=== PATIENT | male | born 1960 | race African-American/Black ===

== ENCOUNTER → 2017-06-08 | Outpatient (CLI) | payer OTHER ==
[~2017-06-08] MED LIST: AMLO10TA4 PO; CARV25TA2 PO; DILT90CA PO; FURO-69 PO; GLYB1TAB15 PO; LISI-334 PO; METF-620 PO; POTA99TA10 PO; SIMV40TA3 PO
[2017-06-08 10:55] LABS: ALBUMIN 3.1 g/dL (3.4-5.0); ALBUMIN/GLOBULIN RATIO 0.6 (1.0-1.7); CALCIUM 9.2 mg/dL (8.5-10.1); CREATININE 2.5 mg/dL (0.7-1.3); GFR 32.4; POTASSIUM 3.5 mmol/L (3.5-5.1); TOTAL BILIRUBIN 0.4 mg/dL (0.2-1.0); TOTAL PROTEIN 8.6 g/dL (6.4-8.2)
[2017-06-08 11:05] LABS: CHOLESTEROL/HDL RATIO 3.6
[2017-06-09 13:20] LABS: PTH INTACT 106 pg/mL (15-65)
== END | disposition home or self-care (01) ==
LOC: LAB 09:41
PROVIDERS: ATTEND Nurse Practitioner Family
DX: E11.21 Type 2 diabetes mellitus with diabetic nephropathy (principal)
CPT/HCPCS: 36415; 80053; 80061; 83036; 83970

== ENCOUNTER 2017-08-20 10:22 | Inpatient (IN) | payer SELFPAY ==
[~2017-08-20] VITALS: Ht 170.2 cm; Wt 104.8 kg
[2017-08-20] MEDS ORDERED: IPRATRPIUM/ALBUTEROL 0.5/2.5MG 3 ML NEBU. NEB ONE (10:45)
[2017-08-20 10:53] LABS: BASO % 1 % (0-3); EOS % 2 % (0-3); HEMATOCRIT 37.3 % (39.0-53.0); HEMOGLOBIN 11.5 g/dL (13.0-17.5); LYMPH # 0.5 x10^3/uL (1.0-4.8); LYMPH % 6 % (24-48); MEAN CORPUSCULAR HEMOGLOBIN 25 pg (25-35); MEAN CORPUSCULAR HGB CONC 31 g/dL (31-37); MEAN CORPUSCULAR VOLUME 81 fL (79-100); MONO % 6 % (0-9); NEUT % 86 % (31-73); PLATELET COUNT 231 x10^3/uL (140-400); RED BLOOD COUNT 4.58 x10^6/uL (4.30-5.70); RED CELL DISTRIBUTION WIDTH 19.4 % (11.5-14.5); WHITE BLOOD COUNT 9.1 x10^3/uL (4.0-11.0)
--- NOTE | 2017-08-20 10:54 | EKG ---
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
[2017-08-20 11:01] LABS: CALCIUM 8.2 mg/dL (8.5-10.1); CREATININE 2.8 mg/dL (0.7-1.3); GFR 28.4; POTASSIUM 4.6 mmol/L (3.5-5.1)
[2017-08-20 11:07] LABS: ALBUMIN 2.8 g/dL (3.4-5.0); DIRECT BILIRUBIN 0.2 mg/dL (0.0-0.2); TOTAL BILIRUBIN 0.6 mg/dL (0.2-1.0); TOTAL PROTEIN 7.4 g/dL (6.4-8.2)
--- NOTE | 2017-08-20 11:09 | RAD ---
AP portable chest radiograph August 20, 2017 Clinical History: Retained fluid and shortness of breath since this week. An AP portable erect digital radiograph of the chest was obtained. Comparison study is dated 11/18/2016. The cardiac silhouette is mildly enlarged. The thoracic aorta is mildly tortuous. Prominence of the pulmonary vasculature is seen suggesting mild CHF. No area of consolidation is noted. No pneumothorax or pleural effusion is seen. Degenerative changes are seen involving the thoracic spine and both shoulders. Impression: Prominence of the pulmonary vasculature is seen suggesting mild CHF.
[2017-08-20 13:04] LABS: % BASOS 1 % (0-3); % EOS 6 % (0-5); NUCLEATED RBC 1
[2017-08-20 13:05] LABS: ANISOCYTOSIS SLIGHT; PLT ESTIMATE ADEQUATE (ADEQUATE)
[2017-08-20 13:06] LABS: POLYCHROMASIA SLIGHT
[2017-08-20] MEDS ORDERED: FUROSEMIDE 40 MG TABLET. PO ONE (14:30)
[2017-08-20] MEDS ORDERED: MORPHINE SULFATE 2 MG/ML DISP.SYRIN. IV PRN (14:45)
[2017-08-20] MEDS ORDERED: ONDANSETRON PF 4 MG/2 ML VIAL. IV PRN (14:45)
--- NOTE | 2017-08-20 16:17 | PHYS DOC ---
Past Medical History Past Medical History: CHF, Diabetes-Type II, Hypertension Past Surgical History: No Surgical History Alcohol Use: Occasionally Drug Use: None Adult General Chief Complaint Chief Complaint: SHORTNESS OF BREATH HPI HPI 56-year-old male presenting to the emergency department with difficulty breathing gaining weight history of CHF. He was hypoxic on arrival to the emergency department. His shortness of breath is exertional. It is improved with rest. Improved with sitting up and worse with laying down. He denies any fevers or chills or cough. Location heart and lungs. Duration intermittent. Review of systems is negative for chest pain abdominal pain nausea vomiting diaphoresis. All other review of systems is negative unless otherwise noted in history of present illness. ED course: 56-year-old male with weight gain worsening shortness of breath which is exertional. Patient is placed on facemask initially which brought her oxygen up and then titrated down to nasal cannula. Chest x-ray and workup consistent with CHF exacerbation. Patient admitted for IV diuresis. Patient received 1 dose of furosemide in the emergency department.I have assessed this patient clinically and believe that their condition requires an admission to the hospital. Patient also has ckd. After consulting the admitting physician about this case, they have asked that I admit this patient to their service as an inpatient based on the clinical presentation and my impression. Review of Systems Review of Systems SEE ABOVE. Current Medications Current Medications Current Medications Medications (Trade) Dose Ordered Sig/Noam Start Time Stop Time Status Last Admin Dose Admin Albuterol/ Ipratropium (Duoneb) 3 ml 1X ONCE 08/20/17 10:45 08/20/17 10:46 DC 08/20/17 11:00 3 ML Furosemide (Lasix) 40 mg 1X ONCE 08/20/17 14:30 08/20/17 14:33 DC 08/20/17 14:57 40 MG Morphine Sulfate 2 mg PRN Q2HR PRN 08/20/17 14:45 08/21/17 14:44 Ondansetron HCl (Zofran) 4 mg PRN Q8HRS PRN 08/20/17 14:45 08/21/17 14:44 Allergies Allergies Allergies Coded Allergies Type Severity Reaction Last Updated Verified No Known Drug Allergies 09/19/13 No Physical Exam Physical Exam SEE ABOVE Constitutional: Well developed, well nourished, no acute distress, non-toxic appearance. HENT: Normocephalic, atraumatic, bilateral external ears normal, oropharynx moist, no oral exudates, nose normal. [] Eyes: PERRLA, EOMI, conjunctiva normal, no discharge. [] Neck: Normal range of motion, no tenderness, supple, no stridor. Cardiovascular:Heart rate regular rhythm, no murmur [] Lungs & Thorax: Crackles in the bases of the lungs. Abdomen: Bowel sounds normal, soft, no tenderness, no masses, no pulsatile masses. Skin: Warm, dry, no erythema, no rash. [] Back: No tenderness, no CVA tenderness. [] Extremities: No tenderness, no cyanosis, no clubbing, ROM intact, 3+ edema. Neurologic: Alert and oriented X 3, normal motor function, normal sensory function, no focal deficits noted. [] Psychologic: Affect normal, judgement normal, mood normal. [] Current Patient Data Vital Signs Vital Signs Date Time Temp Pulse Resp B/P (MAP) Pulse Ox O2 Delivery O2 Flow Rate FiO2 08/20/17 14:50 64 169/86 (113) 94 Nasal Cannula 08/20/17 11:03 4.0 08/20/17 10:34 98.6 22 98.6 Lab Values Laboratory Tests Test 08/20/17 10:40 White Blood Count 9.1 x10^3/uL (4.0-11.0) Red Blood Count 4.58 x10^6/uL (4.30-5.70) Hemoglobin 11.5 g/dL (13.0-17.5) L Hematocrit 37.3 % (39.0-53.0) L Mean Corpuscular Volume 81 fL (79-100) Mean Corpuscular Hemoglobin 25 pg (25-35) Mean Corpuscular Hemoglobin Concent 31 g/dL (31-37) Red Cell Distribution Width 19.4 % (11.5-14.5) H Platelet Count 231 x10^3/uL (140-400) Neutrophils (%) (Auto) 86 % (31-73) H Lymphocytes (%) (Auto) 6 % (24-48) L Monocytes (%) (Auto) 6 % (0-9) Eosinophils (%) (Auto) 2 % (0-3) Basophils (%) (Auto) 1 % (0-3) Neutrophils # (Auto) 7.8 x10^3uL (1.8-7.7) H Lymphocytes # (Auto) 0.5 x10^3/uL (1.0-4.8) L Monocytes # (Auto) 0.5 x10^3/uL (0.0-1.1) Eosinophils # (Auto) 0.2 x10^3/uL (0.0-0.7) Basophils # (Auto) 0.0 x10^3/uL (0.0-0.2) Segmented Neutrophils % 78 % (35-66) H Lymphocytes % 11 % (24-48) L Monocytes % 4 % (0-10) Eosinophils % 6 % (0-5) H Basophils % 1 % (0-3) Nucleated Red Blood Cells 1 Platelet Estimate Adequate (ADEQUATE) Large Platelets Occ Polychromasia Slight Anisocytosis Slight Sodium Level 147 mmol/L (136-145) H Potassium Level 4.6 mmol/L (3.5-5.1) Chloride Level 107 mmol/L (98-107) Carbon Dioxide Level 33 mmol/L (21-32) H Anion Gap 7 (6-14) Blood Urea Nitrogen 32 mg/dL (8-26) H Creatinine 2.8 mg/dL (0.7-1.3) H Estimated GFR (Cockcroft-Gault) 28.4 Glucose Level 172 mg/dL (70-99) H Calcium Level 8.2 mg/dL (8.5-10.1) L Total Bilirubin 0.6 mg/dL (0.2-1.0) Direct Bilirubin 0.2 mg/dL (0.0-0.2) Aspartate Amino Transferase (AST) 23 U/L (15-37) Alanine Aminotransferase (ALT) 28 U/L (16-63) Alkaline Phosphatase 61 U/L (46-116) Troponin I Quantitative < 0.017 ng/mL (0.000-0.055) GU-Sbr-Y-Type Natriuretic Peptide 2749 pg/mL (0-124) H Total Protein 7.4 g/dL (6.4-8.2) Albumin 2.8 g/dL (3.4-5.0) L Lipase 93 U/L (73-393) Laboratory Tests 08/20/17 10:40 Laboratory Tests 08/20/17 10:40 EKG EKG [] Radiology/Procedures Radiology/Procedures [] Course & Med Decision Making Course & Med Decision Making Pertinent Labs and Imaging studies reviewed. (See chart for details) [] Dragon Disclaimer Dragon Disclaimer This electronic medical record was generated, in whole or in part, using a voice recognition dictation system. Departure Departure Impression: Primary Impression: CHF exacerbation Additional Impressions: Hypoxia CKD (chronic kidney disease) Disposition: 09 ADMITTED INPATIENT Admitting Physician: Other (fulbright) Condition: STABLE Referrals: NO PCP (PCP) Problem Qualifiers ORION ESPINO MD Aug 20, 2017 16:17
--- NOTE | 2017-08-20 18:48 | PDOC1 ---
History and Physical Date of Admission Date of Admission DATE: 08/20/17 TIME: 18:47 Identification/Chief Complaint Chief Complaint Chief Complaint Chief Complaint: SHORTNESS OF BREATH HPI HPI 56-y/o male presenting to the emergency department with difficulty breathing gaining weight history of CHF. hypoxic on arrival . His shortness of breath is Improved with sitting up and worse with laying down. denies any fevers or chills or cough. 14 pt Review of systems is negative for chest pain abdominal pain nausea vomiting diaphoresis. All other review of systems is negative except as in HPI placed on face mask initially which brought her oxygen up and then titrated down to nasal cannula. Chest x-ray consistent with CHF exacerbation. 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[facility]) Current Problem List Problem List Problems Medical Problems: (1) CHF exacerbation Status: Acute (2) CKD (chronic kidney disease) Status: Acute (3) Hypoxia Status: Acute Problems: Current Medications Current Medications Current Medications Albuterol/ Ipratropium (Duoneb) 3 ml 1X ONCE NEB Last administered on t 11:00; Start 08/20/17 at 10:45; Stop 08/20/17 at 10:46; Status DC Furosemide (Lasix) 40 mg 1X ONCE PO Last administered on 08/20/17t 14:57; Start 08/20/17 at 14:30; Stop 08/20/17 at 14:33; Status DC Ondansetron HCl (Zofran) 4 mg PRN Q8HRS PRN IV NAUSEA/VOMITING; Start at 14:45; Stop 08/21/17 at 14:44 Morphine Sulfate 2 mg PRN Q2HR PRN IV PAIN; Start 08/20/17 at 14:45; Stop at 14:44 Active Scripts Active Reported Simvastatin 40 Mg Tablet 40 Mg PO DAILY Lisinopril 20 Mg Tablet 20 Mg PO DAILY Norvasc (Amlodipine Besylate) 10 Mg Tablet 10 Mg PO DAILY Metformin Hcl 1,000 Mg Tablet 1,000 Mg PO BID Lasix (Furosemide) 20 Mg Tablet 20 Mg PO DAILY Glyburide-Metformin 5-500 Mg (Glyburide/Metformin Hcl) 1 Each Tablet 1 Each PO BID Diltiazem Er (Diltiazem Hcl) 90 Mg Cap.er.12h 60 Mg PO BID Carvedilol 25 Mg Tablet 25 Mg PO BID Potassium 99 Mg Tablet 20 Meq PO BID Allergies Allergies: Coded Allergies: No Known Drug Allergies (Unverified , 09/19/13) Physical Exam Physical Exam Constitutional: Well developed, well nourished, MILD acute distress, non-toxic appearance. HENT: Normocephalic, atraumatic, oropharynx moist, no oral exudates, Eyes: PERRLA, EOMI, conjunctiva normal, no discharge. [] Neck: Normal range of motion, no tenderness, supple, no stridor. Cardiovascular:Heart rate regular rhythm, no murmur POS S3 Lungs & Thorax: Crackles in the bases of the lungs. Abdomen: Bowel sounds normal, soft, no tenderness, no masses, no pulsatile masses. Skin: Warm, dry, no erythema, no rash. [] Back: No tenderness, no CVA tenderness. [] Extremities: No tenderness, no cyanosis, no clubbing, ROM intact, 3+ edema. Neurologic: Alert and oriented X 3, normal motor function, normal sensory function, no focal deficits noted. [] Psychologic: Affect normal, judgement normal, mood normal. [] General: Alert, Oriented X3 Lungs: Other (BASILAR CRACKLES) Breasts: Not examined Abdomen: Soft, Other (OBESE) Vitals Vitals Vital Signs Date Time Temp Pulse Resp B/P (MAP) Pulse Ox O2 Delivery O2 Flow Rate FiO2 08/20/17 18:10 66 173/87 (115) 94 Nasal Cannula 5.0 08/20/17 10:34 98.6 22 98.6 Labs Labs Laboratory Tests Test 08/20/17 10:40 White Blood Count 9.1 x10^3/uL (4.0-11.0) Red Blood Count 4.58 x10^6/uL (4.30-5.70) Hemoglobin 11.5 g/dL (13.0-17.5) Hematocrit 37.3 % (39.0-53.0) Mean Corpuscular Volume 81 fL (79-100) Mean Corpuscular Hemoglobin 25 pg (25-35) Mean Corpuscular Hemoglobin Concent 31 g/dL (31-37) Red Cell Distribution Width 19.4 % (11.5-14.5) Platelet Count 231 x10^3/uL (140-400) Neutrophils (%) (Auto) 86 % (31-73) Lymphocytes (%) (Auto) 6 % (24-48) Monocytes (%) (Auto) 6 % (0-9) Eosinophils (%) (Auto) 2 % (0-3) Basophils (%) (Auto) 1 % (0-3) Neutrophils # (Auto) 7.8 x10^3uL (1.8-7.7) Lymphocytes # (Auto) 0.5 x10^3/uL (1.0-4.8) Monocytes # (Auto) 0.5 x10^3/uL (0.0-1.1) Eosinophils # (Auto) 0.2 x10^3/uL (0.0-0.7) Basophils # (Auto) 0.0 x10^3/uL (0.0-0.2) Segmented Neutrophils % 78 % (35-66) Lymphocytes % 11 % (24-48) Monocytes % 4 % (0-10) Eosinophils % 6 % (0-5) Basophils % 1 % (0-3) Nucleated Red Blood Cells 1 Platelet Estimate Adequate (ADEQUATE) Large Platelets Occ Polychromasia Slight Anisocytosis Slight Sodium Level 147 mmol/L (136-145) Potassium Level 4.6 mmol/L (3.5-5.1) Chloride Level 107 mmol/L (98-107) Carbon Dioxide Level 33 mmol/L (21-32) Anion Gap 7 (6-14) Blood Urea Nitrogen 32 mg/dL (8-26) Creatinine 2.8 mg/dL (0.7-1.3) Estimated GFR (Cockcroft-Gault) 28.4 Glucose Level 172 mg/dL (70-99) Calcium Level 8.2 mg/dL (8.5-10.1) Total Bilirubin 0.6 mg/dL (0.2-1.0) Direct Bilirubin 0.2 mg/dL (0.0-0.2) Aspartate Amino Transf (AST/SGOT) 23 U/L (15-37) Alanine Aminotransferase (ALT/SGPT) 28 U/L (16-63) Alkaline Phosphatase 61 U/L (46-116) Troponin I Quantitative < 0.017 ng/mL (0.000-0.055) YS-Utu-U-Type Natriuretic Peptide 2749 pg/mL (0-124) Total Protein 7.4 g/dL (6.4-8.2) Albumin 2.8 g/dL (3.4-5.0) Lipase 93 U/L (73-393) Laboratory Tests Test 08/20/17 10:40 White Blood Count 9.1 x10^3/uL (4.0-11.0) Red Blood Count 4.58 x10^6/uL (4.30-5.70) Hemoglobin 11.5 g/dL (13.0-17.5) Hematocrit 37.3 % (39.0-53.0) Mean Corpuscular Volume 81 fL (79-100) Mean Corpuscular Hemoglobin 25 pg (25-35) Mean Corpuscular Hemoglobin Concent 31 g/dL (31-37) Red Cell Distribution Width 19.4 % (11.5-14.5) Platelet Count 231 x10^3/uL (140-400) Neutrophils (%) (Auto) 86 % (31-73) Lymphocytes (%) (Auto) 6 % (24-48) Monocytes (%) (Auto) 6 % (0-9) Eosinophils (%) (Auto) 2 % (0-3) Basophils (%) (Auto) 1 % (0-3) Neutrophils # (Auto) 7.8 x10^3uL (1.8-7.7) Lymphocytes # (Auto) 0.5 x10^3/uL (1.0-4.8) Monocytes # (Auto) 0.5 x10^3/uL (0.0-1.1) Eosinophils # (Auto) 0.2 x10^3/uL (0.0-0.7) Basophils # (Auto) 0.0 x10^3/uL (0.0-0.2) Segmented Neutrophils % 78 % (35-66) Lymphocytes % 11 % (24-48) Monocytes % 4 % (0-10) Eosinophils % 6 % (0-5) Basophils % 1 % (0-3) Nucleated Red Blood Cells 1 Platelet Estimate Adequate (ADEQUATE) Large Platelets Occ Polychromasia Slight Anisocytosis Slight Sodium Level 147 mmol/L (136-145) Potassium Level 4.6 mmol/L (3.5-5.1) Chloride Level 107 mmol/L (98-107) Carbon Dioxide Level 33 mmol/L (21-32) Anion Gap 7 (6-14) Blood Urea Nitrogen 32 mg/dL (8-26) Creatinine 2.8 mg/dL (0.7-1.3) Estimated GFR (Cockcroft-Gault) 28.4 Glucose Level 172 mg/dL (70-99) Calcium Level 8.2 mg/dL (8.5-10.1) Total Bilirubin 0.6 mg/dL (0.2-1.0) Direct Bilirubin 0.2 mg/dL (0.0-0.2) Aspartate Amino Transf (AST/SGOT) 23 U/L (15-37) Alanine Aminotransferase (ALT/SGPT) 28 U/L (16-63) Alkaline Phosphatase 61 U/L (46-116) Troponin I Quantitative < 0.017 ng/mL (0.000-0.055) VY-Cel-O-Type Natriuretic Peptide 2749 pg/mL (0-124) Total Protein 7.4 g/dL (6.4-8.2) Albumin 2.8 g/dL (3.4-5.0) Lipase 93 U/L (73-393) VTE Prophylaxis Ordered VTE Prophylaxis Devices: Yes VTE Pharmacological Prophylaxi: Yes Assessment/Plan Assessment/Plan IMPRESSION 1. ACUTE ON CHRONIC CHF with exac 2. morbid obesity 3. diabetes 4. acute hypoxic respiratory failure 5. chronic kidney disease plan 1. iv lasix 2. serial troponin i 3. echo 4. v/q tonight 5. tele 6. cardiology consult 7. nephrology consult KENDAL BURROUGHS MD Aug 20, 2017 18:48
[2017-08-20 19:07] VITALS: BP 153/77
[2017-08-20] MEDS ORDERED: METFORMIN HCL PO SCH (21:00)
[2017-08-20] MEDS ORDERED: GLYBURIDE PO SCH (21:00)
[2017-08-20] MEDS: SIMVASTATIN 40 MG TABLET. PO SCH (21:07)
[2017-08-20] MEDS: POTASSIUM CHLORIDE 20 MEQ TABLET.ER. PO SCH (21:07)
[2017-08-20] MEDS: ENOXAPARIN 40 MG/0.4 ML SYRINGE. SQ SCH (21:08)
--- NOTE | 2017-08-20 22:42 | RAD ---
NUCLEAR MEDICINE VENTILATION PERFUSION SCAN History: Shortness of air Comparison: AP chest, earlier same day. Technique: Patient ventilated with 10 mCi of xenon-133 gas. Anterior and posterior images of the lungs acquired during initial breath-hold, equilibrium, and washout phases. Perfusion portion performed after intravenous administration of 5 mCi Technetium 99m MAA. Multiple projection planar images of the lungs were obtained. Findings: Ventilation images on initial breath-hold are relatively homogeneous. The cardiac silhouette is prominent decreasing much of the inferior left lung is seen. No retention of tracer is seen on the washout phase images.. Perfusion images demonstrate no mismatched segmental perfusion defects. IMPRESSION: Low probability for pulmonary embolus. Electronically signed by: Lonny Storm MD (08/20/2017 10:38 PM) [facility]
[2017-08-20 23:49] VITALS: BP 151/76
[2017-08-21] VITALS (12 sets, daily range): BP systolic 110–150; BP diastolic 59–83
[2017-08-21 05:40] LABS: BASO % 0 % (0-3); EOS % 2 % (0-3); HEMATOCRIT 35.8 % (39.0-53.0); LYMPH # 0.6 x10^3/uL (1.0-4.8); LYMPH % 8 % (24-48); MEAN CORPUSCULAR HEMOGLOBIN 25 pg (25-35); MEAN CORPUSCULAR HGB CONC 31 g/dL (31-37); MEAN CORPUSCULAR VOLUME 83 fL (79-100); MONO % 7 % (0-9); NEUT % 83 % (31-73); PLATELET COUNT 236 x10^3/uL (140-400); RED BLOOD COUNT 4.34 x10^6/uL (4.30-5.70); RED CELL DISTRIBUTION WIDTH 19.1 % (11.5-14.5); WHITE BLOOD COUNT 8.7 x10^3/uL (4.0-11.0)
[2017-08-21 06:23] LABS: CALCIUM 7.8 mg/dL (8.5-10.1); CREATININE 2.8 mg/dL (0.7-1.3); GFR 28.4; POTASSIUM 4.4 mmol/L (3.5-5.1)
[2017-08-21] MEDS ORDERED: metFORMIN 500 MG TABLET PO SCH (08:00)
[2017-08-21] MEDS ORDERED: glyBURIDE 5 MG TABLET PO SCH (08:00)
[2017-08-21] MEDS ORDERED: FLU VACC QS2017-18 (36MOS+)/PF 0.5 ML SYRINGE. VAX IM ONE (09:00)
[2017-08-21] MEDS ORDERED: PNEUMOC CONJ VACC 23-VALENT 0.5 ML VIAL. VAX IM ONE (09:00)
[2017-08-21] MEDS: amLODIPine BESYLATE 10 MG TABLET PO SCH (09:49)
[2017-08-21] MEDS: LISINOPRIL 20 MG TABLET PO SCH (09:49)
[2017-08-21] MEDS: POTASSIUM CHLORIDE 20 MEQ TABLET.ER. PO SCH ×2 (09:50→17:00)
--- NOTE | 2017-08-21 14:19 | PDOC ---
PROGRESS NOTES Chief Complaint Chief Complaint acute right sided weakness, code stroke this PM, neuro consult 1. ACUTE ON CHRONIC CHF with exac 2 obesity, BMI 37 3. diabetes 2, 4. acute respiratory failure 5. chronic kidney disease 3, w. hypernatremia History of Present Illness History of Present Illness 1. iv lasix 2. troponin neg 3. echo 4. v/q tonight 5. tele 6. cardiology consult 7. nephrology consult Vitals Vitals Vital Signs Date Time Temp Pulse Resp B/P (MAP) Pulse Ox O2 Delivery O2 Flow Rate FiO2 08/21/17 10:30 97.9 91 30 132/81 (98) 88 Nasal Cannula 5.0 97.9 Physical Exam General: Alert, Oriented X3, No acute distress Heart: No murmurs Lungs: Clear Abdomen: Soft, Other (OBESE) Extremities: No edema Skin: No rashes Labs LABS Laboratory Tests Test 08/20/17 21:30 08/21/17 00:01 08/21/17 02:35 08/21/17 05:00 Glucose (Fingerstick) 136 mg/dL (70-99) Troponin I Quantitative 0.019 ng/mL (0.000-0.055) 0.019 ng/mL (0.000-0.055) Sodium Level 149 mmol/L (136-145) Potassium Level 4.4 mmol/L (3.5-5.1) Chloride Level 108 mmol/L (98-107) Carbon Dioxide Level 34 mmol/L (21-32) Anion Gap 7 (6-14) Blood Urea Nitrogen 30 mg/dL (8-26) Creatinine 2.8 mg/dL (0.7-1.3) Estimated GFR (Cockcroft-Gault) 28.4 Glucose Level 69 mg/dL (70-99) Calcium Level 7.8 mg/dL (8.5-10.1) White Blood Count 8.7 x10^3/uL (4.0-11.0) Red Blood Count 4.34 x10^6/uL (4.30-5.70) Hemoglobin 11.0 g/dL (13.0-17.5) Hematocrit 35.8 % (39.0-53.0) Mean Corpuscular Volume 83 fL (79-100) Mean Corpuscular Hemoglobin 25 pg (25-35) Mean Corpuscular Hemoglobin Concent 31 g/dL (31-37) Red Cell Distribution Width 19.1 % (11.5-14.5) Platelet Count 236 x10^3/uL (140-400) Neutrophils (%) (Auto) 83 % (31-73) Lymphocytes (%) (Auto) 8 % (24-48) Monocytes (%) (Auto) 7 % (0-9) Eosinophils (%) (Auto) 2 % (0-3) Basophils (%) (Auto) 0 % (0-3) Neutrophils # (Auto) 7.2 x10^3uL (1.8-7.7) Lymphocytes # (Auto) 0.6 x10^3/uL (1.0-4.8) Monocytes # (Auto) 0.6 x10^3/uL (0.0-1.1) Eosinophils # (Auto) 0.1 x10^3/uL (0.0-0.7) Basophils # (Auto) 0.0 x10^3/uL (0.0-0.2) Magnesium Level 2.3 mg/dL (1.8-2.4) Test 08/21/17 07:48 08/21/17 11:51 Glucose (Fingerstick) 86 mg/dL (70-99) 136 mg/dL (70-99) Review of Systems Review of Systems weakness, right side, Assessment and Plan Assessmemt and Plan Problems Medical Problems: (1) CHF exacerbation Status: Acute (2) CKD (chronic kidney disease) Status: Acute (3) Hypoxia Status: Acute Problems: Comment Review of Relevant I have reviewed the following items ninoska (where applicable) has been applied. Labs Laboratory Tests Test 08/20/17 10:40 08/20/17 21:30 08/21/17 00:01 08/21/17 02:35 White Blood Count 9.1 x10^3/uL (4.0-11.0) Red Blood Count 4.58 x10^6/uL (4.30-5.70) Hemoglobin 11.5 g/dL (13.0-17.5) Hematocrit 37.3 % (39.0-53.0) Mean Corpuscular Volume 81 fL (79-100) Mean Corpuscular Hemoglobin 25 pg (25-35) Mean Corpuscular Hemoglobin Concent 31 g/dL (31-37) Red Cell Distribution Width 19.4 % (11.5-14.5) Platelet Count 231 x10^3/uL (140-400) Neutrophils (%) (Auto) 86 % (31-73) Lymphocytes (%) (Auto) 6 % (24-48) Monocytes (%) (Auto) 6 % (0-9) Eosinophils (%) (Auto) 2 % (0-3) Basophils (%) (Auto) 1 % (0-3) Neutrophils # (Auto) 7.8 x10^3uL (1.8-7.7) Lymphocytes # (Auto) 0.5 x10^3/uL (1.0-4.8) Monocytes # (Auto) 0.5 x10^3/uL (0.0-1.1) Eosinophils # (Auto) 0.2 x10^3/uL (0.0-0.7) Basophils # (Auto) 0.0 x10^3/uL (0.0-0.2) Segmented Neutrophils % 78 % (35-66) Lymphocytes % 11 % (24-48) Monocytes % 4 % (0-10) Eosinophils % 6 % (0-5) Basophils % 1 % (0-3) Nucleated Red Blood Cells 1 Platelet Estimate Adequate (ADEQUATE) Large Platelets Occ Polychromasia Slight Anisocytosis Slight Sodium Level 147 mmol/L (136-145) 149 mmol/L (136-145) Potassium Level 4.6 mmol/L (3.5-5.1) 4.4 mmol/L (3.5-5.1) Chloride Level 107 mmol/L (98-107) 108 mmol/L (98-107) Carbon Dioxide Level 33 mmol/L (21-32) 34 mmol/L (21-32) Anion Gap 7 (6-14) 7 (6-14) Blood Urea Nitrogen 32 mg/dL (8-26) 30 mg/dL (8-26) Creatinine 2.8 mg/dL (0.7-1.3) 2.8 mg/dL (0.7-1.3) Estimated GFR (Cockcroft-Gault) 28.4 28.4 Glucose Level 172 mg/dL (70-99) 69 mg/dL (70-99) Calcium Level 8.2 mg/dL (8.5-10.1) 7.8 mg/dL (8.5-10.1) Total Bilirubin 0.6 mg/dL (0.2-1.0) Direct Bilirubin 0.2 mg/dL (0.0-0.2) Aspartate Amino Transf (AST/SGOT) 23 U/L (15-37) Alanine Aminotransferase (ALT/SGPT) 28 U/L (16-63) Alkaline Phosphatase 61 U/L (46-116) Troponin I Quantitative < 0.017 ng/mL (0.000-0.055) 0.019 ng/mL (0.000-0.055) WF-Eqh-P-Type Natriuretic Peptide 2749 pg/mL (0-124) Total Protein 7.4 g/dL (6.4-8.2) Albumin 2.8 g/dL (3.4-5.0) Lipase 93 U/L (73-393) Glucose (Fingerstick) 136 mg/dL (70-99) Test 08/21/17 05:00 08/21/17 07:48 08/21/17 11:51 White Blood Count 8.7 x10^3/uL (4.0-11.0) Red Blood Count 4.34 x10^6/uL (4.30-5.70) Hemoglobin 11.0 g/dL (13.0-17.5) Hematocrit 35.8 % (39.0-53.0) Mean Corpuscular Volume 83 fL (79-100) Mean Corpuscular Hemoglobin 25 pg (25-35) Mean Corpuscular Hemoglobin Concent 31 g/dL (31-37) Red Cell Distribution Width 19.1 % (11.5-14.5) Platelet Count 236 x10^3/uL (140-400) Neutrophils (%) (Auto) 83 % (31-73) Lymphocytes (%) (Auto) 8 % (24-48) Monocytes (%) (Auto) 7 % (0-9) Eosinophils (%) (Auto) 2 % (0-3) Basophils (%) (Auto) 0 % (0-3) Neutrophils # (Auto) 7.2 x10^3uL (1.8-7.7) Lymphocytes # (Auto) 0.6 x10^3/uL (1.0-4.8) Monocytes # (Auto) 0.6 x10^3/uL (0.0-1.1) Eosinophils # (Auto) 0.1 x10^3/uL (0.0-0.7) Basophils # (Auto) 0.0 x10^3/uL (0.0-0.2) Magnesium Level 2.3 mg/dL (1.8-2.4) Troponin I Quantitative 0.019 ng/mL (0.000-0.055) Glucose (Fingerstick) 86 mg/dL (70-99) 136 mg/dL (70-99) Laboratory Tests Test 08/20/17 21:30 08/21/17 00:01 08/21/17 02:35 08/21/17 05:00 Glucose (Fingerstick) 136 mg/dL (70-99) Troponin I Quantitative 0.019 ng/mL (0.000-0.055) 0.019 ng/mL (0.000-0.055) Sodium Level 149 mmol/L (136-145) Potassium Level 4.4 mmol/L (3.5-5.1) Chloride Level 108 mmol/L (98-107) Carbon Dioxide Level 34 mmol/L (21-32) Anion Gap 7 (6-14) Blood Urea Nitrogen 30 mg/dL (8-26) Creatinine 2.8 mg/dL (0.7-1.3) Estimated GFR (Cockcroft-Gault) 28.4 Glucose Level 69 mg/dL (70-99) Calcium Level 7.8 mg/dL (8.5-10.1) White Blood Count 8.7 x10^3/uL (4.0-11.0) Red Blood Count 4.34 x10^6/uL (4.30-5.70) Hemoglobin 11.0 g/dL (13.0-17.5) Hematocrit 35.8 % (39.0-53.0) Mean Corpuscular Volume 83 fL (79-100) Mean Corpuscular Hemoglobin 25 pg (25-35) Mean Corpuscular Hemoglobin Concent 31 g/dL (31-37) Red Cell Distribution Width 19.1 % (11.5-14.5) Platelet Count 236 x10^3/uL (140-400) Neutrophils (%) (Auto) 83 % (31-73) Lymphocytes (%) (Auto) 8 % (24-48) Monocytes (%) (Auto) 7 % (0-9) Eosinophils (%) (Auto) 2 % (0-3) Basophils (%) (Auto) 0 % (0-3) Neutrophils # (Auto) 7.2 x10^3uL (1.8-7.7) Lymphocytes # (Auto) 0.6 x10^3/uL (1.0-4.8) Monocytes # (Auto) 0.6 x10^3/uL (0.0-1.1) Eosinophils # (Auto) 0.1 x10^3/uL (0.0-0.7) Basophils # (Auto) 0.0 x10^3/uL (0.0-0.2) Magnesium Level 2.3 mg/dL (1.8-2.4) Test 08/21/17 07:48 08/21/17 11:51 Glucose (Fingerstick) 86 mg/dL (70-99) 136 mg/dL (70-99) Medications Current Medications Albuterol/ Ipratropium (Duoneb) 3 ml 1X ONCE NEB Last administered on 11:00; Start 08/20/17 at 10:45; Stop 08/20/17 at 10:46; Status DC Furosemide (Lasix) 40 mg 1X ONCE PO Last administered on 08/20/17 14:57; Start 08/20/17 at 14:30; Stop 08/20/17 at 14:33; Status DC Ondansetron HCl (Zofran) 4 mg PRN Q8HRS PRN IV NAUSEA/VOMITING; Start at 14:45; Stop 08/21/17 at 14:44 Morphine Sulfate 2 mg PRN Q2HR PRN IV PAIN; Start 08/20/17 at 14:45; Stop at 14:44 Enoxaparin Sodium (Lovenox 40mg Syringe) 40 mg Q24H SQ Last administered on 21:08; Start 08/20/17 at 19:15 Amlodipine Besylate (Norvasc) 10 mg DAILY PO Last administered on 08/21/17 09 :49; Start 08/21/17 at 09:00 Lisinopril (Prinivil) 20 mg DAILY PO Last administered on 08/21/17 09:49; Start 08/21/17 at 09:00 Simvastatin (Zocor) 40 mg QHS PO Last administered on 08/20/17 21:07; Start 08/20/17 at 21:00 Carvedilol (Coreg) 25 mg BIDWMEALS PO ; Start 08/21/17 at 20:00 Diltiazem HCl (Cardizem 24hr Cd) 120 mg DAILY PO Last administered on 09:48; Start 08/21/17 at 09:00 Non-Formulary Medication 1 each BID PO ; Start 08/20/17 at 21:00; Status UNV Potassium Chloride (Klor-Con) 20 meq BIDWMEALS PO Last administered on 09:50; Start 08/20/17 at 20:00 Glyburide (Diabeta) 5 mg BIDWMEALS PO Last administered on 08/21/17 09:49; Start 08/21/17 at 08:00; Stop 08/21/17 at 12:59; Status DC Metformin HCl (Glucophage) 500 mg BIDWMEALS PO Last administered on 08/21/17 09:48; Start 08/21/17 at 08:00; Stop 08/21/17 at 12:59; Status DC Influenza Virus Vaccine Quadrival (Fluarix Quad [id number] Syringe) 0.5 ml ONCE ONCE VAX IM Last administered on 08/21/17 09:57; Start 08/21/17 at 09:00; Stop 08/21/17 at 09:01; Status DC Pneumococcal Polyvalent Vaccine (Pneumovax 23) 0.5 ml ONCE ONCE VAX IM Last administered on 08/21/17 09:58; Start 08/21/17 at 09:00; Stop 08/21/17 at 09 :01; Status DC Guaifenesin (Mucinex) 1,200 mg BID PO Last administered on 08/21/17 09:49; Start 08/21/17 at 09:30 Albuterol/ Ipratropium (Duoneb) 3 ml RTQID NEB ; Start 08/21/17 at 16:00 Active Scripts Active Reported Simvastatin 40 Mg Tablet 40 Mg PO DAILY Lisinopril 20 Mg Tablet 20 Mg PO DAILY Norvasc (Amlodipine Besylate) 10 Mg Tablet 10 Mg PO DAILY Metformin Hcl 1,000 Mg Tablet 1,000 Mg PO BID Lasix (Furosemide) 20 Mg Tablet 20 Mg PO DAILY Glyburide-Metformin 5-500 Mg (Glyburide/Metformin Hcl) 1 Each Tablet 1 Each PO BID Diltiazem Sr 12HR (Diltiazem Hcl) 90 Mg Cap.er.12h 60 Mg PO BID Carvedilol 25 Mg Tablet 25 Mg PO BID Potassium 99 Mg Tablet 20 Meq PO BID Vitals/I & O Vital Sign - Last 24 Hours 08/20/17 08/20/17 08/20/17 08/20/17 14:50 15:50 16:50 17:50 Pulse 64 66 66 68 B/P (MAP) 169/86 (113) 145/75 (98) 149/72 (97) 151/70 (97) Pulse Ox 94 94 95 95 O2 Delivery Nasal Cannula Nasal Cannula Nasal Cannula Nasal Cannula O2 Flow Rate 5.0 5.0 5.0 08/20/17 08/20/17 08/20/17 08/20/17 18:10 19:00 19:07 20:00 Temp 98.4 98.4 Pulse 66 73 Resp 18 B/P (MAP) 173/87 (115) 153/77 (102) Pulse Ox 94 93 O2 Delivery Nasal Cannula Nasal Cannula Nasal Cannula Nasal Cannula O2 Flow Rate 5.0 5.0 5.0 5.0 08/20/17 08/21/17 08/21/17 08/21/17 23:49 03:08 07:45 08:00 Temp 99.3 99.8 97.7 99.3 99.8 97.7 Pulse 82 74 88 Resp 18 18 26 B/P (MAP) 151/76 (101) 150/77 (101) 133/83 (100) Pulse Ox 91 91 93 O2 Delivery Nasal Cannula Nasal Cannula Nasal Cannula Nasal Cannula O2 Flow Rate 4.0 4.0 5.0 5.0 08/21/17 08/21/17 08/21/17 08/21/17 09:48 09:49 09:49 10:30 Temp 97.9 97.9 Pulse 88 88 88 91 Resp 30 B/P (MAP) 133/83 133/83 133/83 132/81 (98) Pulse Ox 88 O2 Delivery Nasal Cannula O2 Flow Rate 5.0 Intake and Output 12/21/17 12/21/17 12/22/17 15:00 23:00 07:00 Intake Total 30 ml 230 ml Output Total 950 ml 775 ml Balance -920 ml -545 ml ANTON GOOD MD Aug 21, 2017 14:19
[2017-08-21 14:26] LABS: HCO3 ABG 41 mmol/L (21-28); PO2 ABG 69 mmHg (75-108); SAT O2 ABG 90 % (92-99)
--- NOTE | 2017-08-21 14:50 | RAD ---
Indication: Right-sided weakness. Axial imaging through the brain was performed without contrast. Correlation is made with prior head CT from 09/19/2013. The ventricular size is stable. There is an ill-defined region of low density in the left prado radiata. This may represent an area of subacute ischemia. This was not present on prior exam. No mass effect or midline shift is seen. No sulcal effacement is identified. No acute intra-axial or extra-axial hemorrhage is detected. The cisterns are patent. Impression: Ill-defined region of low density in the left prado radiata, perhaps a subacute or chronic infarct. Further evaluation with MRI could be performed. No acute intracranial hemorrhage is detected.
--- NOTE | 2017-08-21 14:51 | CARD ---
MR#: [id number] Date of Study: 08/21/2017 Ordering Physician: KENDAL BURROUGHS, Referring Physician: KENDAL BURROUGHS, Tech: Bruce Elena [facility] APPROVED REPORT EXAM: Two-dimensional and M-mode echocardiogram with Doppler and color Doppler. Other Information Quality : Technically Limited INDICATION Congestive Heart Failure 2D DIMENSIONS Left Atrium(2D)4.2 (1.6-4.0cm)IVSd1.4 (0.7-1.1cm) Aortic Root(2D)3.3 (2.0-3.7cm)LVDd5.9 (3.9-5.9cm) LVOT Diameter2.2 (1.8-2.4cm)PWd1.4 (0.7-1.1cm) LVDs3.9 (2.5-4.0cm)FS (%) 30.0 % SV109.9 mlLVEF(%)60.0 (>50%) Aortic Valve AoV Peak Marty.203.0cm/sAoV VTI37.5cm AO Peak GR.16.5mmHgLVOT VTI 20.02cm AO Mean GR.10mmHgAVA (VTI)2.00cm2 Mitral Valve MV E Mzmdlcsa413.3cm/sMV DECEL [id number] MV A Fwrsrkdg02.3cm/sE/A Ratio1.9 TDI Lateral E' P. V11.91cm/sMedial E' P. V8.93cm/s E/Lateral E'9.7E/Medial E'12.9 Pulmonary Valve PV Peak Xaslrzsy192.6cm/s Pulmonary Vein S1 Djloyanf39.5cm/sS2 Lpluiqxy61.54cm/s D2 Mbcjgnuz83.5cm/s LEFT VENTRICLE The left ventricle is normal size. There is mild concentric left ventricular hypertrophy. The left ve ntricular systolic function is normal. The Ejection Fraction is 55-60%. There is normal LV segmental wall motion. Transmitral Doppler flow pattern is Grade II-pseudonormal filling dynamics. RIGHT VENTRICLE The right ventricle is normal size. The right ventricular systolic function is normal. ATRIA The left atrium is mildly dilated. The right atrium size is normal. The interatrial septum is intact with no evidence for an atrial septal defect or patent foramen ovale as noted on 2-D or Doppler imagi ng. AORTIC VALVE The aortic valve is calcified but opens well. Doppler and Color Flow revealed no significant aortic r egurgitation. There is no significant aortic valvular stenosis. MITRAL VALVE The mitral valve is normal in structure and function. There is no evidence of mitral valve prolapse. There is no mitral valve stenosis. Doppler and Color-flow revealed trace mitral regurgitation. TRICUSPID VALVE The tricuspid valve is normal in structure and function. Doppler and Color Flow revealed no tricuspid valve regurgitation noted. There is no tricuspid valve stenosis. PULMONIC VALVE The pulmonary valve is normal in structure and function. Doppler and Color Flow revealed trace pulmon ic valvular regurgitation. There is no pulmonic valvular stenosis. GREAT VESSELS The aortic root is normal in size. The ascending aorta is not well seen. The IVC is normal in size an d collapses >50% with inspiration. PERICARDIAL EFFUSION There is no evidence of significant pericardial effusion. Critical Notification Critical Value: No <Conclusion> The left ventricular systolic function is normal. The Ejection Fraction is 55-60%. There is normal LV segmental wall motion. Doppler and Color-flow revealed trace mitral regurgitation. There is no evidence of significant pericardial effusion. Signed by : Saeed Barbour, Electronically Approved : 08/21/2017 14:51:08
[2017-08-21 15:12] LABS: PH ABG 7.11 (7.35-7.45)
[2017-08-21 15:13] LABS: PCO2 ABG 131 mmHg (35-46)
[2017-08-21] MEDS ORDERED: AMIODARONE 900 MG in IV DEXTROSE 5% 500 ML IV PRN (15:45)
[2017-08-21] MEDS ORDERED: AMIODARONE 150 MG in IV DEXTROSE 5% 100 ML IV ONE (15:45)
--- NOTE | 2017-08-21 15:45 | PDOC2 ---
CONSULT Date of Consult Date of Consult DATE: 08/21/17 TIME: 15:41 Reason for Consult Reason for Consult: congestive heart failure Referring Physician Referring Physician: Dr. Dowling Identification/Chief Complaint Chief Complaint shortness of breath Problems: Source Source: Caregiver History of Present Illness Reason for Visit: Mr. Arguello is a 56 y/o M with a PMH of CHF who presented to the ED with a c/c of shortness of breathing and weight gain. His SOB worsens with lying down. Denies fever, chills, chest pain, nausea, vomiting, or sweating. His shortness of breath is Improved with sitting up and worse with laying down. 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[facility]) Current Problem List Problem List Problems Medical Problems: (1) CHF exacerbation Status: Acute (2) CKD (chronic kidney disease) Status: Acute (3) Hypoxia Status: Acute Current Medications Current Medications Current Medications Albuterol/ Ipratropium (Duoneb) 3 ml 1X ONCE NEB Last administered on 11:00; Start 08/20/17 at 10:45; Stop 08/20/17 at 10:46; Status DC Furosemide (Lasix) 40 mg 1X ONCE PO Last administered on 08/20/17 14:57; Start 08/20/17 at 14:30; Stop 08/20/17 at 14:33; Status DC Ondansetron HCl (Zofran) 4 mg PRN Q8HRS PRN IV NAUSEA/VOMITING; Start at 14:45; Stop 08/21/17 at 14:44; Status DC Morphine Sulfate 2 mg PRN Q2HR PRN IV PAIN; Start 08/20/17 at 14:45; Stop at 14:44; Status DC Enoxaparin Sodium (Lovenox 40mg Syringe) 40 mg Q24H SQ Last administered on 21:08; Start 08/20/17 at 19:15 Amlodipine Besylate (Norvasc) 10 mg DAILY PO Last administered on 08/21/17 09 :49; Start 08/21/17 at 09:00 Lisinopril (Prinivil) 20 mg DAILY PO Last administered on 08/21/17 09:49; Start 08/21/17 at 09:00 Simvastatin (Zocor) 40 mg QHS PO Last administered on 08/20/17 21:07; Start 08/20/17 at 21:00 Carvedilol (Coreg) 25 mg BIDWMEALS PO ; Start 08/21/17 at 20:00 Diltiazem HCl (Cardizem 24hr Cd) 120 mg DAILY PO Last administered on 09:48; Start 08/21/17 at 09:00 Non-Formulary Medication 1 each BID PO ; Start 08/20/17 at 21:00; Status UNV Potassium Chloride (Klor-Con) 20 meq BIDWMEALS PO Last administered on 09:50; Start 08/20/17 at 20:00 Glyburide (Diabeta) 5 mg BIDWMEALS PO Last administered on 08/21/17 09:49; Start 08/21/17 at 08:00; Stop 08/21/17 at 12:59; Status DC Metformin HCl (Glucophage) 500 mg BIDWMEALS PO Last administered on 08/21/17 09:48; Start 08/21/17 at 08:00; Stop 08/21/17 at 12:59; Status DC Influenza Virus Vaccine Quadrival (Fluarix Quad [id number] Syringe) 0.5 ml ONCE ONCE VAX IM Last administered on 08/21/17 09:57; Start 08/21/17 at 09:00; Stop 08/21/17 at 09:01; Status DC Pneumococcal Polyvalent Vaccine (Pneumovax 23) 0.5 ml ONCE ONCE VAX IM Last administered on 08/21/17 09:58; Start 08/21/17 at 09:00; Stop 08/21/17 at 09 :01; Status DC Guaifenesin (Mucinex) 1,200 mg BID PO Last administered on 08/21/17 09:49; Start 08/21/17 at 09:30 Albuterol/ Ipratropium (Duoneb) 3 ml RTQID NEB ; Start 08/21/17 at 16:00 Active Scripts Active Reported Simvastatin 40 Mg Tablet 40 Mg PO DAILY Lisinopril 20 Mg Tablet 20 Mg PO DAILY Norvasc (Amlodipine Besylate) 10 Mg Tablet 10 Mg PO DAILY Metformin Hcl 1,000 Mg Tablet 1,000 Mg PO BID Lasix (Furosemide) 20 Mg Tablet 20 Mg PO DAILY Glyburide-Metformin 5-500 Mg (Glyburide/Metformin Hcl) 1 Each Tablet 1 Each PO BID Diltiazem Sr 12HR (Diltiazem Hcl) 90 Mg Cap.er.12h 60 Mg PO BID Carvedilol 25 Mg Tablet 25 Mg PO BID Potassium 99 Mg Tablet 20 Meq PO BID Allergies Allergies: Coded Allergies: No Known Drug Allergies (Unverified , 09/19/13) ROS General: No: Chills, Night Sweats, Fatigue, Malaise, Appetite, Other PSYCHOLOGICAL ROS: No: Anxiety, Behavioral Disorder, Concentration difficultie , Decreased libido, Depression, Disorientation, Hallucinations, Hostility, Irritablity, Memory difficulties, Mood Swings, Obsessive thoughts, Physical abuse, Sexual abuse, Sleep disturbances, Suicidal ideation, Other Eyes: No Blurry vision, No Decreased vision, No Double vision, No Dry eyes, No Excessive tearing, No Eye Pain, No Itchy Eyes, No Loss of vision, No Photophobia , No Scotomata, No Uses contacts, No Uses glasses, No Other HEENT: No: Heacaches, Visual Changes, Hearing change, Nasal congestion, Nasal discharge, Oral lesions, Sinus pain, Sore Throat, Epistaxis, Sneezing, Snoring, Tinnitus, Vertigo, Vocal changes, Other ALLERGY AND IMMUNOLOGY: No: Hives, Insect Bite Sensitivity, Itchy/Watery Eyes, Nasal Congestion, Post Nasal Drip, Seasonal Allergies, Other Hematological and Lymphatic: No: Bleeding Problems, Blood Clots, Blood Transfusions, Brusing, Night Sweats, Pallor, Swollen Lymph Nodes, Other ENDOCRINE: No: Breast Changes, Galactorrhea, Hair Pattern Changes, Hot Flashes , Malaise/lethargy, Mood Swings, Palpitations, Polydipsia/polyuria, Skin Changes , Temperature Intolerance, Unexpected Weight Changes, Other Breast: No New/Changing Breast Lumps, No Nipple changes, No Nipple discharge, No Other Respiratory: YES: Orthopnea, Shortness of breath Cardiovascular: yes Orthopnea Gastrointestinal: No Nausea, No Vomiting, No Abdominal Pain, No Diarrhea, No Constipation, No Melena, No Hematochezia, No Other Genitourinary: No Dysuria, No Frequency, No Incontinence, No Hematuria, No Retention, No Discharge, No Urgency, No Pain, No Flank Pain, No Other, No , No , No , No , No , No , No Musculoskeletal: No Gait Disturbance, No Joint Pain, No Joint Stiffness, No Joint Swelling, No Muscle Pain, No Muscular Weakness, No Pain In:, No Swelling In:, No Other Neurological: No Behavorial Changes, No Bowel/Bladder ControlChng, No Confusion , No Dizziness, No Gait Disturbance, No Headaches, No Impaired Coord/balance, No Memory Loss, No Numbness/Tingling, No Seizures, No Speech Problems, No Tremors, No Visual Changes, No Weakness, No Other Skin: No Dry Skin, No Eczema, No Hair Changes, No Lumps, No Mole Changes, No Mottling, No Nail Changes, No Pruritus, No Rash, No Skin Lesion Changes, No Other, No Acne Physical Exam General: Other (confused) HEENT: Atraumatic Lungs: Other (crackles bilateral lung colindres; wheezing bilaterally) Heart: Other (regular with frequent ectopy, S1, S2, ) Abdomen: Other (distended, timpanic, no BS heard) Extremities: Other (bilateral lower extremity edema) Skin: No rashes, No significant lesion Neuro: Other (right sided hemiparesis) Vitals VITALS Vital Signs Date Time Temp Pulse Resp B/P (MAP) Pulse Ox O2 Delivery O2 Flow Rate FiO2 08/21/17 15:10 95 BiPAP/CPAP 08/21/17 14:15 6.0 08/21/17 10:30 97.9 91 30 132/81 (98) 97.9 Labs Labs Laboratory Tests Test 08/20/17 10:40 08/20/17 21:30 08/21/17 00:01 08/21/17 02:35 White Blood Count 9.1 x10^3/uL (4.0-11.0) Red Blood Count 4.58 x10^6/uL (4.30-5.70) Hemoglobin 11.5 g/dL (13.0-17.5) Hematocrit 37.3 % (39.0-53.0) Mean Corpuscular Volume 81 fL (79-100) Mean Corpuscular Hemoglobin 25 pg (25-35) Mean Corpuscular Hemoglobin Concent 31 g/dL (31-37) Red Cell Distribution Width 19.4 % (11.5-14.5) Platelet Count 231 x10^3/uL (140-400) Neutrophils (%) (Auto) 86 % (31-73) Lymphocytes (%) (Auto) 6 % (24-48) Monocytes (%) (Auto) 6 % (0-9) Eosinophils (%) (Auto) 2 % (0-3) Basophils (%) (Auto) 1 % (0-3) Neutrophils # (Auto) 7.8 x10^3uL (1.8-7.7) Lymphocytes # (Auto) 0.5 x10^3/uL (1.0-4.8) Monocytes # (Auto) 0.5 x10^3/uL (0.0-1.1) Eosinophils # (Auto) 0.2 x10^3/uL (0.0-0.7) Basophils # (Auto) 0.0 x10^3/uL (0.0-0.2) Segmented Neutrophils % 78 % (35-66) Lymphocytes % 11 % (24-48) Monocytes % 4 % (0-10) Eosinophils % 6 % (0-5) Basophils % 1 % (0-3) Nucleated Red Blood Cells 1 Platelet Estimate Adequate (ADEQUATE) Large Platelets Occ Polychromasia Slight Anisocytosis Slight Sodium Level 147 mmol/L (136-145) 149 mmol/L (136-145) Potassium Level 4.6 mmol/L (3.5-5.1) 4.4 mmol/L (3.5-5.1) Chloride Level 107 mmol/L (98-107) 108 mmol/L (98-107) Carbon Dioxide Level 33 mmol/L (21-32) 34 mmol/L (21-32) Anion Gap 7 (6-14) 7 (6-14) Blood Urea Nitrogen 32 mg/dL (8-26) 30 mg/dL (8-26) Creatinine 2.8 mg/dL (0.7-1.3) 2.8 mg/dL (0.7-1.3) Estimated GFR (Cockcroft-Gault) 28.4 28.4 Glucose Level 172 mg/dL (70-99) 69 mg/dL (70-99) Calcium Level 8.2 mg/dL (8.5-10.1) 7.8 mg/dL (8.5-10.1) Total Bilirubin 0.6 mg/dL (0.2-1.0) Direct Bilirubin 0.2 mg/dL (0.0-0.2) Aspartate Amino Transf (AST/SGOT) 23 U/L (15-37) Alanine Aminotransferase (ALT/SGPT) 28 U/L (16-63) Alkaline Phosphatase 61 U/L (46-116) Troponin I Quantitative < 0.017 ng/mL (0.000-0.055) 0.019 ng/mL (0.000-0.055) [id number]-Mzn-G-Type Natriuretic Peptide 2749 pg/mL (0-124) Total Protein 7.4 g/dL (6.4-8.2) Albumin 2.8 g/dL (3.4-5.0) Lipase 93 U/L (73-393) Glucose (Fingerstick) 136 mg/dL (70-99) Test 08/21/17 05:00 08/21/17 07:48 08/21/17 11:51 08/21/17 14:08 White Blood Count 8.7 x10^3/uL (4.0-11.0) Red Blood Count 4.34 x10^6/uL (4.30-5.70) Hemoglobin 11.0 g/dL (13.0-17.5) Hematocrit 35.8 % (39.0-53.0) Mean Corpuscular Volume 83 fL (79-100) Mean Corpuscular Hemoglobin 25 pg (25-35) Mean Corpuscular Hemoglobin Concent 31 g/dL (31-37) Red Cell Distribution Width 19.1 % (11.5-14.5) Platelet Count 236 x10^3/uL (140-400) Neutrophils (%) (Auto) 83 % (31-73) Lymphocytes (%) (Auto) 8 % (24-48) Monocytes (%) (Auto) 7 % (0-9) Eosinophils (%) (Auto) 2 % (0-3) Basophils (%) (Auto) 0 % (0-3) Neutrophils # (Auto) 7.2 x10^3uL (1.8-7.7) Lymphocytes # (Auto) 0.6 x10^3/uL (1.0-4.8) Monocytes # (Auto) 0.6 x10^3/uL (0.0-1.1) Eosinophils # (Auto) 0.1 x10^3/uL (0.0-0.7) Basophils # (Auto) 0.0 x10^3/uL (0.0-0.2) Magnesium Level 2.3 mg/dL (1.8-2.4) Troponin I Quantitative 0.019 ng/mL (0.000-0.055) Glucose (Fingerstick) 86 mg/dL (70-99) 136 mg/dL (70-99) O2 Saturation 90 % (92-99) Arterial Blood pH 7.11 (7.35-7.45) Arterial Blood pCO2 at Patient Temp 131 mmHg (35-46) Arterial Blood pO2 at Patient Temp 69 mmHg (75-108) Arterial Blood HCO3 41 mmol/L (21-28) Arterial Blood Base Excess 7 mmol/L (-3-3) FiO2 44% Test 08/21/17 14:21 Glucose (Fingerstick) 140 mg/dL (70-99) Laboratory Tests Test 08/20/17 21:30 08/21/17 00:01 08/21/17 02:35 08/21/17 05:00 Glucose (Fingerstick) 136 mg/dL (70-99) Troponin I Quantitative 0.019 ng/mL (0.000-0.055) 0.019 ng/mL (0.000-0.055) Sodium Level 149 mmol/L (136-145) Potassium Level 4.4 mmol/L (3.5-5.1) Chloride Level 108 mmol/L (98-107) Carbon Dioxide Level 34 mmol/L (21-32) Anion Gap 7 (6-14) Blood Urea Nitrogen 30 mg/dL (8-26) Creatinine 2.8 mg/dL (0.7-1.3) Estimated GFR (Cockcroft-Gault) 28.4 Glucose Level 69 mg/dL (70-99) Calcium Level 7.8 mg/dL (8.5-10.1) White Blood Count 8.7 x10^3/uL (4.0-11.0) Red Blood Count 4.34 x10^6/uL (4.30-5.70) Hemoglobin 11.0 g/dL (13.0-17.5) Hematocrit 35.8 % (39.0-53.0) Mean Corpuscular Volume 83 fL (79-100) Mean Corpuscular Hemoglobin 25 pg (25-35) Mean Corpuscular Hemoglobin Concent 31 g/dL (31-37) Red Cell Distribution Width 19.1 % (11.5-14.5) Platelet Count 236 x10^3/uL (140-400) Neutrophils (%) (Auto) 83 % (31-73) Lymphocytes (%) (Auto) 8 % (24-48) Monocytes (%) (Auto) 7 % (0-9) Eosinophils (%) (Auto) 2 % (0-3) Basophils (%) (Auto) 0 % (0-3) Neutrophils # (Auto) 7.2 x10^3uL (1.8-7.7) Lymphocytes # (Auto) 0.6 x10^3/uL (1.0-4.8) Monocytes # (Auto) 0.6 x10^3/uL (0.0-1.1) Eosinophils # (Auto) 0.1 x10^3/uL (0.0-0.7) Basophils # (Auto) 0.0 x10^3/uL (0.0-0.2) Magnesium Level 2.3 mg/dL (1.8-2.4) Test 08/21/17 07:48 08/21/17 11:51 08/21/17 14:08 08/21/17 14:21 Glucose (Fingerstick) 86 mg/dL (70-99) 136 mg/dL (70-99) 140 mg/dL (70-99) O2 Saturation 90 % (92-99) Arterial Blood pH 7.11 (7.35-7.45) Arterial Blood pCO2 at Patient Temp 131 mmHg (35-46) Arterial Blood pO2 at Patient Temp 69 mmHg (75-108) Arterial Blood HCO3 41 mmol/L (21-28) Arterial Blood Base Excess 7 mmol/L (-3-3) FiO2 44% Assessment/Plan Assessment/Plan Assessment: -Acute on chronic CHF exacerbation -Acute respiratory failure with profound respiratory acidosis -Unsustained ventricular tachycardia -Acute onset right-sided hemiparesis -Diabetes type 2 -Obesity -CKD 3 Plan: -Stat CT head to r/o stroke -Blood gas and repeat at 8pm -Stat Echo -Transfer to ICU -Lasix IV for diuresis -Amiodarone drip for VTach -Repeat electrolytes + Mg at 8pm Thank you for asking me to participate in the care of this pt DONOVAN RAMIREZ MD Aug 21, 2017 15:45
--- NOTE | 2017-08-21 15:50 | PDOC2 ---
NEUROLOGY CONSULT Date of Admission Date of Admission DATE: 08/21/17 TIME: 15:45 Reason for Consult Reason for Consult: Possible stroke symptoms Referring Physician Referring Physician: Dr. Nitesh Estrella Source Source: Caregiver, Chart review, Patient History of Present Illness History of Present Illness The patient is a 56-year-old right-handed male admitted last night with congestive heart failure symptoms. He has a known cardiomyopathy. He has been noted to have decreased level of consciousness all day and about 1 PM was thought to have right hemiparesis. knows of no prior stroke history. I considered transferred to the [facility] for acute large vessel occlusion, but the patient's exam has become nonfocal and he is more alert after being started on BiPAP. Indeed, his blood gas is markedly abnormal as noted below. There is no history of seizure. Past Medical History Cardiovascular: CHF, HTN Pulmonary: Pneumonia Endocrine: Diabetes Past Surgical History Past Surgical History: Other (cardiac catheter) Family History Family History: Hypertension Social History Social History , unemployed, no tobacco or alcohol Current Medications Current Medications Current Medications Albuterol/ Ipratropium (Duoneb) 3 ml 1X ONCE NEB Last administered on 11:00; Start 08/20/17 at 10:45; Stop 08/20/17 at 10:46; Status DC Furosemide (Lasix) 40 mg 1X ONCE PO Last administered on 08/20/17 14:57; Start 08/20/17 at 14:30; Stop 08/20/17 at 14:33; Status DC Ondansetron HCl (Zofran) 4 mg PRN Q8HRS PRN IV NAUSEA/VOMITING; Start at 14:45; Stop 08/21/17 at 14:44; Status DC Morphine Sulfate 2 mg PRN Q2HR PRN IV PAIN; Start 08/20/17 at 14:45; Stop at 14:44; Status DC Enoxaparin Sodium (Lovenox 40mg Syringe) 40 mg Q24H SQ Last administered on 21:08; Start 08/20/17 at 19:15 Amlodipine Besylate (Norvasc) 10 mg DAILY PO Last administered on 08/21/17 09 :49; Start 08/21/17 at 09:00 Lisinopril (Prinivil) 20 mg DAILY PO Last administered on 08/21/17 09:49; Start 08/21/17 at 09:00 Simvastatin (Zocor) 40 mg QHS PO Last administered on 08/20/17 21:07; Start 08/20/17 at 21:00 Carvedilol (Coreg) 25 mg BIDWMEALS PO ; Start 08/21/17 at 20:00 Diltiazem HCl (Cardizem 24hr Cd) 120 mg DAILY PO Last administered on 09:48; Start 08/21/17 at 09:00 Non-Formulary Medication 1 each BID PO ; Start 08/20/17 at 21:00; Status UNV Potassium Chloride (Klor-Con) 20 meq BIDWMEALS PO Last administered on 09:50; Start 08/20/17 at 20:00 Glyburide (Diabeta) 5 mg BIDWMEALS PO Last administered on 08/21/17 09:49; Start 08/21/17 at 08:00; Stop 08/21/17 at 12:59; Status DC Metformin HCl (Glucophage) 500 mg BIDWMEALS PO Last administered on 08/21/17 09:48; Start 08/21/17 at 08:00; Stop 08/21/17 at 12:59; Status DC Influenza Virus Vaccine Quadrival (Fluarix Quad [id number] Syringe) 0.5 ml ONCE ONCE VAX IM Last administered on 08/21/17 09:57; Start 08/21/17 at 09:00; Stop 08/21/17 at 09:01; Status DC Pneumococcal Polyvalent Vaccine (Pneumovax 23) 0.5 ml ONCE ONCE VAX IM Last administered on 08/21/17 09:58; Start 08/21/17 at 09:00; Stop 08/21/17 at 09 :01; Status DC Guaifenesin (Mucinex) 1,200 mg BID PO Last administered on 08/21/17 09:49; Start 08/21/17 at 09:30 Albuterol/ Ipratropium (Duoneb) 3 ml RTQID NEB ; Start 08/21/17 at 16:00 Active Scripts Active Reported Simvastatin 40 Mg Tablet 40 Mg PO DAILY Lisinopril 20 Mg Tablet 20 Mg PO DAILY Norvasc (Amlodipine Besylate) 10 Mg Tablet 10 Mg PO DAILY Metformin Hcl 1,000 Mg Tablet 1,000 Mg PO BID Lasix (Furosemide) 20 Mg Tablet 20 Mg PO DAILY Glyburide-Metformin 5-500 Mg (Glyburide/Metformin Hcl) 1 Each Tablet 1 Each PO BID Diltiazem Sr 12HR (Diltiazem Hcl) 90 Mg Cap.er.12h 60 Mg PO BID Carvedilol 25 Mg Tablet 25 Mg PO BID Potassium 99 Mg Tablet 20 Meq PO BID Allergies Allergies: Coded Allergies: No Known Drug Allergies (Unverified , 09/19/13) ROS Review of System Patient denies fevers, chills, weight loss,angina, abdominal pain, change in bowels, or dysuria. Positive for dyspnea. 14 point review of systems is negative. Physical Exam Physical Examination PHYSICAL EXAMINATION: Vital signs: see above. General appearance is normal and in no acute distress. HEENT: Normocephalic and nontraumatic. Eyes, nose, ears, and throat are unremarkable. Neck is supple. No lymphadenopathy. No bruits are heard over the carotid artery. No crepitus. NEUROLOGIC: He is on BiPAP. His eyes open to voice. He tracks with his eyes. Pupils are equal and reactive. There is no facial asymmetry. Reflexes are 1+ with silent plantar responses. He moves all extremities to command, strength is 2-3/5. Tone is normal. He responds to pinprick in all 4 extremities. Vitals VITALS Vital Signs Date Time Temp Pulse Resp B/P (MAP) Pulse Ox O2 Delivery O2 Flow Rate FiO2 08/21/17 15:10 95 BiPAP/CPAP 08/21/17 14:15 6.0 08/21/17 10:30 97.9 91 30 132/81 (98) 97.9 Labs Labs Laboratory Tests Test 08/20/17 10:40 08/20/17 21:30 08/21/17 00:01 08/21/17 02:35 White Blood Count 9.1 x10^3/uL (4.0-11.0) Red Blood Count 4.58 x10^6/uL (4.30-5.70) Hemoglobin 11.5 g/dL (13.0-17.5) Hematocrit 37.3 % (39.0-53.0) Mean Corpuscular Volume 81 fL (79-100) Mean Corpuscular Hemoglobin 25 pg (25-35) Mean Corpuscular Hemoglobin Concent 31 g/dL (31-37) Red Cell Distribution Width 19.4 % (11.5-14.5) Platelet Count 231 x10^3/uL (140-400) Neutrophils (%) (Auto) 86 % (31-73) Lymphocytes (%) (Auto) 6 % (24-48) Monocytes (%) (Auto) 6 % (0-9) Eosinophils (%) (Auto) 2 % (0-3) Basophils (%) (Auto) 1 % (0-3) Neutrophils # (Auto) 7.8 x10^3uL (1.8-7.7) Lymphocytes # (Auto) 0.5 x10^3/uL (1.0-4.8) Monocytes # (Auto) 0.5 x10^3/uL (0.0-1.1) Eosinophils # (Auto) 0.2 x10^3/uL (0.0-0.7) Basophils # (Auto) 0.0 x10^3/uL (0.0-0.2) Segmented Neutrophils % 78 % (35-66) Lymphocytes % 11 % (24-48) Monocytes % 4 % (0-10) Eosinophils % 6 % (0-5) Basophils % 1 % (0-3) Nucleated Red Blood Cells 1 Platelet Estimate Adequate (ADEQUATE) Large Platelets Occ Polychromasia Slight Anisocytosis Slight Sodium Level 147 mmol/L (136-145) 149 mmol/L (136-145) Potassium Level 4.6 mmol/L (3.5-5.1) 4.4 mmol/L (3.5-5.1) Chloride Level 107 mmol/L (98-107) 108 mmol/L (98-107) Carbon Dioxide Level 33 mmol/L (21-32) 34 mmol/L (21-32) Anion Gap 7 (6-14) 7 (6-14) Blood Urea Nitrogen 32 mg/dL (8-26) 30 mg/dL (8-26) Creatinine 2.8 mg/dL (0.7-1.3) 2.8 mg/dL (0.7-1.3) Estimated GFR (Cockcroft-Gault) 28.4 28.4 Glucose Level 172 mg/dL (70-99) 69 mg/dL (70-99) Calcium Level 8.2 mg/dL (8.5-10.1) 7.8 mg/dL (8.5-10.1) Total Bilirubin 0.6 mg/dL (0.2-1.0) Direct Bilirubin 0.2 mg/dL (0.0-0.2) Aspartate Amino Transf (AST/SGOT) 23 U/L (15-37) Alanine Aminotransferase (ALT/SGPT) 28 U/L (16-63) Alkaline Phosphatase 61 U/L (46-116) Troponin I Quantitative < 0.017 ng/mL (0.000-0.055) 0.019 ng/mL (0.000-0.055) ER-Isy-B-Type Natriuretic Peptide 2749 pg/mL (0-124) Total Protein 7.4 g/dL (6.4-8.2) Albumin 2.8 g/dL (3.4-5.0) Lipase 93 U/L (73-393) Glucose (Fingerstick) 136 mg/dL (70-99) Test 08/21/17 05:00 08/21/17 07:48 08/21/17 11:51 08/21/17 14:08 White Blood Count 8.7 x10^3/uL (4.0-11.0) Red Blood Count 4.34 x10^6/uL (4.30-5.70) Hemoglobin 11.0 g/dL (13.0-17.5) Hematocrit 35.8 % (39.0-53.0) Mean Corpuscular Volume 83 fL (79-100) Mean Corpuscular Hemoglobin 25 pg (25-35) Mean Corpuscular Hemoglobin Concent 31 g/dL (31-37) Red Cell Distribution Width 19.1 % (11.5-14.5) Platelet Count 236 x10^3/uL (140-400) Neutrophils (%) (Auto) 83 % (31-73) Lymphocytes (%) (Auto) 8 % (24-48) Monocytes (%) (Auto) 7 % (0-9) Eosinophils (%) (Auto) 2 % (0-3) Basophils (%) (Auto) 0 % (0-3) Neutrophils # (Auto) 7.2 x10^3uL (1.8-7.7) Lymphocytes # (Auto) 0.6 x10^3/uL (1.0-4.8) Monocytes # (Auto) 0.6 x10^3/uL (0.0-1.1) Eosinophils # (Auto) 0.1 x10^3/uL (0.0-0.7) Basophils # (Auto) 0.0 x10^3/uL (0.0-0.2) Magnesium Level 2.3 mg/dL (1.8-2.4) Troponin I Quantitative 0.019 ng/mL (0.000-0.055) Glucose (Fingerstick) 86 mg/dL (70-99) 136 mg/dL (70-99) O2 Saturation 90 % (92-99) Arterial Blood pH 7.11 (7.35-7.45) Arterial Blood pCO2 at Patient Temp 131 mmHg (35-46) Arterial Blood pO2 at Patient Temp 69 mmHg (75-108) Arterial Blood HCO3 41 mmol/L (21-28) Arterial Blood Base Excess 7 mmol/L (-3-3) FiO2 44% Test 08/21/17 14:21 Glucose (Fingerstick) 140 mg/dL (70-99) Laboratory Tests Test 08/20/17 21:30 08/21/17 00:01 08/21/17 02:35 08/21/17 05:00 Glucose (Fingerstick) 136 mg/dL (70-99) Troponin I Quantitative 0.019 ng/mL (0.000-0.055) 0.019 ng/mL (0.000-0.055) Sodium Level 149 mmol/L (136-145) Potassium Level 4.4 mmol/L (3.5-5.1) Chloride Level 108 mmol/L (98-107) Carbon Dioxide Level 34 mmol/L (21-32) Anion Gap 7 (6-14) Blood Urea Nitrogen 30 mg/dL (8-26) Creatinine 2.8 mg/dL (0.7-1.3) Estimated GFR (Cockcroft-Gault) 28.4 Glucose Level 69 mg/dL (70-99) Calcium Level 7.8 mg/dL (8.5-10.1) White Blood Count 8.7 x10^3/uL (4.0-11.0) Red Blood Count 4.34 x10^6/uL (4.30-5.70) Hemoglobin 11.0 g/dL (13.0-17.5) Hematocrit 35.8 % (39.0-53.0) Mean Corpuscular Volume 83 fL (79-100) Mean Corpuscular Hemoglobin 25 pg (25-35) Mean Corpuscular Hemoglobin Concent 31 g/dL (31-37) Red Cell Distribution Width 19.1 % (11.5-14.5) Platelet Count 236 x10^3/uL (140-400) Neutrophils (%) (Auto) 83 % (31-73) Lymphocytes (%) (Auto) 8 % (24-48) Monocytes (%) (Auto) 7 % (0-9) Eosinophils (%) (Auto) 2 % (0-3) Basophils (%) (Auto) 0 % (0-3) Neutrophils # (Auto) 7.2 x10^3uL (1.8-7.7) Lymphocytes # (Auto) 0.6 x10^3/uL (1.0-4.8) Monocytes # (Auto) 0.6 x10^3/uL (0.0-1.1) Eosinophils # (Auto) 0.1 x10^3/uL (0.0-0.7) Basophils # (Auto) 0.0 x10^3/uL (0.0-0.2) Magnesium Level 2.3 mg/dL (1.8-2.4) Test 08/21/17 07:48 08/21/17 11:51 08/21/17 14:08 08/21/17 14:21 Glucose (Fingerstick) 86 mg/dL (70-99) 136 mg/dL (70-99) 140 mg/dL (70-99) O2 Saturation 90 % (92-99) Arterial Blood pH 7.11 (7.35-7.45) Arterial Blood pCO2 at Patient Temp 131 mmHg (35-46) Arterial Blood pO2 at Patient Temp 69 mmHg (75-108) Arterial Blood HCO3 41 mmol/L (21-28) Arterial Blood Base Excess 7 mmol/L (-3-3) FiO2 44% Images Images CT head: The ventricular size is stable. There is an ill-defined region of low density in the left prado radiata. This may represent an area of subacute ischemia. This was not present on prior exam. No mass effect or midline shift is seen. No sulcal effacement is identified. No acute intra-axial or extra-axial hemorrhage is detected. The cisterns are patent. Impression: Ill-defined region of low density in the left prado radiata, perhaps a subacute or chronic infarct. Further evaluation with MRI could be performed. No acute intracranial hemorrhage is detected. Assessment/Plan Assessment/Plan Impression: Stroke symptoms related to metabolic encephalopathy. He has severe respiratory failure, cardiac failure. His exam became nonfocal after he was started on BiPAP. I am not impressed with CT findings being anything acute, but there is decreased attenuation in the left hemisphere as noted above. Recommendations: Treatment of medical problems Consider further stroke workup depending on his course including MRI of the brain I discussed fully with the patient's . Thank you for letting me help with the patient's care. ALIA HARKINS MD Aug 21, 2017 15:50
--- NOTE | 2017-08-21 15:59 | CONS ---
DATE OF CONSULTATION: ATTENDING PHYSICIAN: Dr. Dowling. REASON FOR CONSULTATION: Respiratory failure. HISTORY OF PRESENT ILLNESS: The patient is a 56-year-old male who presented to the Emergency Department more than a day ago with shortness of breath. He was hypoxic on arrival. The patient had no cough, no fever, no chills. He had no chest pains. The patient's chest x-ray was reviewed by me and was consistent with congestive heart failure. He underwent V/Q scan, which did not show any significant thromboembolic disease. Today, a code stroke was called as he was found to be less responsive. Arterial blood gases revealed a pH of 7.1, pCO2 of 131, with a pO2 of 69, with a bicarbonate of 41. This was on 44% FiO2. The patient was transferred to the ICU. He had an emergent CT of the head, which showed some ill-defined region of low density in the left prado radiata, possible subacute or chronic infarct. Radiology recommended MRI. Upon my evaluation, the patient opens his eyes, and he follows commands and answers questions. He has been placed on BiPAP. PAST MEDICAL HISTORY: Significant for CHF, possibly diastolic. History of type 2 diabetes and hypertension. PAST SURGICAL HISTORY: No recent surgery. ALLERGIES: None. 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 REVIEW OF SYSTEMS: Limited, but pertinent positive discussed in my history of present illness, otherwise noncontributory. All systems that were negative were reviewed as well. PHYSICAL EXAMINATION: GENERAL: He is awake, following commands. He is on BiPAP. VITAL SIGNS: Blood pressure 132/81, afebrile, pulse ox currently 97% on BiPAP at 75% FiO2. HEENT: Sclerae nonicteric. NECK: Supple. LUNGS: With diminished breath sounds bilateral. No wheezing. CARDIOVASCULAR: Regular rate and rhythm. ABDOMEN: Obese. Tympanic bowel sounds. EXTREMITIES: With plus edema. LABORATORY DATA: Reviewed. His BUN is 30 and creatinine of 2.8. Sodium 149. ABGs as discussed in my history of present illness. White cell count 8.7, hemoglobin 11.0, platelets are 236. IMPRESSION: 1. Acute on chronic hypercapnic and hypoxic respiratory failure in a patient who is morbidly obese, comes in with congestive heart failure and also received morphine 5 mg IV. These are all the contributing factors for his acute on chronic respiratory failure. 2. Questionable ischemic stroke. We will leave up to Neurology regarding any further plans. 3. Underlying obesity hypoventilation syndrome. 4. No evidence of pulmonary embolism by V/Q scan. 5. Normal left ventricular function with an ejection fraction of 55% to 60% based on recent echo. RECOMMENDATIONS: 1. Continue with present BiPAP. I have increased the IPAP and respiratory rate and follow ABGs and make necessary adjustments. 2. The patient does not need intubation at present. We will see the response to BiPAP. 3. Diuresis to improve his hypoxia. 4. Follow neurology recommendation. 5. Follow cardiology recommendation. 6. Discontinue all narcotics. 7. DuoNeb. 8. Lovenox for DVT prophylaxis. 9. Discussed with RN and RT. Discussed with Dr. Estrella. Critical care time 40 minutes. ZAHCERY PIÑA MD DR: REEMA/marika JOB#: [id number] / [id number]
[2017-08-21] MEDS ORDERED: FUROSEMIDE 40 MG/4 ML VIAL. IVP ONE (16:00)
[2017-08-21] MEDS: IPRATRPIUM/ALBUTEROL 0.5/2.5MG 3 ML NEBU. NEB SCH ×2 (16:00→20:05)
[2017-08-21 16:28] LABS: HCO3 ABG 38 mmol/L (21-28); PO2 ABG 80 mmHg (75-108); SAT O2 ABG 93 % (92-99)
[2017-08-21 16:30] LABS: FIO2 ABG 70; PCO2 ABG 100 mmHg (35-46)
[2017-08-21] MEDS ORDERED: IV DEXTROSE 5% 1,000 ML IV SCH (16:30)
[2017-08-21 16:49] LABS: BILIRUBIN,URINE NEGATIVE (NEG); GLUCOSE,URINE NEGATIVE (NEG); NITRITE,URINE NEGATIVE (NEG); PH,URINE 5.5; PROTEIN,URINE >=300 mg/dL (NEG-TRACE)
[2017-08-21 16:54] LABS: BARBITURATES NEG (NEG); BENZODIAZEPINES NEG (NEG); CANNABINOIDS NEG (NEG); COCAINE NEG (NEG); METHADONE NEG (NEG); OPIATES NEG (NEG); PHENCYCLIDINE NEG (NEG)
[2017-08-21 17:05] LABS: RBC,URINE 0 /HPF (0-2)
[2017-08-21 17:06] LABS: BACTERIA,URINE 0 /HPF (0-FEW); SQUAMOUS EPITHELIAL CELL,UR OCC /LPF; WBC,URINE OCC /HPF (0-4)
[2017-08-21] MEDS: ENOXAPARIN 40 MG/0.4 ML SYRINGE. SQ SCH (18:16)
[2017-08-21 20:00] LABS: CALCIUM 8.4 mg/dL (8.5-10.1); CREATININE 2.8 mg/dL (0.7-1.3); GFR 28.4; MAGNESIUM 2.5 mg/dL (1.8-2.4)
[2017-08-21] MEDS: CARVEDILOL 12.5 MG TABLET. PO SCH (20:00)
[2017-08-21] MEDS: SIMVASTATIN 40 MG TABLET. PO SCH (21:00)
--- NOTE | 2017-08-21 23:52 | CONS ---
DATE OF CONSULTATION: 08/21/2017 ATTENDING PHYSICIAN: Dr. Mitesh Dowling. The patient was seen at the request of Dr. Manule for rehab evaluation. HISTORY OF PRESENT ILLNESS: This is a 56-year-old male admitted through the Emergency Room with difficulty breathing, gaining weight, history of congestive heart failure. He was found hypoxic on arrival. His shortness of breath improved with sitting up and worse with lying down. The patient with known cardiomyopathy and congestive heart failure. Echocardiogram done in 08/2013 showed left ventricular ejection fraction of 28% and mild mitral regurgitation. The patient also with known diabetes mellitus. 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 Family history of coronary artery disease, obesity, congestive heart failure. 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 The patient had an echocardiogram done today, which revealed normal left ventricular systolic function, ejection fraction of 55-60%, normal left ventricular segmental wall motion. Doppler and color flow revealed trace mitral regurgitation, no evidence of significant pericardial effusion. CT scan of the brain done today revealed ill-defined region of low density in the left prado radiata, perhaps subacute or chronic infarct, no acute hemorrhage was noted. Pulmonary function studies failed to reveal any evidence of pulmonary emboli. Chest x-ray showed prominence of pulmonary vasculature suggesting mild congestive heart failure. The patient was found with [id number] hypercapnic and hypoxic respiratory failure in a patient with morbid obesity, congestive heart failure and initially they thought he had an ischemic stroke and right hemiparesis. PHYSICAL EXAMINATION: The patient on physical examination today revealed a middle-aged male. He is using BiPAP. He is somewhat lethargic, but woke up. He moves all 4 extremities voluntarily where he had 4+/5 grade muscle strength and deep tendon reflexes are 2+ and symmetrical and he had equal perception of touch and pinprick sensation bilaterally. He had painful range of motion of all four extremity joints. I have not tested his transfers or ambulation skills at this time. He had an indwelling Ozuna catheter in place. ASSESSMENT: A middle-aged male with a recent onset respiratory failure in a patient with known cardiomyopathy and congestive heart failure and patient with known diabetes mellitus. There is no clinical evidence of cerebrovascular accident at this time. RECOMMENDATIONS: There is no need for physical therapy and occupational therapy at present time. We will see how he does getting up and walking in the next day or so. Dr. Manuel, I appreciate asking me to participate in the care of this interesting patient. I will be glad to follow him with you as needed for the rehabilitation. JOHANN WALTON MD DR: MARIA C/marika JOB#: [id number] / [id number]
[2017-08-22] VITALS (22 sets, daily range): BP systolic 111–169; BP diastolic 62–93
[2017-08-22 00:13] LABS: HCO3 ABG 33 mmol/L (21-28); PH ABG 7.28 (7.35-7.45); PO2 ABG 54 mmHg (75-108); SAT O2 ABG 85 % (92-99)
[2017-08-22 00:19] LABS: FIO2 ABG 40; PCO2 ABG 72 mmHg (35-46)
--- NOTE | 2017-08-22 03:27 | CONS ---
DATE OF CONSULTATION: REASON FOR CONSULTATION: CKD. HISTORY OF PRESENT ILLNESS: The patient is a 56-year-old -[place] gentleman who was admitted here yesterday with shortness of breath. He is noted to have a history of CHF and known CKD with baseline creatinine running 2.5 as recently as May of this year. He developed hypercapnia and is now in the ICU on BiPAP. We were asked to see him for the same. PAST MEDICAL HISTORY: Significant for cardiomyopathy, COPD, hyperlipidemia, hypertension, CKD, diabetes. FAMILY HISTORY: Negative for known kidney problems. Positive for obesity, CHF and coronary artery disease. 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 REVIEW OF SYSTEMS: Unable to be obtained from the patient due to altered mental status. PHYSICAL EXAMINATION: VITAL SIGNS: Most recent set shows temperature of 99.5, blood pressure 143/70, respirations 30, 92% on BiPAP. GENERAL: Drowsy, barely arousable on BiPAP, in minimal respiratory distress, minimal accessory muscle use. HEENT: Sclerae and conjunctivae are normal. No active ear or nasal drainage. LUNGS: Clear to auscultation. HEART: Heart sounds S1, S2 and regular. ABDOMEN: Distended, tympanic versus obese. Hypoactive bowel sounds. EXTREMITIES: Lower extremities have trace if any edema. LABORATORY DATA: Showed sodium of 149, bicarbonate of 34, BUN 30, creatinine 2.8, glucose is 69. IMPRESSION, ASSESSMENT AND PLAN: 1. 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 2. Possible fluid overload, diuresis as required. 3. Hypernatremia 1 liter D5W will be given since sugars are marginal also at 69 this morning, PPN could be used. 4. We will be available if required. Please call if creatinine goes above 3-3.5. ASHANTI FREGOSO MD DR: AMISHA/marika JOB#: [id number] / [id number]
[2017-08-22 05:12] LABS: BASO % 0 % (0-3); EOS % 1 % (0-3); HEMATOCRIT 32.8 % (39.0-53.0); HEMOGLOBIN 10.1 g/dL (13.0-17.5); LYMPH # 0.4 x10^3/uL (1.0-4.8); LYMPH % 6 % (24-48); MEAN CORPUSCULAR HEMOGLOBIN 25 pg (25-35); MEAN CORPUSCULAR HGB CONC 31 g/dL (31-37); MEAN CORPUSCULAR VOLUME 82 fL (79-100); MONO % 8 % (0-9); NEUT % 86 % (31-73); PLATELET COUNT 203 x10^3/uL (140-400); RED BLOOD COUNT 3.98 x10^6/uL (4.30-5.70); RED CELL DISTRIBUTION WIDTH 18.6 % (11.5-14.5); WHITE BLOOD COUNT 8.1 x10^3/uL (4.0-11.0)
[2017-08-22 05:29] LABS: ALBUMIN 2.3 g/dL (3.4-5.0); ALBUMIN/GLOBULIN RATIO 0.6 (1.0-1.7); CALCIUM 8.1 mg/dL (8.5-10.1); CREATININE 2.9 mg/dL (0.7-1.3); GFR 27.3; POTASSIUM 4.6 mmol/L (3.5-5.1); TOTAL BILIRUBIN 0.5 mg/dL (0.2-1.0)
[2017-08-22] MEDS ORDERED: DEXTROSE 50% 25 GM / 50ML DISP.SYRIN. IV ONE ×2 (07:15→07:30)
[2017-08-22] MEDS ORDERED: DEXTROSE 50% 25 GM / 50ML DISP.SYRIN. IV PRN (07:45)
[2017-08-22] MEDS: IPRATRPIUM/ALBUTEROL 0.5/2.5MG 3 ML NEBU. NEB SCH ×4 (08:18→19:29)
[2017-08-22 08:47] LABS: HCO3 ABG 33 mmol/L (21-28); PH ABG 7.35 (7.35-7.45); PO2 ABG 54 mmHg (75-108); SAT O2 ABG 86 % (92-99)
[2017-08-22] MEDS: POTASSIUM CHLORIDE 20 MEQ TABLET.ER. PO SCH ×2 (08:48→17:00)
[2017-08-22] MEDS: CARVEDILOL 12.5 MG TABLET. PO SCH ×2 (08:49→17:42)
[2017-08-22] MEDS: LISINOPRIL 20 MG TABLET PO SCH (08:50)
[2017-08-22] MEDS: amLODIPine BESYLATE 10 MG TABLET PO SCH (08:50)
--- NOTE | 2017-08-22 11:11 | PDOC ---
PROGRESS NOTES Chief Complaint Chief Complaint 1. ACUTE hypercarbic respiratory failure with metabolic encephalopathy 2. acute on chronic diastolic CHF, with exac 2 obesity, BMI 37 3. diabetes 2, 4. acute respiratory failure 5. chronic kidney disease 3, w. hypernatremia, acute vasomotor, History of Present Illness History of Present Illness pt transferred to the ICU yest afternoon, doing much better today wean 02 PT and ot cont lasix, renal, neuro, CV, pulm following Vitals Vitals Vital Signs Date Time Temp Pulse Resp B/P (MAP) Pulse Ox O2 Delivery O2 Flow Rate FiO2 08/22/17 10:00 74 25 169/73 (105) 97 Venturi Mask 15.0 08/22/17 04:00 99.1 99.1 Physical Exam General: Alert, Oriented X3, Cooperative, mild distress, Other (confused, but mild) Heart: Regular rate, No murmurs, Other (regular with frequent ectopy, S1, S2, ) Lungs: Clear Abdomen: Soft, No tenderness, Other (distended, timpanic, no BS heard) Extremities: No cyanosis, Other (bilateral lower extremity edema) Skin: No rashes, No significant lesion Labs LABS Laboratory Tests Test 08/21/17 11:51 08/21/17 14:08 08/21/17 14:21 08/21/17 15:39 Glucose (Fingerstick) 136 mg/dL (70-99) 140 mg/dL (70-99) O2 Saturation 90 % (92-99) 85 % (92-99) Arterial Blood pH 7.11 (7.35-7.45) 7.28 (7.35-7.45) Arterial Blood pCO2 at Patient Temp 131 mmHg (35-46) 72 mmHg (35-46) Arterial Blood pO2 at Patient Temp 69 mmHg (75-108) 54 mmHg (75-108) Arterial Blood HCO3 41 mmol/L (21-28) 33 mmol/L (21-28) Arterial Blood Base Excess 7 mmol/L (-3-3) 4 mmol/L (-3-3) FiO2 44% 40 Test 08/21/17 16:00 08/21/17 16:30 08/21/17 19:35 08/22/17 03:50 O2 Saturation 93 % (92-99) Arterial Blood pH 7.20 (7.35-7.45) Arterial Blood pCO2 at Patient Temp 100 mmHg (35-46) Arterial Blood pO2 at Patient Temp 80 mmHg (75-108) Arterial Blood HCO3 38 mmol/L (21-28) Arterial Blood Base Excess 7 mmol/L (-3-3) FiO2 70 Urine Color Yellow Urine Clarity Clear Urine pH 5.5 Urine Specific [place] 1.015 Urine Protein >=300 mg/dL (NEG-TRACE) Urine Glucose (UA) Negative mg/dL (NEG) Urine Ketones (Stick) Negative mg/dL (NEG) Urine Blood Negative (NEG) Urine Nitrite Negative (NEG) Urine Bilirubin Negative (NEG) Urine Urobilinogen Dipstick 1.0 mg/dL (0.2 mg/dL) Urine Leukocyte Esterase Negative (NEG) Urine RBC 0 /HPF (0-2) Urine WBC Occ /HPF (0-4) Urine Squamous Epithelial Cells Occ /LPF Urine Bacteria 0 /HPF (0-FEW) Urine Mucus Slight /LPF Urine Opiates Screen Neg (NEG) Urine Methadone Screen Neg (NEG) Urine Barbiturates Neg (NEG) Urine Phencyclidine Screen Neg (NEG) Urine Amphetamine/Methamphetamine Neg (NEG) Urine Benzodiazepines Screen Neg (NEG) Urine Cocaine Screen Neg (NEG) Urine Cannabinoids Screen Neg (NEG) Urine Ethyl Alcohol Neg (NEG) Sodium Level 149 mmol/L (136-145) 149 mmol/L (136-145) Potassium Level 5.0 mmol/L (3.5-5.1) 4.6 mmol/L (3.5-5.1) Chloride Level 110 mmol/L (98-107) 110 mmol/L (98-107) Carbon Dioxide Level 36 mmol/L (21-32) 37 mmol/L (21-32) Anion Gap 3 (6-14) 2 (6-14) Blood Urea Nitrogen 31 mg/dL (8-26) 32 mg/dL (8-26) Creatinine 2.8 mg/dL (0.7-1.3) 2.9 mg/dL (0.7-1.3) Estimated GFR (Cockcroft-Gault) 28.4 27.3 Glucose Level 121 mg/dL (70-99) 51 mg/dL (70-99) Calcium Level 8.4 mg/dL (8.5-10.1) 8.1 mg/dL (8.5-10.1) Magnesium Level 2.5 mg/dL (1.8-2.4) White Blood Count 8.1 x10^3/uL (4.0-11.0) Red Blood Count 3.98 x10^6/uL (4.30-5.70) Hemoglobin 10.1 g/dL (13.0-17.5) Hematocrit 32.8 % (39.0-53.0) Mean Corpuscular Volume 82 fL (79-100) Mean Corpuscular Hemoglobin 25 pg (25-35) Mean Corpuscular Hemoglobin Concent 31 g/dL (31-37) Red Cell Distribution Width 18.6 % (11.5-14.5) Platelet Count 203 x10^3/uL (140-400) Neutrophils (%) (Auto) 86 % (31-73) Lymphocytes (%) (Auto) 6 % (24-48) Monocytes (%) (Auto) 8 % (0-9) Eosinophils (%) (Auto) 1 % (0-3) Basophils (%) (Auto) 0 % (0-3) Neutrophils # (Auto) 6.9 x10^3uL (1.8-7.7) Lymphocytes # (Auto) 0.4 x10^3/uL (1.0-4.8) Monocytes # (Auto) 0.7 x10^3/uL (0.0-1.1) Eosinophils # (Auto) 0.1 x10^3/uL (0.0-0.7) Basophils # (Auto) 0.0 x10^3/uL (0.0-0.2) BUN/Creatinine Ratio 11 (6-20) Total Bilirubin 0.5 mg/dL (0.2-1.0) Aspartate Amino Transf (AST/SGOT) 12 U/L (15-37) Alanine Aminotransferase (ALT/SGPT) 18 U/L (16-63) Alkaline Phosphatase 51 U/L (46-116) Total Protein 6.0 g/dL (6.4-8.2) Albumin 2.3 g/dL (3.4-5.0) Albumin/Globulin Ratio 0.6 (1.0-1.7) Test 08/22/17 07:14 08/22/17 07:23 Glucose (Fingerstick) 45 mg/dL (70-99) 150 mg/dL (70-99) Review of Systems Review of Systems dyspnea weakness Assessment and Plan Assessmemt and Plan Problems Medical Problems: (1) CHF exacerbation Status: Acute (2) CKD (chronic kidney disease) Status: Acute (3) Hypoxia Status: Acute Problems: Comment Review of Relevant I have reviewed the following items ninoska (where applicable) has been applied. Labs Laboratory Tests Test 08/20/17 21:30 08/21/17 00:01 08/21/17 02:35 08/21/17 05:00 Glucose (Fingerstick) 136 mg/dL (70-99) Troponin I Quantitative 0.019 ng/mL (0.000-0.055) 0.019 ng/mL (0.000-0.055) Sodium Level 149 mmol/L (136-145) Potassium Level 4.4 mmol/L (3.5-5.1) Chloride Level 108 mmol/L (98-107) Carbon Dioxide Level 34 mmol/L (21-32) Anion Gap 7 (6-14) Blood Urea Nitrogen 30 mg/dL (8-26) Creatinine 2.8 mg/dL (0.7-1.3) Estimated GFR (Cockcroft-Gault) 28.4 Glucose Level 69 mg/dL (70-99) Calcium Level 7.8 mg/dL (8.5-10.1) White Blood Count 8.7 x10^3/uL (4.0-11.0) Red Blood Count 4.34 x10^6/uL (4.30-5.70) Hemoglobin 11.0 g/dL (13.0-17.5) Hematocrit 35.8 % (39.0-53.0) Mean Corpuscular Volume 83 fL (79-100) Mean Corpuscular Hemoglobin 25 pg (25-35) Mean Corpuscular Hemoglobin Concent 31 g/dL (31-37) Red Cell Distribution Width 19.1 % (11.5-14.5) Platelet Count 236 x10^3/uL (140-400) Neutrophils (%) (Auto) 83 % (31-73) Lymphocytes (%) (Auto) 8 % (24-48) Monocytes (%) (Auto) 7 % (0-9) Eosinophils (%) (Auto) 2 % (0-3) Basophils (%) (Auto) 0 % (0-3) Neutrophils # (Auto) 7.2 x10^3uL (1.8-7.7) Lymphocytes # (Auto) 0.6 x10^3/uL (1.0-4.8) Monocytes # (Auto) 0.6 x10^3/uL (0.0-1.1) Eosinophils # (Auto) 0.1 x10^3/uL (0.0-0.7) Basophils # (Auto) 0.0 x10^3/uL (0.0-0.2) Magnesium Level 2.3 mg/dL (1.8-2.4) Test 08/21/17 07:48 08/21/17 11:51 08/21/17 14:08 08/21/17 14:21 Glucose (Fingerstick) 86 mg/dL (70-99) 136 mg/dL (70-99) 140 mg/dL (70-99) O2 Saturation 90 % (92-99) Arterial Blood pH 7.11 (7.35-7.45) Arterial Blood pCO2 at Patient Temp 131 mmHg (35-46) Arterial Blood pO2 at Patient Temp 69 mmHg (75-108) Arterial Blood HCO3 41 mmol/L (21-28) Arterial Blood Base Excess 7 mmol/L (-3-3) FiO2 44% Test 08/21/17 15:39 08/21/17 16:00 08/21/17 16:30 08/21/17 19:35 O2 Saturation 85 % (92-99) 93 % (92-99) Arterial Blood pH 7.28 (7.35-7.45) 7.20 (7.35-7.45) Arterial Blood pCO2 at Patient Temp 72 mmHg (35-46) 100 mmHg (35-46) Arterial Blood pO2 at Patient Temp 54 mmHg (75-108) 80 mmHg (75-108) Arterial Blood HCO3 33 mmol/L (21-28) 38 mmol/L (21-28) Arterial Blood Base Excess 4 mmol/L (-3-3) 7 mmol/L (-3-3) FiO2 40 70 Urine Color Yellow Urine Clarity Clear Urine pH 5.5 Urine Specific [place] 1.015 Urine Protein >=300 mg/dL (NEG-TRACE) Urine Glucose (UA) Negative mg/dL (NEG) Urine Ketones (Stick) Negative mg/dL (NEG) Urine Blood Negative (NEG) Urine Nitrite Negative (NEG) Urine Bilirubin Negative (NEG) Urine Urobilinogen Dipstick 1.0 mg/dL (0.2 mg/dL) Urine Leukocyte Esterase Negative (NEG) Urine RBC 0 /HPF (0-2) Urine WBC Occ /HPF (0-4) Urine Squamous Epithelial Cells Occ /LPF Urine Bacteria 0 /HPF (0-FEW) Urine Mucus Slight /LPF Urine Opiates Screen Neg (NEG) Urine Methadone Screen Neg (NEG) Urine Barbiturates Neg (NEG) Urine Phencyclidine Screen Neg (NEG) Urine Amphetamine/Methamphetamine Neg (NEG) Urine Benzodiazepines Screen Neg (NEG) Urine Cocaine Screen Neg (NEG) Urine Cannabinoids Screen Neg (NEG) Urine Ethyl Alcohol Neg (NEG) Sodium Level 149 mmol/L (136-145) Potassium Level 5.0 mmol/L (3.5-5.1) Chloride Level 110 mmol/L (98-107) Carbon Dioxide Level 36 mmol/L (21-32) Anion Gap 3 (6-14) Blood Urea Nitrogen 31 mg/dL (8-26) Creatinine 2.8 mg/dL (0.7-1.3) Estimated GFR (Cockcroft-Gault) 28.4 Glucose Level 121 mg/dL (70-99) Calcium Level 8.4 mg/dL (8.5-10.1) Magnesium Level 2.5 mg/dL (1.8-2.4) Test 08/22/17 03:50 08/22/17 07:14 08/22/17 07:23 White Blood Count 8.1 x10^3/uL (4.0-11.0) Red Blood Count 3.98 x10^6/uL (4.30-5.70) Hemoglobin 10.1 g/dL (13.0-17.5) Hematocrit 32.8 % (39.0-53.0) Mean Corpuscular Volume 82 fL (79-100) Mean Corpuscular Hemoglobin 25 pg (25-35) Mean Corpuscular Hemoglobin Concent 31 g/dL (31-37) Red Cell Distribution Width 18.6 % (11.5-14.5) Platelet Count 203 x10^3/uL (140-400) Neutrophils (%) (Auto) 86 % (31-73) Lymphocytes (%) (Auto) 6 % (24-48) Monocytes (%) (Auto) 8 % (0-9) Eosinophils (%) (Auto) 1 % (0-3) Basophils (%) (Auto) 0 % (0-3) Neutrophils # (Auto) 6.9 x10^3uL (1.8-7.7) Lymphocytes # (Auto) 0.4 x10^3/uL (1.0-4.8) Monocytes # (Auto) 0.7 x10^3/uL (0.0-1.1) Eosinophils # (Auto) 0.1 x10^3/uL (0.0-0.7) Basophils # (Auto) 0.0 x10^3/uL (0.0-0.2) Sodium Level 149 mmol/L (136-145) Potassium Level 4.6 mmol/L (3.5-5.1) Chloride Level 110 mmol/L (98-107) Carbon Dioxide Level 37 mmol/L (21-32) Anion Gap 2 (6-14) Blood Urea Nitrogen 32 mg/dL (8-26) Creatinine 2.9 mg/dL (0.7-1.3) Estimated GFR (Cockcroft-Gault) 27.3 BUN/Creatinine Ratio 11 (6-20) Glucose Level 51 mg/dL (70-99) Calcium Level 8.1 mg/dL (8.5-10.1) Total Bilirubin 0.5 mg/dL (0.2-1.0) Aspartate Amino Transf (AST/SGOT) 12 U/L (15-37) Alanine Aminotransferase (ALT/SGPT) 18 U/L (16-63) Alkaline Phosphatase 51 U/L (46-116) Total Protein 6.0 g/dL (6.4-8.2) Albumin 2.3 g/dL (3.4-5.0) Albumin/Globulin Ratio 0.6 (1.0-1.7) Glucose (Fingerstick) 45 mg/dL (70-99) 150 mg/dL (70-99) Laboratory Tests Test 08/21/17 11:51 08/21/17 14:08 08/21/17 14:21 08/21/17 15:39 Glucose (Fingerstick) 136 mg/dL (70-99) 140 mg/dL (70-99) O2 Saturation 90 % (92-99) 85 % (92-99) Arterial Blood pH 7.11 (7.35-7.45) 7.28 (7.35-7.45) Arterial Blood pCO2 at Patient Temp 131 mmHg (35-46) 72 mmHg (35-46) Arterial Blood pO2 at Patient Temp 69 mmHg (75-108) 54 mmHg (75-108) Arterial Blood HCO3 41 mmol/L (21-28) 33 mmol/L (21-28) Arterial Blood Base Excess 7 mmol/L (-3-3) 4 mmol/L (-3-3) FiO2 44% 40 Test 08/21/17 16:00 08/21/17 16:30 08/21/17 19:35 08/22/17 03:50 O2 Saturation 93 % (92-99) Arterial Blood pH 7.20 (7.35-7.45) Arterial Blood pCO2 at Patient Temp 100 mmHg (35-46) Arterial Blood pO2 at Patient Temp 80 mmHg (75-108) Arterial Blood HCO3 38 mmol/L (21-28) Arterial Blood Base Excess 7 mmol/L (-3-3) FiO2 70 Urine Color Yellow Urine Clarity Clear Urine pH 5.5 Urine Specific [place] 1.015 Urine Protein >=300 mg/dL (NEG-TRACE) Urine Glucose (UA) Negative mg/dL (NEG) Urine Ketones (Stick) Negative mg/dL (NEG) Urine Blood Negative (NEG) Urine Nitrite Negative (NEG) Urine Bilirubin Negative (NEG) Urine Urobilinogen Dipstick 1.0 mg/dL (0.2 mg/dL) Urine Leukocyte Esterase Negative (NEG) Urine RBC 0 /HPF (0-2) Urine WBC Occ /HPF (0-4) Urine Squamous Epithelial Cells Occ /LPF Urine Bacteria 0 /HPF (0-FEW) Urine Mucus Slight /LPF Urine Opiates Screen Neg (NEG) Urine Methadone Screen Neg (NEG) Urine Barbiturates Neg (NEG) Urine Phencyclidine Screen Neg (NEG) Urine Amphetamine/Methamphetamine Neg (NEG) Urine Benzodiazepines Screen Neg (NEG) Urine Cocaine Screen Neg (NEG) Urine Cannabinoids Screen Neg (NEG) Urine Ethyl Alcohol Neg (NEG) Sodium Level 149 mmol/L (136-145) 149 mmol/L (136-145) Potassium Level 5.0 mmol/L (3.5-5.1) 4.6 mmol/L (3.5-5.1) Chloride Level 110 mmol/L (98-107) 110 mmol/L (98-107) Carbon Dioxide Level 36 mmol/L (21-32) 37 mmol/L (21-32) Anion Gap 3 (6-14) 2 (6-14) Blood Urea Nitrogen 31 mg/dL (8-26) 32 mg/dL (8-26) Creatinine 2.8 mg/dL (0.7-1.3) 2.9 mg/dL (0.7-1.3) Estimated GFR (Cockcroft-Gault) 28.4 27.3 Glucose Level 121 mg/dL (70-99) 51 mg/dL (70-99) Calcium Level 8.4 mg/dL (8.5-10.1) 8.1 mg/dL (8.5-10.1) Magnesium Level 2.5 mg/dL (1.8-2.4) White Blood Count 8.1 x10^3/uL (4.0-11.0) Red Blood Count 3.98 x10^6/uL (4.30-5.70) Hemoglobin 10.1 g/dL (13.0-17.5) Hematocrit 32.8 % (39.0-53.0) Mean Corpuscular Volume 82 fL (79-100) Mean Corpuscular Hemoglobin 25 pg (25-35) Mean Corpuscular Hemoglobin Concent 31 g/dL (31-37) Red Cell Distribution Width 18.6 % (11.5-14.5) Platelet Count 203 x10^3/uL (140-400) Neutrophils (%) (Auto) 86 % (31-73) Lymphocytes (%) (Auto) 6 % (24-48) Monocytes (%) (Auto) 8 % (0-9) Eosinophils (%) (Auto) 1 % (0-3) Basophils (%) (Auto) 0 % (0-3) Neutrophils # (Auto) 6.9 x10^3uL (1.8-7.7) Lymphocytes # (Auto) 0.4 x10^3/uL (1.0-4.8) Monocytes # (Auto) 0.7 x10^3/uL (0.0-1.1) Eosinophils # (Auto) 0.1 x10^3/uL (0.0-0.7) Basophils # (Auto) 0.0 x10^3/uL (0.0-0.2) BUN/Creatinine Ratio 11 (6-20) Total Bilirubin 0.5 mg/dL (0.2-1.0) Aspartate Amino Transf (AST/SGOT) 12 U/L (15-37) Alanine Aminotransferase (ALT/SGPT) 18 U/L (16-63) Alkaline Phosphatase 51 U/L (46-116) Total Protein 6.0 g/dL (6.4-8.2) Albumin 2.3 g/dL (3.4-5.0) Albumin/Globulin Ratio 0.6 (1.0-1.7) Test 08/22/17 07:14 08/22/17 07:23 Glucose (Fingerstick) 45 mg/dL (70-99) 150 mg/dL (70-99) Medications Current Medications Albuterol/ Ipratropium (Duoneb) 3 ml 1X ONCE NEB Last administered on 11:00; Start 08/20/17 at 10:45; Stop 08/20/17 at 10:46; Status DC Furosemide (Lasix) 40 mg 1X ONCE PO Last administered on 08/20/17 14:57; Start 08/20/17 at 14:30; Stop 08/20/17 at 14:33; Status DC Ondansetron HCl (Zofran) 4 mg PRN Q8HRS PRN IV NAUSEA/VOMITING; Start at 14:45; Stop 08/21/17 at 14:44; Status DC Morphine Sulfate 2 mg PRN Q2HR PRN IV PAIN; Start 08/20/17 at 14:45; Stop at 14:44; Status DC Enoxaparin Sodium (Lovenox 40mg Syringe) 40 mg Q24H SQ Last administered on 18:16; Start 08/20/17 at 19:15 Amlodipine Besylate (Norvasc) 10 mg DAILY PO Last administered on 08/22/17 08 :50; Start 08/21/17 at 09:00 Lisinopril (Prinivil) 20 mg DAILY PO Last administered on 08/22/17 08:50; Start 08/21/17 at 09:00 Simvastatin (Zocor) 40 mg QHS PO Last administered on 08/20/17 21:07; Start 08/20/17 at 21:00 Carvedilol (Coreg) 25 mg BIDWMEALS PO Last administered on 08/22/17 08:49; Start 08/21/17 at 20:00 Diltiazem HCl (Cardizem 24hr Cd) 120 mg DAILY PO Last administered on 08:48; Start 08/21/17 at 09:00 Non-Formulary Medication 1 each BID PO ; Start 08/20/17 at 21:00; Status UNV Potassium Chloride (Klor-Con) 20 meq BIDWMEALS PO Last administered on 08:48; Start 08/20/17 at 20:00 Glyburide (Diabeta) 5 mg BIDWMEALS PO Last administered on 08/21/17 09:49; Start 08/21/17 at 08:00; Stop 08/21/17 at 12:59; Status DC Metformin HCl (Glucophage) 500 mg BIDWMEALS PO Last administered on 08/21/17 09:48; Start 08/21/17 at 08:00; Stop 08/21/17 at 12:59; Status DC Influenza Virus Vaccine Quadrival (Fluarix Quad [id number] Syringe) 0.5 ml ONCE ONCE VAX IM Last administered on 08/21/17 09:57; Start 08/21/17 at 09:00; Stop 08/21/17 at 09:01; Status DC Pneumococcal Polyvalent Vaccine (Pneumovax 23) 0.5 ml ONCE ONCE VAX IM Last administered on 08/21/17 09:58; Start 08/21/17 at 09:00; Stop 08/21/17 at 09 :01; Status DC Guaifenesin (Mucinex) 1,200 mg BID PO Last administered on 08/22/17 08:49; Start 08/21/17 at 09:30 Albuterol/ Ipratropium (Duoneb) 3 ml RTQID NEB Last administered on 08/22/17 08:18; Start 08/21/17 at 16:00 Amiodarone HCl 150 mg/Dextrose 103 ml @ 618 mls/hr 1X ONCE IV Last administered on 08/21/17 16:12; Start 08/21/17 at 15:45; Stop 08/21/17 at 15 :54; Status DC Amiodarone HCl 900 mg/Dextrose 518 ml @ 0 mls/hr CONT PRN IV SEE I/O RECORD Last administered on 08/21/17 16:14; Start 08/21/17 at 15:45; Stop 08/21/17 at 16:15; Status DC Furosemide (Lasix) 60 mg 1X ONCE IVP Last administered on 08/21/17 16:15; Start 08/21/17 at 16:00; Stop 08/21/17 at 16:01; Status DC Dextrose 1,000 ml @ 60 mls/hr [id number] IV Last administered on 08/21/17 16:30 ; Start 08/21/17 at 16:30; Stop 08/22/17 at 09:09; Status DC Dextrose (Dextrose 50%-Water Syringe) 25 gm STK-MED ONCE IV ; Start 08/22/17 at 07:15; Stop 08/22/17 at 07:16; Status DC Dextrose (Dextrose 50%-Water Syringe) 25 gm 1X ONCE IV Last administered on 07:22; Start 08/22/17 at 07:30; Stop 08/22/17 at 07:31; Status DC Dextrose (Dextrose 50%-Water Syringe) 12.5 gm PRN Q15MIN PRN IV SEE COMMENTS; Start 08/22/17 at 07:45 Active Scripts Active Reported Simvastatin 40 Mg Tablet 40 Mg PO DAILY Lisinopril 20 Mg Tablet 20 Mg PO DAILY Norvasc (Amlodipine Besylate) 10 Mg Tablet 10 Mg PO DAILY Metformin Hcl 1,000 Mg Tablet 1,000 Mg PO BID Lasix (Furosemide) 20 Mg Tablet 20 Mg PO DAILY Glyburide-Metformin 5-500 Mg (Glyburide/Metformin Hcl) 1 Each Tablet 1 Each PO BID Diltiazem Sr 12HR (Diltiazem Hcl) 90 Mg Cap.er.12h 60 Mg PO BID Carvedilol 25 Mg Tablet 25 Mg PO BID Potassium 99 Mg Tablet 20 Meq PO BID Vitals/I & O Vital Sign - Last 24 Hours 08/21/17 08/21/17 08/21/17 08/21/17 14:15 15:00 15:10 16:00 Temp 99.5 99.5 Pulse 70 Resp 33 B/P (MAP) 143/70 (94) Pulse Ox 92 95 96 O2 Delivery Nasal Cannula BiPAP/CPAP BiPAP/CPAP BiPAP/CPAP O2 Flow Rate 6.0 08/21/17 08/21/17 08/21/17 08/21/17 16:00 16:00 16:12 17:00 Pulse 67 70 65 Resp 23 22 B/P (MAP) 118/67 (84) 118/67 126/65 (85) Pulse Ox 92 88 O2 Delivery Bi-pap BiPAP/CPAP Ventilator 08/21/17 08/21/17 08/21/17 08/21/17 18:00 19:00 19:56 20:00 Temp 99.2 99.2 Pulse 60 65 58 Resp 17 23 12 B/P (MAP) 112/59 (76) 136/72 (93) 129/69 (89) Pulse Ox 91 95 90 92 O2 Delivery BiPAP/CPAP BiPAP/CPAP BiPAP/CPAP BiPAP/CPAP 08/21/17 08/21/17 08/21/17 08/21/17 20:00 20:00 21:00 21:06 Pulse 60 60 Resp 20 B/P (MAP) 129/69 115/61 (79) Pulse Ox 93 90 O2 Delivery Bi-pap BiPAP/CPAP BiPAP/CPAP 08/21/17 08/21/17 08/21/17 08/22/17 22:00 23:00 23:46 00:00 Pulse 58 56 Resp 26 10 B/P (MAP) 110/59 (76) 125/63 (83) Pulse Ox 95 90 90 O2 Delivery BiPAP/CPAP BiPAP/CPAP BiPAP/CPAP Bi-pap 08/22/17 08/22/17 08/22/17 08/22/17 00:00 01:00 02:00 02:23 Temp 98.8 98.8 Pulse 56 59 62 Resp 11 23 23 B/P (MAP) 111/62 (78) 129/65 (86) 140/68 (92) Pulse Ox 86 90 92 90 O2 Delivery BiPAP/CPAP BiPAP/CPAP BiPAP/CPAP BiPAP/CPAP 08/22/17 08/22/17 08/22/17 08/22/17 03:00 04:00 04:00 05:00 Temp 99.1 99.1 Pulse 57 57 60 Resp 23 23 19 B/P (MAP) 126/64 (84) 135/72 (93) 147/74 (98) Pulse Ox 95 92 93 O2 Delivery BiPAP/CPAP BiPAP/CPAP Bi-pap BiPAP/CPAP 08/22/17 08/22/17 08/22/17 08/22/17 05:18 06:00 07:00 08:00 Pulse 57 60 Resp 18 23 B/P (MAP) 132/65 (87) 132/65 (87) Pulse Ox 93 93 92 O2 Delivery BiPAP/CPAP BiPAP/CPAP BiPAP/CPAP O2 Flow Rate 6.0 08/22/17 08/22/17 08/22/17 08/22/17 08:00 08:14 08:48 08:49 Pulse 72 72 B/P (MAP) 153/63 153/63 Pulse Ox 91 O2 Delivery Bi-pap BiPAP/CPAP O2 Flow Rate 5.0 08/22/17 08/22/17 08/22/17 08/22/17 08:50 08:50 09:00 09:17 Pulse 72 72 70 Resp 18 B/P (MAP) 153/63 153/63 154/74 (100) Pulse Ox 97 99 O2 Delivery BiPAP/CPAP BiPAP/CPAP 08/22/17 10:00 Pulse 74 Resp 25 B/P (MAP) 169/73 (105) Pulse Ox 97 O2 Delivery Venturi Mask O2 Flow Rate 15.0 Intake and Output 08/21/17 08/21/17 08/22/17 15:00 23:00 07:00 Intake Total 112 ml 1065.0 ml Output Total 815 ml 510 ml Balance -703 ml 555.0 ml ANTON GOOD MD Aug 22, 2017 11:11
--- NOTE | 2017-08-22 11:34 | PDOC ---
PROGRESS NOTES Subjective Subjective No new complaints. Objective Objective Vital Signs Date Time Temp Pulse Resp B/P (MAP) Pulse Ox O2 Delivery O2 Flow Rate FiO2 08/22/17 11:00 75 28 141/71 (94) 97 Venturi Mask 8.0 08/22/17 04:00 99.1 99.1 Intake and Output 08/22/17 07:00 Intake Total 1177.0 ml Output Total 1325 ml Balance -148.0 ml Intake Oral 0 ml IV Total 1177.0 ml Output Urine Total 1325 ml Physical Exam Physical Exam He is sitting up in bedside chair and alert and using oxygen by nasal mask and he needs minimal assistance to supervision for mobility. Assessment Assessment Problems Medical Problems: (1) CHF exacerbation Status: Acute (2) CKD (chronic kidney disease) Status: Acute (3) Hypoxia Status: Acute Plan Plan of Care To continue present care efforts as tolerated. Comment Review of Relevant I have reviewed the following items ninoska (where applicable) has been applied. Labs Laboratory Tests Test 08/20/17 21:30 08/21/17 00:01 08/21/17 02:35 08/21/17 05:00 Glucose (Fingerstick) 136 mg/dL (70-99) Troponin I Quantitative 0.019 ng/mL (0.000-0.055) 0.019 ng/mL (0.000-0.055) Sodium Level 149 mmol/L (136-145) Potassium Level 4.4 mmol/L (3.5-5.1) Chloride Level 108 mmol/L (98-107) Carbon Dioxide Level 34 mmol/L (21-32) Anion Gap 7 (6-14) Blood Urea Nitrogen 30 mg/dL (8-26) Creatinine 2.8 mg/dL (0.7-1.3) Estimated GFR (Cockcroft-Gault) 28.4 Glucose Level 69 mg/dL (70-99) Calcium Level 7.8 mg/dL (8.5-10.1) White Blood Count 8.7 x10^3/uL (4.0-11.0) Red Blood Count 4.34 x10^6/uL (4.30-5.70) Hemoglobin 11.0 g/dL (13.0-17.5) Hematocrit 35.8 % (39.0-53.0) Mean Corpuscular Volume 83 fL (79-100) Mean Corpuscular Hemoglobin 25 pg (25-35) Mean Corpuscular Hemoglobin Concent 31 g/dL (31-37) Red Cell Distribution Width 19.1 % (11.5-14.5) Platelet Count 236 x10^3/uL (140-400) Neutrophils (%) (Auto) 83 % (31-73) Lymphocytes (%) (Auto) 8 % (24-48) Monocytes (%) (Auto) 7 % (0-9) Eosinophils (%) (Auto) 2 % (0-3) Basophils (%) (Auto) 0 % (0-3) Neutrophils # (Auto) 7.2 x10^3uL (1.8-7.7) Lymphocytes # (Auto) 0.6 x10^3/uL (1.0-4.8) Monocytes # (Auto) 0.6 x10^3/uL (0.0-1.1) Eosinophils # (Auto) 0.1 x10^3/uL (0.0-0.7) Basophils # (Auto) 0.0 x10^3/uL (0.0-0.2) Magnesium Level 2.3 mg/dL (1.8-2.4) Test 08/21/17 07:48 08/21/17 11:51 08/21/17 14:08 08/21/17 14:21 Glucose (Fingerstick) 86 mg/dL (70-99) 136 mg/dL (70-99) 140 mg/dL (70-99) O2 Saturation 90 % (92-99) Arterial Blood pH 7.11 (7.35-7.45) Arterial Blood pCO2 at Patient Temp 131 mmHg (35-46) Arterial Blood pO2 at Patient Temp 69 mmHg (75-108) Arterial Blood HCO3 41 mmol/L (21-28) Arterial Blood Base Excess 7 mmol/L (-3-3) FiO2 44% Test 08/21/17 15:39 08/21/17 16:00 08/21/17 16:30 08/21/17 19:35 O2 Saturation 85 % (92-99) 93 % (92-99) Arterial Blood pH 7.28 (7.35-7.45) 7.20 (7.35-7.45) Arterial Blood pCO2 at Patient Temp 72 mmHg (35-46) 100 mmHg (35-46) Arterial Blood pO2 at Patient Temp 54 mmHg (75-108) 80 mmHg (75-108) Arterial Blood HCO3 33 mmol/L (21-28) 38 mmol/L (21-28) Arterial Blood Base Excess 4 mmol/L (-3-3) 7 mmol/L (-3-3) FiO2 40 70 Urine Color Yellow Urine Clarity Clear Urine pH 5.5 Urine Specific Nickerson 1.015 Urine Protein >=300 mg/dL (NEG-TRACE) Urine Glucose (UA) Negative mg/dL (NEG) Urine Ketones (Stick) Negative mg/dL (NEG) Urine Blood Negative (NEG) Urine Nitrite Negative (NEG) Urine Bilirubin Negative (NEG) Urine Urobilinogen Dipstick 1.0 mg/dL (0.2 mg/dL) Urine Leukocyte Esterase Negative (NEG) Urine RBC 0 /HPF (0-2) Urine WBC Occ /HPF (0-4) Urine Squamous Epithelial Cells Occ /LPF Urine Bacteria 0 /HPF (0-FEW) Urine Mucus Slight /LPF Urine Opiates Screen Neg (NEG) Urine Methadone Screen Neg (NEG) Urine Barbiturates Neg (NEG) Urine Phencyclidine Screen Neg (NEG) Urine Amphetamine/Methamphetamine Neg (NEG) Urine Benzodiazepines Screen Neg (NEG) Urine Cocaine Screen Neg (NEG) Urine Cannabinoids Screen Neg (NEG) Urine Ethyl Alcohol Neg (NEG) Sodium Level 149 mmol/L (136-145) Potassium Level 5.0 mmol/L (3.5-5.1) Chloride Level 110 mmol/L (98-107) Carbon Dioxide Level 36 mmol/L (21-32) Anion Gap 3 (6-14) Blood Urea Nitrogen 31 mg/dL (8-26) Creatinine 2.8 mg/dL (0.7-1.3) Estimated GFR (Cockcroft-Gault) 28.4 Glucose Level 121 mg/dL (70-99) Calcium Level 8.4 mg/dL (8.5-10.1) Magnesium Level 2.5 mg/dL (1.8-2.4) Test 08/22/17 03:50 08/22/17 07:14 08/22/17 07:23 White Blood Count 8.1 x10^3/uL (4.0-11.0) Red Blood Count 3.98 x10^6/uL (4.30-5.70) Hemoglobin 10.1 g/dL (13.0-17.5) Hematocrit 32.8 % (39.0-53.0) Mean Corpuscular Volume 82 fL (79-100) Mean Corpuscular Hemoglobin 25 pg (25-35) Mean Corpuscular Hemoglobin Concent 31 g/dL (31-37) Red Cell Distribution Width 18.6 % (11.5-14.5) Platelet Count 203 x10^3/uL (140-400) Neutrophils (%) (Auto) 86 % (31-73) Lymphocytes (%) (Auto) 6 % (24-48) Monocytes (%) (Auto) 8 % (0-9) Eosinophils (%) (Auto) 1 % (0-3) Basophils (%) (Auto) 0 % (0-3) Neutrophils # (Auto) 6.9 x10^3uL (1.8-7.7) Lymphocytes # (Auto) 0.4 x10^3/uL (1.0-4.8) Monocytes # (Auto) 0.7 x10^3/uL (0.0-1.1) Eosinophils # (Auto) 0.1 x10^3/uL (0.0-0.7) Basophils # (Auto) 0.0 x10^3/uL (0.0-0.2) Sodium Level 149 mmol/L (136-145) Potassium Level 4.6 mmol/L (3.5-5.1) Chloride Level 110 mmol/L (98-107) Carbon Dioxide Level 37 mmol/L (21-32) Anion Gap 2 (6-14) Blood Urea Nitrogen 32 mg/dL (8-26) Creatinine 2.9 mg/dL (0.7-1.3) Estimated GFR (Cockcroft-Gault) 27.3 BUN/Creatinine Ratio 11 (6-20) Glucose Level 51 mg/dL (70-99) Calcium Level 8.1 mg/dL (8.5-10.1) Total Bilirubin 0.5 mg/dL (0.2-1.0) Aspartate Amino Transf (AST/SGOT) 12 U/L (15-37) Alanine Aminotransferase (ALT/SGPT) 18 U/L (16-63) Alkaline Phosphatase 51 U/L (46-116) Total Protein 6.0 g/dL (6.4-8.2) Albumin 2.3 g/dL (3.4-5.0) Albumin/Globulin Ratio 0.6 (1.0-1.7) Glucose (Fingerstick) 45 mg/dL (70-99) 150 mg/dL (70-99) Laboratory Tests Test 08/21/17 11:51 08/21/17 14:08 08/21/17 14:21 08/21/17 15:39 Glucose (Fingerstick) 136 mg/dL (70-99) 140 mg/dL (70-99) O2 Saturation 90 % (92-99) 85 % (92-99) Arterial Blood pH 7.11 (7.35-7.45) 7.28 (7.35-7.45) Arterial Blood pCO2 at Patient Temp 131 mmHg (35-46) 72 mmHg (35-46) Arterial Blood pO2 at Patient Temp 69 mmHg (75-108) 54 mmHg (75-108) Arterial Blood HCO3 41 mmol/L (21-28) 33 mmol/L (21-28) Arterial Blood Base Excess 7 mmol/L (-3-3) 4 mmol/L (-3-3) FiO2 44% 40 Test 08/21/17 16:00 08/21/17 16:30 08/21/17 19:35 08/22/17 03:50 O2 Saturation 93 % (92-99) Arterial Blood pH 7.20 (7.35-7.45) Arterial Blood pCO2 at Patient Temp 100 mmHg (35-46) Arterial Blood pO2 at Patient Temp 80 mmHg (75-108) Arterial Blood HCO3 38 mmol/L (21-28) Arterial Blood Base Excess 7 mmol/L (-3-3) FiO2 70 Urine Color Yellow Urine Clarity Clear Urine pH 5.5 Urine Specific Nickerson 1.015 Urine Protein >=300 mg/dL (NEG-TRACE) Urine Glucose (UA) Negative mg/dL (NEG) Urine Ketones (Stick) Negative mg/dL (NEG) Urine Blood Negative (NEG) Urine Nitrite Negative (NEG) Urine Bilirubin Negative (NEG) Urine Urobilinogen Dipstick 1.0 mg/dL (0.2 mg/dL) Urine Leukocyte Esterase Negative (NEG) Urine RBC 0 /HPF (0-2) Urine WBC Occ /HPF (0-4) Urine Squamous Epithelial Cells Occ /LPF Urine Bacteria 0 /HPF (0-FEW) Urine Mucus Slight /LPF Urine Opiates Screen Neg (NEG) Urine Methadone Screen Neg (NEG) Urine Barbiturates Neg (NEG) Urine Phencyclidine Screen Neg (NEG) Urine Amphetamine/Methamphetamine Neg (NEG) Urine Benzodiazepines Screen Neg (NEG) Urine Cocaine Screen Neg (NEG) Urine Cannabinoids Screen Neg (NEG) Urine Ethyl Alcohol Neg (NEG) Sodium Level 149 mmol/L (136-145) 149 mmol/L (136-145) Potassium Level 5.0 mmol/L (3.5-5.1) 4.6 mmol/L (3.5-5.1) Chloride Level 110 mmol/L (98-107) 110 mmol/L (98-107) Carbon Dioxide Level 36 mmol/L (21-32) 37 mmol/L (21-32) Anion Gap 3 (6-14) 2 (6-14) Blood Urea Nitrogen 31 mg/dL (8-26) 32 mg/dL (8-26) Creatinine 2.8 mg/dL (0.7-1.3) 2.9 mg/dL (0.7-1.3) Estimated GFR (Cockcroft-Gault) 28.4 27.3 Glucose Level 121 mg/dL (70-99) 51 mg/dL (70-99) Calcium Level 8.4 mg/dL (8.5-10.1) 8.1 mg/dL (8.5-10.1) Magnesium Level 2.5 mg/dL (1.8-2.4) White Blood Count 8.1 x10^3/uL (4.0-11.0) Red Blood Count 3.98 x10^6/uL (4.30-5.70) Hemoglobin 10.1 g/dL (13.0-17.5) Hematocrit 32.8 % (39.0-53.0) Mean Corpuscular Volume 82 fL (79-100) Mean Corpuscular Hemoglobin 25 pg (25-35) Mean Corpuscular Hemoglobin Concent 31 g/dL (31-37) Red Cell Distribution Width 18.6 % (11.5-14.5) Platelet Count 203 x10^3/uL (140-400) Neutrophils (%) (Auto) 86 % (31-73) Lymphocytes (%) (Auto) 6 % (24-48) Monocytes (%) (Auto) 8 % (0-9) Eosinophils (%) (Auto) 1 % (0-3) Basophils (%) (Auto) 0 % (0-3) Neutrophils # (Auto) 6.9 x10^3uL (1.8-7.7) Lymphocytes # (Auto) 0.4 x10^3/uL (1.0-4.8) Monocytes # (Auto) 0.7 x10^3/uL (0.0-1.1) Eosinophils # (Auto) 0.1 x10^3/uL (0.0-0.7) Basophils # (Auto) 0.0 x10^3/uL (0.0-0.2) BUN/Creatinine Ratio 11 (6-20) Total Bilirubin 0.5 mg/dL (0.2-1.0) Aspartate Amino Transf (AST/SGOT) 12 U/L (15-37) Alanine Aminotransferase (ALT/SGPT) 18 U/L (16-63) Alkaline Phosphatase 51 U/L (46-116) Total Protein 6.0 g/dL (6.4-8.2) Albumin 2.3 g/dL (3.4-5.0) Albumin/Globulin Ratio 0.6 (1.0-1.7) Test 08/22/17 07:14 08/22/17 07:23 Glucose (Fingerstick) 45 mg/dL (70-99) 150 mg/dL (70-99) Medications Current Medications Albuterol/ Ipratropium (Duoneb) 3 ml 1X ONCE NEB Last administered on 11:00; Start 08/20/17 at 10:45; Stop 08/20/17 at 10:46; Status DC Furosemide (Lasix) 40 mg 1X ONCE PO Last administered on 08/20/17 14:57; Start 08/20/17 at 14:30; Stop 08/20/17 at 14:33; Status DC Ondansetron HCl (Zofran) 4 mg PRN Q8HRS PRN IV NAUSEA/VOMITING; Start at 14:45; Stop 08/21/17 at 14:44; Status DC Morphine Sulfate 2 mg PRN Q2HR PRN IV PAIN; Start 08/20/17 at 14:45; Stop at 14:44; Status DC Enoxaparin Sodium (Lovenox 40mg Syringe) 40 mg Q24H SQ Last administered on 18:16; Start 08/20/17 at 19:15 Amlodipine Besylate (Norvasc) 10 mg DAILY PO Last administered on 08/22/17 08 :50; Start 08/21/17 at 09:00 Lisinopril (Prinivil) 20 mg DAILY PO Last administered on 08/22/17 08:50; Start 08/21/17 at 09:00 Simvastatin (Zocor) 40 mg QHS PO Last administered on 08/20/17 21:07; Start 08/20/17 at 21:00 Carvedilol (Coreg) 25 mg BIDWMEALS PO Last administered on 08/22/17 08:49; Start 08/21/17 at 20:00 Diltiazem HCl (Cardizem 24hr Cd) 120 mg DAILY PO Last administered on 08:48; Start 08/21/17 at 09:00 Non-Formulary Medication 1 each BID PO ; Start 08/20/17 at 21:00; Status UNV Potassium Chloride (Klor-Con) 20 meq BIDWMEALS PO Last administered on 08:48; Start 08/20/17 at 20:00 Glyburide (Diabeta) 5 mg BIDWMEALS PO Last administered on 08/21/17 09:49; Start 08/21/17 at 08:00; Stop 08/21/17 at 12:59; Status DC Metformin HCl (Glucophage) 500 mg BIDWMEALS PO Last administered on 08/21/17 09:48; Start 08/21/17 at 08:00; Stop 08/21/17 at 12:59; Status DC Influenza Virus Vaccine Quadrival (Fluarix Quad [id number] Syringe) 0.5 ml ONCE ONCE VAX IM Last administered on 08/21/17 09:57; Start 08/21/17 at 09:00; Stop 08/21/17 at 09:01; Status DC Pneumococcal Polyvalent Vaccine (Pneumovax 23) 0.5 ml ONCE ONCE VAX IM Last administered on 08/21/17 09:58; Start 08/21/17 at 09:00; Stop 08/21/17 at 09 :01; Status DC Guaifenesin (Mucinex) 1,200 mg BID PO Last administered on 08/22/17 08:49; Start 08/21/17 at 09:30 Albuterol/ Ipratropium (Duoneb) 3 ml RTQID NEB Last administered on 08/22/17 08:18; Start 08/21/17 at 16:00 Amiodarone HCl 150 mg/Dextrose 103 ml @ 618 mls/hr 1X ONCE IV Last administered on 08/21/17 16:12; Start 08/21/17 at 15:45; Stop 08/21/17 at 15 :54; Status DC Amiodarone HCl 900 mg/Dextrose 518 ml @ 0 mls/hr CONT PRN IV SEE I/O RECORD Last administered on 08/21/17 16:14; Start 08/21/17 at 15:45; Stop 08/21/17 at 16:15; Status DC Furosemide (Lasix) 60 mg 1X ONCE IVP Last administered on 08/21/17 16:15; Start 08/21/17 at 16:00; Stop 08/21/17 at 16:01; Status DC Dextrose 1,000 ml @ 60 mls/hr [id number] IV Last administered on 08/21/17 16:30 ; Start 08/21/17 at 16:30; Stop 08/22/17 at 09:09; Status DC Dextrose (Dextrose 50%-Water Syringe) 25 gm STK-MED ONCE IV ; Start 08/22/17 at 07:15; Stop 08/22/17 at 07:16; Status DC Dextrose (Dextrose 50%-Water Syringe) 25 gm 1X ONCE IV Last administered on 07:22; Start 08/22/17 at 07:30; Stop 08/22/17 at 07:31; Status DC Dextrose (Dextrose 50%-Water Syringe) 12.5 gm PRN Q15MIN PRN IV SEE COMMENTS; Start 08/22/17 at 07:45 Active Scripts Active Reported Simvastatin 40 Mg Tablet 40 Mg PO DAILY Lisinopril 20 Mg Tablet 20 Mg PO DAILY Norvasc (Amlodipine Besylate) 10 Mg Tablet 10 Mg PO DAILY Metformin Hcl 1,000 Mg Tablet 1,000 Mg PO BID Lasix (Furosemide) 20 Mg Tablet 20 Mg PO DAILY Glyburide-Metformin 5-500 Mg (Glyburide/Metformin Hcl) 1 Each Tablet 1 Each PO BID Diltiazem Sr 12HR (Diltiazem Hcl) 90 Mg Cap.er.12h 60 Mg PO BID Carvedilol 25 Mg Tablet 25 Mg PO BID Potassium 99 Mg Tablet 20 Meq PO BID Vitals/I & O Vital Sign - Last 24 Hours 08/21/17 08/21/17 08/21/17 08/21/17 14:15 15:00 15:10 16:00 Temp 99.5 99.5 Pulse 70 Resp 33 B/P (MAP) 143/70 (94) Pulse Ox 92 95 96 O2 Delivery Nasal Cannula BiPAP/CPAP BiPAP/CPAP BiPAP/CPAP O2 Flow Rate 6.0 08/21/17 08/21/17 08/21/17 08/21/17 16:00 16:00 16:12 17:00 Pulse 67 70 65 Resp 23 22 B/P (MAP) 118/67 (84) 118/67 126/65 (85) Pulse Ox 92 88 O2 Delivery Bi-pap BiPAP/CPAP Ventilator 08/21/17 08/21/17 08/21/17 08/21/17 18:00 19:00 19:56 20:00 Temp 99.2 99.2 Pulse 60 65 58 Resp 17 23 12 B/P (MAP) 112/59 (76) 136/72 (93) 129/69 (89) Pulse Ox 91 95 90 92 O2 Delivery BiPAP/CPAP BiPAP/CPAP BiPAP/CPAP BiPAP/CPAP 08/21/17 08/21/17 08/21/17 08/21/17 20:00 20:00 21:00 21:06 Pulse 60 60 Resp 20 B/P (MAP) 129/69 115/61 (79) Pulse Ox 93 90 O2 Delivery Bi-pap BiPAP/CPAP BiPAP/CPAP 08/21/17 08/21/17 08/21/17 08/22/17 22:00 23:00 23:46 00:00 Pulse 58 56 Resp 26 10 B/P (MAP) 110/59 (76) 125/63 (83) Pulse Ox 95 90 90 O2 Delivery BiPAP/CPAP BiPAP/CPAP BiPAP/CPAP Bi-pap 08/22/17 08/22/17 08/22/17 08/22/17 00:00 01:00 02:00 02:23 Temp 98.8 98.8 Pulse 56 59 62 Resp 11 23 B/P (MAP) 111/62 (78) 129/65 (86) 140/68 (92) Pulse Ox 86 90 92 90 O2 Delivery BiPAP/CPAP BiPAP/CPAP BiPAP/CPAP BiPAP/CPAP 08/22/17 08/22/17 08/22/17 08/22/17 03:00 04:00 04:00 05:00 Temp 99.1 99.1 Pulse 57 57 60 Resp B/P (MAP) 126/64 (84) 135/72 (93) 147/74 (98) Pulse Ox 95 92 93 O2 Delivery BiPAP/CPAP BiPAP/CPAP Bi-pap BiPAP/CPAP 08/22/17 08/22/17 08/22/17 08/22/17 05:18 06:00 07:00 08:00 Pulse 57 60 Resp 23 B/P (MAP) 132/65 (87) 132/65 (87) Pulse Ox 93 93 92 O2 Delivery BiPAP/CPAP BiPAP/CPAP BiPAP/CPAP O2 Flow Rate 6.0 08/22/17 08/22/17 08/22/17 08/22/17 08:00 08:14 08:48 08:49 Pulse 72 72 B/P (MAP) 153/63 153/63 Pulse Ox 91 O2 Delivery Bi-pap BiPAP/CPAP O2 Flow Rate 5.0 08/22/17 08/22/17 08/22/17 08/22/17 08:50 08:50 09:00 09:17 Pulse 72 72 70 Resp 18 B/P (MAP) 153/63 153/63 154/74 (100) Pulse Ox 97 99 O2 Delivery BiPAP/CPAP BiPAP/CPAP 08/22/17 08/22/17 10:00 11:00 Pulse 74 75 Resp 25 28 B/P (MAP) 169/73 (105) 141/71 (94) Pulse Ox 97 97 O2 Delivery Venturi Mask Venturi Mask O2 Flow Rate 15.0 8.0 Intake and Output 08/21/17 08/21/17 08/22/17 15:00 23:00 07:00 Intake Total 112 ml 1065.0 ml Output Total 815 ml 510 ml Balance -703 ml 555.0 ml JOHANN WALTON MD Aug 22, 2017 11:34
--- NOTE | 2017-08-22 12:24 | PDOC ---
PROGRESS NOTES Assessment Problems Medical Problems: (1) CHF exacerbation Status: Acute (2) CKD (chronic kidney disease) Status: Acute (3) Hypoxia Status: Acute Metabolic encephalopathy due to hypoxia and hypercarbia in the setting of congestive heart failure and cardiomyopathy, without evidence of acute stroke. He is much better today. Plan Continue treating medical diseases Discussed with family Subjective No complaints Objective Vital Signs Date Time Temp Pulse Resp B/P (MAP) Pulse Ox O2 Delivery O2 Flow Rate FiO2 08/22/17 12:04 Venturi Mask 12.0 08/22/17 11:00 75 28 141/71 (94) 97 08/22/17 04:00 99.1 99.1 Intake and Output 08/22/17 07:00 Intake Total 1177.0 ml Output Total 1325 ml Balance -148.0 ml Intake Oral 0 ml IV Total 1177.0 ml Output Urine Total 1325 ml PHYSICAL EXAM Alert. Oriented to time, place and person. PERRL. EOMI. CN: no focal findings. Muscle tone: normal. Muscle strength: 4/5 DTR: 1+ Plantar reflex: Flexor Gait: not examined in bed. Sensory exam: no abnormal findings. No cerebellar signs elicited. Review of Relevant I have reviewed the following items ninoska (where applicable) has been applied. Labs Laboratory Tests Test 08/20/17 21:30 08/21/17 00:01 08/21/17 02:35 08/21/17 05:00 Glucose (Fingerstick) 136 mg/dL (70-99) Troponin I Quantitative 0.019 ng/mL (0.000-0.055) 0.019 ng/mL (0.000-0.055) Sodium Level 149 mmol/L (136-145) Potassium Level 4.4 mmol/L (3.5-5.1) Chloride Level 108 mmol/L (98-107) Carbon Dioxide Level 34 mmol/L (21-32) Anion Gap 7 (6-14) Blood Urea Nitrogen 30 mg/dL (8-26) Creatinine 2.8 mg/dL (0.7-1.3) Estimated GFR (Cockcroft-Gault) 28.4 Glucose Level 69 mg/dL (70-99) Calcium Level 7.8 mg/dL (8.5-10.1) White Blood Count 8.7 x10^3/uL (4.0-11.0) Red Blood Count 4.34 x10^6/uL (4.30-5.70) Hemoglobin 11.0 g/dL (13.0-17.5) Hematocrit 35.8 % (39.0-53.0) Mean Corpuscular Volume 83 fL (79-100) Mean Corpuscular Hemoglobin 25 pg (25-35) Mean Corpuscular Hemoglobin Concent 31 g/dL (31-37) Red Cell Distribution Width 19.1 % (11.5-14.5) Platelet Count 236 x10^3/uL (140-400) Neutrophils (%) (Auto) 83 % (31-73) Lymphocytes (%) (Auto) 8 % (24-48) Monocytes (%) (Auto) 7 % (0-9) Eosinophils (%) (Auto) 2 % (0-3) Basophils (%) (Auto) 0 % (0-3) Neutrophils # (Auto) 7.2 x10^3uL (1.8-7.7) Lymphocytes # (Auto) 0.6 x10^3/uL (1.0-4.8) Monocytes # (Auto) 0.6 x10^3/uL (0.0-1.1) Eosinophils # (Auto) 0.1 x10^3/uL (0.0-0.7) Basophils # (Auto) 0.0 x10^3/uL (0.0-0.2) Magnesium Level 2.3 mg/dL (1.8-2.4) Test 08/21/17 07:48 08/21/17 11:51 08/21/17 14:08 08/21/17 14:21 Glucose (Fingerstick) 86 mg/dL (70-99) 136 mg/dL (70-99) 140 mg/dL (70-99) O2 Saturation 90 % (92-99) Arterial Blood pH 7.11 (7.35-7.45) Arterial Blood pCO2 at Patient Temp 131 mmHg (35-46) Arterial Blood pO2 at Patient Temp 69 mmHg (75-108) Arterial Blood HCO3 41 mmol/L (21-28) Arterial Blood Base Excess 7 mmol/L (-3-3) FiO2 44% Test 08/21/17 15:39 08/21/17 16:00 08/21/17 16:30 08/21/17 19:35 O2 Saturation 85 % (92-99) 93 % (92-99) Arterial Blood pH 7.28 (7.35-7.45) 7.20 (7.35-7.45) Arterial Blood pCO2 at Patient Temp 72 mmHg (35-46) 100 mmHg (35-46) Arterial Blood pO2 at Patient Temp 54 mmHg (75-108) 80 mmHg (75-108) Arterial Blood HCO3 33 mmol/L (21-28) 38 mmol/L (21-28) Arterial Blood Base Excess 4 mmol/L (-3-3) 7 mmol/L (-3-3) FiO2 40 70 Urine Color Yellow Urine Clarity Clear Urine pH 5.5 Urine Specific [place] 1.015 Urine Protein >=300 mg/dL (NEG-TRACE) Urine Glucose (UA) Negative mg/dL (NEG) Urine Ketones (Stick) Negative mg/dL (NEG) Urine Blood Negative (NEG) Urine Nitrite Negative (NEG) Urine Bilirubin Negative (NEG) Urine Urobilinogen Dipstick 1.0 mg/dL (0.2 mg/dL) Urine Leukocyte Esterase Negative (NEG) Urine RBC 0 /HPF (0-2) Urine WBC Occ /HPF (0-4) Urine Squamous Epithelial Cells Occ /LPF Urine Bacteria 0 /HPF (0-FEW) Urine Mucus Slight /LPF Urine Opiates Screen Neg (NEG) Urine Methadone Screen Neg (NEG) Urine Barbiturates Neg (NEG) Urine Phencyclidine Screen Neg (NEG) Urine Amphetamine/Methamphetamine Neg (NEG) Urine Benzodiazepines Screen Neg (NEG) Urine Cocaine Screen Neg (NEG) Urine Cannabinoids Screen Neg (NEG) Urine Ethyl Alcohol Neg (NEG) Sodium Level 149 mmol/L (136-145) Potassium Level 5.0 mmol/L (3.5-5.1) Chloride Level 110 mmol/L (98-107) Carbon Dioxide Level 36 mmol/L (21-32) Anion Gap 3 (6-14) Blood Urea Nitrogen 31 mg/dL (8-26) Creatinine 2.8 mg/dL (0.7-1.3) Estimated GFR (Cockcroft-Gault) 28.4 Glucose Level 121 mg/dL (70-99) Calcium Level 8.4 mg/dL (8.5-10.1) Magnesium Level 2.5 mg/dL (1.8-2.4) Test 08/22/17 03:50 08/22/17 07:14 08/22/17 07:23 White Blood Count 8.1 x10^3/uL (4.0-11.0) Red Blood Count 3.98 x10^6/uL (4.30-5.70) Hemoglobin 10.1 g/dL (13.0-17.5) Hematocrit 32.8 % (39.0-53.0) Mean Corpuscular Volume 82 fL (79-100) Mean Corpuscular Hemoglobin 25 pg (25-35) Mean Corpuscular Hemoglobin Concent 31 g/dL (31-37) Red Cell Distribution Width 18.6 % (11.5-14.5) Platelet Count 203 x10^3/uL (140-400) Neutrophils (%) (Auto) 86 % (31-73) Lymphocytes (%) (Auto) 6 % (24-48) Monocytes (%) (Auto) 8 % (0-9) Eosinophils (%) (Auto) 1 % (0-3) Basophils (%) (Auto) 0 % (0-3) Neutrophils # (Auto) 6.9 x10^3uL (1.8-7.7) Lymphocytes # (Auto) 0.4 x10^3/uL (1.0-4.8) Monocytes # (Auto) 0.7 x10^3/uL (0.0-1.1) Eosinophils # (Auto) 0.1 x10^3/uL (0.0-0.7) Basophils # (Auto) 0.0 x10^3/uL (0.0-0.2) Sodium Level 149 mmol/L (136-145) Potassium Level 4.6 mmol/L (3.5-5.1) Chloride Level 110 mmol/L (98-107) Carbon Dioxide Level 37 mmol/L (21-32) Anion Gap 2 (6-14) Blood Urea Nitrogen 32 mg/dL (8-26) Creatinine 2.9 mg/dL (0.7-1.3) Estimated GFR (Cockcroft-Gault) 27.3 BUN/Creatinine Ratio 11 (6-20) Glucose Level 51 mg/dL (70-99) Calcium Level 8.1 mg/dL (8.5-10.1) Total Bilirubin 0.5 mg/dL (0.2-1.0) Aspartate Amino Transf (AST/SGOT) 12 U/L (15-37) Alanine Aminotransferase (ALT/SGPT) 18 U/L (16-63) Alkaline Phosphatase 51 U/L (46-116) Total Protein 6.0 g/dL (6.4-8.2) Albumin 2.3 g/dL (3.4-5.0) Albumin/Globulin Ratio 0.6 (1.0-1.7) Glucose (Fingerstick) 45 mg/dL (70-99) 150 mg/dL (70-99) Laboratory Tests Test 08/21/17 14:08 08/21/17 14:21 08/21/17 15:39 08/21/17 16:00 O2 Saturation 90 % (92-99) 85 % (92-99) 93 % (92-99) Arterial Blood pH 7.11 (7.35-7.45) 7.28 (7.35-7.45) 7.20 (7.35-7.45) Arterial Blood pCO2 at Patient Temp 131 mmHg (35-46) 72 mmHg (35-46) 100 mmHg (35-46) Arterial Blood pO2 at Patient Temp 69 mmHg (75-108) 54 mmHg (75-108) 80 mmHg (75-108) Arterial Blood HCO3 41 mmol/L (21-28) 33 mmol/L (21-28) 38 mmol/L (21-28) Arterial Blood Base Excess 7 mmol/L (-3-3) 4 mmol/L (-3-3) 7 mmol/L (-3-3) FiO2 44% 40 70 Glucose (Fingerstick) 140 mg/dL (70-99) Test 08/21/17 16:30 08/21/17 19:35 08/22/17 03:50 08/22/17 07:14 Urine Color Yellow Urine Clarity Clear Urine pH 5.5 Urine Specific [place] 1.015 Urine Protein >=300 mg/dL (NEG-TRACE) Urine Glucose (UA) Negative mg/dL (NEG) Urine Ketones (Stick) Negative mg/dL (NEG) Urine Blood Negative (NEG) Urine Nitrite Negative (NEG) Urine Bilirubin Negative (NEG) Urine Urobilinogen Dipstick 1.0 mg/dL (0.2 mg/dL) Urine Leukocyte Esterase Negative (NEG) Urine RBC 0 /HPF (0-2) Urine WBC Occ /HPF (0-4) Urine Squamous Epithelial Cells Occ /LPF Urine Bacteria 0 /HPF (0-FEW) Urine Mucus Slight /LPF Urine Opiates Screen Neg (NEG) Urine Methadone Screen Neg (NEG) Urine Barbiturates Neg (NEG) Urine Phencyclidine Screen Neg (NEG) Urine Amphetamine/Methamphetamine Neg (NEG) Urine Benzodiazepines Screen Neg (NEG) Urine Cocaine Screen Neg (NEG) Urine Cannabinoids Screen Neg (NEG) Urine Ethyl Alcohol Neg (NEG) Sodium Level 149 mmol/L (136-145) 149 mmol/L (136-145) Potassium Level 5.0 mmol/L (3.5-5.1) 4.6 mmol/L (3.5-5.1) Chloride Level 110 mmol/L (98-107) 110 mmol/L (98-107) Carbon Dioxide Level 36 mmol/L (21-32) 37 mmol/L (21-32) Anion Gap 3 (6-14) 2 (6-14) Blood Urea Nitrogen 31 mg/dL (8-26) 32 mg/dL (8-26) Creatinine 2.8 mg/dL (0.7-1.3) 2.9 mg/dL (0.7-1.3) Estimated GFR (Cockcroft-Gault) 28.4 27.3 Glucose Level 121 mg/dL (70-99) 51 mg/dL (70-99) Calcium Level 8.4 mg/dL (8.5-10.1) 8.1 mg/dL (8.5-10.1) Magnesium Level 2.5 mg/dL (1.8-2.4) White Blood Count 8.1 x10^3/uL (4.0-11.0) Red Blood Count 3.98 x10^6/uL (4.30-5.70) Hemoglobin 10.1 g/dL (13.0-17.5) Hematocrit 32.8 % (39.0-53.0) Mean Corpuscular Volume 82 fL (79-100) Mean Corpuscular Hemoglobin 25 pg (25-35) Mean Corpuscular Hemoglobin Concent 31 g/dL (31-37) Red Cell Distribution Width 18.6 % (11.5-14.5) Platelet Count 203 x10^3/uL (140-400) Neutrophils (%) (Auto) 86 % (31-73) Lymphocytes (%) (Auto) 6 % (24-48) Monocytes (%) (Auto) 8 % (0-9) Eosinophils (%) (Auto) 1 % (0-3) Basophils (%) (Auto) 0 % (0-3) Neutrophils # (Auto) 6.9 x10^3uL (1.8-7.7) Lymphocytes # (Auto) 0.4 x10^3/uL (1.0-4.8) Monocytes # (Auto) 0.7 x10^3/uL (0.0-1.1) Eosinophils # (Auto) 0.1 x10^3/uL (0.0-0.7) Basophils # (Auto) 0.0 x10^3/uL (0.0-0.2) BUN/Creatinine Ratio 11 (6-20) Total Bilirubin 0.5 mg/dL (0.2-1.0) Aspartate Amino Transf (AST/SGOT) 12 U/L (15-37) Alanine Aminotransferase (ALT/SGPT) 18 U/L (16-63) Alkaline Phosphatase 51 U/L (46-116) Total Protein 6.0 g/dL (6.4-8.2) Albumin 2.3 g/dL (3.4-5.0) Albumin/Globulin Ratio 0.6 (1.0-1.7) Glucose (Fingerstick) 45 mg/dL (70-99) Test 08/22/17 07:23 Glucose (Fingerstick) 150 mg/dL (70-99) Medications Current Medications Albuterol/ Ipratropium (Duoneb) 3 ml 1X ONCE NEB Last administered on 11:00; Start 08/20/17 at 10:45; Stop 08/20/17 at 10:46; Status DC Furosemide (Lasix) 40 mg 1X ONCE PO Last administered on 08/20/17 14:57; Start 08/20/17 at 14:30; Stop 08/20/17 at 14:33; Status DC Ondansetron HCl (Zofran) 4 mg PRN Q8HRS PRN IV NAUSEA/VOMITING; Start at 14:45; Stop 08/21/17 at 14:44; Status DC Morphine Sulfate 2 mg PRN Q2HR PRN IV PAIN; Start 08/20/17 at 14:45; Stop at 14:44; Status DC Enoxaparin Sodium (Lovenox 40mg Syringe) 40 mg Q24H SQ Last administered on 18:16; Start 08/20/17 at 19:15 Amlodipine Besylate (Norvasc) 10 mg DAILY PO Last administered on 08/22/17 08 :50; Start 08/21/17 at 09:00 Lisinopril (Prinivil) 20 mg DAILY PO Last administered on 08/22/17 08:50; Start 08/21/17 at 09:00 Simvastatin (Zocor) 40 mg QHS PO Last administered on 08/20/17 21:07; Start 08/20/17 at 21:00 Carvedilol (Coreg) 25 mg BIDWMEALS PO Last administered on 08/22/17 08:49; Start 08/21/17 at 20:00 Diltiazem HCl (Cardizem 24hr Cd) 120 mg DAILY PO Last administered on 08:48; Start 08/21/17 at 09:00 Non-Formulary Medication 1 each BID PO ; Start 08/20/17 at 21:00; Status UNV Potassium Chloride (Klor-Con) 20 meq BIDWMEALS PO Last administered on 08:48; Start 08/20/17 at 20:00 Glyburide (Diabeta) 5 mg BIDWMEALS PO Last administered on 08/21/17 09:49; Start 08/21/17 at 08:00; Stop 08/21/17 at 12:59; Status DC Metformin HCl (Glucophage) 500 mg BIDWMEALS PO Last administered on 08/21/17 09:48; Start 08/21/17 at 08:00; Stop 08/21/17 at 12:59; Status DC Influenza Virus Vaccine Quadrival (Fluarix Quad [id number] Syringe) 0.5 ml ONCE ONCE VAX IM Last administered on 08/21/17 09:57; Start 08/21/17 at 09:00; Stop 08/21/17 at 09:01; Status DC Pneumococcal Polyvalent Vaccine (Pneumovax 23) 0.5 ml ONCE ONCE VAX IM Last administered on 08/21/17 09:58; Start 08/21/17 at 09:00; Stop 08/21/17 at 09 :01; Status DC Guaifenesin (Mucinex) 1,200 mg BID PO Last administered on 08/22/17 08:49; Start 08/21/17 at 09:30 Albuterol/ Ipratropium (Duoneb) 3 ml RTQID NEB Last administered on 08/22/17 12:02; Start 08/21/17 at 16:00 Amiodarone HCl 150 mg/Dextrose 103 ml @ 618 mls/hr 1X ONCE IV Last administered on 08/21/17 16:12; Start 08/21/17 at 15:45; Stop 08/21/17 at 15 :54; Status DC Amiodarone HCl 900 mg/Dextrose 518 ml @ 0 mls/hr CONT PRN IV SEE I/O RECORD Last administered on 08/21/17 16:14; Start 08/21/17 at 15:45; Stop 08/21/17 at 16:15; Status DC Furosemide (Lasix) 60 mg 1X ONCE IVP Last administered on 08/21/17 16:15; Start 08/21/17 at 16:00; Stop 08/21/17 at 16:01; Status DC Dextrose 1,000 ml @ 60 mls/hr [id number] IV Last administered on 08/21/17 16:30 ; Start 08/21/17 at 16:30; Stop 08/22/17 at 09:09; Status DC Dextrose (Dextrose 50%-Water Syringe) 25 gm STK-MED ONCE IV ; Start 08/22/17 at 07:15; Stop 08/22/17 at 07:16; Status DC Dextrose (Dextrose 50%-Water Syringe) 25 gm 1X ONCE IV Last administered on 07:22; Start 08/22/17 at 07:30; Stop 08/22/17 at 07:31; Status DC Dextrose (Dextrose 50%-Water Syringe) 12.5 gm PRN Q15MIN PRN IV SEE COMMENTS; Start 08/22/17 at 07:45 Active Scripts Active Reported Simvastatin 40 Mg Tablet 40 Mg PO DAILY Lisinopril 20 Mg Tablet 20 Mg PO DAILY Norvasc (Amlodipine Besylate) 10 Mg Tablet 10 Mg PO DAILY Metformin Hcl 1,000 Mg Tablet 1,000 Mg PO BID Lasix (Furosemide) 20 Mg Tablet 20 Mg PO DAILY Glyburide-Metformin 5-500 Mg (Glyburide/Metformin Hcl) 1 Each Tablet 1 Each PO BID Diltiazem Sr 12HR (Diltiazem Hcl) 90 Mg Cap.er.12h 60 Mg PO BID Carvedilol 25 Mg Tablet 25 Mg PO BID Potassium 99 Mg Tablet 20 Meq PO BID Vitals/I & O Vital Sign - Last 24 Hours 08/21/17 08/21/17 08/21/17 08/21/17 14:15 15:00 15:10 16:00 Temp 99.5 99.5 Pulse 70 Resp 33 B/P (MAP) 143/70 (94) Pulse Ox 92 95 96 O2 Delivery Nasal Cannula BiPAP/CPAP BiPAP/CPAP BiPAP/CPAP O2 Flow Rate 6.0 08/21/17 08/21/17 08/21/17 08/21/17 16:00 16:00 16:12 17:00 Pulse 67 70 65 Resp 23 22 B/P (MAP) 118/67 (84) 118/67 126/65 (85) Pulse Ox 92 88 O2 Delivery Bi-pap BiPAP/CPAP Ventilator 08/21/17 08/21/17 08/21/17 08/21/17 18:00 19:00 19:56 20:00 Temp 99.2 99.2 Pulse 60 65 58 Resp 17 23 12 B/P (MAP) 112/59 (76) 136/72 (93) 129/69 (89) Pulse Ox 91 95 90 92 O2 Delivery BiPAP/CPAP BiPAP/CPAP BiPAP/CPAP BiPAP/CPAP 08/21/17 08/21/17 08/21/17 08/21/17 20:00 20:00 21:00 21:06 Pulse 60 60 Resp 20 B/P (MAP) 129/69 115/61 (79) Pulse Ox 93 90 O2 Delivery Bi-pap BiPAP/CPAP BiPAP/CPAP 08/21/17 08/21/17 08/21/17 08/22/17 22:00 23:00 23:46 00:00 Pulse 58 56 Resp 26 10 B/P (MAP) 110/59 (76) 125/63 (83) Pulse Ox 95 90 90 O2 Delivery BiPAP/CPAP BiPAP/CPAP BiPAP/CPAP Bi-pap 08/22/17 08/22/17 08/22/17 08/22/17 00:00 01:00 02:00 02:23 Temp 98.8 98.8 Pulse 56 59 62 Resp 07 23 23 B/P (MAP) 111/62 (78) 129/65 (86) 140/68 (92) Pulse Ox 86 90 92 90 O2 Delivery BiPAP/CPAP BiPAP/CPAP BiPAP/CPAP BiPAP/CPAP 08/22/17 08/22/17 08/22/17 08/22/17 03:00 04:00 04:00 05:00 Temp 99.1 99.1 Pulse 57 57 60 Resp 19 B/P (MAP) 126/64 (84) 135/72 (93) 147/74 (98) Pulse Ox 95 92 93 O2 Delivery BiPAP/CPAP BiPAP/CPAP Bi-pap BiPAP/CPAP 08/22/17 08/22/17 08/22/17 08/22/17 05:18 06:00 07:00 08:00 Pulse 57 60 Resp 23 B/P (MAP) 132/65 (87) 132/65 (87) Pulse Ox 93 93 92 O2 Delivery BiPAP/CPAP BiPAP/CPAP BiPAP/CPAP O2 Flow Rate 6.0 08/22/17 08/22/17 08/22/17 08/22/17 08:00 08:14 08:48 08:49 Pulse 72 72 B/P (MAP) 153/63 153/63 Pulse Ox 91 O2 Delivery Bi-pap BiPAP/CPAP O2 Flow Rate 5.0 08/22/17 08/22/17 08/22/17 08/22/17 08:50 08:50 09:00 09:17 Pulse 72 72 70 Resp 18 B/P (MAP) 153/63 153/63 154/74 (100) Pulse Ox 97 99 O2 Delivery BiPAP/CPAP BiPAP/CPAP 08/22/17 08/22/17 08/22/17 10:00 11:00 12:04 Pulse 74 75 Resp 25 28 B/P (MAP) 169/73 (105) 141/71 (94) Pulse Ox 97 97 O2 Delivery Venturi Mask Venturi Mask Venturi Mask O2 Flow Rate 15.0 8.0 12.0 Intake and Output 08/21/17 08/21/17 08/22/17 15:00 23:00 07:00 Intake Total 112 ml 1065.0 ml Output Total 815 ml 510 ml Balance -703 ml 555.0 ml ALIA HARKINS MD Aug 22, 2017 12:23
--- NOTE | 2017-08-22 13:42 | PDOC ---
PULMONARY PROGRESS NOTES Subjective much better awake, moving all extremities Vitals Vital Signs Date Time Temp Pulse Resp B/P (MAP) Pulse Ox O2 Delivery O2 Flow Rate FiO2 08/22/17 13:00 99.1 75 26 141/71 (94) 90 Venturi Mask 12.0 99.1 General: Alert, No acute distress Lungs: Other (decrease bs) Cardiovascular: S1, S2 Abdomen: Soft, Non-tender, Other (distended) Extremities: No Edema Skin: Warm Labs Laboratory Tests Test 08/20/17 21:30 08/21/17 00:01 08/21/17 02:35 08/21/17 05:00 Glucose (Fingerstick) 136 mg/dL (70-99) Troponin I Quantitative 0.019 ng/mL (0.000-0.055) 0.019 ng/mL (0.000-0.055) Sodium Level 149 mmol/L (136-145) Potassium Level 4.4 mmol/L (3.5-5.1) Chloride Level 108 mmol/L (98-107) Carbon Dioxide Level 34 mmol/L (21-32) Anion Gap 7 (6-14) Blood Urea Nitrogen 30 mg/dL (8-26) Creatinine 2.8 mg/dL (0.7-1.3) Estimated GFR (Cockcroft-Gault) 28.4 Glucose Level 69 mg/dL (70-99) Calcium Level 7.8 mg/dL (8.5-10.1) White Blood Count 8.7 x10^3/uL (4.0-11.0) Red Blood Count 4.34 x10^6/uL (4.30-5.70) Hemoglobin 11.0 g/dL (13.0-17.5) Hematocrit 35.8 % (39.0-53.0) Mean Corpuscular Volume 83 fL (79-100) Mean Corpuscular Hemoglobin 25 pg (25-35) Mean Corpuscular Hemoglobin Concent 31 g/dL (31-37) Red Cell Distribution Width 19.1 % (11.5-14.5) Platelet Count 236 x10^3/uL (140-400) Neutrophils (%) (Auto) 83 % (31-73) Lymphocytes (%) (Auto) 8 % (24-48) Monocytes (%) (Auto) 7 % (0-9) Eosinophils (%) (Auto) 2 % (0-3) Basophils (%) (Auto) 0 % (0-3) Neutrophils # (Auto) 7.2 x10^3uL (1.8-7.7) Lymphocytes # (Auto) 0.6 x10^3/uL (1.0-4.8) Monocytes # (Auto) 0.6 x10^3/uL (0.0-1.1) Eosinophils # (Auto) 0.1 x10^3/uL (0.0-0.7) Basophils # (Auto) 0.0 x10^3/uL (0.0-0.2) Magnesium Level 2.3 mg/dL (1.8-2.4) Test 08/21/17 07:48 08/21/17 11:51 08/21/17 14:08 08/21/17 14:21 Glucose (Fingerstick) 86 mg/dL (70-99) 136 mg/dL (70-99) 140 mg/dL (70-99) O2 Saturation 90 % (92-99) Arterial Blood pH 7.11 (7.35-7.45) Arterial Blood pCO2 at Patient Temp 131 mmHg (35-46) Arterial Blood pO2 at Patient Temp 69 mmHg (75-108) Arterial Blood HCO3 41 mmol/L (21-28) Arterial Blood Base Excess 7 mmol/L (-3-3) FiO2 44% Test 08/21/17 15:39 08/21/17 16:00 08/21/17 16:30 08/21/17 19:35 O2 Saturation 85 % (92-99) 93 % (92-99) Arterial Blood pH 7.28 (7.35-7.45) 7.20 (7.35-7.45) Arterial Blood pCO2 at Patient Temp 72 mmHg (35-46) 100 mmHg (35-46) Arterial Blood pO2 at Patient Temp 54 mmHg (75-108) 80 mmHg (75-108) Arterial Blood HCO3 33 mmol/L (21-28) 38 mmol/L (21-28) Arterial Blood Base Excess 4 mmol/L (-3-3) 7 mmol/L (-3-3) FiO2 40 70 Urine Color Yellow Urine Clarity Clear Urine pH 5.5 Urine Specific Conger 1.015 Urine Protein >=300 mg/dL (NEG-TRACE) Urine Glucose (UA) Negative mg/dL (NEG) Urine Ketones (Stick) Negative mg/dL (NEG) Urine Blood Negative (NEG) Urine Nitrite Negative (NEG) Urine Bilirubin Negative (NEG) Urine Urobilinogen Dipstick 1.0 mg/dL (0.2 mg/dL) Urine Leukocyte Esterase Negative (NEG) Urine RBC 0 /HPF (0-2) Urine WBC Occ /HPF (0-4) Urine Squamous Epithelial Cells Occ /LPF Urine Bacteria 0 /HPF (0-FEW) Urine Mucus Slight /LPF Urine Opiates Screen Neg (NEG) Urine Methadone Screen Neg (NEG) Urine Barbiturates Neg (NEG) Urine Phencyclidine Screen Neg (NEG) Urine Amphetamine/Methamphetamine Neg (NEG) Urine Benzodiazepines Screen Neg (NEG) Urine Cocaine Screen Neg (NEG) Urine Cannabinoids Screen Neg (NEG) Urine Ethyl Alcohol Neg (NEG) Sodium Level 149 mmol/L (136-145) Potassium Level 5.0 mmol/L (3.5-5.1) Chloride Level 110 mmol/L (98-107) Carbon Dioxide Level 36 mmol/L (21-32) Anion Gap 3 (6-14) Blood Urea Nitrogen 31 mg/dL (8-26) Creatinine 2.8 mg/dL (0.7-1.3) Estimated GFR (Cockcroft-Gault) 28.4 Glucose Level 121 mg/dL (70-99) Calcium Level 8.4 mg/dL (8.5-10.1) Magnesium Level 2.5 mg/dL (1.8-2.4) Test 08/22/17 03:50 08/22/17 07:14 08/22/17 07:23 White Blood Count 8.1 x10^3/uL (4.0-11.0) Red Blood Count 3.98 x10^6/uL (4.30-5.70) Hemoglobin 10.1 g/dL (13.0-17.5) Hematocrit 32.8 % (39.0-53.0) Mean Corpuscular Volume 82 fL (79-100) Mean Corpuscular Hemoglobin 25 pg (25-35) Mean Corpuscular Hemoglobin Concent 31 g/dL (31-37) Red Cell Distribution Width 18.6 % (11.5-14.5) Platelet Count 203 x10^3/uL (140-400) Neutrophils (%) (Auto) 86 % (31-73) Lymphocytes (%) (Auto) 6 % (24-48) Monocytes (%) (Auto) 8 % (0-9) Eosinophils (%) (Auto) 1 % (0-3) Basophils (%) (Auto) 0 % (0-3) Neutrophils # (Auto) 6.9 x10^3uL (1.8-7.7) Lymphocytes # (Auto) 0.4 x10^3/uL (1.0-4.8) Monocytes # (Auto) 0.7 x10^3/uL (0.0-1.1) Eosinophils # (Auto) 0.1 x10^3/uL (0.0-0.7) Basophils # (Auto) 0.0 x10^3/uL (0.0-0.2) Sodium Level 149 mmol/L (136-145) Potassium Level 4.6 mmol/L (3.5-5.1) Chloride Level 110 mmol/L (98-107) Carbon Dioxide Level 37 mmol/L (21-32) Anion Gap 2 (6-14) Blood Urea Nitrogen 32 mg/dL (8-26) Creatinine 2.9 mg/dL (0.7-1.3) Estimated GFR (Cockcroft-Gault) 27.3 BUN/Creatinine Ratio 11 (6-20) Glucose Level 51 mg/dL (70-99) Calcium Level 8.1 mg/dL (8.5-10.1) Total Bilirubin 0.5 mg/dL (0.2-1.0) Aspartate Amino Transf (AST/SGOT) 12 U/L (15-37) Alanine Aminotransferase (ALT/SGPT) 18 U/L (16-63) Alkaline Phosphatase 51 U/L (46-116) Total Protein 6.0 g/dL (6.4-8.2) Albumin 2.3 g/dL (3.4-5.0) Albumin/Globulin Ratio 0.6 (1.0-1.7) Glucose (Fingerstick) 45 mg/dL (70-99) 150 mg/dL (70-99) Laboratory Tests Test 08/21/17 14:08 08/21/17 14:21 08/21/17 15:39 08/21/17 16:00 O2 Saturation 90 % (92-99) 85 % (92-99) 93 % (92-99) Arterial Blood pH 7.11 (7.35-7.45) 7.28 (7.35-7.45) 7.20 (7.35-7.45) Arterial Blood pCO2 at Patient Temp 131 mmHg (35-46) 72 mmHg (35-46) 100 mmHg (35-46) Arterial Blood pO2 at Patient Temp 69 mmHg (75-108) 54 mmHg (75-108) 80 mmHg (75-108) Arterial Blood HCO3 41 mmol/L (21-28) 33 mmol/L (21-28) 38 mmol/L (21-28) Arterial Blood Base Excess 7 mmol/L (-3-3) 4 mmol/L (-3-3) 7 mmol/L (-3-3) FiO2 44% 40 70 Glucose (Fingerstick) 140 mg/dL (70-99) Test 08/21/17 16:30 08/21/17 19:35 08/22/17 03:50 08/22/17 07:14 Urine Color Yellow Urine Clarity Clear Urine pH 5.5 Urine Specific [place]er 1.015 Urine Protein >=300 mg/dL (NEG-TRACE) Urine Glucose (UA) Negative mg/dL (NEG) Urine Ketones (Stick) Negative mg/dL (NEG) Urine Blood Negative (NEG) Urine Nitrite Negative (NEG) Urine Bilirubin Negative (NEG) Urine Urobilinogen Dipstick 1.0 mg/dL (0.2 mg/dL) Urine Leukocyte Esterase Negative (NEG) Urine RBC 0 /HPF (0-2) Urine WBC Occ /HPF (0-4) Urine Squamous Epithelial Cells Occ /LPF Urine Bacteria 0 /HPF (0-FEW) Urine Mucus Slight /LPF Urine Opiates Screen Neg (NEG) Urine Methadone Screen Neg (NEG) Urine Barbiturates Neg (NEG) Urine Phencyclidine Screen Neg (NEG) Urine Amphetamine/Methamphetamine Neg (NEG) Urine Benzodiazepines Screen Neg (NEG) Urine Cocaine Screen Neg (NEG) Urine Cannabinoids Screen Neg (NEG) Urine Ethyl Alcohol Neg (NEG) Sodium Level 149 mmol/L (136-145) 149 mmol/L (136-145) Potassium Level 5.0 mmol/L (3.5-5.1) 4.6 mmol/L (3.5-5.1) Chloride Level 110 mmol/L (98-107) 110 mmol/L (98-107) Carbon Dioxide Level 36 mmol/L (21-32) 37 mmol/L (21-32) Anion Gap 3 (6-14) 2 (6-14) Blood Urea Nitrogen 31 mg/dL (8-26) 32 mg/dL (8-26) Creatinine 2.8 mg/dL (0.7-1.3) 2.9 mg/dL (0.7-1.3) Estimated GFR (Cockcroft-Gault) 28.4 27.3 Glucose Level 121 mg/dL (70-99) 51 mg/dL (70-99) Calcium Level 8.4 mg/dL (8.5-10.1) 8.1 mg/dL (8.5-10.1) Magnesium Level 2.5 mg/dL (1.8-2.4) White Blood Count 8.1 x10^3/uL (4.0-11.0) Red Blood Count 3.98 x10^6/uL (4.30-5.70) Hemoglobin 10.1 g/dL (13.0-17.5) Hematocrit 32.8 % (39.0-53.0) Mean Corpuscular Volume 82 fL (79-100) Mean Corpuscular Hemoglobin 25 pg (25-35) Mean Corpuscular Hemoglobin Concent 31 g/dL (31-37) Red Cell Distribution Width 18.6 % (11.5-14.5) Platelet Count 203 x10^3/uL (140-400) Neutrophils (%) (Auto) 86 % (31-73) Lymphocytes (%) (Auto) 6 % (24-48) Monocytes (%) (Auto) 8 % (0-9) Eosinophils (%) (Auto) 1 % (0-3) Basophils (%) (Auto) 0 % (0-3) Neutrophils # (Auto) 6.9 x10^3uL (1.8-7.7) Lymphocytes # (Auto) 0.4 x10^3/uL (1.0-4.8) Monocytes # (Auto) 0.7 x10^3/uL (0.0-1.1) Eosinophils # (Auto) 0.1 x10^3/uL (0.0-0.7) Basophils # (Auto) 0.0 x10^3/uL (0.0-0.2) BUN/Creatinine Ratio 11 (6-20) Total Bilirubin 0.5 mg/dL (0.2-1.0) Aspartate Amino Transf (AST/SGOT) 12 U/L (15-37) Alanine Aminotransferase (ALT/SGPT) 18 U/L (16-63) Alkaline Phosphatase 51 U/L (46-116) Total Protein 6.0 g/dL (6.4-8.2) Albumin 2.3 g/dL (3.4-5.0) Albumin/Globulin Ratio 0.6 (1.0-1.7) Glucose (Fingerstick) 45 mg/dL (70-99) Test 08/22/17 07:23 Glucose (Fingerstick) 150 mg/dL (70-99) Medications Active Scripts Medications Dose Route/Sig Max Daily Dose Days Date Category Simvastatin 40 Mg Tablet 40 Mg PO DAILY 09/24/13 Reported Lisinopril 20 Mg Tablet 20 Mg PO DAILY 09/24/13 Reported Norvasc (Amlodipine Besylate) 10 Mg Tablet 10 Mg PO DAILY 09/24/13 Reported Metformin Hcl 1,000 Mg Tablet 1,000 Mg PO BID 09/24/13 Reported Lasix (Furosemide) 20 Mg Tablet 20 Mg PO DAILY 09/24/13 Reported Glyburide-Metformin 5-500 Mg (Glyburide/Metformin Hcl) 1 Each Tablet 1 Each PO BID 09/24/13 Reported Diltiazem Sr 12HR (Diltiazem Hcl) 90 Mg Cap.er.12h 60 Mg PO BID 09/24/13 Reported Carvedilol 25 Mg Tablet 25 Mg PO BID 09/24/13 Reported Potassium 99 Mg Tablet 20 Meq PO BID 09/24/13 Reported Impression . 1. Acute on chronic hypercapnic and hypoxic respiratory failure in a patient who is morbidly obese, comes in with congestive heart failure and also received morphine 2 mg IV. These are all the contributing factors for his acute on chronic respiratory failure. 2. Questionable ischemic stroke. We will leave up to Neurology regarding any further plans. 3. Underlying obesity hypoventilation syndrome. 4. No evidence of pulmonary embolism by V/Q scan. 5. Normal left ventricular function with an ejection fraction of 55% to 60% based on recent echo. Plan . 1. will try off BiPAP. 2. ABG much improved 3. Diuresis per cardiology 4. Follow neurology recommendation. 5. Follow cardiology recommendation. 6. Discontinue all narcotics. 7. DuoNeb. 8. Lovenox for DVT prophylaxis. 9. Discussed with RN and RT. cct 25 min ZACHERY PIÑA MD Aug 22, 2017 13:42
[2017-08-22 14:17] LABS: HCO3 ABG 36 mmol/L (21-28); PH ABG 7.34 (7.35-7.45); PO2 ABG 58 mmHg (75-108); SAT O2 ABG 87 % (92-99)
[2017-08-22 14:23] LABS: PCO2 ABG 70 mmHg (35-46)
[2017-08-22 14:25] LABS: FIO2 ABG 40
--- NOTE | 2017-08-22 14:34 | PDOC ---
PROGRESS NOTES Subjective Subjective Patient awake alert and responsive. Moving all extremities. Objective Objective Vital Signs Date Time Temp Pulse Resp B/P (MAP) Pulse Ox O2 Delivery O2 Flow Rate FiO2 08/22/17 13:00 99.1 75 26 141/71 (94) 90 Venturi Mask 12.0 99.1 Intake and Output 08/22/17 07:00 Intake Total 1177.0 ml Output Total 1325 ml Balance -148.0 ml Intake Oral 0 ml IV Total 1177.0 ml Output Urine Total 1325 ml Physical Exam Physical Exam Moving air a lot better. No changes in heart sounds. Assessment Assessment Great improvement on this patient. I will continue with the mask for now. Agree with present plan. Problems Medical Problems: (1) CHF exacerbation Status: Acute (2) CKD (chronic kidney disease) Status: Acute (3) Hypoxia Status: Acute Comment Review of Relevant I have reviewed the following items ninoska (where applicable) has been applied. Labs Laboratory Tests Test 08/20/17 21:30 08/21/17 00:01 08/21/17 02:35 08/21/17 05:00 Glucose (Fingerstick) 136 mg/dL (70-99) Troponin I Quantitative 0.019 ng/mL (0.000-0.055) 0.019 ng/mL (0.000-0.055) Sodium Level 149 mmol/L (136-145) Potassium Level 4.4 mmol/L (3.5-5.1) Chloride Level 108 mmol/L (98-107) Carbon Dioxide Level 34 mmol/L (21-32) Anion Gap 7 (6-14) Blood Urea Nitrogen 30 mg/dL (8-26) Creatinine 2.8 mg/dL (0.7-1.3) Estimated GFR (Cockcroft-Gault) 28.4 Glucose Level 69 mg/dL (70-99) Calcium Level 7.8 mg/dL (8.5-10.1) White Blood Count 8.7 x10^3/uL (4.0-11.0) Red Blood Count 4.34 x10^6/uL (4.30-5.70) Hemoglobin 11.0 g/dL (13.0-17.5) Hematocrit 35.8 % (39.0-53.0) Mean Corpuscular Volume 83 fL (79-100) Mean Corpuscular Hemoglobin 25 pg (25-35) Mean Corpuscular Hemoglobin Concent 31 g/dL (31-37) Red Cell Distribution Width 19.1 % (11.5-14.5) Platelet Count 236 x10^3/uL (140-400) Neutrophils (%) (Auto) 83 % (31-73) Lymphocytes (%) (Auto) 8 % (24-48) Monocytes (%) (Auto) 7 % (0-9) Eosinophils (%) (Auto) 2 % (0-3) Basophils (%) (Auto) 0 % (0-3) Neutrophils # (Auto) 7.2 x10^3uL (1.8-7.7) Lymphocytes # (Auto) 0.6 x10^3/uL (1.0-4.8) Monocytes # (Auto) 0.6 x10^3/uL (0.0-1.1) Eosinophils # (Auto) 0.1 x10^3/uL (0.0-0.7) Basophils # (Auto) 0.0 x10^3/uL (0.0-0.2) Magnesium Level 2.3 mg/dL (1.8-2.4) Test 08/21/17 07:48 08/21/17 11:51 08/21/17 14:08 08/21/17 14:21 Glucose (Fingerstick) 86 mg/dL (70-99) 136 mg/dL (70-99) 140 mg/dL (70-99) O2 Saturation 90 % (92-99) Arterial Blood pH 7.11 (7.35-7.45) Arterial Blood pCO2 at Patient Temp 131 mmHg (35-46) Arterial Blood pO2 at Patient Temp 69 mmHg (75-108) Arterial Blood HCO3 41 mmol/L (21-28) Arterial Blood Base Excess 7 mmol/L (-3-3) FiO2 44% Test 08/21/17 15:39 08/21/17 16:00 08/21/17 16:30 08/21/17 19:35 O2 Saturation 85 % (92-99) 93 % (92-99) Arterial Blood pH 7.28 (7.35-7.45) 7.20 (7.35-7.45) Arterial Blood pCO2 at Patient Temp 72 mmHg (35-46) 100 mmHg (35-46) Arterial Blood pO2 at Patient Temp 54 mmHg (75-108) 80 mmHg (75-108) Arterial Blood HCO3 33 mmol/L (21-28) 38 mmol/L (21-28) Arterial Blood Base Excess 4 mmol/L (-3-3) 7 mmol/L (-3-3) FiO2 40 70 Urine Color Yellow Urine Clarity Clear Urine pH 5.5 Urine Specific Mustang 1.015 Urine Protein >=300 mg/dL (NEG-TRACE) Urine Glucose (UA) Negative mg/dL (NEG) Urine Ketones (Stick) Negative mg/dL (NEG) Urine Blood Negative (NEG) Urine Nitrite Negative (NEG) Urine Bilirubin Negative (NEG) Urine Urobilinogen Dipstick 1.0 mg/dL (0.2 mg/dL) Urine Leukocyte Esterase Negative (NEG) Urine RBC 0 /HPF (0-2) Urine WBC Occ /HPF (0-4) Urine Squamous Epithelial Cells Occ /LPF Urine Bacteria 0 /HPF (0-FEW) Urine Mucus Slight /LPF Urine Opiates Screen Neg (NEG) Urine Methadone Screen Neg (NEG) Urine Barbiturates Neg (NEG) Urine Phencyclidine Screen Neg (NEG) Urine Amphetamine/Methamphetamine Neg (NEG) Urine Benzodiazepines Screen Neg (NEG) Urine Cocaine Screen Neg (NEG) Urine Cannabinoids Screen Neg (NEG) Urine Ethyl Alcohol Neg (NEG) Sodium Level 149 mmol/L (136-145) Potassium Level 5.0 mmol/L (3.5-5.1) Chloride Level 110 mmol/L (98-107) Carbon Dioxide Level 36 mmol/L (21-32) Anion Gap 3 (6-14) Blood Urea Nitrogen 31 mg/dL (8-26) Creatinine 2.8 mg/dL (0.7-1.3) Estimated GFR (Cockcroft-Gault) 28.4 Glucose Level 121 mg/dL (70-99) Calcium Level 8.4 mg/dL (8.5-10.1) Magnesium Level 2.5 mg/dL (1.8-2.4) Test 08/22/17 03:50 08/22/17 07:14 08/22/17 07:23 08/22/17 13:00 White Blood Count 8.1 x10^3/uL (4.0-11.0) Red Blood Count 3.98 x10^6/uL (4.30-5.70) Hemoglobin 10.1 g/dL (13.0-17.5) Hematocrit 32.8 % (39.0-53.0) Mean Corpuscular Volume 82 fL (79-100) Mean Corpuscular Hemoglobin 25 pg (25-35) Mean Corpuscular Hemoglobin Concent 31 g/dL (31-37) Red Cell Distribution Width 18.6 % (11.5-14.5) Platelet Count 203 x10^3/uL (140-400) Neutrophils (%) (Auto) 86 % (31-73) Lymphocytes (%) (Auto) 6 % (24-48) Monocytes (%) (Auto) 8 % (0-9) Eosinophils (%) (Auto) 1 % (0-3) Basophils (%) (Auto) 0 % (0-3) Neutrophils # (Auto) 6.9 x10^3uL (1.8-7.7) Lymphocytes # (Auto) 0.4 x10^3/uL (1.0-4.8) Monocytes # (Auto) 0.7 x10^3/uL (0.0-1.1) Eosinophils # (Auto) 0.1 x10^3/uL (0.0-0.7) Basophils # (Auto) 0.0 x10^3/uL (0.0-0.2) Sodium Level 149 mmol/L (136-145) Potassium Level 4.6 mmol/L (3.5-5.1) Chloride Level 110 mmol/L (98-107) Carbon Dioxide Level 37 mmol/L (21-32) Anion Gap 2 (6-14) Blood Urea Nitrogen 32 mg/dL (8-26) Creatinine 2.9 mg/dL (0.7-1.3) Estimated GFR (Cockcroft-Gault) 27.3 BUN/Creatinine Ratio 11 (6-20) Glucose Level 51 mg/dL (70-99) Calcium Level 8.1 mg/dL (8.5-10.1) Total Bilirubin 0.5 mg/dL (0.2-1.0) Aspartate Amino Transf (AST/SGOT) 12 U/L (15-37) Alanine Aminotransferase (ALT/SGPT) 18 U/L (16-63) Alkaline Phosphatase 51 U/L (46-116) Total Protein 6.0 g/dL (6.4-8.2) Albumin 2.3 g/dL (3.4-5.0) Albumin/Globulin Ratio 0.6 (1.0-1.7) Glucose (Fingerstick) 45 mg/dL (70-99) 150 mg/dL (70-99) O2 Saturation 87 % (92-99) Arterial Blood pH 7.34 (7.35-7.45) Arterial Blood pCO2 at Patient Temp 70 mmHg (35-46) Arterial Blood pO2 at Patient Temp 58 mmHg (75-108) Arterial Blood HCO3 36 mmol/L (21-28) Arterial Blood Base Excess 8 mmol/L (-3-3) FiO2 40 Laboratory Tests Test 08/21/17 15:39 08/21/17 16:00 08/21/17 16:30 08/21/17 19:35 O2 Saturation 85 % (92-99) 93 % (92-99) Arterial Blood pH 7.28 (7.35-7.45) 7.20 (7.35-7.45) Arterial Blood pCO2 at Patient Temp 72 mmHg (35-46) 100 mmHg (35-46) Arterial Blood pO2 at Patient Temp 54 mmHg (75-108) 80 mmHg (75-108) Arterial Blood HCO3 33 mmol/L (21-28) 38 mmol/L (21-28) Arterial Blood Base Excess 4 mmol/L (-3-3) 7 mmol/L (-3-3) FiO2 40 70 Urine Color Yellow Urine Clarity Clear Urine pH 5.5 Urine Specific Mustang 1.015 Urine Protein >=300 mg/dL (NEG-TRACE) Urine Glucose (UA) Negative mg/dL (NEG) Urine Ketones (Stick) Negative mg/dL (NEG) Urine Blood Negative (NEG) Urine Nitrite Negative (NEG) Urine Bilirubin Negative (NEG) Urine Urobilinogen Dipstick 1.0 mg/dL (0.2 mg/dL) Urine Leukocyte Esterase Negative (NEG) Urine RBC 0 /HPF (0-2) Urine WBC Occ /HPF (0-4) Urine Squamous Epithelial Cells Occ /LPF Urine Bacteria 0 /HPF (0-FEW) Urine Mucus Slight /LPF Urine Opiates Screen Neg (NEG) Urine Methadone Screen Neg (NEG) Urine Barbiturates Neg (NEG) Urine Phencyclidine Screen Neg (NEG) Urine Amphetamine/Methamphetamine Neg (NEG) Urine Benzodiazepines Screen Neg (NEG) Urine Cocaine Screen Neg (NEG) Urine Cannabinoids Screen Neg (NEG) Urine Ethyl Alcohol Neg (NEG) Sodium Level 149 mmol/L (136-145) Potassium Level 5.0 mmol/L (3.5-5.1) Chloride Level 110 mmol/L (98-107) Carbon Dioxide Level 36 mmol/L (21-32) Anion Gap 3 (6-14) Blood Urea Nitrogen 31 mg/dL (8-26) Creatinine 2.8 mg/dL (0.7-1.3) Estimated GFR (Cockcroft-Gault) 28.4 Glucose Level 121 mg/dL (70-99) Calcium Level 8.4 mg/dL (8.5-10.1) Magnesium Level 2.5 mg/dL (1.8-2.4) Test 08/22/17 03:50 08/22/17 07:14 08/22/17 07:23 08/22/17 13:00 White Blood Count 8.1 x10^3/uL (4.0-11.0) Red Blood Count 3.98 x10^6/uL (4.30-5.70) Hemoglobin 10.1 g/dL (13.0-17.5) Hematocrit 32.8 % (39.0-53.0) Mean Corpuscular Volume 82 fL (79-100) Mean Corpuscular Hemoglobin 25 pg (25-35) Mean Corpuscular Hemoglobin Concent 31 g/dL (31-37) Red Cell Distribution Width 18.6 % (11.5-14.5) Platelet Count 203 x10^3/uL (140-400) Neutrophils (%) (Auto) 86 % (31-73) Lymphocytes (%) (Auto) 6 % (24-48) Monocytes (%) (Auto) 8 % (0-9) Eosinophils (%) (Auto) 1 % (0-3) Basophils (%) (Auto) 0 % (0-3) Neutrophils # (Auto) 6.9 x10^3uL (1.8-7.7) Lymphocytes # (Auto) 0.4 x10^3/uL (1.0-4.8) Monocytes # (Auto) 0.7 x10^3/uL (0.0-1.1) Eosinophils # (Auto) 0.1 x10^3/uL (0.0-0.7) Basophils # (Auto) 0.0 x10^3/uL (0.0-0.2) Sodium Level 149 mmol/L (136-145) Potassium Level 4.6 mmol/L (3.5-5.1) Chloride Level 110 mmol/L (98-107) Carbon Dioxide Level 37 mmol/L (21-32) Anion Gap 2 (6-14) Blood Urea Nitrogen 32 mg/dL (8-26) Creatinine 2.9 mg/dL (0.7-1.3) Estimated GFR (Cockcroft-Gault) 27.3 BUN/Creatinine Ratio 11 (6-20) Glucose Level 51 mg/dL (70-99) Calcium Level 8.1 mg/dL (8.5-10.1) Total Bilirubin 0.5 mg/dL (0.2-1.0) Aspartate Amino Transf (AST/SGOT) 12 U/L (15-37) Alanine Aminotransferase (ALT/SGPT) 18 U/L (16-63) Alkaline Phosphatase 51 U/L (46-116) Total Protein 6.0 g/dL (6.4-8.2) Albumin 2.3 g/dL (3.4-5.0) Albumin/Globulin Ratio 0.6 (1.0-1.7) Glucose (Fingerstick) 45 mg/dL (70-99) 150 mg/dL (70-99) O2 Saturation 87 % (92-99) Arterial Blood pH 7.34 (7.35-7.45) Arterial Blood pCO2 at Patient Temp 70 mmHg (35-46) Arterial Blood pO2 at Patient Temp 58 mmHg (75-108) Arterial Blood HCO3 36 mmol/L (21-28) Arterial Blood Base Excess 8 mmol/L (-3-3) FiO2 40 Medications Current Medications Albuterol/ Ipratropium (Duoneb) 3 ml 1X ONCE NEB Last administered on 11:00; Start 08/20/17 at 10:45; Stop 08/20/17 at 10:46; Status DC Furosemide (Lasix) 40 mg 1X ONCE PO Last administered on 08/20/17 14:57; Start 08/20/17 at 14:30; Stop 08/20/17 at 14:33; Status DC Ondansetron HCl (Zofran) 4 mg PRN Q8HRS PRN IV NAUSEA/VOMITING; Start at 14:45; Stop 08/21/17 at 14:44; Status DC Morphine Sulfate 2 mg PRN Q2HR PRN IV PAIN; Start 08/20/17 at 14:45; Stop at 14:44; Status DC Enoxaparin Sodium (Lovenox 40mg Syringe) 40 mg Q24H SQ Last administered on 18:16; Start 08/20/17 at 19:15 Amlodipine Besylate (Norvasc) 10 mg DAILY PO Last administered on 08/22/17 08 :50; Start 08/21/17 at 09:00 Lisinopril (Prinivil) 20 mg DAILY PO Last administered on 08/22/17 08:50; Start 08/21/17 at 09:00 Simvastatin (Zocor) 40 mg QHS PO Last administered on 08/20/17 21:07; Start 08/20/17 at 21:00 Carvedilol (Coreg) 25 mg BIDWMEALS PO Last administered on 08/22/17 08:49; Start 08/21/17 at 20:00 Diltiazem HCl (Cardizem 24hr Cd) 120 mg DAILY PO Last administered on 08:48; Start 08/21/17 at 09:00 Non-Formulary Medication 1 each BID PO ; Start 08/20/17 at 21:00; Status UNV Potassium Chloride (Klor-Con) 20 meq BIDWMEALS PO Last administered on 08:48; Start 08/20/17 at 20:00 Glyburide (Diabeta) 5 mg BIDWMEALS PO Last administered on 08/21/17 09:49; Start 08/21/17 at 08:00; Stop 08/21/17 at 12:59; Status DC Metformin HCl (Glucophage) 500 mg BIDWMEALS PO Last administered on 08/21/17 09:48; Start 08/21/17 at 08:00; Stop 08/21/17 at 12:59; Status DC Influenza Virus Vaccine Quadrival (Fluarix Quad [id number] Syringe) 0.5 ml ONCE ONCE VAX IM Last administered on 08/21/17 09:57; Start 08/21/17 at 09:00; Stop 08/21/17 at 09:01; Status DC Pneumococcal Polyvalent Vaccine (Pneumovax 23) 0.5 ml ONCE ONCE VAX IM Last administered on 08/21/17 09:58; Start 08/21/17 at 09:00; Stop 08/21/17 at 09 :01; Status DC Guaifenesin (Mucinex) 1,200 mg BID PO Last administered on 08/22/17 08:49; Start 08/21/17 at 09:30 Albuterol/ Ipratropium (Duoneb) 3 ml RTQID NEB Last administered on 08/22/17 12:02; Start 08/21/17 at 16:00 Amiodarone HCl 150 mg/Dextrose 103 ml @ 618 mls/hr 1X ONCE IV Last administered on 08/21/17 16:12; Start 08/21/17 at 15:45; Stop 08/21/17 at 15 :54; Status DC Amiodarone HCl 900 mg/Dextrose 518 ml @ 0 mls/hr CONT PRN IV SEE I/O RECORD Last administered on 08/21/17 16:14; Start 08/21/17 at 15:45; Stop 08/21/17 at 16:15; Status DC Furosemide (Lasix) 60 mg 1X ONCE IVP Last administered on 08/21/17 16:15; Start 08/21/17 at 16:00; Stop 08/21/17 at 16:01; Status DC Dextrose 1,000 ml @ 60 mls/hr [id number] IV Last administered on 08/21/17 16:30 ; Start 08/21/17 at 16:30; Stop 08/22/17 at 09:09; Status DC Dextrose (Dextrose 50%-Water Syringe) 25 gm STK-MED ONCE IV ; Start 08/22/17 at 07:15; Stop 08/22/17 at 07:16; Status DC Dextrose (Dextrose 50%-Water Syringe) 25 gm 1X ONCE IV Last administered on 07:22; Start 08/22/17 at 07:30; Stop 08/22/17 at 07:31; Status DC Dextrose (Dextrose 50%-Water Syringe) 12.5 gm PRN Q15MIN PRN IV SEE COMMENTS; Start 08/22/17 at 07:45 Active Scripts Active Reported Simvastatin 40 Mg Tablet 40 Mg PO DAILY Lisinopril 20 Mg Tablet 20 Mg PO DAILY Norvasc (Amlodipine Besylate) 10 Mg Tablet 10 Mg PO DAILY Metformin Hcl 1,000 Mg Tablet 1,000 Mg PO BID Lasix (Furosemide) 20 Mg Tablet 20 Mg PO DAILY Glyburide-Metformin 5-500 Mg (Glyburide/Metformin Hcl) 1 Each Tablet 1 Each PO BID Diltiazem Sr 12HR (Diltiazem Hcl) 90 Mg Cap.er.12h 60 Mg PO BID Carvedilol 25 Mg Tablet 25 Mg PO BID Potassium 99 Mg Tablet 20 Meq PO BID Vitals/I & O Vital Sign - Last 24 Hours 08/21/17 08/21/17 08/21/17 08/21/17 15:00 15:10 16:00 16:00 Temp 99.5 99.5 Pulse 70 Resp 33 B/P (MAP) 143/70 (94) Pulse Ox 92 95 96 O2 Delivery BiPAP/CPAP BiPAP/CPAP BiPAP/CPAP Bi-pap 08/21/17 08/21/17 08/21/17 08/21/17 16:00 16:12 17:00 18:00 Pulse 67 70 65 60 Resp B/P (MAP) 118/67 (84) 118/67 126/65 (85) 112/59 (76) Pulse Ox 92 88 91 O2 Delivery BiPAP/CPAP Ventilator BiPAP/CPAP 08/21/17 08/21/17 08/21/17 08/21/17 19:00 19:56 20:00 20:00 Temp 99.2 99.2 Pulse 65 58 60 Resp 12 B/P (MAP) 136/72 (93) 129/69 (89) 129/69 Pulse Ox 95 90 92 O2 Delivery BiPAP/CPAP BiPAP/CPAP BiPAP/CPAP 08/21/17 08/21/17 08/21/17 08/21/17 20:00 21:00 21:06 22:00 Pulse 60 58 Resp 20 26 B/P (MAP) 115/61 (79) 110/59 (76) Pulse Ox 93 90 95 O2 Delivery Bi-pap BiPAP/CPAP BiPAP/CPAP BiPAP/CPAP 08/21/17 08/21/17 08/22/17 08/22/17 23:00 23:46 00:00 00:00 Temp 98.8 98.8 Pulse 56 56 Resp 10 11 B/P (MAP) 125/63 (83) 111/62 (78) Pulse Ox 90 90 86 O2 Delivery BiPAP/CPAP BiPAP/CPAP Bi-pap BiPAP/CPAP 08/22/17 08/22/17 08/22/17 08/22/17 01:00 02:00 02:23 03:00 Pulse 59 62 57 Resp 23 23 23 B/P (MAP) 129/65 (86) 140/68 (92) 126/64 (84) Pulse Ox 90 92 90 95 O2 Delivery BiPAP/CPAP BiPAP/CPAP BiPAP/CPAP BiPAP/CPAP 08/22/17 08/22/17 08/22/17 08/22/17 04:00 04:00 05:00 05:18 Temp 99.1 99.1 Pulse 57 60 Resp 19 B/P (MAP) 135/72 (93) 147/74 (98) Pulse Ox 92 93 93 O2 Delivery BiPAP/CPAP Bi-pap BiPAP/CPAP BiPAP/CPAP 08/22/17 08/22/17 08/22/17 08/22/17 06:00 07:00 08:00 08:00 Pulse 57 60 Resp 23 B/P (MAP) 132/65 (87) 132/65 (87) Pulse Ox 93 92 O2 Delivery BiPAP/CPAP BiPAP/CPAP Bi-pap O2 Flow Rate 6.0 5.0 08/22/17 08/22/17 08/22/17 08/22/17 08:14 08:48 08:49 08:50 Pulse 72 72 72 B/P (MAP) 153/63 153/63 153/63 Pulse Ox 91 O2 Delivery BiPAP/CPAP 08/22/17 08/22/17 08/22/17 08/22/17 08:50 09:00 09:17 10:00 Pulse 72 70 74 Resp 18 25 B/P (MAP) 153/63 154/74 (100) 169/73 (105) Pulse Ox 97 99 97 O2 Delivery BiPAP/CPAP BiPAP/CPAP Venturi Mask O2 Flow Rate 15.0 08/22/17 08/22/17 08/22/17 08/22/17 11:00 12:00 12:00 12:04 Pulse 75 Resp 28 B/P (MAP) 141/71 (94) Pulse Ox 97 O2 Delivery Venturi Mask Venturi Mask Venturi Mask O2 Flow Rate 8.0 12.0 8.0 12.0 08/22/17 13:00 Temp 99.1 99.1 Pulse 75 Resp 26 B/P (MAP) 141/71 (94) Pulse Ox 90 O2 Delivery Venturi Mask O2 Flow Rate 12.0 Intake and Output 08/21/17 08/21/17 08/22/17 15:00 23:00 07:00 Intake Total 112 ml 1065.0 ml Output Total 815 ml 510 ml Balance -703 ml 555.0 ml DONOVAN RAMIREZ MD Aug 22, 2017 14:34
[2017-08-22 17:08] LABS: PCO2 ABG 61 mmHg (35-46)
[2017-08-22 17:09] LABS: FIO2 ABG 45
[2017-08-22] MEDS: ENOXAPARIN 40 MG/0.4 ML SYRINGE. SQ SCH (20:44)
[2017-08-22] MEDS: SIMVASTATIN 40 MG TABLET. PO SCH (20:44)
[2017-08-22] MEDS ORDERED: ACETAMINOPHEN 325 MG TABLET. PO PRN (22:15)
[2017-08-23] VITALS (15 sets, daily range): BP systolic 130–172; BP diastolic 57–90
[2017-08-23] MEDS: IPRATRPIUM/ALBUTEROL 0.5/2.5MG 3 ML NEBU. NEB SCH ×4 (07:52→19:46)
[2017-08-23 07:56] LABS: HCO3 ABG 32 mmol/L (21-28); PCO2 ABG 57 mmHg (35-46); PH ABG 7.37 (7.35-7.45); PO2 ABG 71 mmHg (75-108); SAT O2 ABG 93 % (92-99)
[2017-08-23 07:59] LABS: FIO2 ABG 40
[2017-08-23] MEDS: CARVEDILOL 12.5 MG TABLET. PO SCH ×2 (08:27→16:28)
[2017-08-23] MEDS: POTASSIUM CHLORIDE 20 MEQ TABLET.ER. PO SCH ×2 (08:28→16:27)
[2017-08-23] MEDS: amLODIPine BESYLATE 10 MG TABLET PO SCH (08:29)
[2017-08-23] MEDS: LISINOPRIL 20 MG TABLET PO SCH (08:30)
--- NOTE | 2017-08-23 09:34 | PDOC ---
PROGRESS NOTES Chief Complaint Chief Complaint 1. Acute hypercarbic respiratory failure with metabolic encephalopathy 2. acute on chronic diastolic CHF, with acute exac 2 obesity, BMI 37, possible hypoventilation syndrome, has pickwickian habitus 3. diabetes 2, hypoglycemic here, 4. acute respiratory failure 5. chronic kidney disease 3, w. hypernatremia, History of Present Illness History of Present Illness doing well, still on 5 liters NC, will still wean 02 PT and OT cont lascain, mult consults following transfer out of ICU today Vitals Vitals Vital Signs Date Time Temp Pulse Resp B/P (MAP) Pulse Ox O2 Delivery O2 Flow Rate FiO2 08/23/17 08:30 68 171/87 08/23/17 07:50 94 BiPAP/CPAP 08/23/17 06:00 23 12.0 08/23/17 03:00 98.8 98.8 Physical Exam General: Alert, Oriented X3, Cooperative, mild distress, Other (confused, but mild) Heart: Regular rate, No murmurs, Other (regular with frequent ectopy, S1, S2, ) Lungs: Other (decrease bs) Abdomen: Soft, No tenderness, Other (distended, timpanic, no BS heard) Extremities: No cyanosis, Other (bilateral lower extremity edema) Skin: No rashes, No significant lesion Labs LABS Laboratory Tests Test 08/22/17 13:00 08/23/17 07:43 08/23/17 08:01 O2 Saturation 87 % (92-99) 93 % (92-99) Arterial Blood pH 7.34 (7.35-7.45) 7.37 (7.35-7.45) Arterial Blood pCO2 at Patient Temp 70 mmHg (35-46) 57 mmHg (35-46) Arterial Blood pO2 at Patient Temp 58 mmHg (75-108) 71 mmHg (75-108) Arterial Blood HCO3 36 mmol/L (21-28) 32 mmol/L (21-28) Arterial Blood Base Excess 8 mmol/L (-3-3) 5 mmol/L (-3-3) FiO2 40 40 Glucose (Fingerstick) 69 mg/dL (70-99) Review of Systems Review of Systems feels improved str better eating well no n./v.d no pain Assessment and Plan Assessmemt and Plan Problems Medical Problems: (1) CHF exacerbation Status: Acute (2) CKD (chronic kidney disease) Status: Acute (3) Hypoxia Status: Acute Problems: Comment Review of Relevant I have reviewed the following items ninoska (where applicable) has been applied. Labs Laboratory Tests Test 08/21/17 11:51 08/21/17 14:08 08/21/17 14:21 08/21/17 15:39 Glucose (Fingerstick) 136 mg/dL (70-99) 140 mg/dL (70-99) O2 Saturation 90 % (92-99) 85 % (92-99) Arterial Blood pH 7.11 (7.35-7.45) 7.28 (7.35-7.45) Arterial Blood pCO2 at Patient Temp 131 mmHg (35-46) 72 mmHg (35-46) Arterial Blood pO2 at Patient Temp 69 mmHg (75-108) 54 mmHg (75-108) Arterial Blood HCO3 41 mmol/L (21-28) 33 mmol/L (21-28) Arterial Blood Base Excess 7 mmol/L (-3-3) 4 mmol/L (-3-3) FiO2 44% 40 Test 08/21/17 16:00 08/21/17 16:30 08/21/17 19:35 08/22/17 03:50 O2 Saturation 93 % (92-99) Arterial Blood pH 7.20 (7.35-7.45) Arterial Blood pCO2 at Patient Temp 100 mmHg (35-46) Arterial Blood pO2 at Patient Temp 80 mmHg (75-108) Arterial Blood HCO3 38 mmol/L (21-28) Arterial Blood Base Excess 7 mmol/L (-3-3) FiO2 70 Urine Color Yellow Urine Clarity Clear Urine pH 5.5 Urine Specific [place] 1.015 Urine Protein >=300 mg/dL (NEG-TRACE) Urine Glucose (UA) Negative mg/dL (NEG) Urine Ketones (Stick) Negative mg/dL (NEG) Urine Blood Negative (NEG) Urine Nitrite Negative (NEG) Urine Bilirubin Negative (NEG) Urine Urobilinogen Dipstick 1.0 mg/dL (0.2 mg/dL) Urine Leukocyte Esterase Negative (NEG) Urine RBC 0 /HPF (0-2) Urine WBC Occ /HPF (0-4) Urine Squamous Epithelial Cells Occ /LPF Urine Bacteria 0 /HPF (0-FEW) Urine Mucus Slight /LPF Urine Opiates Screen Neg (NEG) Urine Methadone Screen Neg (NEG) Urine Barbiturates Neg (NEG) Urine Phencyclidine Screen Neg (NEG) Urine Amphetamine/Methamphetamine Neg (NEG) Urine Benzodiazepines Screen Neg (NEG) Urine Cocaine Screen Neg (NEG) Urine Cannabinoids Screen Neg (NEG) Urine Ethyl Alcohol Neg (NEG) Sodium Level 149 mmol/L (136-145) 149 mmol/L (136-145) Potassium Level 5.0 mmol/L (3.5-5.1) 4.6 mmol/L (3.5-5.1) Chloride Level 110 mmol/L (98-107) 110 mmol/L (98-107) Carbon Dioxide Level 36 mmol/L (21-32) 37 mmol/L (21-32) Anion Gap 3 (6-14) 2 (6-14) Blood Urea Nitrogen 31 mg/dL (8-26) 32 mg/dL (8-26) Creatinine 2.8 mg/dL (0.7-1.3) 2.9 mg/dL (0.7-1.3) Estimated GFR (Cockcroft-Gault) 28.4 27.3 Glucose Level 121 mg/dL (70-99) 51 mg/dL (70-99) Calcium Level 8.4 mg/dL (8.5-10.1) 8.1 mg/dL (8.5-10.1) Magnesium Level 2.5 mg/dL (1.8-2.4) White Blood Count 8.1 x10^3/uL (4.0-11.0) Red Blood Count 3.98 x10^6/uL (4.30-5.70) Hemoglobin 10.1 g/dL (13.0-17.5) Hematocrit 32.8 % (39.0-53.0) Mean Corpuscular Volume 82 fL (79-100) Mean Corpuscular Hemoglobin 25 pg (25-35) Mean Corpuscular Hemoglobin Concent 31 g/dL (31-37) Red Cell Distribution Width 18.6 % (11.5-14.5) Platelet Count 203 x10^3/uL (140-400) Neutrophils (%) (Auto) 86 % (31-73) Lymphocytes (%) (Auto) 6 % (24-48) Monocytes (%) (Auto) 8 % (0-9) Eosinophils (%) (Auto) 1 % (0-3) Basophils (%) (Auto) 0 % (0-3) Neutrophils # (Auto) 6.9 x10^3uL (1.8-7.7) Lymphocytes # (Auto) 0.4 x10^3/uL (1.0-4.8) Monocytes # (Auto) 0.7 x10^3/uL (0.0-1.1) Eosinophils # (Auto) 0.1 x10^3/uL (0.0-0.7) Basophils # (Auto) 0.0 x10^3/uL (0.0-0.2) BUN/Creatinine Ratio 11 (6-20) Total Bilirubin 0.5 mg/dL (0.2-1.0) Aspartate Amino Transf (AST/SGOT) 12 U/L (15-37) Alanine Aminotransferase (ALT/SGPT) 18 U/L (16-63) Alkaline Phosphatase 51 U/L (46-116) Total Protein 6.0 g/dL (6.4-8.2) Albumin 2.3 g/dL (3.4-5.0) Albumin/Globulin Ratio 0.6 (1.0-1.7) Test 08/22/17 07:14 08/22/17 07:23 08/22/17 08:00 08/22/17 13:00 Glucose (Fingerstick) 45 mg/dL (70-99) 150 mg/dL (70-99) O2 Saturation 86 % (92-99) 87 % (92-99) Arterial Blood pH 7.35 (7.35-7.45) 7.34 (7.35-7.45) Arterial Blood pCO2 at Patient Temp 61 mmHg (35-46) 70 mmHg (35-46) Arterial Blood pO2 at Patient Temp 54 mmHg (75-108) 58 mmHg (75-108) Arterial Blood HCO3 33 mmol/L (21-28) 36 mmol/L (21-28) Arterial Blood Base Excess 6 mmol/L (-3-3) 8 mmol/L (-3-3) FiO2 45 40 Test 08/23/17 07:43 08/23/17 08:01 O2 Saturation 93 % (92-99) Arterial Blood pH 7.37 (7.35-7.45) Arterial Blood pCO2 at Patient Temp 57 mmHg (35-46) Arterial Blood pO2 at Patient Temp 71 mmHg (75-108) Arterial Blood HCO3 32 mmol/L (21-28) Arterial Blood Base Excess 5 mmol/L (-3-3) FiO2 40 Glucose (Fingerstick) 69 mg/dL (70-99) Laboratory Tests Test 08/22/17 13:00 08/23/17 07:43 08/23/17 08:01 O2 Saturation 87 % (92-99) 93 % (92-99) Arterial Blood pH 7.34 (7.35-7.45) 7.37 (7.35-7.45) Arterial Blood pCO2 at Patient Temp 70 mmHg (35-46) 57 mmHg (35-46) Arterial Blood pO2 at Patient Temp 58 mmHg (75-108) 71 mmHg (75-108) Arterial Blood HCO3 36 mmol/L (21-28) 32 mmol/L (21-28) Arterial Blood Base Excess 8 mmol/L (-3-3) 5 mmol/L (-3-3) FiO2 40 40 Glucose (Fingerstick) 69 mg/dL (70-99) Medications Current Medications Albuterol/ Ipratropium (Duoneb) 3 ml 1X ONCE NEB Last administered on 11:00; Start 08/20/17 at 10:45; Stop 08/20/17 at 10:46; Status DC Furosemide (Lasix) 40 mg 1X ONCE PO Last administered on 08/20/17 14:57; Start 08/20/17 at 14:30; Stop 08/20/17 at 14:33; Status DC Ondansetron HCl (Zofran) 4 mg PRN Q8HRS PRN IV NAUSEA/VOMITING; Start at 14:45; Stop 08/21/17 at 14:44; Status DC Morphine Sulfate 2 mg PRN Q2HR PRN IV PAIN; Start 08/20/17 at 14:45; Stop at 14:44; Status DC Enoxaparin Sodium (Lovenox 40mg Syringe) 40 mg Q24H SQ Last administered on 20:44; Start 08/20/17 at 19:15 Amlodipine Besylate (Norvasc) 10 mg DAILY PO Last administered on 08/23/17 08 :29; Start 08/21/17 at 09:00 Lisinopril (Prinivil) 20 mg DAILY PO Last administered on 08/23/17 08:30; Start 08/21/17 at 09:00 Simvastatin (Zocor) 40 mg QHS PO Last administered on 08/22/17 20:44; Start 08/20/17 at 21:00 Carvedilol (Coreg) 25 mg BIDWMEALS PO Last administered on 08/23/17 08:27; Start 08/21/17 at 20:00 Diltiazem HCl (Cardizem 24hr Cd) 120 mg DAILY PO Last administered on 08:28; Start 08/21/17 at 09:00 Non-Formulary Medication 1 each BID PO ; Start 08/20/17 at 21:00; Status UNV Potassium Chloride (Klor-Con) 20 meq BIDWMEALS PO Last administered on 08:28; Start 08/20/17 at 20:00 Glyburide (Diabeta) 5 mg BIDWMEALS PO Last administered on 08/21/17 09:49; Start 08/21/17 at 08:00; Stop 08/21/17 at 12:59; Status DC Metformin HCl (Glucophage) 500 mg BIDWMEALS PO Last administered on 08/21/17 09:48; Start 08/21/17 at 08:00; Stop 08/21/17 at 12:59; Status DC Influenza Virus Vaccine Quadrival (Fluarix Quad [id number] Syringe) 0.5 ml ONCE ONCE VAX IM Last administered on 08/21/17 09:57; Start 08/21/17 at 09:00; Stop 08/21/17 at 09:01; Status DC Pneumococcal Polyvalent Vaccine (Pneumovax 23) 0.5 ml ONCE ONCE VAX IM Last administered on 08/21/17 09:58; Start 08/21/17 at 09:00; Stop 08/21/17 at 09 :01; Status DC Guaifenesin (Mucinex) 1,200 mg BID PO Last administered on 08/23/17 08:29; Start 08/21/17 at 09:30 Albuterol/ Ipratropium (Duoneb) 3 ml RTQID NEB Last administered on 08/23/17 07:52; Start 08/21/17 at 16:00 Amiodarone HCl 150 mg/Dextrose 103 ml @ 618 mls/hr 1X ONCE IV Last administered on 08/21/17 16:12; Start 08/21/17 at 15:45; Stop 08/21/17 at 15 :54; Status DC Amiodarone HCl 900 mg/Dextrose 518 ml @ 0 mls/hr CONT PRN IV SEE I/O RECORD Last administered on 08/21/17 16:14; Start 08/21/17 at 15:45; Stop 08/21/17 at 16:15; Status DC Furosemide (Lasix) 60 mg 1X ONCE IVP Last administered on 08/21/17 16:15; Start 08/21/17 at 16:00; Stop 08/21/17 at 16:01; Status DC Dextrose 1,000 ml @ 60 mls/hr [id number] IV Last administered on 08/21/17 16:30 ; Start 08/21/17 at 16:30; Stop 08/22/17 at 09:09; Status DC Dextrose (Dextrose 50%-Water Syringe) 25 gm STK-MED ONCE IV ; Start 08/22/17 at 07:15; Stop 08/22/17 at 07:16; Status DC Dextrose (Dextrose 50%-Water Syringe) 25 gm 1X ONCE IV Last administered on 07:22; Start 08/22/17 at 07:30; Stop 08/22/17 at 07:31; Status DC Dextrose (Dextrose 50%-Water Syringe) 12.5 gm PRN Q15MIN PRN IV SEE COMMENTS; Start 08/22/17 at 07:45 Acetaminophen (Tylenol) 650 mg PRN Q6HRS PRN PO FEVER Last administered on 23:01; Start 08/22/17 at 22:15 Active Scripts Active Reported Simvastatin 40 Mg Tablet 40 Mg PO DAILY Lisinopril 20 Mg Tablet 20 Mg PO DAILY Norvasc (Amlodipine Besylate) 10 Mg Tablet 10 Mg PO DAILY Metformin Hcl 1,000 Mg Tablet 1,000 Mg PO BID Lasix (Furosemide) 20 Mg Tablet 20 Mg PO DAILY Glyburide-Metformin 5-500 Mg (Glyburide/Metformin Hcl) 1 Each Tablet 1 Each PO BID Diltiazem Sr 12HR (Diltiazem Hcl) 90 Mg Cap.er.12h 60 Mg PO BID Carvedilol 25 Mg Tablet 25 Mg PO BID Potassium 99 Mg Tablet 20 Meq PO BID Vitals/I & O Vital Sign - Last 24 Hours 08/22/17 08/22/17 08/22/17 08/22/17 10:00 11:00 12:00 12:00 Pulse 74 75 Resp 25 28 B/P (MAP) 169/73 (105) 141/71 (94) Pulse Ox 97 97 O2 Delivery Venturi Mask Venturi Mask Venturi Mask O2 Flow Rate 15.0 8.0 12.0 8.0 08/22/17 08/22/17 08/22/17 08/22/17 12:04 13:00 14:00 15:00 Temp 99.1 99.1 Pulse 75 66 66 Resp 26 30 28 B/P (MAP) 141/71 (94) 139/69 (92) 140/69 (92) Pulse Ox 90 95 97 O2 Delivery Venturi Mask Venturi Mask Venturi Mask Venturi Mask O2 Flow Rate 12.0 12.0 12.0 12.0 08/22/17 08/22/17 08/22/17 08/22/17 16:00 16:00 16:42 17:00 Pulse 72 75 Resp 35 27 B/P (MAP) 157/72 (100) 148/72 (97) Pulse Ox 92 92 O2 Delivery Venturi Mask Venturi Mask Venturi Mask Venturi Mask O2 Flow Rate 12.0 12.0 12.0 12.0 08/22/17 08/22/17 08/22/17 08/22/17 17:42 18:00 19:00 19:30 Temp 99.0 99.0 Pulse 78 70 72 Resp 36 35 B/P (MAP) 148/72 146/67 (93) 142/76 (98) Pulse Ox 92 98 98 O2 Delivery Venturi Mask Venturi Mask Venturi Mask O2 Flow Rate 12.0 12.0 12.0 08/22/17 08/22/17 08/22/17 08/22/17 20:00 20:00 21:00 22:00 Temp 100.1 100.1 Pulse 70 70 71 Resp 32 34 36 B/P (MAP) 139/93 (108) 151/72 (98) 148/69 (95) Pulse Ox 97 96 98 O2 Delivery Venturi Mask Venturi Mask Venturi Mask Venturi Mask O2 Flow Rate 12.0 12.0 12.0 08/22/17 08/23/17 08/23/17 08/23/17 23:00 00:00 00:00 00:00 Pulse 65 67 Resp 29 32 B/P (MAP) 147/80 (102) 146/73 (97) Pulse Ox 96 96 O2 Delivery Venturi Mask Venturi Mask Venturi Mask O2 Flow Rate 12.0 12.0 12.0 08/23/17 08/23/17 08/23/17 08/23/17 01:00 02:00 03:00 03:46 Temp 99.2 99.2 98.8 99.2 99.2 98.8 Pulse 60 62 61 Resp 28 30 19 B/P (MAP) 143/72 (95) 143/72 (95) 153/72 (99) Pulse Ox 98 98 93 99 O2 Delivery Venturi Mask Venturi Mask BiPAP/CPAP BiPAP/CPAP O2 Flow Rate 12.0 12.0 08/23/17 08/23/17 08/23/17 08/23/17 04:00 04:00 05:00 06:00 Pulse 58 66 56 Resp 23 23 23 B/P (MAP) 139/72 (94) 149/69 (95) 141/73 (95) Pulse Ox 90 91 93 O2 Delivery BiPAP/CPAP Venturi Mask BiPAP/CPAP BiPAP/CPAP O2 Flow Rate 12.0 08/23/17 08/23/17 08/23/17 08/23/17 07:50 08:27 08:28 08:29 Pulse 72 70 73 B/P (MAP) 171/87 171/87 171/87 Pulse Ox 94 O2 Delivery BiPAP/CPAP 08/23/17 08:30 Pulse 68 B/P (MAP) 171/87 Intake and Output 08/22/17 08/22/17 08/23/17 15:00 23:00 07:00 Intake Total 1120 ml 1880 ml 100 ml Output Total 440 ml 800 ml 825 ml Balance 680 ml 1080 ml -725 ml ANTON GOOD MD Aug 23, 2017 09:34
[2017-08-23 10:03] LABS: BASO # 0.1 x10^3/uL (0.0-0.2); BASO % 1 % (0-3); EOS % 2 % (0-3); HEMATOCRIT 33.8 % (39.0-53.0); HEMOGLOBIN 10.7 g/dL (13.0-17.5); LYMPH # 0.5 x10^3/uL (1.0-4.8); LYMPH % 6 % (24-48); MEAN CORPUSCULAR HEMOGLOBIN 26 pg (25-35); MEAN CORPUSCULAR HGB CONC 32 g/dL (31-37); MEAN CORPUSCULAR VOLUME 81 fL (79-100); MONO % 7 % (0-9); NEUT % 84 % (31-73); PLATELET COUNT 190 x10^3/uL (140-400); RED BLOOD COUNT 4.17 x10^6/uL (4.30-5.70); RED CELL DISTRIBUTION WIDTH 18.3 % (11.5-14.5); WHITE BLOOD COUNT 8.3 x10^3/uL (4.0-11.0)
[2017-08-23 10:24] LABS: ALBUMIN 2.3 g/dL (3.4-5.0); ALBUMIN/GLOBULIN RATIO 0.6 (1.0-1.7); CALCIUM 8.1 mg/dL (8.5-10.1); CREATININE 2.8 mg/dL (0.7-1.3); GFR 28.4; POTASSIUM 4.1 mmol/L (3.5-5.1); TOTAL BILIRUBIN 0.6 mg/dL (0.2-1.0); TOTAL PROTEIN 6.3 g/dL (6.4-8.2)
--- NOTE | 2017-08-23 13:06 | PDOC ---
PROGRESS NOTES Subjective Subjective More alert and responsive today. Feels much better. Objective Objective Vital Signs Date Time Temp Pulse Resp B/P (MAP) Pulse Ox O2 Delivery O2 Flow Rate FiO2 08/23/17 12:42 96 Nasal Cannula 5.0 08/23/17 11:00 68 26 155/79 (104) 08/23/17 09:00 99.0 99.0 Intake and Output 08/23/17 07:00 Intake Total 3100 ml Output Total 2125 ml Balance 975 ml Intake Oral 2485 ml IV Total 615 ml Output Urine Total 2125 ml Physical Exam Physical Exam Moving air better. No changes in heart sounds. Assessment Assessment October improvement from yesterday. I agree with transfer out of ICU. Problems Medical Problems: (1) CHF exacerbation Status: Acute (2) CKD (chronic kidney disease) Status: Acute (3) Hypoxia Status: Acute Comment Review of Relevant I have reviewed the following items ninoska (where applicable) has been applied. Labs Laboratory Tests Test 08/21/17 14:08 08/21/17 14:21 08/21/17 15:39 08/21/17 16:00 O2 Saturation 90 % (92-99) 85 % (92-99) 93 % (92-99) Arterial Blood pH 7.11 (7.35-7.45) 7.28 (7.35-7.45) 7.20 (7.35-7.45) Arterial Blood pCO2 at Patient Temp 131 mmHg (35-46) 72 mmHg (35-46) 100 mmHg (35-46) Arterial Blood pO2 at Patient Temp 69 mmHg (75-108) 54 mmHg (75-108) 80 mmHg (75-108) Arterial Blood HCO3 41 mmol/L (21-28) 33 mmol/L (21-28) 38 mmol/L (21-28) Arterial Blood Base Excess 7 mmol/L (-3-3) 4 mmol/L (-3-3) 7 mmol/L (-3-3) FiO2 44% 40 70 Glucose (Fingerstick) 140 mg/dL (70-99) Test 08/21/17 16:30 08/21/17 19:35 08/22/17 03:50 08/22/17 07:14 Urine Color Yellow Urine Clarity Clear Urine pH 5.5 Urine Specific [place] 1.015 Urine Protein >=300 mg/dL (NEG-TRACE) Urine Glucose (UA) Negative mg/dL (NEG) Urine Ketones (Stick) Negative mg/dL (NEG) Urine Blood Negative (NEG) Urine Nitrite Negative (NEG) Urine Bilirubin Negative (NEG) Urine Urobilinogen Dipstick 1.0 mg/dL (0.2 mg/dL) Urine Leukocyte Esterase Negative (NEG) Urine RBC 0 /HPF (0-2) Urine WBC Occ /HPF (0-4) Urine Squamous Epithelial Cells Occ /LPF Urine Bacteria 0 /HPF (0-FEW) Urine Mucus Slight /LPF Urine Opiates Screen Neg (NEG) Urine Methadone Screen Neg (NEG) Urine Barbiturates Neg (NEG) Urine Phencyclidine Screen Neg (NEG) Urine Amphetamine/Methamphetamine Neg (NEG) Urine Benzodiazepines Screen Neg (NEG) Urine Cocaine Screen Neg (NEG) Urine Cannabinoids Screen Neg (NEG) Urine Ethyl Alcohol Neg (NEG) Sodium Level 149 mmol/L (136-145) 149 mmol/L (136-145) Potassium Level 5.0 mmol/L (3.5-5.1) 4.6 mmol/L (3.5-5.1) Chloride Level 110 mmol/L (98-107) 110 mmol/L (98-107) Carbon Dioxide Level 36 mmol/L (21-32) 37 mmol/L (21-32) Anion Gap 3 (6-14) 2 (6-14) Blood Urea Nitrogen 31 mg/dL (8-26) 32 mg/dL (8-26) Creatinine 2.8 mg/dL (0.7-1.3) 2.9 mg/dL (0.7-1.3) Estimated GFR (Cockcroft-Gault) 28.4 27.3 Glucose Level 121 mg/dL (70-99) 51 mg/dL (70-99) Calcium Level 8.4 mg/dL (8.5-10.1) 8.1 mg/dL (8.5-10.1) Magnesium Level 2.5 mg/dL (1.8-2.4) White Blood Count 8.1 x10^3/uL (4.0-11.0) Red Blood Count 3.98 x10^6/uL (4.30-5.70) Hemoglobin 10.1 g/dL (13.0-17.5) Hematocrit 32.8 % (39.0-53.0) Mean Corpuscular Volume 82 fL (79-100) Mean Corpuscular Hemoglobin 25 pg (25-35) Mean Corpuscular Hemoglobin Concent 31 g/dL (31-37) Red Cell Distribution Width 18.6 % (11.5-14.5) Platelet Count 203 x10^3/uL (140-400) Neutrophils (%) (Auto) 86 % (31-73) Lymphocytes (%) (Auto) 6 % (24-48) Monocytes (%) (Auto) 8 % (0-9) Eosinophils (%) (Auto) 1 % (0-3) Basophils (%) (Auto) 0 % (0-3) Neutrophils # (Auto) 6.9 x10^3uL (1.8-7.7) Lymphocytes # (Auto) 0.4 x10^3/uL (1.0-4.8) Monocytes # (Auto) 0.7 x10^3/uL (0.0-1.1) Eosinophils # (Auto) 0.1 x10^3/uL (0.0-0.7) Basophils # (Auto) 0.0 x10^3/uL (0.0-0.2) BUN/Creatinine Ratio 11 (6-20) Total Bilirubin 0.5 mg/dL (0.2-1.0) Aspartate Amino Transf (AST/SGOT) 12 U/L (15-37) Alanine Aminotransferase (ALT/SGPT) 18 U/L (16-63) Alkaline Phosphatase 51 U/L (46-116) Total Protein 6.0 g/dL (6.4-8.2) Albumin 2.3 g/dL (3.4-5.0) Albumin/Globulin Ratio 0.6 (1.0-1.7) Glucose (Fingerstick) 45 mg/dL (70-99) Test 08/22/17 07:23 08/22/17 08:00 08/22/17 13:00 08/23/17 07:43 Glucose (Fingerstick) 150 mg/dL (70-99) O2 Saturation 86 % (92-99) 87 % (92-99) 93 % (92-99) Arterial Blood pH 7.35 (7.35-7.45) 7.34 (7.35-7.45) 7.37 (7.35-7.45) Arterial Blood pCO2 at Patient Temp 61 mmHg (35-46) 70 mmHg (35-46) 57 mmHg (35-46) Arterial Blood pO2 at Patient Temp 54 mmHg (75-108) 58 mmHg (75-108) 71 mmHg (75-108) Arterial Blood HCO3 33 mmol/L (21-28) 36 mmol/L (21-28) 32 mmol/L (21-28) Arterial Blood Base Excess 6 mmol/L (-3-3) 8 mmol/L (-3-3) 5 mmol/L (-3-3) FiO2 45 40 40 Test 08/23/17 08:01 08/23/17 09:40 Glucose (Fingerstick) 69 mg/dL (70-99) White Blood Count 8.3 x10^3/uL (4.0-11.0) Red Blood Count 4.17 x10^6/uL (4.30-5.70) Hemoglobin 10.7 g/dL (13.0-17.5) Hematocrit 33.8 % (39.0-53.0) Mean Corpuscular Volume 81 fL (79-100) Mean Corpuscular Hemoglobin 26 pg (25-35) Mean Corpuscular Hemoglobin Concent 32 g/dL (31-37) Red Cell Distribution Width 18.3 % (11.5-14.5) Platelet Count 190 x10^3/uL (140-400) Neutrophils (%) (Auto) 84 % (31-73) Lymphocytes (%) (Auto) 6 % (24-48) Monocytes (%) (Auto) 7 % (0-9) Eosinophils (%) (Auto) 2 % (0-3) Basophils (%) (Auto) 1 % (0-3) Neutrophils # (Auto) 7.0 x10^3uL (1.8-7.7) Lymphocytes # (Auto) 0.5 x10^3/uL (1.0-4.8) Monocytes # (Auto) 0.6 x10^3/uL (0.0-1.1) Eosinophils # (Auto) 0.2 x10^3/uL (0.0-0.7) Basophils # (Auto) 0.1 x10^3/uL (0.0-0.2) Sodium Level 146 mmol/L (136-145) Potassium Level 4.1 mmol/L (3.5-5.1) Chloride Level 107 mmol/L (98-107) Carbon Dioxide Level 35 mmol/L (21-32) Anion Gap 4 (6-14) Blood Urea Nitrogen 36 mg/dL (8-26) Creatinine 2.8 mg/dL (0.7-1.3) Estimated GFR (Cockcroft-Gault) 28.4 BUN/Creatinine Ratio 13 (6-20) Glucose Level 124 mg/dL (70-99) Calcium Level 8.1 mg/dL (8.5-10.1) Total Bilirubin 0.6 mg/dL (0.2-1.0) Aspartate Amino Transf (AST/SGOT) 13 U/L (15-37) Alanine Aminotransferase (ALT/SGPT) 17 U/L (16-63) Alkaline Phosphatase 47 U/L (46-116) Total Protein 6.3 g/dL (6.4-8.2) Albumin 2.3 g/dL (3.4-5.0) Albumin/Globulin Ratio 0.6 (1.0-1.7) Laboratory Tests Test 08/23/17 07:43 08/23/17 08:01 08/23/17 09:40 O2 Saturation 93 % (92-99) Arterial Blood pH 7.37 (7.35-7.45) Arterial Blood pCO2 at Patient Temp 57 mmHg (35-46) Arterial Blood pO2 at Patient Temp 71 mmHg (75-108) Arterial Blood HCO3 32 mmol/L (21-28) Arterial Blood Base Excess 5 mmol/L (-3-3) FiO2 40 Glucose (Fingerstick) 69 mg/dL (70-99) White Blood Count 8.3 x10^3/uL (4.0-11.0) Red Blood Count 4.17 x10^6/uL (4.30-5.70) Hemoglobin 10.7 g/dL (13.0-17.5) Hematocrit 33.8 % (39.0-53.0) Mean Corpuscular Volume 81 fL (79-100) Mean Corpuscular Hemoglobin 26 pg (25-35) Mean Corpuscular Hemoglobin Concent 32 g/dL (31-37) Red Cell Distribution Width 18.3 % (11.5-14.5) Platelet Count 190 x10^3/uL (140-400) Neutrophils (%) (Auto) 84 % (31-73) Lymphocytes (%) (Auto) 6 % (24-48) Monocytes (%) (Auto) 7 % (0-9) Eosinophils (%) (Auto) 2 % (0-3) Basophils (%) (Auto) 1 % (0-3) Neutrophils # (Auto) 7.0 x10^3uL (1.8-7.7) Lymphocytes # (Auto) 0.5 x10^3/uL (1.0-4.8) Monocytes # (Auto) 0.6 x10^3/uL (0.0-1.1) Eosinophils # (Auto) 0.2 x10^3/uL (0.0-0.7) Basophils # (Auto) 0.1 x10^3/uL (0.0-0.2) Sodium Level 146 mmol/L (136-145) Potassium Level 4.1 mmol/L (3.5-5.1) Chloride Level 107 mmol/L (98-107) Carbon Dioxide Level 35 mmol/L (21-32) Anion Gap 4 (6-14) Blood Urea Nitrogen 36 mg/dL (8-26) Creatinine 2.8 mg/dL (0.7-1.3) Estimated GFR (Cockcroft-Gault) 28.4 BUN/Creatinine Ratio 13 (6-20) Glucose Level 124 mg/dL (70-99) Calcium Level 8.1 mg/dL (8.5-10.1) Total Bilirubin 0.6 mg/dL (0.2-1.0) Aspartate Amino Transf (AST/SGOT) 13 U/L (15-37) Alanine Aminotransferase (ALT/SGPT) 17 U/L (16-63) Alkaline Phosphatase 47 U/L (46-116) Total Protein 6.3 g/dL (6.4-8.2) Albumin 2.3 g/dL (3.4-5.0) Albumin/Globulin Ratio 0.6 (1.0-1.7) Medications Current Medications Albuterol/ Ipratropium (Duoneb) 3 ml 1X ONCE NEB Last administered on t 11:00; Start 08/20/17 at 10:45; Stop 08/20/17 at 10:46; Status DC Furosemide (Lasix) 40 mg 1X ONCE PO Last administered on 08/20/17 14:57; Start 08/20/17 at 14:30; Stop 08/20/17 at 14:33; Status DC Ondansetron HCl (Zofran) 4 mg PRN Q8HRS PRN IV NAUSEA/VOMITING; Start at 14:45; Stop 08/21/17 at 14:44; Status DC Morphine Sulfate 2 mg PRN Q2HR PRN IV PAIN; Start 08/20/17 at 14:45; Stop at 14:44; Status DC Enoxaparin Sodium (Lovenox 40mg Syringe) 40 mg Q24H SQ Last administered on 20:44; Start 08/20/17 at 19:15 Amlodipine Besylate (Norvasc) 10 mg DAILY PO Last administered on 08/23/17 08 :29; Start 08/21/17 at 09:00 Lisinopril (Prinivil) 20 mg DAILY PO Last administered on 08/23/17 08:30; Start 08/21/17 at 09:00 Simvastatin (Zocor) 40 mg QHS PO Last administered on 08/22/17 20:44; Start 08/20/17 at 21:00 Carvedilol (Coreg) 25 mg BIDWMEALS PO Last administered on 08/23/17 08:27; Start 08/21/17 at 20:00 Diltiazem HCl (Cardizem 24hr Cd) 120 mg DAILY PO Last administered on 08:28; Start 08/21/17 at 09:00 Non-Formulary Medication 1 each BID PO ; Start 08/20/17 at 21:00; Status UNV Potassium Chloride (Klor-Con) 20 meq BIDWMEALS PO Last administered on 08:28; Start 08/20/17 at 20:00 Glyburide (Diabeta) 5 mg BIDWMEALS PO Last administered on 08/21/17 09:49; Start 08/21/17 at 08:00; Stop 08/21/17 at 12:59; Status DC Metformin HCl (Glucophage) 500 mg BIDWMEALS PO Last administered on 08/21/17 09:48; Start 08/21/17 at 08:00; Stop 08/21/17 at 12:59; Status DC Influenza Virus Vaccine Quadrival (Fluarix Quad 2734-1102 Syringe) 0.5 ml ONCE ONCE VAX IM Last administered on 08/21/17 09:57; Start 08/21/17 at 09:00; Stop 08/21/17 at 09:01; Status DC Pneumococcal Polyvalent Vaccine (Pneumovax 23) 0.5 ml ONCE ONCE VAX IM Last administered on 08/21/17 09:58; Start 08/21/17 at 09:00; Stop 08/21/17 at 09 :01; Status DC Guaifenesin (Mucinex) 1,200 mg BID PO Last administered on 08/23/17 08:29; Start 08/21/17 at 09:30 Albuterol/ Ipratropium (Duoneb) 3 ml RTQID NEB Last administered on 08/23/17 12:41; Start 08/21/17 at 16:00 Amiodarone HCl 150 mg/Dextrose 103 ml @ 618 mls/hr 1X ONCE IV Last administered on 08/21/17 16:12; Start 08/21/17 at 15:45; Stop 08/21/17 at 15 :54; Status DC Amiodarone HCl 900 mg/Dextrose 518 ml @ 0 mls/hr CONT PRN IV SEE I/O RECORD Last administered on 08/21/17 16:14; Start 08/21/17 at 15:45; Stop 08/21/17 at 16:15; Status DC Furosemide (Lasix) 60 mg 1X ONCE IVP Last administered on 08/21/17 16:15; Start 08/21/17 at 16:00; Stop 08/21/17 at 16:01; Status DC Dextrose 1,000 ml @ 60 mls/hr [id number] IV Last administered on 08/21/17 16:30 ; Start 08/21/17 at 16:30; Stop 08/22/17 at 09:09; Status DC Dextrose (Dextrose 50%-Water Syringe) 25 gm STK-MED ONCE IV ; Start 08/22/17 at 07:15; Stop 08/22/17 at 07:16; Status DC Dextrose (Dextrose 50%-Water Syringe) 25 gm 1X ONCE IV Last administered on 07:22; Start 08/22/17 at 07:30; Stop 08/22/17 at 07:31; Status DC Dextrose (Dextrose 50%-Water Syringe) 12.5 gm PRN Q15MIN PRN IV SEE COMMENTS; Start 08/22/17 at 07:45 Acetaminophen (Tylenol) 650 mg PRN Q6HRS PRN PO FEVER Last administered on 23:01; Start 08/22/17 at 22:15 Active Scripts Active Reported Simvastatin 40 Mg Tablet 40 Mg PO DAILY Lisinopril 20 Mg Tablet 20 Mg PO DAILY Norvasc (Amlodipine Besylate) 10 Mg Tablet 10 Mg PO DAILY Metformin Hcl 1,000 Mg Tablet 1,000 Mg PO BID Lasix (Furosemide) 20 Mg Tablet 20 Mg PO DAILY Glyburide-Metformin 5-500 Mg (Glyburide/Metformin Hcl) 1 Each Tablet 1 Each PO BID Diltiazem Sr 12HR (Diltiazem Hcl) 90 Mg Cap.er.12h 60 Mg PO BID Carvedilol 25 Mg Tablet 25 Mg PO BID Potassium 99 Mg Tablet 20 Meq PO BID Vitals/I & O Vital Sign - Last 24 Hours 08/22/17 08/22/17 08/22/17 08/22/17 14:00 15:00 16:00 16:00 Pulse 66 66 72 Resp 30 28 35 B/P (MAP) 139/69 (92) 140/69 (92) 157/72 (100) Pulse Ox 95 97 92 O2 Delivery Venturi Mask Venturi Mask Venturi Mask Venturi Mask O2 Flow Rate 12.0 12.0 12.0 12.0 08/22/17 08/22/17 08/22/17 08/22/17 16:42 17:00 17:42 18:00 Pulse 75 78 70 Resp 27 36 B/P (MAP) 148/72 (97) 148/72 146/67 (93) Pulse Ox 92 92 O2 Delivery Venturi Mask Venturi Mask Venturi Mask O2 Flow Rate 12.0 12.0 12.0 08/22/17 08/22/17 08/22/17 08/22/17 19:00 19:30 20:00 20:00 Temp 99.0 99.0 Pulse 72 70 Resp 35 32 B/P (MAP) 142/76 (98) 139/93 (108) Pulse Ox 98 98 97 O2 Delivery Venturi Mask Venturi Mask Venturi Mask Venturi Mask O2 Flow Rate 12.0 12.0 12.0 08/22/17 08/22/17 08/22/17 08/23/17 21:00 22:00 23:00 00:00 Temp 100.1 100.1 Pulse 70 71 65 Resp 34 36 29 B/P (MAP) 151/72 (98) 148/69 (95) 147/80 (102) Pulse Ox 96 98 96 O2 Delivery Venturi Mask Venturi Mask Venturi Mask Venturi Mask O2 Flow Rate 12.0 12.0 12.0 08/23/17 08/23/17 08/23/17 08/23/17 00:00 00:00 01:00 02:00 Temp 99.2 99.2 99.2 99.2 Pulse 67 60 62 Resp 32 28 30 B/P (MAP) 146/73 (97) 143/72 (95) 143/72 (95) Pulse Ox 96 98 98 O2 Delivery Venturi Mask Venturi Mask Venturi Mask O2 Flow Rate 12.0 12.0 12.0 12.0 08/23/17 08/23/17 08/23/17 08/23/17 03:00 03:46 04:00 04:00 Temp 98.8 98.8 Pulse 61 58 Resp 19 23 B/P (MAP) 153/72 (99) 139/72 (94) Pulse Ox 93 99 90 O2 Delivery BiPAP/CPAP BiPAP/CPAP BiPAP/CPAP Venturi Mask 08/23/17 08/23/17 08/23/17 08/23/17 05:00 06:00 07:00 07:50 Pulse 66 56 62 Resp 23 23 23 B/P (MAP) 149/69 (95) 141/73 (95) 172/90 (117) Pulse Ox 91 93 93 94 O2 Delivery BiPAP/CPAP BiPAP/CPAP BiPAP/CPAP BiPAP/CPAP O2 Flow Rate 12.0 12.0 08/23/17 08/23/17 08/23/17 08/23/17 08:00 08:00 08:27 08:28 Pulse 64 72 70 Resp 17 B/P (MAP) 171/87 (115) 171/87 171/87 Pulse Ox 96 O2 Delivery Nasal Cannula Bi-pap O2 Flow Rate 5.0 08/23/17 08/23/17 08/23/17 08/23/17 08:29 08:30 09:00 10:00 Temp 99.0 99.0 Pulse 73 68 72 70 Resp 24 25 B/P (MAP) 171/87 171/87 168/80 (109) 154/76 (102) Pulse Ox 93 92 O2 Delivery Nasal Cannula Nasal Cannula O2 Flow Rate 5.0 5.0 08/23/17 08/23/17 11:00 12:42 Pulse 68 Resp 26 B/P (MAP) 155/79 (104) Pulse Ox 92 96 O2 Delivery Nasal Cannula Nasal Cannula O2 Flow Rate 5.0 5.0 Intake and Output 08/22/17 08/22/17 08/23/17 15:00 23:00 07:00 Intake Total 1120 ml 1880 ml 100 ml Output Total 440 ml 800 ml 885 ml Balance 680 ml 1080 ml -785 ml DONOVAN RAMIREZ MD Aug 23, 2017 13:06
--- NOTE | 2017-08-23 13:37 | PDOC ---
PROGRESS NOTES Assessment Problems Medical Problems: (1) CHF exacerbation Status: Acute (2) CKD (chronic kidney disease) Status: Acute (3) Hypoxia Status: Acute Metabolic encephalopathy due to hypoxia and hypercarbia in the setting of congestive heart failure and cardiomyopathy, without evidence of acute stroke. Continues to improve Plan Continue treating medical diseases Discussed with family Subjective No complaints Objective Vital Signs Date Time Temp Pulse Resp B/P (MAP) Pulse Ox O2 Delivery O2 Flow Rate FiO2 08/23/17 12:42 96 Nasal Cannula 5.0 08/23/17 11:00 68 26 155/79 (104) 08/23/17 09:00 99.0 99.0 Intake and Output 08/23/17 07:00 Intake Total 3100 ml Output Total 2125 ml Balance 975 ml Intake Oral 2485 ml IV Total 615 ml Output Urine Total 2125 ml PHYSICAL EXAM Alert. Oriented to time, place and person. PERRL. EOMI. CN: no focal findings. Muscle tone: normal. Muscle strength: 4/5 DTR: 1+ Plantar reflex: Flexor Gait: not examined in bed. Sensory exam: no abnormal findings. No cerebellar signs elicited. Review of Relevant I have reviewed the following items ninoksa (where applicable) has been applied. Labs Laboratory Tests Test 08/21/17 14:08 08/21/17 14:21 08/21/17 15:39 08/21/17 16:00 O2 Saturation 90 % (92-99) 85 % (92-99) 93 % (92-99) Arterial Blood pH 7.11 (7.35-7.45) 7.28 (7.35-7.45) 7.20 (7.35-7.45) Arterial Blood pCO2 at Patient Temp 131 mmHg (35-46) 72 mmHg (35-46) 100 mmHg (35-46) Arterial Blood pO2 at Patient Temp 69 mmHg (75-108) 54 mmHg (75-108) 80 mmHg (75-108) Arterial Blood HCO3 41 mmol/L (21-28) 33 mmol/L (21-28) 38 mmol/L (21-28) Arterial Blood Base Excess 7 mmol/L (-3-3) 4 mmol/L (-3-3) 7 mmol/L (-3-3) FiO2 44% 40 70 Glucose (Fingerstick) 140 mg/dL (70-99) Test 08/21/17 16:30 08/21/17 19:35 08/22/17 03:50 08/22/17 07:14 Urine Color Yellow Urine Clarity Clear Urine pH 5.5 Urine Specific [place] 1.015 Urine Protein >=300 mg/dL (NEG-TRACE) Urine Glucose (UA) Negative mg/dL (NEG) Urine Ketones (Stick) Negative mg/dL (NEG) Urine Blood Negative (NEG) Urine Nitrite Negative (NEG) Urine Bilirubin Negative (NEG) Urine Urobilinogen Dipstick 1.0 mg/dL (0.2 mg/dL) Urine Leukocyte Esterase Negative (NEG) Urine RBC 0 /HPF (0-2) Urine WBC Occ /HPF (0-4) Urine Squamous Epithelial Cells Occ /LPF Urine Bacteria 0 /HPF (0-FEW) Urine Mucus Slight /LPF Urine Opiates Screen Neg (NEG) Urine Methadone Screen Neg (NEG) Urine Barbiturates Neg (NEG) Urine Phencyclidine Screen Neg (NEG) Urine Amphetamine/Methamphetamine Neg (NEG) Urine Benzodiazepines Screen Neg (NEG) Urine Cocaine Screen Neg (NEG) Urine Cannabinoids Screen Neg (NEG) Urine Ethyl Alcohol Neg (NEG) Sodium Level 149 mmol/L (136-145) 149 mmol/L (136-145) Potassium Level 5.0 mmol/L (3.5-5.1) 4.6 mmol/L (3.5-5.1) Chloride Level 110 mmol/L (98-107) 110 mmol/L (98-107) Carbon Dioxide Level 36 mmol/L (21-32) 37 mmol/L (21-32) Anion Gap 3 (6-14) 2 (6-14) Blood Urea Nitrogen 31 mg/dL (8-26) 32 mg/dL (8-26) Creatinine 2.8 mg/dL (0.7-1.3) 2.9 mg/dL (0.7-1.3) Estimated GFR (Cockcroft-Gault) 28.4 27.3 Glucose Level 121 mg/dL (70-99) 51 mg/dL (70-99) Calcium Level 8.4 mg/dL (8.5-10.1) 8.1 mg/dL (8.5-10.1) Magnesium Level 2.5 mg/dL (1.8-2.4) White Blood Count 8.1 x10^3/uL (4.0-11.0) Red Blood Count 3.98 x10^6/uL (4.30-5.70) Hemoglobin 10.1 g/dL (13.0-17.5) Hematocrit 32.8 % (39.0-53.0) Mean Corpuscular Volume 82 fL (79-100) Mean Corpuscular Hemoglobin 25 pg (25-35) Mean Corpuscular Hemoglobin Concent 31 g/dL (31-37) Red Cell Distribution Width 18.6 % (11.5-14.5) Platelet Count 203 x10^3/uL (140-400) Neutrophils (%) (Auto) 86 % (31-73) Lymphocytes (%) (Auto) 6 % (24-48) Monocytes (%) (Auto) 8 % (0-9) Eosinophils (%) (Auto) 1 % (0-3) Basophils (%) (Auto) 0 % (0-3) Neutrophils # (Auto) 6.9 x10^3uL (1.8-7.7) Lymphocytes # (Auto) 0.4 x10^3/uL (1.0-4.8) Monocytes # (Auto) 0.7 x10^3/uL (0.0-1.1) Eosinophils # (Auto) 0.1 x10^3/uL (0.0-0.7) Basophils # (Auto) 0.0 x10^3/uL (0.0-0.2) BUN/Creatinine Ratio 11 (6-20) Total Bilirubin 0.5 mg/dL (0.2-1.0) Aspartate Amino Transf (AST/SGOT) 12 U/L (15-37) Alanine Aminotransferase (ALT/SGPT) 18 U/L (16-63) Alkaline Phosphatase 51 U/L (46-116) Total Protein 6.0 g/dL (6.4-8.2) Albumin 2.3 g/dL (3.4-5.0) Albumin/Globulin Ratio 0.6 (1.0-1.7) Glucose (Fingerstick) 45 mg/dL (70-99) Test 08/22/17 07:23 08/22/17 08:00 08/22/17 13:00 08/23/17 07:43 Glucose (Fingerstick) 150 mg/dL (70-99) O2 Saturation 86 % (92-99) 87 % (92-99) 93 % (92-99) Arterial Blood pH 7.35 (7.35-7.45) 7.34 (7.35-7.45) 7.37 (7.35-7.45) Arterial Blood pCO2 at Patient Temp 61 mmHg (35-46) 70 mmHg (35-46) 57 mmHg (35-46) Arterial Blood pO2 at Patient Temp 54 mmHg (75-108) 58 mmHg (75-108) 71 mmHg (75-108) Arterial Blood HCO3 33 mmol/L (21-28) 36 mmol/L (21-28) 32 mmol/L (21-28) Arterial Blood Base Excess 6 mmol/L (-3-3) 8 mmol/L (-3-3) 5 mmol/L (-3-3) FiO2 45 40 40 Test 08/23/17 08:01 08/23/17 09:40 Glucose (Fingerstick) 69 mg/dL (70-99) White Blood Count 8.3 x10^3/uL (4.0-11.0) Red Blood Count 4.17 x10^6/uL (4.30-5.70) Hemoglobin 10.7 g/dL (13.0-17.5) Hematocrit 33.8 % (39.0-53.0) Mean Corpuscular Volume 81 fL (79-100) Mean Corpuscular Hemoglobin 26 pg (25-35) Mean Corpuscular Hemoglobin Concent 32 g/dL (31-37) Red Cell Distribution Width 18.3 % (11.5-14.5) Platelet Count 190 x10^3/uL (140-400) Neutrophils (%) (Auto) 84 % (31-73) Lymphocytes (%) (Auto) 6 % (24-48) Monocytes (%) (Auto) 7 % (0-9) Eosinophils (%) (Auto) 2 % (0-3) Basophils (%) (Auto) 1 % (0-3) Neutrophils # (Auto) 7.0 x10^3uL (1.8-7.7) Lymphocytes # (Auto) 0.5 x10^3/uL (1.0-4.8) Monocytes # (Auto) 0.6 x10^3/uL (0.0-1.1) Eosinophils # (Auto) 0.2 x10^3/uL (0.0-0.7) Basophils # (Auto) 0.1 x10^3/uL (0.0-0.2) Sodium Level 146 mmol/L (136-145) Potassium Level 4.1 mmol/L (3.5-5.1) Chloride Level 107 mmol/L (98-107) Carbon Dioxide Level 35 mmol/L (21-32) Anion Gap 4 (6-14) Blood Urea Nitrogen 36 mg/dL (8-26) Creatinine 2.8 mg/dL (0.7-1.3) Estimated GFR (Cockcroft-Gault) 28.4 BUN/Creatinine Ratio 13 (6-20) Glucose Level 124 mg/dL (70-99) Calcium Level 8.1 mg/dL (8.5-10.1) Total Bilirubin 0.6 mg/dL (0.2-1.0) Aspartate Amino Transf (AST/SGOT) 13 U/L (15-37) Alanine Aminotransferase (ALT/SGPT) 17 U/L (16-63) Alkaline Phosphatase 47 U/L (46-116) Total Protein 6.3 g/dL (6.4-8.2) Albumin 2.3 g/dL (3.4-5.0) Albumin/Globulin Ratio 0.6 (1.0-1.7) Laboratory Tests Test 08/23/17 07:43 08/23/17 08:01 08/23/17 09:40 O2 Saturation 93 % (92-99) Arterial Blood pH 7.37 (7.35-7.45) Arterial Blood pCO2 at Patient Temp 57 mmHg (35-46) Arterial Blood pO2 at Patient Temp 71 mmHg (75-108) Arterial Blood HCO3 32 mmol/L (21-28) Arterial Blood Base Excess 5 mmol/L (-3-3) FiO2 40 Glucose (Fingerstick) 69 mg/dL (70-99) White Blood Count 8.3 x10^3/uL (4.0-11.0) Red Blood Count 4.17 x10^6/uL (4.30-5.70) Hemoglobin 10.7 g/dL (13.0-17.5) Hematocrit 33.8 % (39.0-53.0) Mean Corpuscular Volume 81 fL (79-100) Mean Corpuscular Hemoglobin 26 pg (25-35) Mean Corpuscular Hemoglobin Concent 32 g/dL (31-37) Red Cell Distribution Width 18.3 % (11.5-14.5) Platelet Count 190 x10^3/uL (140-400) Neutrophils (%) (Auto) 84 % (31-73) Lymphocytes (%) (Auto) 6 % (24-48) Monocytes (%) (Auto) 7 % (0-9) Eosinophils (%) (Auto) 2 % (0-3) Basophils (%) (Auto) 1 % (0-3) Neutrophils # (Auto) 7.0 x10^3uL (1.8-7.7) Lymphocytes # (Auto) 0.5 x10^3/uL (1.0-4.8) Monocytes # (Auto) 0.6 x10^3/uL (0.0-1.1) Eosinophils # (Auto) 0.2 x10^3/uL (0.0-0.7) Basophils # (Auto) 0.1 x10^3/uL (0.0-0.2) Sodium Level 146 mmol/L (136-145) Potassium Level 4.1 mmol/L (3.5-5.1) Chloride Level 107 mmol/L (98-107) Carbon Dioxide Level 35 mmol/L (21-32) Anion Gap 4 (6-14) Blood Urea Nitrogen 36 mg/dL (8-26) Creatinine 2.8 mg/dL (0.7-1.3) Estimated GFR (Cockcroft-Gault) 28.4 BUN/Creatinine Ratio 13 (6-20) Glucose Level 124 mg/dL (70-99) Calcium Level 8.1 mg/dL (8.5-10.1) Total Bilirubin 0.6 mg/dL (0.2-1.0) Aspartate Amino Transf (AST/SGOT) 13 U/L (15-37) Alanine Aminotransferase (ALT/SGPT) 17 U/L (16-63) Alkaline Phosphatase 47 U/L (46-116) Total Protein 6.3 g/dL (6.4-8.2) Albumin 2.3 g/dL (3.4-5.0) Albumin/Globulin Ratio 0.6 (1.0-1.7) Medications Current Medications Albuterol/ Ipratropium (Duoneb) 3 ml 1X ONCE NEB Last administered on 11:00; Start 08/20/17 at 10:45; Stop 08/20/17 at 10:46; Status DC Furosemide (Lasix) 40 mg 1X ONCE PO Last administered on 08/20/17 14:57; Start 08/20/17 at 14:30; Stop 08/20/17 at 14:33; Status DC Ondansetron HCl (Zofran) 4 mg PRN Q8HRS PRN IV NAUSEA/VOMITING; Start at 14:45; Stop 08/21/17 at 14:44; Status DC Morphine Sulfate 2 mg PRN Q2HR PRN IV PAIN; Start 08/20/17 at 14:45; Stop at 14:44; Status DC Enoxaparin Sodium (Lovenox 40mg Syringe) 40 mg Q24H SQ Last administered on 20:44; Start 08/20/17 at 19:15 Amlodipine Besylate (Norvasc) 10 mg DAILY PO Last administered on 08/23/17 08 :29; Start 08/21/17 at 09:00 Lisinopril (Prinivil) 20 mg DAILY PO Last administered on 08/23/17 08:30; Start 08/21/17 at 09:00 Simvastatin (Zocor) 40 mg QHS PO Last administered on 08/22/17 20:44; Start 08/20/17 at 21:00 Carvedilol (Coreg) 25 mg BIDWMEALS PO Last administered on 08/23/17 08:27; Start 08/21/17 at 20:00 Diltiazem HCl (Cardizem 24hr Cd) 120 mg DAILY PO Last administered on 08:28; Start 08/21/17 at 09:00 Non-Formulary Medication 1 each BID PO ; Start 08/20/17 at 21:00; Status UNV Potassium Chloride (Klor-Con) 20 meq BIDWMEALS PO Last administered on 08:28; Start 08/20/17 at 20:00 Glyburide (Diabeta) 5 mg BIDWMEALS PO Last administered on 08/21/17 09:49; Start 08/21/17 at 08:00; Stop 08/21/17 at 12:59; Status DC Metformin HCl (Glucophage) 500 mg BIDWMEALS PO Last administered on 08/21/17 09:48; Start 08/21/17 at 08:00; Stop 08/21/17 at 12:59; Status DC Influenza Virus Vaccine Quadrival (Fluarix Quad [id number] Syringe) 0.5 ml ONCE ONCE VAX IM Last administered on 08/21/17 09:57; Start 08/21/17 at 09:00; Stop 08/21/17 at 09:01; Status DC Pneumococcal Polyvalent Vaccine (Pneumovax 23) 0.5 ml ONCE ONCE VAX IM Last administered on 08/21/17 09:58; Start 08/21/17 at 09:00; Stop 08/21/17 at 09 :01; Status DC Guaifenesin (Mucinex) 1,200 mg BID PO Last administered on 08/23/17 08:29; Start 08/21/17 at 09:30 Albuterol/ Ipratropium (Duoneb) 3 ml RTQID NEB Last administered on 08/23/17 12:41; Start 08/21/17 at 16:00 Amiodarone HCl 150 mg/Dextrose 103 ml @ 618 mls/hr 1X ONCE IV Last administered on 08/21/17 16:12; Start 08/21/17 at 15:45; Stop 08/21/17 at 15 :54; Status DC Amiodarone HCl 900 mg/Dextrose 518 ml @ 0 mls/hr CONT PRN IV SEE I/O RECORD Last administered on 08/21/17 16:14; Start 08/21/17 at 15:45; Stop 08/21/17 at 16:15; Status DC Furosemide (Lasix) 60 mg 1X ONCE IVP Last administered on 08/21/17 16:15; Start 08/21/17 at 16:00; Stop 08/21/17 at 16:01; Status DC Dextrose 1,000 ml @ 60 mls/hr [id number] IV Last administered on 08/21/17 16:30 ; Start 08/21/17 at 16:30; Stop 08/22/17 at 09:09; Status DC Dextrose (Dextrose 50%-Water Syringe) 25 gm STK-MED ONCE IV ; Start 08/22/17 at 07:15; Stop 08/22/17 at 07:16; Status DC Dextrose (Dextrose 50%-Water Syringe) 25 gm 1X ONCE IV Last administered on 07:22; Start 08/22/17 at 07:30; Stop 08/22/17 at 07:31; Status DC Dextrose (Dextrose 50%-Water Syringe) 12.5 gm PRN Q15MIN PRN IV SEE COMMENTS; Start 08/22/17 at 07:45 Acetaminophen (Tylenol) 650 mg PRN Q6HRS PRN PO FEVER Last administered on 23:01; Start 08/22/17 at 22:15 Active Scripts Active Reported Simvastatin 40 Mg Tablet 40 Mg PO DAILY Lisinopril 20 Mg Tablet 20 Mg PO DAILY Norvasc (Amlodipine Besylate) 10 Mg Tablet 10 Mg PO DAILY Metformin Hcl 1,000 Mg Tablet 1,000 Mg PO BID Lasix (Furosemide) 20 Mg Tablet 20 Mg PO DAILY Glyburide-Metformin 5-500 Mg (Glyburide/Metformin Hcl) 1 Each Tablet 1 Each PO BID Diltiazem Sr 12HR (Diltiazem Hcl) 90 Mg Cap.er.12h 60 Mg PO BID Carvedilol 25 Mg Tablet 25 Mg PO BID Potassium 99 Mg Tablet 20 Meq PO BID Vitals/I & O Vital Sign - Last 24 Hours 08/22/17 08/22/17 08/22/17 08/22/17 14:00 15:00 16:00 16:00 Pulse 66 66 72 Resp 30 28 35 B/P (MAP) 139/69 (92) 140/69 (92) 157/72 (100) Pulse Ox 95 97 92 O2 Delivery Venturi Mask Venturi Mask Venturi Mask Venturi Mask O2 Flow Rate 12.0 12.0 12.0 12.0 08/22/17 08/22/17 08/22/17 08/22/17 16:42 17:00 17:42 18:00 Pulse 75 78 70 Resp 27 36 B/P (MAP) 148/72 (97) 148/72 146/67 (93) Pulse Ox 92 92 O2 Delivery Venturi Mask Venturi Mask Venturi Mask O2 Flow Rate 12.0 12.0 12.0 12/23/17 12/23/17 12/23/17 12/23/17 19:00 19:30 20:00 20:00 Temp 99.0 99.0 Pulse 72 70 Resp 35 32 B/P (MAP) 142/76 (98) 139/93 (108) Pulse Ox 98 98 97 O2 Delivery Venturi Mask Venturi Mask Venturi Mask Venturi Mask O2 Flow Rate 12.0 12.0 12.0 08/22/17 08/22/17 08/22/17 08/23/17 21:00 22:00 23:00 00:00 Temp 100.1 100.1 Pulse 70 71 65 Resp 34 36 29 B/P (MAP) 151/72 (98) 148/69 (95) 147/80 (102) Pulse Ox 96 98 96 O2 Delivery Venturi Mask Venturi Mask Venturi Mask Venturi Mask O2 Flow Rate 12.0 12.0 12.0 08/23/17 08/23/17 08/23/17 08/23/17 00:00 00:00 01:00 02:00 Temp 99.2 99.2 99.2 99.2 Pulse 67 60 62 Resp 32 28 30 B/P (MAP) 146/73 (97) 143/72 (95) 143/72 (95) Pulse Ox 96 98 98 O2 Delivery Venturi Mask Venturi Mask Venturi Mask O2 Flow Rate 12.0 12.0 12.0 12.0 08/23/17 08/23/17 08/23/17 08/23/17 03:00 03:46 04:00 04:00 Temp 98.8 98.8 Pulse 61 58 Resp 19 23 B/P (MAP) 153/72 (99) 139/72 (94) Pulse Ox 93 99 90 O2 Delivery BiPAP/CPAP BiPAP/CPAP BiPAP/CPAP Venturi Mask 08/23/17 08/23/17 08/23/17 08/23/17 05:00 06:00 07:00 07:50 Pulse 66 56 62 Resp 23 23 23 B/P (MAP) 149/69 (95) 141/73 (95) 172/90 (117) Pulse Ox 91 93 93 94 O2 Delivery BiPAP/CPAP BiPAP/CPAP BiPAP/CPAP BiPAP/CPAP O2 Flow Rate 12.0 12.0 1208/23/17 08/23/17 08/23/17 08:00 08:00 08:27 08:28 Pulse 64 72 70 Resp 17 B/P (MAP) 171/87 (115) 171/87 171/87 Pulse Ox 96 O2 Delivery Nasal Cannula Bi-pap O2 Flow Rate 5.0 08/23/17 08/23/17 08/23/17 08/23/17 08:29 08:30 09:00 10:00 Temp 99.0 99.0 Pulse 73 68 72 70 Resp 24 25 B/P (MAP) 171/87 171/87 168/80 (109) 154/76 (102) Pulse Ox 93 92 O2 Delivery Nasal Cannula Nasal Cannula O2 Flow Rate 5.0 5.0 08/23/17 08/23/17 11:00 12:42 Pulse 68 Resp 26 B/P (MAP) 155/79 (104) Pulse Ox 92 96 O2 Delivery Nasal Cannula Nasal Cannula O2 Flow Rate 5.0 5.0 Intake and Output 08/22/17 08/22/17 08/23/17 15:00 23:00 07:00 Intake Total 1120 ml 1880 ml 100 ml Output Total 440 ml 800 ml 885 ml Balance 680 ml 1080 ml -785 ml ALIA HARKINS MD Aug 23, 2017 13:37
--- NOTE | 2017-08-23 14:49 | PDOC ---
PULMONARY PROGRESS NOTES Subjective much better awake, moving all extremities Vitals Vital Signs Date Time Temp Pulse Resp B/P (MAP) Pulse Ox O2 Delivery O2 Flow Rate FiO2 08/23/17 12:42 96 Nasal Cannula 5.0 08/23/17 11:00 68 26 155/79 (104) 08/23/17 09:00 99.0 99.0 General: Alert, No acute distress Lungs: Other (decrease bs) Cardiovascular: S1, S2 Abdomen: Soft, Non-tender, Other (distended) Extremities: No Edema Skin: Warm Labs Laboratory Tests Test 08/21/17 15:39 08/21/17 16:00 08/21/17 16:30 08/21/17 19:35 O2 Saturation 85 % (92-99) 93 % (92-99) Arterial Blood pH 7.28 (7.35-7.45) 7.20 (7.35-7.45) Arterial Blood pCO2 at Patient Temp 72 mmHg (35-46) 100 mmHg (35-46) Arterial Blood pO2 at Patient Temp 54 mmHg (75-108) 80 mmHg (75-108) Arterial Blood HCO3 33 mmol/L (21-28) 38 mmol/L (21-28) Arterial Blood Base Excess 4 mmol/L (-3-3) 7 mmol/L (-3-3) FiO2 40 70 Urine Color Yellow Urine Clarity Clear Urine pH 5.5 Urine Specific [place] 1.015 Urine Protein >=300 mg/dL (NEG-TRACE) Urine Glucose (UA) Negative mg/dL (NEG) Urine Ketones (Stick) Negative mg/dL (NEG) Urine Blood Negative (NEG) Urine Nitrite Negative (NEG) Urine Bilirubin Negative (NEG) Urine Urobilinogen Dipstick 1.0 mg/dL (0.2 mg/dL) Urine Leukocyte Esterase Negative (NEG) Urine RBC 0 /HPF (0-2) Urine WBC Occ /HPF (0-4) Urine Squamous Epithelial Cells Occ /LPF Urine Bacteria 0 /HPF (0-FEW) Urine Mucus Slight /LPF Urine Opiates Screen Neg (NEG) Urine Methadone Screen Neg (NEG) Urine Barbiturates Neg (NEG) Urine Phencyclidine Screen Neg (NEG) Urine Amphetamine/Methamphetamine Neg (NEG) Urine Benzodiazepines Screen Neg (NEG) Urine Cocaine Screen Neg (NEG) Urine Cannabinoids Screen Neg (NEG) Urine Ethyl Alcohol Neg (NEG) Sodium Level 149 mmol/L (136-145) Potassium Level 5.0 mmol/L (3.5-5.1) Chloride Level 110 mmol/L (98-107) Carbon Dioxide Level 36 mmol/L (21-32) Anion Gap 3 (6-14) Blood Urea Nitrogen 31 mg/dL (8-26) Creatinine 2.8 mg/dL (0.7-1.3) Estimated GFR (Cockcroft-Gault) 28.4 Glucose Level 121 mg/dL (70-99) Calcium Level 8.4 mg/dL (8.5-10.1) Magnesium Level 2.5 mg/dL (1.8-2.4) Test 08/22/17 03:50 08/22/17 07:14 08/22/17 07:23 08/22/17 08:00 White Blood Count 8.1 x10^3/uL (4.0-11.0) Red Blood Count 3.98 x10^6/uL (4.30-5.70) Hemoglobin 10.1 g/dL (13.0-17.5) Hematocrit 32.8 % (39.0-53.0) Mean Corpuscular Volume 82 fL (79-100) Mean Corpuscular Hemoglobin 25 pg (25-35) Mean Corpuscular Hemoglobin Concent 31 g/dL (31-37) Red Cell Distribution Width 18.6 % (11.5-14.5) Platelet Count 203 x10^3/uL (140-400) Neutrophils (%) (Auto) 86 % (31-73) Lymphocytes (%) (Auto) 6 % (24-48) Monocytes (%) (Auto) 8 % (0-9) Eosinophils (%) (Auto) 1 % (0-3) Basophils (%) (Auto) 0 % (0-3) Neutrophils # (Auto) 6.9 x10^3uL (1.8-7.7) Lymphocytes # (Auto) 0.4 x10^3/uL (1.0-4.8) Monocytes # (Auto) 0.7 x10^3/uL (0.0-1.1) Eosinophils # (Auto) 0.1 x10^3/uL (0.0-0.7) Basophils # (Auto) 0.0 x10^3/uL (0.0-0.2) Sodium Level 149 mmol/L (136-145) Potassium Level 4.6 mmol/L (3.5-5.1) Chloride Level 110 mmol/L (98-107) Carbon Dioxide Level 37 mmol/L (21-32) Anion Gap 2 (6-14) Blood Urea Nitrogen 32 mg/dL (8-26) Creatinine 2.9 mg/dL (0.7-1.3) Estimated GFR (Cockcroft-Gault) 27.3 BUN/Creatinine Ratio 11 (6-20) Glucose Level 51 mg/dL (70-99) Calcium Level 8.1 mg/dL (8.5-10.1) Total Bilirubin 0.5 mg/dL (0.2-1.0) Aspartate Amino Transf (AST/SGOT) 12 U/L (15-37) Alanine Aminotransferase (ALT/SGPT) 18 U/L (16-63) Alkaline Phosphatase 51 U/L (46-116) Total Protein 6.0 g/dL (6.4-8.2) Albumin 2.3 g/dL (3.4-5.0) Albumin/Globulin Ratio 0.6 (1.0-1.7) Glucose (Fingerstick) 45 mg/dL (70-99) 150 mg/dL (70-99) O2 Saturation 86 % (92-99) Arterial Blood pH 7.35 (7.35-7.45) Arterial Blood pCO2 at Patient Temp 61 mmHg (35-46) Arterial Blood pO2 at Patient Temp 54 mmHg (75-108) Arterial Blood HCO3 33 mmol/L (21-28) Arterial Blood Base Excess 6 mmol/L (-3-3) FiO2 45 Test 08/22/17 13:00 08/23/17 07:43 08/23/17 08:01 08/23/17 09:40 O2 Saturation 87 % (92-99) 93 % (92-99) Arterial Blood pH 7.34 (7.35-7.45) 7.37 (7.35-7.45) Arterial Blood pCO2 at Patient Temp 70 mmHg (35-46) 57 mmHg (35-46) Arterial Blood pO2 at Patient Temp 58 mmHg (75-108) 71 mmHg (75-108) Arterial Blood HCO3 36 mmol/L (21-28) 32 mmol/L (21-28) Arterial Blood Base Excess 8 mmol/L (-3-3) 5 mmol/L (-3-3) FiO2 40 40 Glucose (Fingerstick) 69 mg/dL (70-99) White Blood Count 8.3 x10^3/uL (4.0-11.0) Red Blood Count 4.17 x10^6/uL (4.30-5.70) Hemoglobin 10.7 g/dL (13.0-17.5) Hematocrit 33.8 % (39.0-53.0) Mean Corpuscular Volume 81 fL (79-100) Mean Corpuscular Hemoglobin 26 pg (25-35) Mean Corpuscular Hemoglobin Concent 32 g/dL (31-37) Red Cell Distribution Width 18.3 % (11.5-14.5) Platelet Count 190 x10^3/uL (140-400) Neutrophils (%) (Auto) 84 % (31-73) Lymphocytes (%) (Auto) 6 % (24-48) Monocytes (%) (Auto) 7 % (0-9) Eosinophils (%) (Auto) 2 % (0-3) Basophils (%) (Auto) 1 % (0-3) Neutrophils # (Auto) 7.0 x10^3uL (1.8-7.7) Lymphocytes # (Auto) 0.5 x10^3/uL (1.0-4.8) Monocytes # (Auto) 0.6 x10^3/uL (0.0-1.1) Eosinophils # (Auto) 0.2 x10^3/uL (0.0-0.7) Basophils # (Auto) 0.1 x10^3/uL (0.0-0.2) Sodium Level 146 mmol/L (136-145) Potassium Level 4.1 mmol/L (3.5-5.1) Chloride Level 107 mmol/L (98-107) Carbon Dioxide Level 35 mmol/L (21-32) Anion Gap 4 (6-14) Blood Urea Nitrogen 36 mg/dL (8-26) Creatinine 2.8 mg/dL (0.7-1.3) Estimated GFR (Cockcroft-Gault) 28.4 BUN/Creatinine Ratio 13 (6-20) Glucose Level 124 mg/dL (70-99) Calcium Level 8.1 mg/dL (8.5-10.1) Total Bilirubin 0.6 mg/dL (0.2-1.0) Aspartate Amino Transf (AST/SGOT) 13 U/L (15-37) Alanine Aminotransferase (ALT/SGPT) 17 U/L (16-63) Alkaline Phosphatase 47 U/L (46-116) Total Protein 6.3 g/dL (6.4-8.2) Albumin 2.3 g/dL (3.4-5.0) Albumin/Globulin Ratio 0.6 (1.0-1.7) Laboratory Tests Test 08/23/17 07:43 08/23/17 08:01 08/23/17 09:40 O2 Saturation 93 % (92-99) Arterial Blood pH 7.37 (7.35-7.45) Arterial Blood pCO2 at Patient Temp 57 mmHg (35-46) Arterial Blood pO2 at Patient Temp 71 mmHg (75-108) Arterial Blood HCO3 32 mmol/L (21-28) Arterial Blood Base Excess 5 mmol/L (-3-3) FiO2 40 Glucose (Fingerstick) 69 mg/dL (70-99) White Blood Count 8.3 x10^3/uL (4.0-11.0) Red Blood Count 4.17 x10^6/uL (4.30-5.70) Hemoglobin 10.7 g/dL (13.0-17.5) Hematocrit 33.8 % (39.0-53.0) Mean Corpuscular Volume 81 fL (79-100) Mean Corpuscular Hemoglobin 26 pg (25-35) Mean Corpuscular Hemoglobin Concent 32 g/dL (31-37) Red Cell Distribution Width 18.3 % (11.5-14.5) Platelet Count 190 x10^3/uL (140-400) Neutrophils (%) (Auto) 84 % (31-73) Lymphocytes (%) (Auto) 6 % (24-48) Monocytes (%) (Auto) 7 % (0-9) Eosinophils (%) (Auto) 2 % (0-3) Basophils (%) (Auto) 1 % (0-3) Neutrophils # (Auto) 7.0 x10^3uL (1.8-7.7) Lymphocytes # (Auto) 0.5 x10^3/uL (1.0-4.8) Monocytes # (Auto) 0.6 x10^3/uL (0.0-1.1) Eosinophils # (Auto) 0.2 x10^3/uL (0.0-0.7) Basophils # (Auto) 0.1 x10^3/uL (0.0-0.2) Sodium Level 146 mmol/L (136-145) Potassium Level 4.1 mmol/L (3.5-5.1) Chloride Level 107 mmol/L (98-107) Carbon Dioxide Level 35 mmol/L (21-32) Anion Gap 4 (6-14) Blood Urea Nitrogen 36 mg/dL (8-26) Creatinine 2.8 mg/dL (0.7-1.3) Estimated GFR (Cockcroft-Gault) 28.4 BUN/Creatinine Ratio 13 (6-20) Glucose Level 124 mg/dL (70-99) Calcium Level 8.1 mg/dL (8.5-10.1) Total Bilirubin 0.6 mg/dL (0.2-1.0) Aspartate Amino Transf (AST/SGOT) 13 U/L (15-37) Alanine Aminotransferase (ALT/SGPT) 17 U/L (16-63) Alkaline Phosphatase 47 U/L (46-116) Total Protein 6.3 g/dL (6.4-8.2) Albumin 2.3 g/dL (3.4-5.0) Albumin/Globulin Ratio 0.6 (1.0-1.7) Medications Active Scripts Medications Dose Route/Sig Max Daily Dose Days Date Category Simvastatin 40 Mg Tablet 40 Mg PO DAILY 09/24/13 Reported Lisinopril 20 Mg Tablet 20 Mg PO DAILY 09/24/13 Reported Norvasc (Amlodipine Besylate) 10 Mg Tablet 10 Mg PO DAILY 09/24/13 Reported Metformin Hcl 1,000 Mg Tablet 1,000 Mg PO BID 09/24/13 Reported Lasix (Furosemide) 20 Mg Tablet 20 Mg PO DAILY 09/24/13 Reported Glyburide-Metformin 5-500 Mg (Glyburide/Metformin Hcl) 1 Each Tablet 1 Each PO BID 09/24/13 Reported Diltiazem Sr 12HR (Diltiazem Hcl) 90 Mg Cap.er.12h 60 Mg PO BID 09/24/13 Reported Carvedilol 25 Mg Tablet 25 Mg PO BID 09/24/13 Reported Potassium 99 Mg Tablet 20 Meq PO BID 09/24/13 Reported Impression . 1. Acute on chronic hypercapnic and hypoxic respiratory failure in a patient who is morbidly obese, comes in with congestive heart failure and also received morphine 2 mg IV. These are all the contributing factors for his acute on chronic respiratory failure. 2. No evidence of ischemic stroke. 3. Underlying obesity hypoventilation syndrome. 4. No evidence of pulmonary embolism by V/Q scan. 5. Normal left ventricular function with an ejection fraction of 55% to 60% based on recent echo. 6. Diastolic HF Plan . 1. off BiPAP. 2. ABG much improved 3. Diuresis per cardiology 4. Follow neurology recommendation. 5. Follow cardiology recommendation. 6. Discontinue all narcotics. 7. DuoNeb. 8. Lovenox for DVT prophylaxis. 9. Discussed with RN and RT. transfer to floor AZCHERY PIÑA MD Aug 23, 2017 14:49
[2017-08-23] MEDS: ENOXAPARIN 40 MG/0.4 ML SYRINGE. SQ SCH (20:49)
[2017-08-23] MEDS: SIMVASTATIN 40 MG TABLET. PO SCH (20:50)
[2017-08-24 03:06] VITALS: BP 99/60
[2017-08-24 05:46] LABS: BASO % 0 % (0-3); EOS % 4 % (0-3); HEMATOCRIT 34.3 % (39.0-53.0); HEMOGLOBIN 10.6 g/dL (13.0-17.5); LYMPH # 0.6 x10^3/uL (1.0-4.8); LYMPH % 9 % (24-48); MEAN CORPUSCULAR HEMOGLOBIN 25 pg (25-35); MEAN CORPUSCULAR HGB CONC 31 g/dL (31-37); MEAN CORPUSCULAR VOLUME 82 fL (79-100); MONO % 9 % (0-9); NEUT % 78 % (31-73); PLATELET COUNT 199 x10^3/uL (140-400); RED BLOOD COUNT 4.21 x10^6/uL (4.30-5.70); RED CELL DISTRIBUTION WIDTH 18.5 % (11.5-14.5); WHITE BLOOD COUNT 6.4 x10^3/uL (4.0-11.0)
[2017-08-24 06:40] LABS: ALBUMIN 2.3 g/dL (3.4-5.0); ALBUMIN/GLOBULIN RATIO 0.5 (1.0-1.7); CALCIUM 7.9 mg/dL (8.5-10.1); CREATININE 2.6 mg/dL (0.7-1.3); GFR 30.9; POTASSIUM 4.5 mmol/L (3.5-5.1); TOTAL BILIRUBIN 0.4 mg/dL (0.2-1.0); TOTAL PROTEIN 6.5 g/dL (6.4-8.2)
[2017-08-24 07:00] VITALS: BP 141/80
[2017-08-24] MEDS: IPRATRPIUM/ALBUTEROL 0.5/2.5MG 3 ML NEBU. NEB SCH ×4 (08:18→19:29)
[2017-08-24] MEDS: POTASSIUM CHLORIDE 20 MEQ TABLET.ER. PO SCH ×2 (08:40→18:23)
[2017-08-24] MEDS: CARVEDILOL 12.5 MG TABLET. PO SCH ×2 (08:41→18:23)
[2017-08-24] MEDS: amLODIPine BESYLATE 10 MG TABLET PO SCH (08:41)
[2017-08-24] MEDS: LISINOPRIL 20 MG TABLET PO SCH (08:42)
--- NOTE | 2017-08-24 10:35 | PDOC ---
PROGRESS NOTES Subjective Subjective He feels better. Objective Objective Vital Signs Date Time Temp Pulse Resp B/P (MAP) Pulse Ox O2 Delivery O2 Flow Rate FiO2 08/24/17 08:42 71 141/80 08/24/17 08:18 95 Nasal Cannula 5.0 08/24/17 07:00 99.1 22 99.1 Intake and Output 08/24/17 07:00 Intake Total 640 ml Output Total 1095 ml Balance -455 ml Intake Oral 640 ml Output Urine Total 1095 ml # Voids 1 Physical Exam Physical Exam He got up and walked at bedside using roller and felt somewhat tired feeling in his calf muscles. Assessment Assessment Problems Medical Problems: (1) CHF exacerbation Status: Acute (2) CKD (chronic kidney disease) Status: Acute (3) Hypoxia Status: Acute Plan Plan of Care To get him up as tolerated and hopefully home when stable from pulmonary fletcher. Comment Review of Relevant I have reviewed the following items ninoska (where applicable) has been applied. Labs Laboratory Tests Test 08/22/17 13:00 08/23/17 07:43 08/23/17 08:01 08/23/17 09:40 O2 Saturation 87 % (92-99) 93 % (92-99) Arterial Blood pH 7.34 (7.35-7.45) 7.37 (7.35-7.45) Arterial Blood pCO2 at Patient Temp 70 mmHg (35-46) 57 mmHg (35-46) Arterial Blood pO2 at Patient Temp 58 mmHg (75-108) 71 mmHg (75-108) Arterial Blood HCO3 36 mmol/L (21-28) 32 mmol/L (21-28) Arterial Blood Base Excess 8 mmol/L (-3-3) 5 mmol/L (-3-3) FiO2 40 40 Glucose (Fingerstick) 69 mg/dL (70-99) White Blood Count 8.3 x10^3/uL (4.0-11.0) Red Blood Count 4.17 x10^6/uL (4.30-5.70) Hemoglobin 10.7 g/dL (13.0-17.5) Hematocrit 33.8 % (39.0-53.0) Mean Corpuscular Volume 81 fL (79-100) Mean Corpuscular Hemoglobin 26 pg (25-35) Mean Corpuscular Hemoglobin Concent 32 g/dL (31-37) Red Cell Distribution Width 18.3 % (11.5-14.5) Platelet Count 190 x10^3/uL (140-400) Neutrophils (%) (Auto) 84 % (31-73) Lymphocytes (%) (Auto) 6 % (24-48) Monocytes (%) (Auto) 7 % (0-9) Eosinophils (%) (Auto) 2 % (0-3) Basophils (%) (Auto) 1 % (0-3) Neutrophils # (Auto) 7.0 x10^3uL (1.8-7.7) Lymphocytes # (Auto) 0.5 x10^3/uL (1.0-4.8) Monocytes # (Auto) 0.6 x10^3/uL (0.0-1.1) Eosinophils # (Auto) 0.2 x10^3/uL (0.0-0.7) Basophils # (Auto) 0.1 x10^3/uL (0.0-0.2) Sodium Level 146 mmol/L (136-145) Potassium Level 4.1 mmol/L (3.5-5.1) Chloride Level 107 mmol/L (98-107) Carbon Dioxide Level 35 mmol/L (21-32) Anion Gap 4 (6-14) Blood Urea Nitrogen 36 mg/dL (8-26) Creatinine 2.8 mg/dL (0.7-1.3) Estimated GFR (Cockcroft-Gault) 28.4 BUN/Creatinine Ratio 13 (6-20) Glucose Level 124 mg/dL (70-99) Calcium Level 8.1 mg/dL (8.5-10.1) Total Bilirubin 0.6 mg/dL (0.2-1.0) Aspartate Amino Transf (AST/SGOT) 13 U/L (15-37) Alanine Aminotransferase (ALT/SGPT) 17 U/L (16-63) Alkaline Phosphatase 47 U/L (46-116) Total Protein 6.3 g/dL (6.4-8.2) Albumin 2.3 g/dL (3.4-5.0) Albumin/Globulin Ratio 0.6 (1.0-1.7) Test 08/24/17 04:35 White Blood Count 6.4 x10^3/uL (4.0-11.0) Red Blood Count 4.21 x10^6/uL (4.30-5.70) Hemoglobin 10.6 g/dL (13.0-17.5) Hematocrit 34.3 % (39.0-53.0) Mean Corpuscular Volume 82 fL (79-100) Mean Corpuscular Hemoglobin 25 pg (25-35) Mean Corpuscular Hemoglobin Concent 31 g/dL (31-37) Red Cell Distribution Width 18.5 % (11.5-14.5) Platelet Count 199 x10^3/uL (140-400) Neutrophils (%) (Auto) 78 % (31-73) Lymphocytes (%) (Auto) 9 % (24-48) Monocytes (%) (Auto) 9 % (0-9) Eosinophils (%) (Auto) 4 % (0-3) Basophils (%) (Auto) 0 % (0-3) Neutrophils # (Auto) 5.0 x10^3uL (1.8-7.7) Lymphocytes # (Auto) 0.6 x10^3/uL (1.0-4.8) Monocytes # (Auto) 0.6 x10^3/uL (0.0-1.1) Eosinophils # (Auto) 0.3 x10^3/uL (0.0-0.7) Basophils # (Auto) 0.0 x10^3/uL (0.0-0.2) Sodium Level 146 mmol/L (136-145) Potassium Level 4.5 mmol/L (3.5-5.1) Chloride Level 108 mmol/L (98-107) Carbon Dioxide Level 33 mmol/L (21-32) Anion Gap 5 (6-14) Blood Urea Nitrogen 36 mg/dL (8-26) Creatinine 2.6 mg/dL (0.7-1.3) Estimated GFR (Cockcroft-Gault) 30.9 BUN/Creatinine Ratio 14 (6-20) Glucose Level 104 mg/dL (70-99) Calcium Level 7.9 mg/dL (8.5-10.1) Total Bilirubin 0.4 mg/dL (0.2-1.0) Aspartate Amino Transf (AST/SGOT) 16 U/L (15-37) Alanine Aminotransferase (ALT/SGPT) 18 U/L (16-63) Alkaline Phosphatase 45 U/L (46-116) Total Protein 6.5 g/dL (6.4-8.2) Albumin 2.3 g/dL (3.4-5.0) Albumin/Globulin Ratio 0.5 (1.0-1.7) Laboratory Tests Test 08/24/17 04:35 White Blood Count 6.4 x10^3/uL (4.0-11.0) Red Blood Count 4.21 x10^6/uL (4.30-5.70) Hemoglobin 10.6 g/dL (13.0-17.5) Hematocrit 34.3 % (39.0-53.0) Mean Corpuscular Volume 82 fL (79-100) Mean Corpuscular Hemoglobin 25 pg (25-35) Mean Corpuscular Hemoglobin Concent 31 g/dL (31-37) Red Cell Distribution Width 18.5 % (11.5-14.5) Platelet Count 199 x10^3/uL (140-400) Neutrophils (%) (Auto) 78 % (31-73) Lymphocytes (%) (Auto) 9 % (24-48) Monocytes (%) (Auto) 9 % (0-9) Eosinophils (%) (Auto) 4 % (0-3) Basophils (%) (Auto) 0 % (0-3) Neutrophils # (Auto) 5.0 x10^3uL (1.8-7.7) Lymphocytes # (Auto) 0.6 x10^3/uL (1.0-4.8) Monocytes # (Auto) 0.6 x10^3/uL (0.0-1.1) Eosinophils # (Auto) 0.3 x10^3/uL (0.0-0.7) Basophils # (Auto) 0.0 x10^3/uL (0.0-0.2) Sodium Level 146 mmol/L (136-145) Potassium Level 4.5 mmol/L (3.5-5.1) Chloride Level 108 mmol/L (98-107) Carbon Dioxide Level 33 mmol/L (21-32) Anion Gap 5 (6-14) Blood Urea Nitrogen 36 mg/dL (8-26) Creatinine 2.6 mg/dL (0.7-1.3) Estimated GFR (Cockcroft-Gault) 30.9 BUN/Creatinine Ratio 14 (6-20) Glucose Level 104 mg/dL (70-99) Calcium Level 7.9 mg/dL (8.5-10.1) Total Bilirubin 0.4 mg/dL (0.2-1.0) Aspartate Amino Transf (AST/SGOT) 16 U/L (15-37) Alanine Aminotransferase (ALT/SGPT) 18 U/L (16-63) Alkaline Phosphatase 45 U/L (46-116) Total Protein 6.5 g/dL (6.4-8.2) Albumin 2.3 g/dL (3.4-5.0) Albumin/Globulin Ratio 0.5 (1.0-1.7) Microbiology 08/23/17 Blood Culture - Preliminary, Resulted NO GROWTH AFTER 1 DAY Medications Current Medications Albuterol/ Ipratropium (Duoneb) 3 ml 1X ONCE NEB Last administered on 11:00; Start 08/20/17 at 10:45; Stop 08/20/17 at 10:46; Status DC Furosemide (Lasix) 40 mg 1X ONCE PO Last administered on 08/20/17 14:57; Start 08/20/17 at 14:30; Stop 08/20/17 at 14:33; Status DC Ondansetron HCl (Zofran) 4 mg PRN Q8HRS PRN IV NAUSEA/VOMITING; Start at 14:45; Stop 08/21/17 at 14:44; Status DC Morphine Sulfate 2 mg PRN Q2HR PRN IV PAIN; Start 08/20/17 at 14:45; Stop at 14:44; Status DC Enoxaparin Sodium (Lovenox 40mg Syringe) 40 mg Q24H SQ Last administered on 20:49; Start 08/20/17 at 19:15 Amlodipine Besylate (Norvasc) 10 mg DAILY PO Last administered on 08/24/17 08 :41; Start 08/21/17 at 09:00 Lisinopril (Prinivil) 20 mg DAILY PO Last administered on 08/24/17 08:42; Start 08/21/17 at 09:00 Simvastatin (Zocor) 40 mg QHS PO Last administered on 08/23/17 20:50; Start 08/20/17 at 21:00 Carvedilol (Coreg) 25 mg BIDWMEALS PO Last administered on 08/24/17 08:41; Start 08/21/17 at 20:00 Diltiazem HCl (Cardizem 24hr Cd) 120 mg DAILY PO Last administered on 08:41; Start 08/21/17 at 09:00 Non-Formulary Medication 1 each BID PO ; Start 08/20/17 at 21:00; Status UNV Potassium Chloride (Klor-Con) 20 meq BIDWMEALS PO Last administered on 08:40; Start 08/20/17 at 20:00 Glyburide (Diabeta) 5 mg BIDWMEALS PO Last administered on 08/21/17 09:49; Start 08/21/17 at 08:00; Stop 08/21/17 at 12:59; Status DC Metformin HCl (Glucophage) 500 mg BIDWMEALS PO Last administered on 08/21/17 09:48; Start 08/21/17 at 08:00; Stop 08/21/17 at 12:59; Status DC Influenza Virus Vaccine Quadrival (Fluarix Quad [id number] Syringe) 0.5 ml ONCE ONCE VAX IM Last administered on 08/21/17 09:57; Start 08/21/17 at 09:00; Stop 08/21/17 at 09:01; Status DC Pneumococcal Polyvalent Vaccine (Pneumovax 23) 0.5 ml ONCE ONCE VAX IM Last administered on 08/21/17 09:58; Start 08/21/17 at 09:00; Stop 08/21/17 at 09 :01; Status DC Guaifenesin (Mucinex) 1,200 mg BID PO Last administered on 08/24/17 08:40; Start 08/21/17 at 09:30 Albuterol/ Ipratropium (Duoneb) 3 ml RTQID NEB Last administered on 08/24/17 08:18; Start 08/21/17 at 16:00 Amiodarone HCl 150 mg/Dextrose 103 ml @ 618 mls/hr 1X ONCE IV Last administered on 08/21/17 16:12; Start 08/21/17 at 15:45; Stop 08/21/17 at 15 :54; Status DC Amiodarone HCl 900 mg/Dextrose 518 ml @ 0 mls/hr CONT PRN IV SEE I/O RECORD Last administered on 08/21/17 16:14; Start 08/21/17 at 15:45; Stop 08/21/17 at 16:15; Status DC Furosemide (Lasix) 60 mg 1X ONCE IVP Last administered on 08/21/17 16:15; Start 08/21/17 at 16:00; Stop 08/21/17 at 16:01; Status DC Dextrose 1,000 ml @ 60 mls/hr [id number] IV Last administered on 08/21/17 16:30 ; Start 08/21/17 at 16:30; Stop 08/22/17 at 09:09; Status DC Dextrose (Dextrose 50%-Water Syringe) 25 gm STK-MED ONCE IV ; Start 08/22/17 at 07:15; Stop 08/22/17 at 07:16; Status DC Dextrose (Dextrose 50%-Water Syringe) 25 gm 1X ONCE IV Last administered on 07:22; Start 08/22/17 at 07:30; Stop 08/22/17 at 07:31; Status DC Dextrose (Dextrose 50%-Water Syringe) 12.5 gm PRN Q15MIN PRN IV SEE COMMENTS; Start 08/22/17 at 07:45 Acetaminophen (Tylenol) 650 mg PRN Q6HRS PRN PO FEVER Last administered on 23:01; Start 08/22/17 at 22:15 Active Scripts Active Reported Simvastatin 40 Mg Tablet 40 Mg PO DAILY Lisinopril 20 Mg Tablet 20 Mg PO DAILY Norvasc (Amlodipine Besylate) 10 Mg Tablet 10 Mg PO DAILY Metformin Hcl 1,000 Mg Tablet 1,000 Mg PO BID Lasix (Furosemide) 20 Mg Tablet 20 Mg PO DAILY Glyburide-Metformin 5-500 Mg (Glyburide/Metformin Hcl) 1 Each Tablet 1 Each PO BID Diltiazem Sr 12HR (Diltiazem Hcl) 90 Mg Cap.er.12h 60 Mg PO BID Carvedilol 25 Mg Tablet 25 Mg PO BID Potassium 99 Mg Tablet 20 Meq PO BID Vitals/I & O Vital Sign - Last 24 Hours 08/23/17 08/23/17 08/23/17 08/23/17 11:00 12:42 15:26 16:19 Temp 98.5 98.5 Pulse 68 56 Resp 26 20 B/P (MAP) 155/79 (104) 130/57 (81) Pulse Ox 92 96 92 O2 Delivery Nasal Cannula Nasal Cannula Nasal Cannula Nasal Cannula O2 Flow Rate 5.0 5.0 5.0 5.0 08/23/17 08/23/17 08/23/17 08/23/17 16:28 19:35 19:48 20:30 Temp 98.5 98.5 Pulse 68 65 Resp 18 B/P (MAP) 130/57 169/81 (110) Pulse Ox 94 96 O2 Delivery Nasal Cannula Nasal Cannula Nasal Cannula O2 Flow Rate 5.0 5.0 5.0 08/23/17 08/23/17 08/23/17 08/24/17 21:43 23:00 23:26 03:06 Temp 97.7 98.4 97.7 98.4 Pulse 60 58 Resp 20 20 B/P (MAP) 142/64 (90) 99/60 (73) Pulse Ox 91 91 O2 Delivery BiPAP/CPAP BiPAP/CPAP BiPAP/CPAP BiPAP/CPAP 08/24/17 08/24/17 08/24/17 08/24/17 03:22 05:15 07:00 07:50 Temp 99.1 99.1 Pulse 71 Resp 22 B/P (MAP) 141/80 (100) Pulse Ox 91 92 O2 Delivery BiPAP/CPAP BiPAP/CPAP Nasal Cannula Nasal Cannula O2 Flow Rate 5.0 5.0 08/24/17 08/24/17 08/24/17 08/24/17 07:50 08:18 08:41 08:41 Pulse 71 71 B/P (MAP) 141/80 141/80 Pulse Ox 95 O2 Delivery Nasal Cannula O2 Flow Rate 5.0 5.0 08/24/17 08/24/17 08:41 08:42 Pulse 71 71 B/P (MAP) 141/80 141/80 Intake and Output 08/23/17 08/23/17 08/24/17 15:00 23:00 07:00 Intake Total 220 ml 420 ml Output Total 370 ml 125 ml 600 ml Balance -150 ml 295 ml -600 ml JOHANN WALTON MD Aug 24, 2017 10:35
--- NOTE | 2017-08-24 10:49 | PDOC ---
PROGRESS NOTES Chief Complaint Chief Complaint 1. Acute hypercarbic respiratory failure with metabolic encephalopathy 2. acute on chronic diastolic CHF, with acute exac 2 obesity, BMI 37, possible hypoventilation syndrome, has pickwickian habitus 3. diabetes 2, hypoglycemic here, 4. acute respiratory failure 5. chronic kidney disease 3, w. hypernatremia, History of Present Illness History of Present Illness Pt seen and examined at bedside. No acute events overnight. Pt was transferred out of ICU recently. Pt was resting comfortably with no acute complaints. Continue with subspecialty recommendations and management. Vitals Vitals Vital Signs Date Time Temp Pulse Resp B/P (MAP) Pulse Ox O2 Delivery O2 Flow Rate FiO2 08/24/17 08:42 71 141/80 08/24/17 08:18 95 Nasal Cannula 5.0 08/24/17 07:00 99.1 22 99.1 Physical Exam General: Alert, Oriented X3, Cooperative, mild distress, Other (confused, but mild) Heart: Regular rate, No murmurs, Other (regular with frequent ectopy, S1, S2, ) Lungs: Other (decrease bs) Abdomen: Soft, No tenderness, Other (distended, timpanic, no BS heard) Extremities: No cyanosis, Other (bilateral lower extremity edema) Skin: No rashes, No significant lesion Labs LABS Laboratory Tests Test 08/24/17 04:35 White Blood Count 6.4 x10^3/uL (4.0-11.0) Red Blood Count 4.21 x10^6/uL (4.30-5.70) Hemoglobin 10.6 g/dL (13.0-17.5) Hematocrit 34.3 % (39.0-53.0) Mean Corpuscular Volume 82 fL (79-100) Mean Corpuscular Hemoglobin 25 pg (25-35) Mean Corpuscular Hemoglobin Concent 31 g/dL (31-37) Red Cell Distribution Width 18.5 % (11.5-14.5) Platelet Count 199 x10^3/uL (140-400) Neutrophils (%) (Auto) 78 % (31-73) Lymphocytes (%) (Auto) 9 % (24-48) Monocytes (%) (Auto) 9 % (0-9) Eosinophils (%) (Auto) 4 % (0-3) Basophils (%) (Auto) 0 % (0-3) Neutrophils # (Auto) 5.0 x10^3uL (1.8-7.7) Lymphocytes # (Auto) 0.6 x10^3/uL (1.0-4.8) Monocytes # (Auto) 0.6 x10^3/uL (0.0-1.1) Eosinophils # (Auto) 0.3 x10^3/uL (0.0-0.7) Basophils # (Auto) 0.0 x10^3/uL (0.0-0.2) Sodium Level 146 mmol/L (136-145) Potassium Level 4.5 mmol/L (3.5-5.1) Chloride Level 108 mmol/L (98-107) Carbon Dioxide Level 33 mmol/L (21-32) Anion Gap 5 (6-14) Blood Urea Nitrogen 36 mg/dL (8-26) Creatinine 2.6 mg/dL (0.7-1.3) Estimated GFR (Cockcroft-Gault) 30.9 BUN/Creatinine Ratio 14 (6-20) Glucose Level 104 mg/dL (70-99) Calcium Level 7.9 mg/dL (8.5-10.1) Total Bilirubin 0.4 mg/dL (0.2-1.0) Aspartate Amino Transf (AST/SGOT) 16 U/L (15-37) Alanine Aminotransferase (ALT/SGPT) 18 U/L (16-63) Alkaline Phosphatase 45 U/L (46-116) Total Protein 6.5 g/dL (6.4-8.2) Albumin 2.3 g/dL (3.4-5.0) Albumin/Globulin Ratio 0.5 (1.0-1.7) Review of Systems Review of Systems Fatigue Dyspnea Assessment and Plan Assessmemt and Plan Problems Medical Problems: (1) CHF exacerbation Status: Acute (2) CKD (chronic kidney disease) Status: Acute (3) Hypoxia Status: Acute CHIEF COMPLAINT 1. Acute hypercarbic respiratory failure with metabolic encephalopathy 2. acute on chronic diastolic CHF, with acute exac 2 obesity, BMI 37, possible hypoventilation syndrome, has pickwickian habitus 3. diabetes 2, hypoglycemic here, 4. acute respiratory failure 5. chronic kidney disease 3, w. hypernatremia, PLAN: Continue Breathing treatments/nebs PT/OT Reorder morning labs Continue with subspecialty input, appreciate recommendations Continue Home Meds Problems: Comment Review of Relevant I have reviewed the following items ninoska (where applicable) has been applied. Labs Laboratory Tests Test 08/22/17 13:00 08/23/17 07:43 08/23/17 08:01 08/23/17 09:40 O2 Saturation 87 % (92-99) 93 % (92-99) Arterial Blood pH 7.34 (7.35-7.45) 7.37 (7.35-7.45) Arterial Blood pCO2 at Patient Temp 70 mmHg (35-46) 57 mmHg (35-46) Arterial Blood pO2 at Patient Temp 58 mmHg (75-108) 71 mmHg (75-108) Arterial Blood HCO3 36 mmol/L (21-28) 32 mmol/L (21-28) Arterial Blood Base Excess 8 mmol/L (-3-3) 5 mmol/L (-3-3) FiO2 40 40 Glucose (Fingerstick) 69 mg/dL (70-99) White Blood Count 8.3 x10^3/uL (4.0-11.0) Red Blood Count 4.17 x10^6/uL (4.30-5.70) Hemoglobin 10.7 g/dL (13.0-17.5) Hematocrit 33.8 % (39.0-53.0) Mean Corpuscular Volume 81 fL (79-100) Mean Corpuscular Hemoglobin 26 pg (25-35) Mean Corpuscular Hemoglobin Concent 32 g/dL (31-37) Red Cell Distribution Width 18.3 % (11.5-14.5) Platelet Count 190 x10^3/uL (140-400) Neutrophils (%) (Auto) 84 % (31-73) Lymphocytes (%) (Auto) 6 % (24-48) Monocytes (%) (Auto) 7 % (0-9) Eosinophils (%) (Auto) 2 % (0-3) Basophils (%) (Auto) 1 % (0-3) Neutrophils # (Auto) 7.0 x10^3uL (1.8-7.7) Lymphocytes # (Auto) 0.5 x10^3/uL (1.0-4.8) Monocytes # (Auto) 0.6 x10^3/uL (0.0-1.1) Eosinophils # (Auto) 0.2 x10^3/uL (0.0-0.7) Basophils # (Auto) 0.1 x10^3/uL (0.0-0.2) Sodium Level 146 mmol/L (136-145) Potassium Level 4.1 mmol/L (3.5-5.1) Chloride Level 107 mmol/L (98-107) Carbon Dioxide Level 35 mmol/L (21-32) Anion Gap 4 (6-14) Blood Urea Nitrogen 36 mg/dL (8-26) Creatinine 2.8 mg/dL (0.7-1.3) Estimated GFR (Cockcroft-Gault) 28.4 BUN/Creatinine Ratio 13 (6-20) Glucose Level 124 mg/dL (70-99) Calcium Level 8.1 mg/dL (8.5-10.1) Total Bilirubin 0.6 mg/dL (0.2-1.0) Aspartate Amino Transf (AST/SGOT) 13 U/L (15-37) Alanine Aminotransferase (ALT/SGPT) 17 U/L (16-63) Alkaline Phosphatase 47 U/L (46-116) Total Protein 6.3 g/dL (6.4-8.2) Albumin 2.3 g/dL (3.4-5.0) Albumin/Globulin Ratio 0.6 (1.0-1.7) Test 08/24/17 04:35 White Blood Count 6.4 x10^3/uL (4.0-11.0) Red Blood Count 4.21 x10^6/uL (4.30-5.70) Hemoglobin 10.6 g/dL (13.0-17.5) Hematocrit 34.3 % (39.0-53.0) Mean Corpuscular Volume 82 fL (79-100) Mean Corpuscular Hemoglobin 25 pg (25-35) Mean Corpuscular Hemoglobin Concent 31 g/dL (31-37) Red Cell Distribution Width 18.5 % (11.5-14.5) Platelet Count 199 x10^3/uL (140-400) Neutrophils (%) (Auto) 78 % (31-73) Lymphocytes (%) (Auto) 9 % (24-48) Monocytes (%) (Auto) 9 % (0-9) Eosinophils (%) (Auto) 4 % (0-3) Basophils (%) (Auto) 0 % (0-3) Neutrophils # (Auto) 5.0 x10^3uL (1.8-7.7) Lymphocytes # (Auto) 0.6 x10^3/uL (1.0-4.8) Monocytes # (Auto) 0.6 x10^3/uL (0.0-1.1) Eosinophils # (Auto) 0.3 x10^3/uL (0.0-0.7) Basophils # (Auto) 0.0 x10^3/uL (0.0-0.2) Sodium Level 146 mmol/L (136-145) Potassium Level 4.5 mmol/L (3.5-5.1) Chloride Level 108 mmol/L (98-107) Carbon Dioxide Level 33 mmol/L (21-32) Anion Gap 5 (6-14) Blood Urea Nitrogen 36 mg/dL (8-26) Creatinine 2.6 mg/dL (0.7-1.3) Estimated GFR (Cockcroft-Gault) 30.9 BUN/Creatinine Ratio 14 (6-20) Glucose Level 104 mg/dL (70-99) Calcium Level 7.9 mg/dL (8.5-10.1) Total Bilirubin 0.4 mg/dL (0.2-1.0) Aspartate Amino Transf (AST/SGOT) 16 U/L (15-37) Alanine Aminotransferase (ALT/SGPT) 18 U/L (16-63) Alkaline Phosphatase 45 U/L (46-116) Total Protein 6.5 g/dL (6.4-8.2) Albumin 2.3 g/dL (3.4-5.0) Albumin/Globulin Ratio 0.5 (1.0-1.7) Laboratory Tests Test 08/24/17 04:35 White Blood Count 6.4 x10^3/uL (4.0-11.0) Red Blood Count 4.21 x10^6/uL (4.30-5.70) Hemoglobin 10.6 g/dL (13.0-17.5) Hematocrit 34.3 % (39.0-53.0) Mean Corpuscular Volume 82 fL (79-100) Mean Corpuscular Hemoglobin 25 pg (25-35) Mean Corpuscular Hemoglobin Concent 31 g/dL (31-37) Red Cell Distribution Width 18.5 % (11.5-14.5) Platelet Count 199 x10^3/uL (140-400) Neutrophils (%) (Auto) 78 % (31-73) Lymphocytes (%) (Auto) 9 % (24-48) Monocytes (%) (Auto) 9 % (0-9) Eosinophils (%) (Auto) 4 % (0-3) Basophils (%) (Auto) 0 % (0-3) Neutrophils # (Auto) 5.0 x10^3uL (1.8-7.7) Lymphocytes # (Auto) 0.6 x10^3/uL (1.0-4.8) Monocytes # (Auto) 0.6 x10^3/uL (0.0-1.1) Eosinophils # (Auto) 0.3 x10^3/uL (0.0-0.7) Basophils # (Auto) 0.0 x10^3/uL (0.0-0.2) Sodium Level 146 mmol/L (136-145) Potassium Level 4.5 mmol/L (3.5-5.1) Chloride Level 108 mmol/L (98-107) Carbon Dioxide Level 33 mmol/L (21-32) Anion Gap 5 (6-14) Blood Urea Nitrogen 36 mg/dL (8-26) Creatinine 2.6 mg/dL (0.7-1.3) Estimated GFR (Cockcroft-Gault) 30.9 BUN/Creatinine Ratio 14 (6-20) Glucose Level 104 mg/dL (70-99) Calcium Level 7.9 mg/dL (8.5-10.1) Total Bilirubin 0.4 mg/dL (0.2-1.0) Aspartate Amino Transf (AST/SGOT) 16 U/L (15-37) Alanine Aminotransferase (ALT/SGPT) 18 U/L (16-63) Alkaline Phosphatase 45 U/L (46-116) Total Protein 6.5 g/dL (6.4-8.2) Albumin 2.3 g/dL (3.4-5.0) Albumin/Globulin Ratio 0.5 (1.0-1.7) Microbiology 08/23/17 Blood Culture - Preliminary, Resulted NO GROWTH AFTER 1 DAY Medications Current Medications Albuterol/ Ipratropium (Duoneb) 3 ml 1X ONCE NEB Last administered on 11:00; Start 08/20/17 at 10:45; Stop 08/20/17 at 10:46; Status DC Furosemide (Lasix) 40 mg 1X ONCE PO Last administered on 08/20/17 14:57; Start 08/20/17 at 14:30; Stop 08/20/17 at 14:33; Status DC Ondansetron HCl (Zofran) 4 mg PRN Q8HRS PRN IV NAUSEA/VOMITING; Start at 14:45; Stop 08/21/17 at 14:44; Status DC Morphine Sulfate 2 mg PRN Q2HR PRN IV PAIN; Start 08/20/17 at 14:45; Stop at 14:44; Status DC Enoxaparin Sodium (Lovenox 40mg Syringe) 40 mg Q24H SQ Last administered on 20:49; Start 08/20/17 at 19:15 Amlodipine Besylate (Norvasc) 10 mg DAILY PO Last administered on 08/24/17 08 :41; Start 08/21/17 at 09:00 Lisinopril (Prinivil) 20 mg DAILY PO Last administered on 08/24/17 08:42; Start 08/21/17 at 09:00 Simvastatin (Zocor) 40 mg QHS PO Last administered on 08/23/17 20:50; Start 08/20/17 at 21:00 Carvedilol (Coreg) 25 mg BIDWMEALS PO Last administered on 08/24/17 08:41; Start 08/21/17 at 20:00 Diltiazem HCl (Cardizem 24hr Cd) 120 mg DAILY PO Last administered on 08:41; Start 08/21/17 at 09:00 Non-Formulary Medication 1 each BID PO ; Start 08/20/17 at 21:00; Status UNV Potassium Chloride (Klor-Con) 20 meq BIDWMEALS PO Last administered on 08:40; Start 08/20/17 at 20:00 Glyburide (Diabeta) 5 mg BIDWMEALS PO Last administered on 08/21/17 09:49; Start 08/21/17 at 08:00; Stop 08/21/17 at 12:59; Status DC Metformin HCl (Glucophage) 500 mg BIDWMEALS PO Last administered on 08/21/17 09:48; Start 08/21/17 at 08:00; Stop 08/21/17 at 12:59; Status DC Influenza Virus Vaccine Quadrival (Fluarix Quad [id number] Syringe) 0.5 ml ONCE ONCE VAX IM Last administered on 08/21/17 09:57; Start 08/21/17 at 09:00; Stop 08/21/17 at 09:01; Status DC Pneumococcal Polyvalent Vaccine (Pneumovax 23) 0.5 ml ONCE ONCE VAX IM Last administered on 08/21/17 09:58; Start 08/21/17 at 09:00; Stop 08/21/17 at 09 :01; Status DC Guaifenesin (Mucinex) 1,200 mg BID PO Last administered on 08/24/17 08:40; Start 08/21/17 at 09:30 Albuterol/ Ipratropium (Duoneb) 3 ml RTQID NEB Last administered on 08/24/17 08:18; Start 08/21/17 at 16:00 Amiodarone HCl 150 mg/Dextrose 103 ml @ 618 mls/hr 1X ONCE IV Last administered on 08/21/17 16:12; Start 08/21/17 at 15:45; Stop 08/21/17 at 15 :54; Status DC Amiodarone HCl 900 mg/Dextrose 518 ml @ 0 mls/hr CONT PRN IV SEE I/O RECORD Last administered on 08/21/17 16:14; Start 08/21/17 at 15:45; Stop 08/21/17 at 16:15; Status DC Furosemide (Lasix) 60 mg 1X ONCE IVP Last administered on 08/21/17 16:15; Start 08/21/17 at 16:00; Stop 08/21/17 at 16:01; Status DC Dextrose 1,000 ml @ 60 mls/hr [id number] IV Last administered on 08/21/17 16:30 ; Start 08/21/17 at 16:30; Stop 08/22/17 at 09:09; Status DC Dextrose (Dextrose 50%-Water Syringe) 25 gm STK-MED ONCE IV ; Start 08/22/17 at 07:15; Stop 08/22/17 at 07:16; Status DC Dextrose (Dextrose 50%-Water Syringe) 25 gm 1X ONCE IV Last administered on 07:22; Start 08/22/17 at 07:30; Stop 08/22/17 at 07:31; Status DC Dextrose (Dextrose 50%-Water Syringe) 12.5 gm PRN Q15MIN PRN IV SEE COMMENTS; Start 08/22/17 at 07:45 Acetaminophen (Tylenol) 650 mg PRN Q6HRS PRN PO FEVER Last administered on 23:01; Start 08/22/17 at 22:15 Active Scripts Active Reported Simvastatin 40 Mg Tablet 40 Mg PO DAILY Lisinopril 20 Mg Tablet 20 Mg PO DAILY Norvasc (Amlodipine Besylate) 10 Mg Tablet 10 Mg PO DAILY Metformin Hcl 1,000 Mg Tablet 1,000 Mg PO BID Lasix (Furosemide) 20 Mg Tablet 20 Mg PO DAILY Glyburide-Metformin 5-500 Mg (Glyburide/Metformin Hcl) 1 Each Tablet 1 Each PO BID Diltiazem Sr 12HR (Diltiazem Hcl) 90 Mg Cap.er.12h 60 Mg PO BID Carvedilol 25 Mg Tablet 25 Mg PO BID Potassium 99 Mg Tablet 20 Meq PO BID Vitals/I & O Vital Sign - Last 24 Hours 08/23/17 08/23/17 08/23/17 08/23/17 11:00 12:42 15:26 16:19 Temp 98.5 98.5 Pulse 68 56 Resp 26 20 B/P (MAP) 155/79 (104) 130/57 (81) Pulse Ox 92 96 92 O2 Delivery Nasal Cannula Nasal Cannula Nasal Cannula Nasal Cannula O2 Flow Rate 5.0 5.0 5.0 5.0 08/23/17 08/23/17 08/23/17 08/23/17 16:28 19:35 19:48 20:30 Temp 98.5 98.5 Pulse 68 65 Resp 18 B/P (MAP) 130/57 169/81 (110) Pulse Ox 94 96 O2 Delivery Nasal Cannula Nasal Cannula Nasal Cannula O2 Flow Rate 5.0 5.0 5.0 12/2408/23/17 08/23/17 08/24/17 21:43 23:00 23:26 03:06 Temp 97.7 98.4 97.7 98.4 Pulse 60 58 Resp 20 20 B/P (MAP) 142/64 (90) 99/60 (73) Pulse Ox 91 91 O2 Delivery BiPAP/CPAP BiPAP/CPAP BiPAP/CPAP BiPAP/CPAP 08/24/17 08/24/17 08/24/17 08/24/17 03:22 05:15 07:00 07:50 Temp 99.1 99.1 Pulse 71 Resp 22 B/P (MAP) 141/80 (100) Pulse Ox 91 92 O2 Delivery BiPAP/CPAP BiPAP/CPAP Nasal Cannula Nasal Cannula O2 Flow Rate 5.0 5.0 08/24/17 08/24/17 08/24/17 08/24/17 07:50 08:18 08:41 08:41 Pulse 71 71 B/P (MAP) 141/80 141/80 Pulse Ox 95 O2 Delivery Nasal Cannula O2 Flow Rate 5.0 5.0 08/24/17 08/24/17 08:41 08:42 Pulse 71 71 B/P (MAP) 141/80 141/80 Intake and Output 08/23/17 08/23/17 08/24/17 15:00 23:00 07:00 Intake Total 220 ml 420 ml Output Total 370 ml 125 ml 600 ml Balance -150 ml 295 ml -600 ml CASTLE,NIAL K III DO Aug 24, 2017 10:49
[2017-08-24 11:00] VITALS: BP 141/72
[2017-08-24] MEDS ORDERED: ALBUTEROL SULFATE 2.5 MG/3 ML NEBU. NEB PRN (11:00)
--- NOTE | 2017-08-24 11:19 | PDOC ---
PULMONARY PROGRESS NOTES Subjective much better awake, moving all extremities Vitals Vital Signs Date Time Temp Pulse Resp B/P (MAP) Pulse Ox O2 Delivery O2 Flow Rate FiO2 08/24/17 08:42 71 141/80 08/24/17 08:18 95 Nasal Cannula 5.0 08/24/17 07:00 99.1 22 99.1 General: Alert, No acute distress Lungs: Other (decrease bs) Cardiovascular: S1, S2 Abdomen: Soft, Non-tender, Other (distended) Extremities: No Edema Skin: Warm Labs Laboratory Tests Test 08/22/17 13:00 08/23/17 07:43 08/23/17 08:01 08/23/17 09:40 O2 Saturation 87 % (92-99) 93 % (92-99) Arterial Blood pH 7.34 (7.35-7.45) 7.37 (7.35-7.45) Arterial Blood pCO2 at Patient Temp 70 mmHg (35-46) 57 mmHg (35-46) Arterial Blood pO2 at Patient Temp 58 mmHg (75-108) 71 mmHg (75-108) Arterial Blood HCO3 36 mmol/L (21-28) 32 mmol/L (21-28) Arterial Blood Base Excess 8 mmol/L (-3-3) 5 mmol/L (-3-3) FiO2 40 40 Glucose (Fingerstick) 69 mg/dL (70-99) White Blood Count 8.3 x10^3/uL (4.0-11.0) Red Blood Count 4.17 x10^6/uL (4.30-5.70) Hemoglobin 10.7 g/dL (13.0-17.5) Hematocrit 33.8 % (39.0-53.0) Mean Corpuscular Volume 81 fL (79-100) Mean Corpuscular Hemoglobin 26 pg (25-35) Mean Corpuscular Hemoglobin Concent 32 g/dL (31-37) Red Cell Distribution Width 18.3 % (11.5-14.5) Platelet Count 190 x10^3/uL (140-400) Neutrophils (%) (Auto) 84 % (31-73) Lymphocytes (%) (Auto) 6 % (24-48) Monocytes (%) (Auto) 7 % (0-9) Eosinophils (%) (Auto) 2 % (0-3) Basophils (%) (Auto) 1 % (0-3) Neutrophils # (Auto) 7.0 x10^3uL (1.8-7.7) Lymphocytes # (Auto) 0.5 x10^3/uL (1.0-4.8) Monocytes # (Auto) 0.6 x10^3/uL (0.0-1.1) Eosinophils # (Auto) 0.2 x10^3/uL (0.0-0.7) Basophils # (Auto) 0.1 x10^3/uL (0.0-0.2) Sodium Level 146 mmol/L (136-145) Potassium Level 4.1 mmol/L (3.5-5.1) Chloride Level 107 mmol/L (98-107) Carbon Dioxide Level 35 mmol/L (21-32) Anion Gap 4 (6-14) Blood Urea Nitrogen 36 mg/dL (8-26) Creatinine 2.8 mg/dL (0.7-1.3) Estimated GFR (Cockcroft-Gault) 28.4 BUN/Creatinine Ratio 13 (6-20) Glucose Level 124 mg/dL (70-99) Calcium Level 8.1 mg/dL (8.5-10.1) Total Bilirubin 0.6 mg/dL (0.2-1.0) Aspartate Amino Transf (AST/SGOT) 13 U/L (15-37) Alanine Aminotransferase (ALT/SGPT) 17 U/L (16-63) Alkaline Phosphatase 47 U/L (46-116) Total Protein 6.3 g/dL (6.4-8.2) Albumin 2.3 g/dL (3.4-5.0) Albumin/Globulin Ratio 0.6 (1.0-1.7) Test 08/24/17 04:35 White Blood Count 6.4 x10^3/uL (4.0-11.0) Red Blood Count 4.21 x10^6/uL (4.30-5.70) Hemoglobin 10.6 g/dL (13.0-17.5) Hematocrit 34.3 % (39.0-53.0) Mean Corpuscular Volume 82 fL (79-100) Mean Corpuscular Hemoglobin 25 pg (25-35) Mean Corpuscular Hemoglobin Concent 31 g/dL (31-37) Red Cell Distribution Width 18.5 % (11.5-14.5) Platelet Count 199 x10^3/uL (140-400) Neutrophils (%) (Auto) 78 % (31-73) Lymphocytes (%) (Auto) 9 % (24-48) Monocytes (%) (Auto) 9 % (0-9) Eosinophils (%) (Auto) 4 % (0-3) Basophils (%) (Auto) 0 % (0-3) Neutrophils # (Auto) 5.0 x10^3uL (1.8-7.7) Lymphocytes # (Auto) 0.6 x10^3/uL (1.0-4.8) Monocytes # (Auto) 0.6 x10^3/uL (0.0-1.1) Eosinophils # (Auto) 0.3 x10^3/uL (0.0-0.7) Basophils # (Auto) 0.0 x10^3/uL (0.0-0.2) Sodium Level 146 mmol/L (136-145) Potassium Level 4.5 mmol/L (3.5-5.1) Chloride Level 108 mmol/L (98-107) Carbon Dioxide Level 33 mmol/L (21-32) Anion Gap 5 (6-14) Blood Urea Nitrogen 36 mg/dL (8-26) Creatinine 2.6 mg/dL (0.7-1.3) Estimated GFR (Cockcroft-Gault) 30.9 BUN/Creatinine Ratio 14 (6-20) Glucose Level 104 mg/dL (70-99) Calcium Level 7.9 mg/dL (8.5-10.1) Total Bilirubin 0.4 mg/dL (0.2-1.0) Aspartate Amino Transf (AST/SGOT) 16 U/L (15-37) Alanine Aminotransferase (ALT/SGPT) 18 U/L (16-63) Alkaline Phosphatase 45 U/L (46-116) Total Protein 6.5 g/dL (6.4-8.2) Albumin 2.3 g/dL (3.4-5.0) Albumin/Globulin Ratio 0.5 (1.0-1.7) Laboratory Tests Test 08/24/17 04:35 White Blood Count 6.4 x10^3/uL (4.0-11.0) Red Blood Count 4.21 x10^6/uL (4.30-5.70) Hemoglobin 10.6 g/dL (13.0-17.5) Hematocrit 34.3 % (39.0-53.0) Mean Corpuscular Volume 82 fL (79-100) Mean Corpuscular Hemoglobin 25 pg (25-35) Mean Corpuscular Hemoglobin Concent 31 g/dL (31-37) Red Cell Distribution Width 18.5 % (11.5-14.5) Platelet Count 199 x10^3/uL (140-400) Neutrophils (%) (Auto) 78 % (31-73) Lymphocytes (%) (Auto) 9 % (24-48) Monocytes (%) (Auto) 9 % (0-9) Eosinophils (%) (Auto) 4 % (0-3) Basophils (%) (Auto) 0 % (0-3) Neutrophils # (Auto) 5.0 x10^3uL (1.8-7.7) Lymphocytes # (Auto) 0.6 x10^3/uL (1.0-4.8) Monocytes # (Auto) 0.6 x10^3/uL (0.0-1.1) Eosinophils # (Auto) 0.3 x10^3/uL (0.0-0.7) Basophils # (Auto) 0.0 x10^3/uL (0.0-0.2) Sodium Level 146 mmol/L (136-145) Potassium Level 4.5 mmol/L (3.5-5.1) Chloride Level 108 mmol/L (98-107) Carbon Dioxide Level 33 mmol/L (21-32) Anion Gap 5 (6-14) Blood Urea Nitrogen 36 mg/dL (8-26) Creatinine 2.6 mg/dL (0.7-1.3) Estimated GFR (Cockcroft-Gault) 30.9 BUN/Creatinine Ratio 14 (6-20) Glucose Level 104 mg/dL (70-99) Calcium Level 7.9 mg/dL (8.5-10.1) Total Bilirubin 0.4 mg/dL (0.2-1.0) Aspartate Amino Transf (AST/SGOT) 16 U/L (15-37) Alanine Aminotransferase (ALT/SGPT) 18 U/L (16-63) Alkaline Phosphatase 45 U/L (46-116) Total Protein 6.5 g/dL (6.4-8.2) Albumin 2.3 g/dL (3.4-5.0) Albumin/Globulin Ratio 0.5 (1.0-1.7) Medications Active Scripts Medications Dose Route/Sig Max Daily Dose Days Date Category Simvastatin 40 Mg Tablet 40 Mg PO DAILY 09/24/13 Reported Lisinopril 20 Mg Tablet 20 Mg PO DAILY 09/24/13 Reported Norvasc (Amlodipine Besylate) 10 Mg Tablet 10 Mg PO DAILY 09/24/13 Reported Metformin Hcl 1,000 Mg Tablet 1,000 Mg PO BID 09/24/13 Reported Lasix (Furosemide) 20 Mg Tablet 20 Mg PO DAILY 09/24/13 Reported Glyburide-Metformin 5-500 Mg (Glyburide/Metformin Hcl) 1 Each Tablet 1 Each PO BID 09/24/13 Reported Diltiazem Sr 12HR (Diltiazem Hcl) 90 Mg Cap.er.12h 60 Mg PO BID 09/24/13 Reported Carvedilol 25 Mg Tablet 25 Mg PO BID 09/24/13 Reported Potassium 99 Mg Tablet 20 Meq PO BID 09/24/13 Reported Impression . 1. Acute on chronic hypercapnic and hypoxic respiratory failure due to congestive heart failure and narcotics 2. No evidence of ischemic stroke. 3. Underlying obesity hypoventilation syndrome. 4. No evidence of pulmonary embolism by V/Q scan. 5. Normal left ventricular function with an ejection fraction of 55% to 60% based on recent echo. 6. Diastolic HF Plan . 1. off BiPAP. 2. ABG much improved 3. Diuresis per cardiology 4. Follow neurology recommendation. 5. Follow cardiology recommendation. 6. Discontinue all narcotics. 7. DuoNeb. 8. Lovenox for DVT prophylaxis. 9. Discussed with ZACHERY RAMIREZ MD Aug 24, 2017 11:19
[2017-08-24 14:33] VITALS: BP 136/67
--- NOTE | 2017-08-24 19:03 | PDOC ---
PROGRESS NOTES Subjective Subjective Patient up in a chair. He is off the BiPAP. No cardiac complaints. Objective Objective Vital Signs Date Time Temp Pulse Resp B/P (MAP) Pulse Ox O2 Delivery O2 Flow Rate FiO2 08/24/17 18:23 69 136/67 08/24/17 15:08 Nasal Cannula 5.0 08/24/17 14:33 98.1 20 20 98.1 Intake and Output 08/24/17 07:00 Intake Total 640 ml Output Total 1095 ml Balance -455 ml Intake Oral 640 ml Output Urine Total 1095 ml # Voids 1 Physical Exam Physical Exam Moving air better. No changes in cardiac exam. Assessment Assessment The patient seems to slowly continue to improve. Agree with present plan. Problems Medical Problems: (1) CHF exacerbation Status: Acute (2) CKD (chronic kidney disease) Status: Acute (3) Hypoxia Status: Acute Comment Review of Relevant I have reviewed the following items ninoska (where applicable) has been applied. Labs Laboratory Tests Test 08/23/17 07:43 08/23/17 08:01 08/23/17 09:40 08/24/17 04:35 O2 Saturation 93 % (92-99) Arterial Blood pH 7.37 (7.35-7.45) Arterial Blood pCO2 at Patient Temp 57 mmHg (35-46) Arterial Blood pO2 at Patient Temp 71 mmHg (75-108) Arterial Blood HCO3 32 mmol/L (21-28) Arterial Blood Base Excess 5 mmol/L (-3-3) FiO2 40 Glucose (Fingerstick) 69 mg/dL (70-99) White Blood Count 8.3 x10^3/uL (4.0-11.0) 6.4 x10^3/uL (4.0-11.0) Red Blood Count 4.17 x10^6/uL (4.30-5.70) 4.21 x10^6/uL (4.30-5.70) Hemoglobin 10.7 g/dL (13.0-17.5) 10.6 g/dL (13.0-17.5) Hematocrit 33.8 % (39.0-53.0) 34.3 % (39.0-53.0) Mean Corpuscular Volume 81 fL (79-100) 82 fL (79-100) Mean Corpuscular Hemoglobin 26 pg (25-35) 25 pg (25-35) Mean Corpuscular Hemoglobin Concent 32 g/dL (31-37) 31 g/dL (31-37) Red Cell Distribution Width 18.3 % (11.5-14.5) 18.5 % (11.5-14.5) Platelet Count 190 x10^3/uL (140-400) 199 x10^3/uL (140-400) Neutrophils (%) (Auto) 84 % (31-73) 78 % (31-73) Lymphocytes (%) (Auto) 6 % (24-48) 9 % (24-48) Monocytes (%) (Auto) 7 % (0-9) 9 % (0-9) Eosinophils (%) (Auto) 2 % (0-3) 4 % (0-3) Basophils (%) (Auto) 1 % (0-3) 0 % (0-3) Neutrophils # (Auto) 7.0 x10^3uL (1.8-7.7) 5.0 x10^3uL (1.8-7.7) Lymphocytes # (Auto) 0.5 x10^3/uL (1.0-4.8) 0.6 x10^3/uL (1.0-4.8) Monocytes # (Auto) 0.6 x10^3/uL (0.0-1.1) 0.6 x10^3/uL (0.0-1.1) Eosinophils # (Auto) 0.2 x10^3/uL (0.0-0.7) 0.3 x10^3/uL (0.0-0.7) Basophils # (Auto) 0.1 x10^3/uL (0.0-0.2) 0.0 x10^3/uL (0.0-0.2) Sodium Level 146 mmol/L (136-145) 146 mmol/L (136-145) Potassium Level 4.1 mmol/L (3.5-5.1) 4.5 mmol/L (3.5-5.1) Chloride Level 107 mmol/L (98-107) 108 mmol/L (98-107) Carbon Dioxide Level 35 mmol/L (21-32) 33 mmol/L (21-32) Anion Gap 4 (6-14) 5 (6-14) Blood Urea Nitrogen 36 mg/dL (8-26) 36 mg/dL (8-26) Creatinine 2.8 mg/dL (0.7-1.3) 2.6 mg/dL (0.7-1.3) Estimated GFR (Cockcroft-Gault) 28.4 30.9 BUN/Creatinine Ratio 13 (6-20) 14 (6-20) Glucose Level 124 mg/dL (70-99) 104 mg/dL (70-99) Calcium Level 8.1 mg/dL (8.5-10.1) 7.9 mg/dL (8.5-10.1) Total Bilirubin 0.6 mg/dL (0.2-1.0) 0.4 mg/dL (0.2-1.0) Aspartate Amino Transf (AST/SGOT) 13 U/L (15-37) 16 U/L (15-37) Alanine Aminotransferase (ALT/SGPT) 17 U/L (16-63) 18 U/L (16-63) Alkaline Phosphatase 47 U/L (46-116) 45 U/L (46-116) Total Protein 6.3 g/dL (6.4-8.2) 6.5 g/dL (6.4-8.2) Albumin 2.3 g/dL (3.4-5.0) 2.3 g/dL (3.4-5.0) Albumin/Globulin Ratio 0.6 (1.0-1.7) 0.5 (1.0-1.7) Laboratory Tests Test 08/24/17 04:35 White Blood Count 6.4 x10^3/uL (4.0-11.0) Red Blood Count 4.21 x10^6/uL (4.30-5.70) Hemoglobin 10.6 g/dL (13.0-17.5) Hematocrit 34.3 % (39.0-53.0) Mean Corpuscular Volume 82 fL (79-100) Mean Corpuscular Hemoglobin 25 pg (25-35) Mean Corpuscular Hemoglobin Concent 31 g/dL (31-37) Red Cell Distribution Width 18.5 % (11.5-14.5) Platelet Count 199 x10^3/uL (140-400) Neutrophils (%) (Auto) 78 % (31-73) Lymphocytes (%) (Auto) 9 % (24-48) Monocytes (%) (Auto) 9 % (0-9) Eosinophils (%) (Auto) 4 % (0-3) Basophils (%) (Auto) 0 % (0-3) Neutrophils # (Auto) 5.0 x10^3uL (1.8-7.7) Lymphocytes # (Auto) 0.6 x10^3/uL (1.0-4.8) Monocytes # (Auto) 0.6 x10^3/uL (0.0-1.1) Eosinophils # (Auto) 0.3 x10^3/uL (0.0-0.7) Basophils # (Auto) 0.0 x10^3/uL (0.0-0.2) Sodium Level 146 mmol/L (136-145) Potassium Level 4.5 mmol/L (3.5-5.1) Chloride Level 108 mmol/L (98-107) Carbon Dioxide Level 33 mmol/L (21-32) Anion Gap 5 (6-14) Blood Urea Nitrogen 36 mg/dL (8-26) Creatinine 2.6 mg/dL (0.7-1.3) Estimated GFR (Cockcroft-Gault) 30.9 BUN/Creatinine Ratio 14 (6-20) Glucose Level 104 mg/dL (70-99) Calcium Level 7.9 mg/dL (8.5-10.1) Total Bilirubin 0.4 mg/dL (0.2-1.0) Aspartate Amino Transf (AST/SGOT) 16 U/L (15-37) Alanine Aminotransferase (ALT/SGPT) 18 U/L (16-63) Alkaline Phosphatase 45 U/L (46-116) Total Protein 6.5 g/dL (6.4-8.2) Albumin 2.3 g/dL (3.4-5.0) Albumin/Globulin Ratio 0.5 (1.0-1.7) Microbiology 08/23/17 Blood Culture - Preliminary, Resulted NO GROWTH AFTER 1 DAY Medications Current Medications Albuterol/ Ipratropium (Duoneb) 3 ml 1X ONCE NEB Last administered on t 11:00; Start 08/20/17 at 10:45; Stop 08/20/17 at 10:46; Status DC Furosemide (Lasix) 40 mg 1X ONCE PO Last administered on 08/20/17 14:57; Start 08/20/17 at 14:30; Stop 08/20/17 at 14:33; Status DC Ondansetron HCl (Zofran) 4 mg PRN Q8HRS PRN IV NAUSEA/VOMITING; Start at 14:45; Stop 08/21/17 at 14:44; Status DC Morphine Sulfate 2 mg PRN Q2HR PRN IV PAIN; Start 08/20/17 at 14:45; Stop at 14:44; Status DC Enoxaparin Sodium (Lovenox 40mg Syringe) 40 mg Q24H SQ Last administered on 20:49; Start 08/20/17 at 19:15 Amlodipine Besylate (Norvasc) 10 mg DAILY PO Last administered on 08/24/17 08 :41; Start 08/21/17 at 09:00 Lisinopril (Prinivil) 20 mg DAILY PO Last administered on 08/24/17 08:42; Start 08/21/17 at 09:00 Simvastatin (Zocor) 40 mg QHS PO Last administered on 08/23/17 20:50; Start 08/20/17 at 21:00 Carvedilol (Coreg) 25 mg BIDWMEALS PO Last administered on 08/24/17 18:23; Start 08/21/17 at 20:00 Diltiazem HCl (Cardizem 24hr Cd) 120 mg DAILY PO Last administered on 08:41; Start 08/21/17 at 09:00 Non-Formulary Medication 1 each BID PO ; Start 08/20/17 at 21:00; Status UNV Potassium Chloride (Klor-Con) 20 meq BIDWMEALS PO Last administered on 18:23; Start 08/20/17 at 20:00 Glyburide (Diabeta) 5 mg BIDWMEALS PO Last administered on 08/21/17 09:49; Start 08/21/17 at 08:00; Stop 08/21/17 at 12:59; Status DC Metformin HCl (Glucophage) 500 mg BIDWMEALS PO Last administered on 12/22/17at 09:48; Start 08/21/17 at 08:00; Stop 08/21/17 at 12:59; Status DC Influenza Virus Vaccine Quadrival (Fluarix Quad 1380-9730 Syringe) 0.5 ml ONCE ONCE VAX IM Last administered on 08/21/17 09:57; Start 08/21/17 at 09:00; Stop 08/21/17 at 09:01; Status DC Pneumococcal Polyvalent Vaccine (Pneumovax 23) 0.5 ml ONCE ONCE VAX IM Last administered on 08/21/17 09:58; Start 08/21/17 at 09:00; Stop 08/21/17 at 09 :01; Status DC Guaifenesin (Mucinex) 1,200 mg BID PO Last administered on 08/24/17 08:40; Start 08/21/17 at 09:30 Albuterol/ Ipratropium (Duoneb) 3 ml RTQID NEB Last administered on 08/24/17 15:06; Start 08/21/17 at 16:00 Amiodarone HCl 150 mg/Dextrose 103 ml @ 618 mls/hr 1X ONCE IV Last administered on 08/21/17 16:12; Start 08/21/17 at 15:45; Stop 08/21/17 at 15 :54; Status DC Amiodarone HCl 900 mg/Dextrose 518 ml @ 0 mls/hr CONT PRN IV SEE I/O RECORD Last administered on 08/21/17 16:14; Start 08/21/17 at 15:45; Stop 08/21/17 at 16:15; Status DC Furosemide (Lasix) 60 mg 1X ONCE IVP Last administered on 08/21/17 16:15; Start 08/21/17 at 16:00; Stop 08/21/17 at 16:01; Status DC Dextrose 1,000 ml @ 60 mls/hr [id number] IV Last administered on 08/21/17 16:30 ; Start 08/21/17 at 16:30; Stop 08/22/17 at 09:09; Status DC Dextrose (Dextrose 50%-Water Syringe) 25 gm STK-MED ONCE IV ; Start 08/22/17 at 07:15; Stop 08/22/17 at 07:16; Status DC Dextrose (Dextrose 50%-Water Syringe) 25 gm 1X ONCE IV Last administered on 07:22; Start 08/22/17 at 07:30; Stop 08/22/17 at 07:31; Status DC Dextrose (Dextrose 50%-Water Syringe) 12.5 gm PRN Q15MIN PRN IV SEE COMMENTS; Start 08/22/17 at 07:45 Acetaminophen (Tylenol) 650 mg PRN Q6HRS PRN PO FEVER Last administered on 23:01; Start 08/22/17 at 22:15 Albuterol Sulfate (Ventolin Neb Soln) 2.5 mg PRN Q4HRS PRN NEB SHORTNESS OF BREATH; Start 08/24/17 at 11:00 Active Scripts Active Reported Simvastatin 40 Mg Tablet 40 Mg PO DAILY Lisinopril 20 Mg Tablet 20 Mg PO DAILY Norvasc (Amlodipine Besylate) 10 Mg Tablet 10 Mg PO DAILY Metformin Hcl 1,000 Mg Tablet 1,000 Mg PO BID Lasix (Furosemide) 20 Mg Tablet 20 Mg PO DAILY Glyburide-Metformin 5-500 Mg (Glyburide/Metformin Hcl) 1 Each Tablet 1 Each PO BID Diltiazem Sr 12HR (Diltiazem Hcl) 90 Mg Cap.er.12h 60 Mg PO BID Carvedilol 25 Mg Tablet 25 Mg PO BID Potassium 99 Mg Tablet 20 Meq PO BID Vitals/I & O Vital Sign - Last 24 Hours 08/23/17 08/23/17 08/23/17 08/23/17 19:35 19:48 20:30 21:43 Temp 98.5 98.5 Pulse 65 Resp 18 B/P (MAP) 169/81 (110) Pulse Ox 94 96 O2 Delivery Nasal Cannula Nasal Cannula Nasal Cannula BiPAP/CPAP O2 Flow Rate 5.0 5.0 5.0 08/23/17 08/23/17 08/24/17 08/24/17 23:00 23:26 03:06 03:22 Temp 97.7 98.4 97.7 98.4 Pulse 60 58 Resp 20 20 B/P (MAP) 142/64 (90) 99/60 (73) Pulse Ox 91 91 91 O2 Delivery BiPAP/CPAP BiPAP/CPAP BiPAP/CPAP BiPAP/CPAP 08/24/17 08/24/17 08/24/17 08/24/17 05:15 07:00 07:50 07:50 Temp 99.1 99.1 Pulse 71 Resp 22 B/P (MAP) 141/80 (100) Pulse Ox 92 O2 Delivery BiPAP/CPAP Nasal Cannula Nasal Cannula O2 Flow Rate 5.0 5.0 5.0 08/24/17 08/24/17 08/24/17 08/24/17 08:18 08:41 08:41 08:41 Pulse 71 71 71 B/P (MAP) 141/80 141/80 141/80 Pulse Ox 95 O2 Delivery Nasal Cannula O2 Flow Rate 5.0 08/24/17 08/24/17 08/24/17 08/24/17 08:42 11:00 11:49 14:33 Temp 98.1 98.1 98.1 98.1 Pulse 71 67 69 Resp 20 20 B/P (MAP) 141/80 141/72 (95) 136/67 (90) Pulse Ox 95 95 20 O2 Delivery Nasal Cannula Nasal Cannula Nasal Cannula O2 Flow Rate 5.0 5.0 5.0 08/24/17 08/24/17 15:08 18:23 Pulse 69 B/P (MAP) 136/67 O2 Delivery Nasal Cannula O2 Flow Rate 5.0 Intake and Output 08/23/17 08/23/17 08/24/17 15:00 23:00 07:00 Intake Total 220 ml 420 ml Output Total 370 ml 125 ml 600 ml Balance -150 ml 295 ml -600 ml DONOVAN RAMIREZ MD Aug 24, 2017 19:03
[2017-08-24 19:41] VITALS: BP 136/64
[2017-08-24] MEDS: SIMVASTATIN 40 MG TABLET. PO SCH (20:44)
[2017-08-24] MEDS: ENOXAPARIN 40 MG/0.4 ML SYRINGE. SQ SCH (20:45)
[2017-08-24 23:20] VITALS: BP 148/77
[2017-08-25 03:16] VITALS: BP 136/65
[2017-08-25 05:40] LABS: BASO % 0 % (0-3); EOS % 4 % (0-3); HEMATOCRIT 33.6 % (39.0-53.0); HEMOGLOBIN 10.2 g/dL (13.0-17.5); LYMPH # 0.4 x10^3/uL (1.0-4.8); LYMPH % 7 % (24-48); MEAN CORPUSCULAR HEMOGLOBIN 25 pg (25-35); MEAN CORPUSCULAR HGB CONC 30 g/dL (31-37); MEAN CORPUSCULAR VOLUME 82 fL (79-100); MONO % 8 % (0-9); NEUT % 81 % (31-73); PLATELET COUNT 193 x10^3/uL (140-400); RED CELL DISTRIBUTION WIDTH 18.4 % (11.5-14.5); WHITE BLOOD COUNT 6.5 x10^3/uL (4.0-11.0)
[2017-08-25 06:11] LABS: ALBUMIN 2.3 g/dL (3.4-5.0); ALBUMIN/GLOBULIN RATIO 0.5 (1.0-1.7); CALCIUM 8.1 mg/dL (8.5-10.1); CREATININE 2.4 mg/dL (0.7-1.3); GFR 33.9; TOTAL BILIRUBIN 0.4 mg/dL (0.2-1.0); TOTAL PROTEIN 6.5 g/dL (6.4-8.2)
[2017-08-25] MEDS: IPRATRPIUM/ALBUTEROL 0.5/2.5MG 3 ML NEBU. NEB SCH ×4 (06:31→19:47)
[2017-08-25 07:15] VITALS: BP 133/72
[2017-08-25] MEDS: POTASSIUM CHLORIDE 20 MEQ TABLET.ER. PO SCH ×2 (09:00→16:57)
[2017-08-25] MEDS: LISINOPRIL 20 MG TABLET PO SCH (09:00)
[2017-08-25] MEDS: CARVEDILOL 12.5 MG TABLET. PO SCH ×2 (09:01→16:57)
[2017-08-25] MEDS: amLODIPine BESYLATE 10 MG TABLET PO SCH (09:01)
--- NOTE | 2017-08-25 09:10 | PDOC ---
PROGRESS NOTES Subjective Subjective No new complaints. Objective Objective Vital Signs Date Time Temp Pulse Resp B/P (MAP) Pulse Ox O2 Delivery O2 Flow Rate FiO2 08/25/17 09:02 69 133/72 08/25/17 07:15 98.5 24 94 Nasal Cannula 5.0 98.5 Intake and Output 08/25/17 07:00 Intake Total 990 ml Output Total 1700 ml Balance -710 ml Intake Oral 990 ml Output Urine Total 1700 ml # Voids 1 Physical Exam Physical Exam He is comfortable supine in bed using oxygen by nasal canula and he remains independent with his mobility and self care. Assessment Assessment Problems Medical Problems: (1) CHF exacerbation Status: Acute (2) CKD (chronic kidney disease) Status: Acute (3) Hypoxia Status: Acute Plan Plan of Senior Living when medically stable. Comment Review of Relevant I have reviewed the following items ninoska (where applicable) has been applied. Labs Laboratory Tests Test 08/23/17 09:40 08/24/17 04:35 08/25/17 04:55 White Blood Count 8.3 x10^3/uL (4.0-11.0) 6.4 x10^3/uL (4.0-11.0) 6.5 x10^3/uL (4.0-11.0) Red Blood Count 4.17 x10^6/uL (4.30-5.70) 4.21 x10^6/uL (4.30-5.70) 4.10 x10^6/uL (4.30-5.70) Hemoglobin 10.7 g/dL (13.0-17.5) 10.6 g/dL (13.0-17.5) 10.2 g/dL (13.0-17.5) Hematocrit 33.8 % (39.0-53.0) 34.3 % (39.0-53.0) 33.6 % (39.0-53.0) Mean Corpuscular Volume 81 fL (79-100) 82 fL (79-100) 82 fL (79-100) Mean Corpuscular Hemoglobin 26 pg (25-35) 25 pg (25-35) 25 pg (25-35) Mean Corpuscular Hemoglobin Concent 32 g/dL (31-37) 31 g/dL (31-37) 30 g/dL (31-37) Red Cell Distribution Width 18.3 % (11.5-14.5) 18.5 % (11.5-14.5) 18.4 % (11.5-14.5) Platelet Count 190 x10^3/uL (140-400) 199 x10^3/uL (140-400) 193 x10^3/uL (140-400) Neutrophils (%) (Auto) 84 % (31-73) 78 % (31-73) 81 % (31-73) Lymphocytes (%) (Auto) 6 % (24-48) 9 % (24-48) 7 % (24-48) Monocytes (%) (Auto) 7 % (0-9) 9 % (0-9) 8 % (0-9) Eosinophils (%) (Auto) 2 % (0-3) 4 % (0-3) 4 % (0-3) Basophils (%) (Auto) 1 % (0-3) 0 % (0-3) 0 % (0-3) Neutrophils # (Auto) 7.0 x10^3uL (1.8-7.7) 5.0 x10^3uL (1.8-7.7) 5.3 x10^3uL (1.8-7.7) Lymphocytes # (Auto) 0.5 x10^3/uL (1.0-4.8) 0.6 x10^3/uL (1.0-4.8) 0.4 x10^3/uL (1.0-4.8) Monocytes # (Auto) 0.6 x10^3/uL (0.0-1.1) 0.6 x10^3/uL (0.0-1.1) 0.5 x10^3/uL (0.0-1.1) Eosinophils # (Auto) 0.2 x10^3/uL (0.0-0.7) 0.3 x10^3/uL (0.0-0.7) 0.2 x10^3/uL (0.0-0.7) Basophils # (Auto) 0.1 x10^3/uL (0.0-0.2) 0.0 x10^3/uL (0.0-0.2) 0.0 x10^3/uL (0.0-0.2) Sodium Level 146 mmol/L (136-145) 146 mmol/L (136-145) 148 mmol/L (136-145) Potassium Level 4.1 mmol/L (3.5-5.1) 4.5 mmol/L (3.5-5.1) 5.0 mmol/L (3.5-5.1) Chloride Level 107 mmol/L (98-107) 108 mmol/L (98-107) 109 mmol/L (98-107) Carbon Dioxide Level 35 mmol/L (21-32) 33 mmol/L (21-32) 36 mmol/L (21-32) Anion Gap 4 (6-14) 5 (6-14) 3 (6-14) Blood Urea Nitrogen 36 mg/dL (8-26) 36 mg/dL (8-26) 33 mg/dL (8-26) Creatinine 2.8 mg/dL (0.7-1.3) 2.6 mg/dL (0.7-1.3) 2.4 mg/dL (0.7-1.3) Estimated GFR (Cockcroft-Gault) 28.4 30.9 33.9 BUN/Creatinine Ratio 13 (6-20) 14 (6-20) 14 (6-20) Glucose Level 124 mg/dL (70-99) 104 mg/dL (70-99) 94 mg/dL (70-99) Calcium Level 8.1 mg/dL (8.5-10.1) 7.9 mg/dL (8.5-10.1) 8.1 mg/dL (8.5-10.1) Total Bilirubin 0.6 mg/dL (0.2-1.0) 0.4 mg/dL (0.2-1.0) 0.4 mg/dL (0.2-1.0) Aspartate Amino Transf (AST/SGOT) 13 U/L (15-37) 16 U/L (15-37) 20 U/L (15-37) Alanine Aminotransferase (ALT/SGPT) 17 U/L (16-63) 18 U/L (16-63) 22 U/L (16-63) Alkaline Phosphatase 47 U/L (46-116) 45 U/L (46-116) 48 U/L (46-116) Total Protein 6.3 g/dL (6.4-8.2) 6.5 g/dL (6.4-8.2) 6.5 g/dL (6.4-8.2) Albumin 2.3 g/dL (3.4-5.0) 2.3 g/dL (3.4-5.0) 2.3 g/dL (3.4-5.0) Albumin/Globulin Ratio 0.6 (1.0-1.7) 0.5 (1.0-1.7) 0.5 (1.0-1.7) Laboratory Tests Test 08/25/17 04:55 White Blood Count 6.5 x10^3/uL (4.0-11.0) Red Blood Count 4.10 x10^6/uL (4.30-5.70) Hemoglobin 10.2 g/dL (13.0-17.5) Hematocrit 33.6 % (39.0-53.0) Mean Corpuscular Volume 82 fL (79-100) Mean Corpuscular Hemoglobin 25 pg (25-35) Mean Corpuscular Hemoglobin Concent 30 g/dL (31-37) Red Cell Distribution Width 18.4 % (11.5-14.5) Platelet Count 193 x10^3/uL (140-400) Neutrophils (%) (Auto) 81 % (31-73) Lymphocytes (%) (Auto) 7 % (24-48) Monocytes (%) (Auto) 8 % (0-9) Eosinophils (%) (Auto) 4 % (0-3) Basophils (%) (Auto) 0 % (0-3) Neutrophils # (Auto) 5.3 x10^3uL (1.8-7.7) Lymphocytes # (Auto) 0.4 x10^3/uL (1.0-4.8) Monocytes # (Auto) 0.5 x10^3/uL (0.0-1.1) Eosinophils # (Auto) 0.2 x10^3/uL (0.0-0.7) Basophils # (Auto) 0.0 x10^3/uL (0.0-0.2) Sodium Level 148 mmol/L (136-145) Potassium Level 5.0 mmol/L (3.5-5.1) Chloride Level 109 mmol/L (98-107) Carbon Dioxide Level 36 mmol/L (21-32) Anion Gap 3 (6-14) Blood Urea Nitrogen 33 mg/dL (8-26) Creatinine 2.4 mg/dL (0.7-1.3) Estimated GFR (Cockcroft-Gault) 33.9 BUN/Creatinine Ratio 14 (6-20) Glucose Level 94 mg/dL (70-99) Calcium Level 8.1 mg/dL (8.5-10.1) Total Bilirubin 0.4 mg/dL (0.2-1.0) Aspartate Amino Transf (AST/SGOT) 20 U/L (15-37) Alanine Aminotransferase (ALT/SGPT) 22 U/L (16-63) Alkaline Phosphatase 48 U/L (46-116) Total Protein 6.5 g/dL (6.4-8.2) Albumin 2.3 g/dL (3.4-5.0) Albumin/Globulin Ratio 0.5 (1.0-1.7) Microbiology 08/23/17 Blood Culture - Preliminary, Resulted NO GROWTH AFTER 2 DAYS Medications Current Medications Albuterol/ Ipratropium (Duoneb) 3 ml 1X ONCE NEB Last administered on 11:00; Start 08/20/17 at 10:45; Stop 08/20/17 at 10:46; Status DC Furosemide (Lasix) 40 mg 1X ONCE PO Last administered on 08/20/17 14:57; Start 08/20/17 at 14:30; Stop 08/20/17 at 14:33; Status DC Ondansetron HCl (Zofran) 4 mg PRN Q8HRS PRN IV NAUSEA/VOMITING; Start at 14:45; Stop 08/21/17 at 14:44; Status DC Morphine Sulfate 2 mg PRN Q2HR PRN IV PAIN; Start 08/20/17 at 14:45; Stop at 14:44; Status DC Enoxaparin Sodium (Lovenox 40mg Syringe) 40 mg Q24H SQ Last administered on 20:45; Start 08/20/17 at 19:15 Amlodipine Besylate (Norvasc) 10 mg DAILY PO Last administered on 08/25/17 09 :01; Start 08/21/17 at 09:00 Lisinopril (Prinivil) 20 mg DAILY PO Last administered on 08/25/17 09:00; Start 08/21/17 at 09:00 Simvastatin (Zocor) 40 mg QHS PO Last administered on 08/24/17 20:44; Start 08/20/17 at 21:00 Carvedilol (Coreg) 25 mg BIDWMEALS PO Last administered on 08/25/17 09:01; Start 08/21/17 at 20:00 Diltiazem HCl (Cardizem 24hr Cd) 120 mg DAILY PO Last administered on 09:02; Start 08/21/17 at 09:00 Non-Formulary Medication 1 each BID PO ; Start 08/20/17 at 21:00; Status UNV Potassium Chloride (Klor-Con) 20 meq BIDWMEALS PO Last administered on 09:00; Start 08/20/17 at 20:00 Glyburide (Diabeta) 5 mg BIDWMEALS PO Last administered on 08/21/17 09:49; Start 08/21/17 at 08:00; Stop 08/21/17 at 12:59; Status DC Metformin HCl (Glucophage) 500 mg BIDWMEALS PO Last administered on 08/21/17 09:48; Start 08/21/17 at 08:00; Stop 08/21/17 at 12:59; Status DC Influenza Virus Vaccine Quadrival (Fluarix Quad [id number] Syringe) 0.5 ml ONCE ONCE VAX IM Last administered on 08/21/17 09:57; Start 08/21/17 at 09:00; Stop 08/21/17 at 09:01; Status DC Pneumococcal Polyvalent Vaccine (Pneumovax 23) 0.5 ml ONCE ONCE VAX IM Last administered on 08/21/17 09:58; Start 08/21/17 at 09:00; Stop 08/21/17 at 09 :01; Status DC Guaifenesin (Mucinex) 1,200 mg BID PO Last administered on 08/25/17 09:01; Start 08/21/17 at 09:30 Albuterol/ Ipratropium (Duoneb) 3 ml RTQID NEB Last administered on 08/25/17 06:31; Start 08/21/17 at 16:00 Amiodarone HCl 150 mg/Dextrose 103 ml @ 618 mls/hr 1X ONCE IV Last administered on 08/21/17 16:12; Start 08/21/17 at 15:45; Stop 08/21/17 at 15 :54; Status DC Amiodarone HCl 900 mg/Dextrose 518 ml @ 0 mls/hr CONT PRN IV SEE I/O RECORD Last administered on 08/21/17 16:14; Start 08/21/17 at 15:45; Stop 08/21/17 at 16:15; Status DC Furosemide (Lasix) 60 mg 1X ONCE IVP Last administered on 08/21/17 16:15; Start 08/21/17 at 16:00; Stop 08/21/17 at 16:01; Status DC Dextrose 1,000 ml @ 60 mls/hr [id number] IV Last administered on 08/21/17 16:30 ; Start 08/21/17 at 16:30; Stop 08/22/17 at 09:09; Status DC Dextrose (Dextrose 50%-Water Syringe) 25 gm STK-MED ONCE IV ; Start 08/22/17 at 07:15; Stop 08/22/17 at 07:16; Status DC Dextrose (Dextrose 50%-Water Syringe) 25 gm 1X ONCE IV Last administered on 07:22; Start 08/22/17 at 07:30; Stop 08/22/17 at 07:31; Status DC Dextrose (Dextrose 50%-Water Syringe) 12.5 gm PRN Q15MIN PRN IV SEE COMMENTS; Start 08/22/17 at 07:45 Acetaminophen (Tylenol) 650 mg PRN Q6HRS PRN PO FEVER Last administered on 23:01; Start 08/22/17 at 22:15 Albuterol Sulfate (Ventolin Neb Soln) 2.5 mg PRN Q4HRS PRN NEB SHORTNESS OF BREATH; Start 08/24/17 at 11:00 Active Scripts Active Reported Simvastatin 40 Mg Tablet 40 Mg PO DAILY Lisinopril 20 Mg Tablet 20 Mg PO DAILY Norvasc (Amlodipine Besylate) 10 Mg Tablet 10 Mg PO DAILY Metformin Hcl 1,000 Mg Tablet 1,000 Mg PO BID Lasix (Furosemide) 20 Mg Tablet 20 Mg PO DAILY Glyburide-Metformin 5-500 Mg (Glyburide/Metformin Hcl) 1 Each Tablet 1 Each PO BID Diltiazem Sr 12HR (Diltiazem Hcl) 90 Mg Cap.er.12h 60 Mg PO BID Carvedilol 25 Mg Tablet 25 Mg PO BID Potassium 99 Mg Tablet 20 Meq PO BID Vitals/I & O Vital Sign - Last 24 Hours 08/24/17 08/24/17 08/24/17 08/24/17 11:00 11:49 14:33 15:08 Temp 98.1 98.1 98.1 98.1 Pulse 67 69 Resp 20 20 B/P (MAP) 141/72 (95) 136/67 (90) Pulse Ox 95 95 20 O2 Delivery Nasal Cannula Nasal Cannula Nasal Cannula Nasal Cannula O2 Flow Rate 5.0 5.0 5.0 5.0 08/24/17 08/24/17 08/24/17 08/24/17 18:23 19:30 19:41 20:00 Temp 99.1 99.1 Pulse 69 68 Resp 18 B/P (MAP) 136/67 136/64 (88) Pulse Ox 96 O2 Delivery Nasal Cannula Nasal Cannula O2 Flow Rate 5.0 5.0 5.0 08/24/17 08/24/17 08/25/17 08/25/17 20:00 23:20 03:16 06:31 Temp 97.8 99.0 97.8 99.0 Pulse 71 68 Resp 20 16 B/P (MAP) 148/77 (100) 136/65 (88) Pulse Ox 96 94 O2 Delivery Nasal Cannula Nasal Cannula Nasal Cannula Nasal Cannula O2 Flow Rate 5.0 5.0 5.0 5.0 08/25/17 08/25/17 08/25/17 08/25/17 07:15 09:00 09:01 09:01 Temp 98.5 98.5 Pulse 69 69 69 69 Resp 24 B/P (MAP) 133/72 (92) 133/72 133/72 133/72 Pulse Ox 94 O2 Delivery Nasal Cannula O2 Flow Rate 5.0 08/25/17 09:02 Pulse 69 B/P (MAP) 133/72 Intake and Output 08/24/17 08/24/17 08/25/17 15:00 23:00 07:00 Intake Total 220 ml 220 ml 550 ml Output Total 200 ml 200 ml 1300 ml Balance 20 ml 20 ml -750 ml JOHANN WALTON MD Aug 25, 2017 09:10
--- NOTE | 2017-08-25 09:51 | PDOC ---
PULMONARY PROGRESS NOTES Subjective much better awake, moving all extremities Vitals Vital Signs Date Time Temp Pulse Resp B/P (MAP) Pulse Ox O2 Delivery O2 Flow Rate FiO2 08/25/17 09:02 69 133/72 08/25/17 08:00 Nasal Cannula 5.0 08/25/17 07:15 98.5 24 94 98.5 General: Alert, No acute distress Lungs: Other (decrease bs) Cardiovascular: S1, S2 Abdomen: Soft, Non-tender, Other (distended) Extremities: No Edema Skin: Warm Labs Laboratory Tests Test 08/24/17 04:35 08/25/17 04:55 White Blood Count 6.4 x10^3/uL (4.0-11.0) 6.5 x10^3/uL (4.0-11.0) Red Blood Count 4.21 x10^6/uL (4.30-5.70) 4.10 x10^6/uL (4.30-5.70) Hemoglobin 10.6 g/dL (13.0-17.5) 10.2 g/dL (13.0-17.5) Hematocrit 34.3 % (39.0-53.0) 33.6 % (39.0-53.0) Mean Corpuscular Volume 82 fL (79-100) 82 fL (79-100) Mean Corpuscular Hemoglobin 25 pg (25-35) 25 pg (25-35) Mean Corpuscular Hemoglobin Concent 31 g/dL (31-37) 30 g/dL (31-37) Red Cell Distribution Width 18.5 % (11.5-14.5) 18.4 % (11.5-14.5) Platelet Count 199 x10^3/uL (140-400) 193 x10^3/uL (140-400) Neutrophils (%) (Auto) 78 % (31-73) 81 % (31-73) Lymphocytes (%) (Auto) 9 % (24-48) 7 % (24-48) Monocytes (%) (Auto) 9 % (0-9) 8 % (0-9) Eosinophils (%) (Auto) 4 % (0-3) 4 % (0-3) Basophils (%) (Auto) 0 % (0-3) 0 % (0-3) Neutrophils # (Auto) 5.0 x10^3uL (1.8-7.7) 5.3 x10^3uL (1.8-7.7) Lymphocytes # (Auto) 0.6 x10^3/uL (1.0-4.8) 0.4 x10^3/uL (1.0-4.8) Monocytes # (Auto) 0.6 x10^3/uL (0.0-1.1) 0.5 x10^3/uL (0.0-1.1) Eosinophils # (Auto) 0.3 x10^3/uL (0.0-0.7) 0.2 x10^3/uL (0.0-0.7) Basophils # (Auto) 0.0 x10^3/uL (0.0-0.2) 0.0 x10^3/uL (0.0-0.2) Sodium Level 146 mmol/L (136-145) 148 mmol/L (136-145) Potassium Level 4.5 mmol/L (3.5-5.1) 5.0 mmol/L (3.5-5.1) Chloride Level 108 mmol/L (98-107) 109 mmol/L (98-107) Carbon Dioxide Level 33 mmol/L (21-32) 36 mmol/L (21-32) Anion Gap 5 (6-14) 3 (6-14) Blood Urea Nitrogen 36 mg/dL (8-26) 33 mg/dL (8-26) Creatinine 2.6 mg/dL (0.7-1.3) 2.4 mg/dL (0.7-1.3) Estimated GFR (Cockcroft-Gault) 30.9 33.9 BUN/Creatinine Ratio 14 (6-20) 14 (6-20) Glucose Level 104 mg/dL (70-99) 94 mg/dL (70-99) Calcium Level 7.9 mg/dL (8.5-10.1) 8.1 mg/dL (8.5-10.1) Total Bilirubin 0.4 mg/dL (0.2-1.0) 0.4 mg/dL (0.2-1.0) Aspartate Amino Transf (AST/SGOT) 16 U/L (15-37) 20 U/L (15-37) Alanine Aminotransferase (ALT/SGPT) 18 U/L (16-63) 22 U/L (16-63) Alkaline Phosphatase 45 U/L (46-116) 48 U/L (46-116) Total Protein 6.5 g/dL (6.4-8.2) 6.5 g/dL (6.4-8.2) Albumin 2.3 g/dL (3.4-5.0) 2.3 g/dL (3.4-5.0) Albumin/Globulin Ratio 0.5 (1.0-1.7) 0.5 (1.0-1.7) Laboratory Tests Test 08/25/17 04:55 White Blood Count 6.5 x10^3/uL (4.0-11.0) Red Blood Count 4.10 x10^6/uL (4.30-5.70) Hemoglobin 10.2 g/dL (13.0-17.5) Hematocrit 33.6 % (39.0-53.0) Mean Corpuscular Volume 82 fL (79-100) Mean Corpuscular Hemoglobin 25 pg (25-35) Mean Corpuscular Hemoglobin Concent 30 g/dL (31-37) Red Cell Distribution Width 18.4 % (11.5-14.5) Platelet Count 193 x10^3/uL (140-400) Neutrophils (%) (Auto) 81 % (31-73) Lymphocytes (%) (Auto) 7 % (24-48) Monocytes (%) (Auto) 8 % (0-9) Eosinophils (%) (Auto) 4 % (0-3) Basophils (%) (Auto) 0 % (0-3) Neutrophils # (Auto) 5.3 x10^3uL (1.8-7.7) Lymphocytes # (Auto) 0.4 x10^3/uL (1.0-4.8) Monocytes # (Auto) 0.5 x10^3/uL (0.0-1.1) Eosinophils # (Auto) 0.2 x10^3/uL (0.0-0.7) Basophils # (Auto) 0.0 x10^3/uL (0.0-0.2) Sodium Level 148 mmol/L (136-145) Potassium Level 5.0 mmol/L (3.5-5.1) Chloride Level 109 mmol/L (98-107) Carbon Dioxide Level 36 mmol/L (21-32) Anion Gap 3 (6-14) Blood Urea Nitrogen 33 mg/dL (8-26) Creatinine 2.4 mg/dL (0.7-1.3) Estimated GFR (Cockcroft-Gault) 33.9 BUN/Creatinine Ratio 14 (6-20) Glucose Level 94 mg/dL (70-99) Calcium Level 8.1 mg/dL (8.5-10.1) Total Bilirubin 0.4 mg/dL (0.2-1.0) Aspartate Amino Transf (AST/SGOT) 20 U/L (15-37) Alanine Aminotransferase (ALT/SGPT) 22 U/L (16-63) Alkaline Phosphatase 48 U/L (46-116) Total Protein 6.5 g/dL (6.4-8.2) Albumin 2.3 g/dL (3.4-5.0) Albumin/Globulin Ratio 0.5 (1.0-1.7) Medications Active Scripts Medications Dose Route/Sig Max Daily Dose Days Date Category Simvastatin 40 Mg Tablet 40 Mg PO DAILY 09/24/13 Reported Lisinopril 20 Mg Tablet 20 Mg PO DAILY 09/24/13 Reported Norvasc (Amlodipine Besylate) 10 Mg Tablet 10 Mg PO DAILY 09/24/13 Reported Metformin Hcl 1,000 Mg Tablet 1,000 Mg PO BID 09/24/13 Reported Lasix (Furosemide) 20 Mg Tablet 20 Mg PO DAILY 09/24/13 Reported Glyburide-Metformin 5-500 Mg (Glyburide/Metformin Hcl) 1 Each Tablet 1 Each PO BID 09/24/13 Reported Diltiazem Sr 12HR (Diltiazem Hcl) 90 Mg Cap.er.12h 60 Mg PO BID 09/24/13 Reported Carvedilol 25 Mg Tablet 25 Mg PO BID 09/24/13 Reported Potassium 99 Mg Tablet 20 Meq PO BID 09/24/13 Reported Impression . 1. Acute on chronic hypercapnic and hypoxic respiratory failure due to congestive heart failure and narcotics 2. No evidence of ischemic stroke. 3. Underlying obesity hypoventilation syndrome.suspected CHAD 4. No evidence of pulmonary embolism by V/Q scan. 5. Normal left ventricular function with an ejection fraction of 55% to 60% based on recent echo. 6. Diastolic HF Plan . 1. nasal canula. 2. ABG much improved 3. Diuresis per cardiology 4. Follow neurology recommendation. 5. Follow cardiology recommendation. 6. sleep study as OP 7. DuoNeb. 8. Lovenox for DVT prophylaxis. 9. Discussed with RN / dc plans per PCP ZACHERY PIÑA MD Aug 25, 2017 09:51
--- NOTE | 2017-08-25 10:10 | PDOC ---
PROGRESS NOTES Assessment Problems Medical Problems: (1) CHF exacerbation Status: Acute (2) CKD (chronic kidney disease) Status: Acute (3) Hypoxia Status: Acute Metabolic encephalopathy due to hypoxia and hypercarbia in the setting of congestive heart failure and cardiomyopathy, without evidence of acute stroke. Continues to improve Plan Continue treating medical diseases Subjective No complaints Objective Vital Signs Date Time Temp Pulse Resp B/P (MAP) Pulse Ox O2 Delivery O2 Flow Rate FiO2 08/25/17 09:02 69 133/72 08/25/17 08:00 Nasal Cannula 5.0 08/25/17 07:15 98.5 24 94 98.5 Intake and Output 08/25/17 06:59 Intake Total 990 ml Output Total 1700 ml Balance -710 ml Intake Oral 990 ml Output Urine Total 1700 ml # Voids 1 PHYSICAL EXAM Alert. Oriented to time, place and person. PERRL. EOMI. CN: no focal findings. Muscle tone: normal. Muscle strength: 4/5 DTR: 1+ Plantar reflex: Flexor Gait: not examined in bed. Sensory exam: no abnormal findings. No cerebellar signs elicited. Review of Relevant I have reviewed the following items ninoska (where applicable) has been applied. Labs Laboratory Tests Test 08/24/17 04:35 08/25/17 04:55 White Blood Count 6.4 x10^3/uL (4.0-11.0) 6.5 x10^3/uL (4.0-11.0) Red Blood Count 4.21 x10^6/uL (4.30-5.70) 4.10 x10^6/uL (4.30-5.70) Hemoglobin 10.6 g/dL (13.0-17.5) 10.2 g/dL (13.0-17.5) Hematocrit 34.3 % (39.0-53.0) 33.6 % (39.0-53.0) Mean Corpuscular Volume 82 fL (79-100) 82 fL (79-100) Mean Corpuscular Hemoglobin 25 pg (25-35) 25 pg (25-35) Mean Corpuscular Hemoglobin Concent 31 g/dL (31-37) 30 g/dL (31-37) Red Cell Distribution Width 18.5 % (11.5-14.5) 18.4 % (11.5-14.5) Platelet Count 199 x10^3/uL (140-400) 193 x10^3/uL (140-400) Neutrophils (%) (Auto) 78 % (31-73) 81 % (31-73) Lymphocytes (%) (Auto) 9 % (24-48) 7 % (24-48) Monocytes (%) (Auto) 9 % (0-9) 8 % (0-9) Eosinophils (%) (Auto) 4 % (0-3) 4 % (0-3) Basophils (%) (Auto) 0 % (0-3) 0 % (0-3) Neutrophils # (Auto) 5.0 x10^3uL (1.8-7.7) 5.3 x10^3uL (1.8-7.7) Lymphocytes # (Auto) 0.6 x10^3/uL (1.0-4.8) 0.4 x10^3/uL (1.0-4.8) Monocytes # (Auto) 0.6 x10^3/uL (0.0-1.1) 0.5 x10^3/uL (0.0-1.1) Eosinophils # (Auto) 0.3 x10^3/uL (0.0-0.7) 0.2 x10^3/uL (0.0-0.7) Basophils # (Auto) 0.0 x10^3/uL (0.0-0.2) 0.0 x10^3/uL (0.0-0.2) Sodium Level 146 mmol/L (136-145) 148 mmol/L (136-145) Potassium Level 4.5 mmol/L (3.5-5.1) 5.0 mmol/L (3.5-5.1) Chloride Level 108 mmol/L (98-107) 109 mmol/L (98-107) Carbon Dioxide Level 33 mmol/L (21-32) 36 mmol/L (21-32) Anion Gap 5 (6-14) 3 (6-14) Blood Urea Nitrogen 36 mg/dL (8-26) 33 mg/dL (8-26) Creatinine 2.6 mg/dL (0.7-1.3) 2.4 mg/dL (0.7-1.3) Estimated GFR (Cockcroft-Gault) 30.9 33.9 BUN/Creatinine Ratio 14 (6-20) 14 (6-20) Glucose Level 104 mg/dL (70-99) 94 mg/dL (70-99) Calcium Level 7.9 mg/dL (8.5-10.1) 8.1 mg/dL (8.5-10.1) Total Bilirubin 0.4 mg/dL (0.2-1.0) 0.4 mg/dL (0.2-1.0) Aspartate Amino Transf (AST/SGOT) 16 U/L (15-37) 20 U/L (15-37) Alanine Aminotransferase (ALT/SGPT) 18 U/L (16-63) 22 U/L (16-63) Alkaline Phosphatase 45 U/L (46-116) 48 U/L (46-116) Total Protein 6.5 g/dL (6.4-8.2) 6.5 g/dL (6.4-8.2) Albumin 2.3 g/dL (3.4-5.0) 2.3 g/dL (3.4-5.0) Albumin/Globulin Ratio 0.5 (1.0-1.7) 0.5 (1.0-1.7) Laboratory Tests Test 08/25/17 04:55 White Blood Count 6.5 x10^3/uL (4.0-11.0) Red Blood Count 4.10 x10^6/uL (4.30-5.70) Hemoglobin 10.2 g/dL (13.0-17.5) Hematocrit 33.6 % (39.0-53.0) Mean Corpuscular Volume 82 fL (79-100) Mean Corpuscular Hemoglobin 25 pg (25-35) Mean Corpuscular Hemoglobin Concent 30 g/dL (31-37) Red Cell Distribution Width 18.4 % (11.5-14.5) Platelet Count 193 x10^3/uL (140-400) Neutrophils (%) (Auto) 81 % (31-73) Lymphocytes (%) (Auto) 7 % (24-48) Monocytes (%) (Auto) 8 % (0-9) Eosinophils (%) (Auto) 4 % (0-3) Basophils (%) (Auto) 0 % (0-3) Neutrophils # (Auto) 5.3 x10^3uL (1.8-7.7) Lymphocytes # (Auto) 0.4 x10^3/uL (1.0-4.8) Monocytes # (Auto) 0.5 x10^3/uL (0.0-1.1) Eosinophils # (Auto) 0.2 x10^3/uL (0.0-0.7) Basophils # (Auto) 0.0 x10^3/uL (0.0-0.2) Sodium Level 148 mmol/L (136-145) Potassium Level 5.0 mmol/L (3.5-5.1) Chloride Level 109 mmol/L (98-107) Carbon Dioxide Level 36 mmol/L (21-32) Anion Gap 3 (6-14) Blood Urea Nitrogen 33 mg/dL (8-26) Creatinine 2.4 mg/dL (0.7-1.3) Estimated GFR (Cockcroft-Gault) 33.9 BUN/Creatinine Ratio 14 (6-20) Glucose Level 94 mg/dL (70-99) Calcium Level 8.1 mg/dL (8.5-10.1) Total Bilirubin 0.4 mg/dL (0.2-1.0) Aspartate Amino Transf (AST/SGOT) 20 U/L (15-37) Alanine Aminotransferase (ALT/SGPT) 22 U/L (16-63) Alkaline Phosphatase 48 U/L (46-116) Total Protein 6.5 g/dL (6.4-8.2) Albumin 2.3 g/dL (3.4-5.0) Albumin/Globulin Ratio 0.5 (1.0-1.7) Microbiology 08/23/17 Blood Culture - Preliminary, Resulted NO GROWTH AFTER 2 DAYS Medications Current Medications Albuterol/ Ipratropium (Duoneb) 3 ml 1X ONCE NEB Last administered on 11:00; Start 08/20/17 at 10:45; Stop 08/20/17 at 10:46; Status DC Furosemide (Lasix) 40 mg 1X ONCE PO Last administered on 08/20/17 14:57; Start 08/20/17 at 14:30; Stop 08/20/17 at 14:33; Status DC Ondansetron HCl (Zofran) 4 mg PRN Q8HRS PRN IV NAUSEA/VOMITING; Start at 14:45; Stop 08/21/17 at 14:44; Status DC Morphine Sulfate 2 mg PRN Q2HR PRN IV PAIN; Start 08/20/17 at 14:45; Stop at 14:44; Status DC Enoxaparin Sodium (Lovenox 40mg Syringe) 40 mg Q24H SQ Last administered on 20:45; Start 08/20/17 at 19:15 Amlodipine Besylate (Norvasc) 10 mg DAILY PO Last administered on 08/25/17 09 :01; Start 08/21/17 at 09:00 Lisinopril (Prinivil) 20 mg DAILY PO Last administered on 08/25/17 09:00; Start 08/21/17 at 09:00 Simvastatin (Zocor) 40 mg QHS PO Last administered on 08/24/17 20:44; Start 08/20/17 at 21:00 Carvedilol (Coreg) 25 mg BIDWMEALS PO Last administered on 08/25/17 09:01; Start 08/21/17 at 20:00 Diltiazem HCl (Cardizem 24hr Cd) 120 mg DAILY PO Last administered on 09:02; Start 08/21/17 at 09:00 Non-Formulary Medication 1 each BID PO ; Start 08/20/17 at 21:00; Status UNV Potassium Chloride (Klor-Con) 20 meq BIDWMEALS PO Last administered on 09:00; Start 08/20/17 at 20:00 Glyburide (Diabeta) 5 mg BIDWMEALS PO Last administered on 08/21/17 09:49; Start 08/21/17 at 08:00; Stop 08/21/17 at 12:59; Status DC Metformin HCl (Glucophage) 500 mg BIDWMEALS PO Last administered on 08/21/17 09:48; Start 08/21/17 at 08:00; Stop 08/21/17 at 12:59; Status DC Influenza Virus Vaccine Quadrival (Fluarix Quad [id number] Syringe) 0.5 ml ONCE ONCE VAX IM Last administered on 08/21/17 09:57; Start 08/21/17 at 09:00; Stop 08/21/17 at 09:01; Status DC Pneumococcal Polyvalent Vaccine (Pneumovax 23) 0.5 ml ONCE ONCE VAX IM Last administered on 08/21/17 09:58; Start 08/21/17 at 09:00; Stop 08/21/17 at 09 :01; Status DC Guaifenesin (Mucinex) 1,200 mg BID PO Last administered on 08/25/17 09:01; Start 08/21/17 at 09:30 Albuterol/ Ipratropium (Duoneb) 3 ml RTQID NEB Last administered on 08/25/17 06:31; Start 08/21/17 at 16:00 Amiodarone HCl 150 mg/Dextrose 103 ml @ 618 mls/hr 1X ONCE IV Last administered on 08/21/17 16:12; Start 08/21/17 at 15:45; Stop 08/21/17 at 15 :54; Status DC Amiodarone HCl 900 mg/Dextrose 518 ml @ 0 mls/hr CONT PRN IV SEE I/O RECORD Last administered on 08/21/17 16:14; Start 08/21/17 at 15:45; Stop 08/21/17 at 16:15; Status DC Furosemide (Lasix) 60 mg 1X ONCE IVP Last administered on 08/21/17 16:15; Start 08/21/17 at 16:00; Stop 08/21/17 at 16:01; Status DC Dextrose 1,000 ml @ 60 mls/hr [id number] IV Last administered on 08/21/17 16:30 ; Start 08/21/17 at 16:30; Stop 08/22/17 at 09:09; Status DC Dextrose (Dextrose 50%-Water Syringe) 25 gm STK-MED ONCE IV ; Start 08/22/17 at 07:15; Stop 08/22/17 at 07:16; Status DC Dextrose (Dextrose 50%-Water Syringe) 25 gm 1X ONCE IV Last administered on 07:22; Start 08/22/17 at 07:30; Stop 08/22/17 at 07:31; Status DC Dextrose (Dextrose 50%-Water Syringe) 12.5 gm PRN Q15MIN PRN IV SEE COMMENTS; Start 08/22/17 at 07:45 Acetaminophen (Tylenol) 650 mg PRN Q6HRS PRN PO FEVER Last administered on t 23:01; Start 08/22/17 at 22:15 Albuterol Sulfate (Ventolin Neb Soln) 2.5 mg PRN Q4HRS PRN NEB SHORTNESS OF BREATH; Start 08/24/17 at 11:00 Active Scripts Active Reported Simvastatin 40 Mg Tablet 40 Mg PO DAILY Lisinopril 20 Mg Tablet 20 Mg PO DAILY Norvasc (Amlodipine Besylate) 10 Mg Tablet 10 Mg PO DAILY Metformin Hcl 1,000 Mg Tablet 1,000 Mg PO BID Lasix (Furosemide) 20 Mg Tablet 20 Mg PO DAILY Glyburide-Metformin 5-500 Mg (Glyburide/Metformin Hcl) 1 Each Tablet 1 Each PO BID Diltiazem Sr 12HR (Diltiazem Hcl) 90 Mg Cap.er.12h 60 Mg PO BID Carvedilol 25 Mg Tablet 25 Mg PO BID Potassium 99 Mg Tablet 20 Meq PO BID Vitals/I & O Vital Sign - Last 24 Hours 08/24/17 08/24/17 08/24/17 08/24/17 11:00 11:49 14:33 15:08 Temp 98.1 98.1 98.1 98.1 Pulse 67 69 Resp 20 20 B/P (MAP) 141/72 (95) 136/67 (90) Pulse Ox 95 95 20 O2 Delivery Nasal Cannula Nasal Cannula Nasal Cannula Nasal Cannula O2 Flow Rate 5.0 5.0 5.0 5.0 08/24/17 08/24/17 08/24/17 08/24/17 18:23 19:30 19:41 20:00 Temp 99.1 99.1 Pulse 69 68 Resp 18 B/P (MAP) 136/67 136/64 (88) Pulse Ox 96 O2 Delivery Nasal Cannula Nasal Cannula O2 Flow Rate 5.0 5.0 5.0 08/24/17 08/24/17 08/25/17 08/25/17 20:00 23:20 03:16 06:31 Temp 97.8 99.0 97.8 99.0 Pulse 71 68 Resp 20 16 B/P (MAP) 148/77 (100) 136/65 (88) Pulse Ox 96 94 O2 Delivery Nasal Cannula Nasal Cannula Nasal Cannula Nasal Cannula O2 Flow Rate 5.0 5.0 5.0 5.0 08/25/17 08/25/17 08/25/17 08/25/17 07:15 08:00 08:00 09:00 Temp 98.5 98.5 Pulse 69 69 Resp 24 B/P (MAP) 133/72 (92) 133/72 Pulse Ox 94 O2 Delivery Nasal Cannula Nasal Cannula O2 Flow Rate 5.0 5.0 5.0 08/25/17 08/25/17 08/25/17 09:01 09:01 09:02 Pulse 69 69 69 B/P (MAP) 133/72 133/72 133/72 Intake and Output 08/24/17 08/24/17 08/25/17 14:59 22:59 06:59 Intake Total 220 ml 220 ml 550 ml Output Total 200 ml 200 ml 1300 ml Balance 20 ml 20 ml -750 ml ALIA HARKINS MD Aug 25, 2017 10:10
--- NOTE | 2017-08-25 11:00 | PDOC ---
PROGRESS NOTES Chief Complaint Chief Complaint 1. Acute hypercarbic respiratory failure with metabolic encephalopathy 2. acute on chronic diastolic CHF, with acute exac 2 obesity, BMI 37, possible hypoventilation syndrome, has pickwickian habitus 3. diabetes 2, hypoglycemic here, 4. acute respiratory failure 5. chronic kidney disease 3, w. hypernatremia, History of Present Illness History of Present Illness Pt seen and examined at bedside. No acute events overnight. Pt was resting comfortably with nasal canula with no acute complaints. Continue with subspecialty recommendations and management. Vitals Vitals Vital Signs Date Time Temp Pulse Resp B/P (MAP) Pulse Ox O2 Delivery O2 Flow Rate FiO2 08/25/17 09:02 69 133/72 08/25/17 08:00 Nasal Cannula 5.0 08/25/17 07:15 98.5 24 94 98.5 Physical Exam General: Alert, Oriented X3, Cooperative, mild distress, Other (confused, but mild) Heart: Regular rate, No murmurs, Other (regular with frequent ectopy, S1, S2, ) Lungs: Other (decrease bs) Abdomen: Soft, No tenderness, Other (distended, timpanic, no BS heard) Extremities: No cyanosis, Other (bilateral lower extremity edema) Skin: No rashes, No significant lesion Labs LABS Laboratory Tests Test 08/25/17 04:55 White Blood Count 6.5 x10^3/uL (4.0-11.0) Red Blood Count 4.10 x10^6/uL (4.30-5.70) Hemoglobin 10.2 g/dL (13.0-17.5) Hematocrit 33.6 % (39.0-53.0) Mean Corpuscular Volume 82 fL (79-100) Mean Corpuscular Hemoglobin 25 pg (25-35) Mean Corpuscular Hemoglobin Concent 30 g/dL (31-37) Red Cell Distribution Width 18.4 % (11.5-14.5) Platelet Count 193 x10^3/uL (140-400) Neutrophils (%) (Auto) 81 % (31-73) Lymphocytes (%) (Auto) 7 % (24-48) Monocytes (%) (Auto) 8 % (0-9) Eosinophils (%) (Auto) 4 % (0-3) Basophils (%) (Auto) 0 % (0-3) Neutrophils # (Auto) 5.3 x10^3uL (1.8-7.7) Lymphocytes # (Auto) 0.4 x10^3/uL (1.0-4.8) Monocytes # (Auto) 0.5 x10^3/uL (0.0-1.1) Eosinophils # (Auto) 0.2 x10^3/uL (0.0-0.7) Basophils # (Auto) 0.0 x10^3/uL (0.0-0.2) Sodium Level 148 mmol/L (136-145) Potassium Level 5.0 mmol/L (3.5-5.1) Chloride Level 109 mmol/L (98-107) Carbon Dioxide Level 36 mmol/L (21-32) Anion Gap 3 (6-14) Blood Urea Nitrogen 33 mg/dL (8-26) Creatinine 2.4 mg/dL (0.7-1.3) Estimated GFR (Cockcroft-Gault) 33.9 BUN/Creatinine Ratio 14 (6-20) Glucose Level 94 mg/dL (70-99) Calcium Level 8.1 mg/dL (8.5-10.1) Total Bilirubin 0.4 mg/dL (0.2-1.0) Aspartate Amino Transf (AST/SGOT) 20 U/L (15-37) Alanine Aminotransferase (ALT/SGPT) 22 U/L (16-63) Alkaline Phosphatase 48 U/L (46-116) Total Protein 6.5 g/dL (6.4-8.2) Albumin 2.3 g/dL (3.4-5.0) Albumin/Globulin Ratio 0.5 (1.0-1.7) Review of Systems Review of Systems SOB Fatigue Assessment and Plan Assessmemt and Plan Problems Medical Problems: (1) CHF exacerbation Status: Acute (2) CKD (chronic kidney disease) Status: Acute (3) Hypoxia Status: Acute CHIEF COMPLAINT 1. Acute hypercarbic respiratory failure with metabolic encephalopathy 2. acute on chronic diastolic CHF, with acute exac 2 obesity, BMI 37, possible hypoventilation syndrome, has pickwickian habitus 3. diabetes 2, hypoglycemic here, 4. acute respiratory failure 5. chronic kidney disease 3, w. hypernatremia, PLAN: Continue Breathing treatments prn Continued Bipap qhs PT/OT Blood Cx (08/23) negative Reorder morning labs Continue with subspecialty input, appreciate recommendations Continue Home Meds Disposition pending subspecialty input and sign off Problems: Comment Review of Relevant I have reviewed the following items ninoska (where applicable) has been applied. Labs Laboratory Tests Test 08/24/17 04:35 08/25/17 04:55 White Blood Count 6.4 x10^3/uL (4.0-11.0) 6.5 x10^3/uL (4.0-11.0) Red Blood Count 4.21 x10^6/uL (4.30-5.70) 4.10 x10^6/uL (4.30-5.70) Hemoglobin 10.6 g/dL (13.0-17.5) 10.2 g/dL (13.0-17.5) Hematocrit 34.3 % (39.0-53.0) 33.6 % (39.0-53.0) Mean Corpuscular Volume 82 fL (79-100) 82 fL (79-100) Mean Corpuscular Hemoglobin 25 pg (25-35) 25 pg (25-35) Mean Corpuscular Hemoglobin Concent 31 g/dL (31-37) 30 g/dL (31-37) Red Cell Distribution Width 18.5 % (11.5-14.5) 18.4 % (11.5-14.5) Platelet Count 199 x10^3/uL (140-400) 193 x10^3/uL (140-400) Neutrophils (%) (Auto) 78 % (31-73) 81 % (31-73) Lymphocytes (%) (Auto) 9 % (24-48) 7 % (24-48) Monocytes (%) (Auto) 9 % (0-9) 8 % (0-9) Eosinophils (%) (Auto) 4 % (0-3) 4 % (0-3) Basophils (%) (Auto) 0 % (0-3) 0 % (0-3) Neutrophils # (Auto) 5.0 x10^3uL (1.8-7.7) 5.3 x10^3uL (1.8-7.7) Lymphocytes # (Auto) 0.6 x10^3/uL (1.0-4.8) 0.4 x10^3/uL (1.0-4.8) Monocytes # (Auto) 0.6 x10^3/uL (0.0-1.1) 0.5 x10^3/uL (0.0-1.1) Eosinophils # (Auto) 0.3 x10^3/uL (0.0-0.7) 0.2 x10^3/uL (0.0-0.7) Basophils # (Auto) 0.0 x10^3/uL (0.0-0.2) 0.0 x10^3/uL (0.0-0.2) Sodium Level 146 mmol/L (136-145) 148 mmol/L (136-145) Potassium Level 4.5 mmol/L (3.5-5.1) 5.0 mmol/L (3.5-5.1) Chloride Level 108 mmol/L (98-107) 109 mmol/L (98-107) Carbon Dioxide Level 33 mmol/L (21-32) 36 mmol/L (21-32) Anion Gap 5 (6-14) 3 (6-14) Blood Urea Nitrogen 36 mg/dL (8-26) 33 mg/dL (8-26) Creatinine 2.6 mg/dL (0.7-1.3) 2.4 mg/dL (0.7-1.3) Estimated GFR (Cockcroft-Gault) 30.9 33.9 BUN/Creatinine Ratio 14 (6-20) 14 (6-20) Glucose Level 104 mg/dL (70-99) 94 mg/dL (70-99) Calcium Level 7.9 mg/dL (8.5-10.1) 8.1 mg/dL (8.5-10.1) Total Bilirubin 0.4 mg/dL (0.2-1.0) 0.4 mg/dL (0.2-1.0) Aspartate Amino Transf (AST/SGOT) 16 U/L (15-37) 20 U/L (15-37) Alanine Aminotransferase (ALT/SGPT) 18 U/L (16-63) 22 U/L (16-63) Alkaline Phosphatase 45 U/L (46-116) 48 U/L (46-116) Total Protein 6.5 g/dL (6.4-8.2) 6.5 g/dL (6.4-8.2) Albumin 2.3 g/dL (3.4-5.0) 2.3 g/dL (3.4-5.0) Albumin/Globulin Ratio 0.5 (1.0-1.7) 0.5 (1.0-1.7) Laboratory Tests Test 08/25/17 04:55 White Blood Count 6.5 x10^3/uL (4.0-11.0) Red Blood Count 4.10 x10^6/uL (4.30-5.70) Hemoglobin 10.2 g/dL (13.0-17.5) Hematocrit 33.6 % (39.0-53.0) Mean Corpuscular Volume 82 fL (79-100) Mean Corpuscular Hemoglobin 25 pg (25-35) Mean Corpuscular Hemoglobin Concent 30 g/dL (31-37) Red Cell Distribution Width 18.4 % (11.5-14.5) Platelet Count 193 x10^3/uL (140-400) Neutrophils (%) (Auto) 81 % (31-73) Lymphocytes (%) (Auto) 7 % (24-48) Monocytes (%) (Auto) 8 % (0-9) Eosinophils (%) (Auto) 4 % (0-3) Basophils (%) (Auto) 0 % (0-3) Neutrophils # (Auto) 5.3 x10^3uL (1.8-7.7) Lymphocytes # (Auto) 0.4 x10^3/uL (1.0-4.8) Monocytes # (Auto) 0.5 x10^3/uL (0.0-1.1) Eosinophils # (Auto) 0.2 x10^3/uL (0.0-0.7) Basophils # (Auto) 0.0 x10^3/uL (0.0-0.2) Sodium Level 148 mmol/L (136-145) Potassium Level 5.0 mmol/L (3.5-5.1) Chloride Level 109 mmol/L (98-107) Carbon Dioxide Level 36 mmol/L (21-32) Anion Gap 3 (6-14) Blood Urea Nitrogen 33 mg/dL (8-26) Creatinine 2.4 mg/dL (0.7-1.3) Estimated GFR (Cockcroft-Gault) 33.9 BUN/Creatinine Ratio 14 (6-20) Glucose Level 94 mg/dL (70-99) Calcium Level 8.1 mg/dL (8.5-10.1) Total Bilirubin 0.4 mg/dL (0.2-1.0) Aspartate Amino Transf (AST/SGOT) 20 U/L (15-37) Alanine Aminotransferase (ALT/SGPT) 22 U/L (16-63) Alkaline Phosphatase 48 U/L (46-116) Total Protein 6.5 g/dL (6.4-8.2) Albumin 2.3 g/dL (3.4-5.0) Albumin/Globulin Ratio 0.5 (1.0-1.7) Microbiology 08/23/17 Blood Culture - Preliminary, Resulted NO GROWTH AFTER 2 DAYS Medications Current Medications Albuterol/ Ipratropium (Duoneb) 3 ml 1X ONCE NEB Last administered on 11:00; Start 08/20/17 at 10:45; Stop 08/20/17 at 10:46; Status DC Furosemide (Lasix) 40 mg 1X ONCE PO Last administered on 08/20/17 14:57; Start 08/20/17 at 14:30; Stop 08/20/17 at 14:33; Status DC Ondansetron HCl (Zofran) 4 mg PRN Q8HRS PRN IV NAUSEA/VOMITING; Start at 14:45; Stop 08/21/17 at 14:44; Status DC Morphine Sulfate 2 mg PRN Q2HR PRN IV PAIN; Start 08/20/17 at 14:45; Stop at 14:44; Status DC Enoxaparin Sodium (Lovenox 40mg Syringe) 40 mg Q24H SQ Last administered on 20:45; Start 08/20/17 at 19:15 Amlodipine Besylate (Norvasc) 10 mg DAILY PO Last administered on 08/25/17 09 :01; Start 08/21/17 at 09:00 Lisinopril (Prinivil) 20 mg DAILY PO Last administered on 08/25/17 09:00; Start 08/21/17 at 09:00 Simvastatin (Zocor) 40 mg QHS PO Last administered on 08/24/17 20:44; Start 08/20/17 at 21:00 Carvedilol (Coreg) 25 mg BIDWMEALS PO Last administered on 08/25/17 09:01; Start 08/21/17 at 20:00 Diltiazem HCl (Cardizem 24hr Cd) 120 mg DAILY PO Last administered on 09:02; Start 08/21/17 at 09:00 Non-Formulary Medication 1 each BID PO ; Start 08/20/17 at 21:00; Status UNV Potassium Chloride (Klor-Con) 20 meq BIDWMEALS PO Last administered on 09:00; Start 08/20/17 at 20:00 Glyburide (Diabeta) 5 mg BIDWMEALS PO Last administered on 08/21/17 09:49; Start 08/21/17 at 08:00; Stop 08/21/17 at 12:59; Status DC Metformin HCl (Glucophage) 500 mg BIDWMEALS PO Last administered on 08/21/17 09:48; Start 08/21/17 at 08:00; Stop 08/21/17 at 12:59; Status DC Influenza Virus Vaccine Quadrival (Fluarix Quad [id number] Syringe) 0.5 ml ONCE ONCE VAX IM Last administered on 08/21/17 09:57; Start 08/21/17 at 09:00; Stop 08/21/17 at 09:01; Status DC Pneumococcal Polyvalent Vaccine (Pneumovax 23) 0.5 ml ONCE ONCE VAX IM Last administered on 08/21/17 09:58; Start 08/21/17 at 09:00; Stop 08/21/17 at 09 :01; Status DC Guaifenesin (Mucinex) 1,200 mg BID PO Last administered on 08/25/17 09:01; Start 08/21/17 at 09:30 Albuterol/ Ipratropium (Duoneb) 3 ml RTQID NEB Last administered on 08/25/17 06:31; Start 08/21/17 at 16:00 Amiodarone HCl 150 mg/Dextrose 103 ml @ 618 mls/hr 1X ONCE IV Last administered on 08/21/17 16:12; Start 08/21/17 at 15:45; Stop 08/21/17 at 15 :54; Status DC Amiodarone HCl 900 mg/Dextrose 518 ml @ 0 mls/hr CONT PRN IV SEE I/O RECORD Last administered on 08/21/17 16:14; Start 08/21/17 at 15:45; Stop 08/21/17 at 16:15; Status DC Furosemide (Lasix) 60 mg 1X ONCE IVP Last administered on 08/21/17 16:15; Start 08/21/17 at 16:00; Stop 08/21/17 at 16:01; Status DC Dextrose 1,000 ml @ 60 mls/hr [id number] IV Last administered on 08/21/17 16:30 ; Start 08/21/17 at 16:30; Stop 08/22/17 at 09:09; Status DC Dextrose (Dextrose 50%-Water Syringe) 25 gm STK-MED ONCE IV ; Start 08/22/17 at 07:15; Stop 08/22/17 at 07:16; Status DC Dextrose (Dextrose 50%-Water Syringe) 25 gm 1X ONCE IV Last administered on 07:22; Start 08/22/17 at 07:30; Stop 08/22/17 at 07:31; Status DC Dextrose (Dextrose 50%-Water Syringe) 12.5 gm PRN Q15MIN PRN IV SEE COMMENTS; Start 08/22/17 at 07:45 Acetaminophen (Tylenol) 650 mg PRN Q6HRS PRN PO FEVER Last administered on 23:01; Start 08/22/17 at 22:15 Albuterol Sulfate (Ventolin Neb Soln) 2.5 mg PRN Q4HRS PRN NEB SHORTNESS OF BREATH; Start 08/24/17 at 11:00 Active Scripts Active Reported Simvastatin 40 Mg Tablet 40 Mg PO DAILY Lisinopril 20 Mg Tablet 20 Mg PO DAILY Norvasc (Amlodipine Besylate) 10 Mg Tablet 10 Mg PO DAILY Metformin Hcl 1,000 Mg Tablet 1,000 Mg PO BID Lasix (Furosemide) 20 Mg Tablet 20 Mg PO DAILY Glyburide-Metformin 5-500 Mg (Glyburide/Metformin Hcl) 1 Each Tablet 1 Each PO BID Diltiazem Sr 12HR (Diltiazem Hcl) 90 Mg Cap.er.12h 60 Mg PO BID Carvedilol 25 Mg Tablet 25 Mg PO BID Potassium 99 Mg Tablet 20 Meq PO BID Vitals/I & O Vital Sign - Last 24 Hours 08/24/17 08/24/17 08/24/17 08/24/17 11:00 11:49 14:33 15:08 Temp 98.1 98.1 98.1 98.1 Pulse 67 69 Resp 20 20 B/P (MAP) 141/72 (95) 136/67 (90) Pulse Ox 95 95 20 O2 Delivery Nasal Cannula Nasal Cannula Nasal Cannula Nasal Cannula O2 Flow Rate 5.0 5.0 5.0 5.0 08/24/17 08/24/17 08/24/17 08/24/17 18:23 19:30 19:41 20:00 Temp 99.1 99.1 Pulse 69 68 Resp 18 B/P (MAP) 136/67 136/64 (88) Pulse Ox 96 O2 Delivery Nasal Cannula Nasal Cannula O2 Flow Rate 5.0 5.0 5.0 08/24/17 08/24/17 08/25/17 08/25/17 20:00 23:20 03:16 06:31 Temp 97.8 99.0 97.8 99.0 Pulse 71 68 Resp 20 16 B/P (MAP) 148/77 (100) 136/65 (88) Pulse Ox 96 94 O2 Delivery Nasal Cannula Nasal Cannula Nasal Cannula Nasal Cannula O2 Flow Rate 5.0 5.0 5.0 5.0 08/25/17 08/25/17 08/25/17 08/25/17 07:15 08:00 08:00 09:00 Temp 98.5 98.5 Pulse 69 69 Resp 24 B/P (MAP) 133/72 (92) 133/72 Pulse Ox 94 O2 Delivery Nasal Cannula Nasal Cannula O2 Flow Rate 5.0 5.0 5.0 08/25/17 08/25/17 08/25/17 09:01 09:01 09:02 Pulse 69 69 69 B/P (MAP) 133/72 133/72 133/72 Intake and Output 08/24/17 08/24/17 08/25/17 15:00 23:00 07:00 Intake Total 220 ml 220 ml 550 ml Output Total 200 ml 200 ml 1300 ml Balance 20 ml 20 ml -750 ml CASTLE,NIAL K III DO Aug 25, 2017 11:00
[2017-08-25 11:52] VITALS: BP 144/75
--- NOTE | 2017-08-25 14:45 | PDOC ---
PROGRESS NOTES Subjective Subjective Mr. Arguello states he feels better today. Still requiring oxygen via NC. Did not require BiPap overnight. No chest pain. Objective Objective Vital Signs Date Time Temp Pulse Resp B/P (MAP) Pulse Ox O2 Delivery O2 Flow Rate FiO2 08/25/17 11:52 98.8 69 24 144/75 (98) 92 Nasal Cannula 5.0 98.8 Intake and Output 08/25/17 07:00 Intake Total 990 ml Output Total 1700 ml Balance -710 ml Intake Oral 990 ml Output Urine Total 1700 ml # Voids 1 Physical Exam Abdomen: Soft Heart: Regular rate, No murmurs Extremities: No clubbing, No cyanosis General: Alert, Oriented X3, Cooperative HEENT: Atraumatic Lungs: Normal air movement Psych/Mental Status: Mental status NL Diagnosis HEART FAILURE: CHF Assessment Assessment Problems Medical Problems: (1) CHF exacerbation: Improved, would continue with diuresis. Status: Acute (2) CKD (chronic kidney disease) Status: Acute (3) Hypoxia Status: Acute Plan Plan of Care Continue diuresis. Agree with current plan of care. Comment Review of Relevant I have reviewed the following items ninoska (where applicable) has been applied. Labs Laboratory Tests Test 08/24/17 04:35 08/25/17 04:55 White Blood Count 6.4 x10^3/uL (4.0-11.0) 6.5 x10^3/uL (4.0-11.0) Red Blood Count 4.21 x10^6/uL (4.30-5.70) 4.10 x10^6/uL (4.30-5.70) Hemoglobin 10.6 g/dL (13.0-17.5) 10.2 g/dL (13.0-17.5) Hematocrit 34.3 % (39.0-53.0) 33.6 % (39.0-53.0) Mean Corpuscular Volume 82 fL (79-100) 82 fL (79-100) Mean Corpuscular Hemoglobin 25 pg (25-35) 25 pg (25-35) Mean Corpuscular Hemoglobin Concent 31 g/dL (31-37) 30 g/dL (31-37) Red Cell Distribution Width 18.5 % (11.5-14.5) 18.4 % (11.5-14.5) Platelet Count 199 x10^3/uL (140-400) 193 x10^3/uL (140-400) Neutrophils (%) (Auto) 78 % (31-73) 81 % (31-73) Lymphocytes (%) (Auto) 9 % (24-48) 7 % (24-48) Monocytes (%) (Auto) 9 % (0-9) 8 % (0-9) Eosinophils (%) (Auto) 4 % (0-3) 4 % (0-3) Basophils (%) (Auto) 0 % (0-3) 0 % (0-3) Neutrophils # (Auto) 5.0 x10^3uL (1.8-7.7) 5.3 x10^3uL (1.8-7.7) Lymphocytes # (Auto) 0.6 x10^3/uL (1.0-4.8) 0.4 x10^3/uL (1.0-4.8) Monocytes # (Auto) 0.6 x10^3/uL (0.0-1.1) 0.5 x10^3/uL (0.0-1.1) Eosinophils # (Auto) 0.3 x10^3/uL (0.0-0.7) 0.2 x10^3/uL (0.0-0.7) Basophils # (Auto) 0.0 x10^3/uL (0.0-0.2) 0.0 x10^3/uL (0.0-0.2) Sodium Level 146 mmol/L (136-145) 148 mmol/L (136-145) Potassium Level 4.5 mmol/L (3.5-5.1) 5.0 mmol/L (3.5-5.1) Chloride Level 108 mmol/L (98-107) 109 mmol/L (98-107) Carbon Dioxide Level 33 mmol/L (21-32) 36 mmol/L (21-32) Anion Gap 5 (6-14) 3 (6-14) Blood Urea Nitrogen 36 mg/dL (8-26) 33 mg/dL (8-26) Creatinine 2.6 mg/dL (0.7-1.3) 2.4 mg/dL (0.7-1.3) Estimated GFR (Cockcroft-Gault) 30.9 33.9 BUN/Creatinine Ratio 14 (6-20) 14 (6-20) Glucose Level 104 mg/dL (70-99) 94 mg/dL (70-99) Calcium Level 7.9 mg/dL (8.5-10.1) 8.1 mg/dL (8.5-10.1) Total Bilirubin 0.4 mg/dL (0.2-1.0) 0.4 mg/dL (0.2-1.0) Aspartate Amino Transf (AST/SGOT) 16 U/L (15-37) 20 U/L (15-37) Alanine Aminotransferase (ALT/SGPT) 18 U/L (16-63) 22 U/L (16-63) Alkaline Phosphatase 45 U/L (46-116) 48 U/L (46-116) Total Protein 6.5 g/dL (6.4-8.2) 6.5 g/dL (6.4-8.2) Albumin 2.3 g/dL (3.4-5.0) 2.3 g/dL (3.4-5.0) Albumin/Globulin Ratio 0.5 (1.0-1.7) 0.5 (1.0-1.7) Laboratory Tests Test 08/25/17 04:55 White Blood Count 6.5 x10^3/uL (4.0-11.0) Red Blood Count 4.10 x10^6/uL (4.30-5.70) Hemoglobin 10.2 g/dL (13.0-17.5) Hematocrit 33.6 % (39.0-53.0) Mean Corpuscular Volume 82 fL (79-100) Mean Corpuscular Hemoglobin 25 pg (25-35) Mean Corpuscular Hemoglobin Concent 30 g/dL (31-37) Red Cell Distribution Width 18.4 % (11.5-14.5) Platelet Count 193 x10^3/uL (140-400) Neutrophils (%) (Auto) 81 % (31-73) Lymphocytes (%) (Auto) 7 % (24-48) Monocytes (%) (Auto) 8 % (0-9) Eosinophils (%) (Auto) 4 % (0-3) Basophils (%) (Auto) 0 % (0-3) Neutrophils # (Auto) 5.3 x10^3uL (1.8-7.7) Lymphocytes # (Auto) 0.4 x10^3/uL (1.0-4.8) Monocytes # (Auto) 0.5 x10^3/uL (0.0-1.1) Eosinophils # (Auto) 0.2 x10^3/uL (0.0-0.7) Basophils # (Auto) 0.0 x10^3/uL (0.0-0.2) Sodium Level 148 mmol/L (136-145) Potassium Level 5.0 mmol/L (3.5-5.1) Chloride Level 109 mmol/L (98-107) Carbon Dioxide Level 36 mmol/L (21-32) Anion Gap 3 (6-14) Blood Urea Nitrogen 33 mg/dL (8-26) Creatinine 2.4 mg/dL (0.7-1.3) Estimated GFR (Cockcroft-Gault) 33.9 BUN/Creatinine Ratio 14 (6-20) Glucose Level 94 mg/dL (70-99) Calcium Level 8.1 mg/dL (8.5-10.1) Total Bilirubin 0.4 mg/dL (0.2-1.0) Aspartate Amino Transf (AST/SGOT) 20 U/L (15-37) Alanine Aminotransferase (ALT/SGPT) 22 U/L (16-63) Alkaline Phosphatase 48 U/L (46-116) Total Protein 6.5 g/dL (6.4-8.2) Albumin 2.3 g/dL (3.4-5.0) Albumin/Globulin Ratio 0.5 (1.0-1.7) Microbiology 08/23/17 Blood Culture - Preliminary, Resulted NO GROWTH AFTER 2 DAYS Medications Current Medications Albuterol/ Ipratropium (Duoneb) 3 ml 1X ONCE NEB Last administered on t 11:00; Start 08/20/17 at 10:45; Stop 08/20/17 at 10:46; Status DC Furosemide (Lasix) 40 mg 1X ONCE PO Last administered on 08/20/17 14:57; Start 08/20/17 at 14:30; Stop 08/20/17 at 14:33; Status DC Ondansetron HCl (Zofran) 4 mg PRN Q8HRS PRN IV NAUSEA/VOMITING; Start at 14:45; Stop 08/21/17 at 14:44; Status DC Morphine Sulfate 2 mg PRN Q2HR PRN IV PAIN; Start 08/20/17 at 14:45; Stop at 14:44; Status DC Enoxaparin Sodium (Lovenox 40mg Syringe) 40 mg Q24H SQ Last administered on 20:45; Start 08/20/17 at 19:15 Amlodipine Besylate (Norvasc) 10 mg DAILY PO Last administered on 08/25/17 09 :01; Start 08/21/17 at 09:00 Lisinopril (Prinivil) 20 mg DAILY PO Last administered on 08/25/17 09:00; Start 08/21/17 at 09:00 Simvastatin (Zocor) 40 mg QHS PO Last administered on 08/24/17 20:44; Start 08/20/17 at 21:00 Carvedilol (Coreg) 25 mg BIDWMEALS PO Last administered on 08/25/17 09:01; Start 08/21/17 at 20:00 Diltiazem HCl (Cardizem 24hr Cd) 120 mg DAILY PO Last administered on 09:02; Start 08/21/17 at 09:00 Non-Formulary Medication 1 each BID PO ; Start 08/20/17 at 21:00; Status UNV Potassium Chloride (Klor-Con) 20 meq BIDWMEALS PO Last administered on 09:00; Start 08/20/17 at 20:00 Glyburide (Diabeta) 5 mg BIDWMEALS PO Last administered on 08/21/17 09:49; Start 08/21/17 at 08:00; Stop 08/21/17 at 12:59; Status DC Metformin HCl (Glucophage) 500 mg BIDWMEALS PO Last administered on 08/21/17 09:48; Start 08/21/17 at 08:00; Stop 08/21/17 at 12:59; Status DC Influenza Virus Vaccine Quadrival (Fluarix Quad [id number] Syringe) 0.5 ml ONCE ONCE VAX IM Last administered on 08/21/17 09:57; Start 08/21/17 at 09:00; Stop 08/21/17 at 09:01; Status DC Pneumococcal Polyvalent Vaccine (Pneumovax 23) 0.5 ml ONCE ONCE VAX IM Last administered on 08/21/17 09:58; Start 08/21/17 at 09:00; Stop 08/21/17 at 09 :01; Status DC Guaifenesin (Mucinex) 1,200 mg BID PO Last administered on 08/25/17 09:01; Start 08/21/17 at 09:30 Albuterol/ Ipratropium (Duoneb) 3 ml RTQID NEB Last administered on 08/25/17 11:35; Start 08/21/17 at 16:00 Amiodarone HCl 150 mg/Dextrose 103 ml @ 618 mls/hr 1X ONCE IV Last administered on 08/21/17 16:12; Start 08/21/17 at 15:45; Stop 08/21/17 at 15 :54; Status DC Amiodarone HCl 900 mg/Dextrose 518 ml @ 0 mls/hr CONT PRN IV SEE I/O RECORD Last administered on 08/21/17 16:14; Start 08/21/17 at 15:45; Stop 08/21/17 at 16:15; Status DC Furosemide (Lasix) 60 mg 1X ONCE IVP Last administered on 08/21/17 16:15; Start 08/21/17 at 16:00; Stop 08/21/17 at 16:01; Status DC Dextrose 1,000 ml @ 60 mls/hr [id number] IV Last administered on 08/21/17 16:30 ; Start 08/21/17 at 16:30; Stop 08/22/17 at 09:09; Status DC Dextrose (Dextrose 50%-Water Syringe) 25 gm STK-MED ONCE IV ; Start 08/22/17 at 07:15; Stop 08/22/17 at 07:16; Status DC Dextrose (Dextrose 50%-Water Syringe) 25 gm 1X ONCE IV Last administered on 07:22; Start 08/22/17 at 07:30; Stop 08/22/17 at 07:31; Status DC Dextrose (Dextrose 50%-Water Syringe) 12.5 gm PRN Q15MIN PRN IV SEE COMMENTS; Start 08/22/17 at 07:45 Acetaminophen (Tylenol) 650 mg PRN Q6HRS PRN PO FEVER Last administered on t 23:01; Start 08/22/17 at 22:15 Albuterol Sulfate (Ventolin Neb Soln) 2.5 mg PRN Q4HRS PRN NEB SHORTNESS OF BREATH; Start 08/24/17 at 11:00 Active Scripts Active Reported Simvastatin 40 Mg Tablet 40 Mg PO DAILY Lisinopril 20 Mg Tablet 20 Mg PO DAILY Norvasc (Amlodipine Besylate) 10 Mg Tablet 10 Mg PO DAILY Metformin Hcl 1,000 Mg Tablet 1,000 Mg PO BID Lasix (Furosemide) 20 Mg Tablet 20 Mg PO DAILY Glyburide-Metformin 5-500 Mg (Glyburide/Metformin Hcl) 1 Each Tablet 1 Each PO BID Diltiazem Sr 12HR (Diltiazem Hcl) 90 Mg Cap.er.12h 60 Mg PO BID Carvedilol 25 Mg Tablet 25 Mg PO BID Potassium 99 Mg Tablet 20 Meq PO BID Vitals/I & O Vital Sign - Last 24 Hours 08/24/17 08/24/17 08/24/17 08/24/17 15:08 18:23 19:30 19:41 Temp 99.1 99.1 Pulse 69 68 Resp 18 B/P (MAP) 136/67 136/64 (88) Pulse Ox 96 O2 Delivery Nasal Cannula Nasal Cannula Nasal Cannula O2 Flow Rate 5.0 5.0 5.0 08/24/17 08/24/17 08/24/17 08/25/17 20:00 20:00 23:20 03:16 Temp 97.8 99.0 97.8 99.0 Pulse 71 68 Resp 20 16 B/P (MAP) 148/77 (100) 136/65 (88) Pulse Ox 96 94 O2 Delivery Nasal Cannula Nasal Cannula Nasal Cannula O2 Flow Rate 5.0 5.0 5.0 5.0 08/25/17 08/25/17 08/25/17 08/25/17 06:31 07:15 08:00 08:00 Temp 98.5 98.5 Pulse 69 Resp 24 B/P (MAP) 133/72 (92) Pulse Ox 94 O2 Delivery Nasal Cannula Nasal Cannula Nasal Cannula O2 Flow Rate 5.0 5.0 5.0 5.0 08/25/17 08/25/17 08/25/17 08/25/17 09:00 09:01 09:01 09:02 Pulse 69 69 69 69 B/P (MAP) 133/72 133/72 133/72 133/72 08/25/17 08/25/17 11:37 11:52 Temp 98.8 98.8 Pulse 69 Resp 24 B/P (MAP) 144/75 (98) Pulse Ox 93 92 O2 Delivery Nasal Cannula Nasal Cannula O2 Flow Rate 5.0 5.0 Intake and Output 08/24/17 08/24/17 08/25/17 15:00 23:00 07:00 Intake Total 220 ml 220 ml 550 ml Output Total 200 ml 200 ml 1300 ml Balance 20 ml 20 ml -750 ml DONOVAN RAMIREZ MD Aug 25, 2017 14:45
[2017-08-25 15:52] VITALS: BP 132/60
[2017-08-25] MEDS: FUROSEMIDE 40 MG TABLET. PO SCH (17:00)
[2017-08-25 19:45] VITALS: BP 147/76
[2017-08-25] MEDS: SIMVASTATIN 40 MG TABLET. PO SCH (20:55)
[2017-08-25] MEDS: ENOXAPARIN 40 MG/0.4 ML SYRINGE. SQ SCH (20:57)
[2017-08-25 23:03] VITALS: BP 107/74
[2017-08-26 02:48] VITALS: BP 157/75
[2017-08-26 04:43] LABS: BASO % 0 % (0-3); EOS % 4 % (0-3); HEMATOCRIT 33.9 % (39.0-53.0); HEMOGLOBIN 10.5 g/dL (13.0-17.5); LYMPH # 0.5 x10^3/uL (1.0-4.8); LYMPH % 10 % (24-48); MEAN CORPUSCULAR HEMOGLOBIN 25 pg (25-35); MEAN CORPUSCULAR HGB CONC 31 g/dL (31-37); MEAN CORPUSCULAR VOLUME 81 fL (79-100); MONO % 8 % (0-9); NEUT % 79 % (31-73); PLATELET COUNT 170 x10^3/uL (140-400); RED BLOOD COUNT 4.16 x10^6/uL (4.30-5.70); RED CELL DISTRIBUTION WIDTH 18.4 % (11.5-14.5); WHITE BLOOD COUNT 5.6 x10^3/uL (4.0-11.0)
[2017-08-26 05:14] LABS: ALBUMIN 2.4 g/dL (3.4-5.0); ALBUMIN/GLOBULIN RATIO 0.5 (1.0-1.7); CALCIUM 8.4 mg/dL (8.5-10.1); CREATININE 2.3 mg/dL (0.7-1.3); GFR 35.6; POTASSIUM 4.4 mmol/L (3.5-5.1); TOTAL BILIRUBIN 0.5 mg/dL (0.2-1.0); TOTAL PROTEIN 6.8 g/dL (6.4-8.2)
[2017-08-26 07:00] VITALS: BP 160/81
[2017-08-26] MEDS: IPRATRPIUM/ALBUTEROL 0.5/2.5MG 3 ML NEBU. NEB SCH ×3 (08:53→16:31)
--- NOTE | 2017-08-26 09:39 | PDOC ---
PROGRESS NOTES Subjective Subjective No new complaints. Objective Objective Vital Signs Date Time Temp Pulse Resp B/P (MAP) Pulse Ox O2 Delivery O2 Flow Rate FiO2 08/26/17 08:53 95 Nasal Cannula 5.0 08/26/17 07:00 98.5 62 20 160/81 (107) 98.5 Intake and Output 08/26/17 07:00 Intake Total 1820 ml Output Total 2450 ml Balance -630 ml Intake Oral 1820 ml Output Urine Total 2450 ml Physical Exam Physical Exam He is alert and comfortable supine in bed with oxygen by nasal canula and he is walking at bedside with roller walker and low physical endurance. Assessment Assessment Problems Medical Problems: (1) CHF exacerbation Status: Acute (2) CKD (chronic kidney disease) Status: Acute (3) Hypoxia Status: Acute Plan Plan of [facility] with home health follow up when medically stable. Comment Review of Relevant I have reviewed the following items ninoska (where applicable) has been applied. Labs Laboratory Tests Test 08/25/17 04:55 08/26/17 03:55 White Blood Count 6.5 x10^3/uL (4.0-11.0) 5.6 x10^3/uL (4.0-11.0) Red Blood Count 4.10 x10^6/uL (4.30-5.70) 4.16 x10^6/uL (4.30-5.70) Hemoglobin 10.2 g/dL (13.0-17.5) 10.5 g/dL (13.0-17.5) Hematocrit 33.6 % (39.0-53.0) 33.9 % (39.0-53.0) Mean Corpuscular Volume 82 fL (79-100) 81 fL (79-100) Mean Corpuscular Hemoglobin 25 pg (25-35) 25 pg (25-35) Mean Corpuscular Hemoglobin Concent 30 g/dL (31-37) 31 g/dL (31-37) Red Cell Distribution Width 18.4 % (11.5-14.5) 18.4 % (11.5-14.5) Platelet Count 193 x10^3/uL (140-400) 170 x10^3/uL (140-400) Neutrophils (%) (Auto) 81 % (31-73) 79 % (31-73) Lymphocytes (%) (Auto) 7 % (24-48) 10 % (24-48) Monocytes (%) (Auto) 8 % (0-9) 8 % (0-9) Eosinophils (%) (Auto) 4 % (0-3) 4 % (0-3) Basophils (%) (Auto) 0 % (0-3) 0 % (0-3) Neutrophils # (Auto) 5.3 x10^3uL (1.8-7.7) 4.4 x10^3uL (1.8-7.7) Lymphocytes # (Auto) 0.4 x10^3/uL (1.0-4.8) 0.5 x10^3/uL (1.0-4.8) Monocytes # (Auto) 0.5 x10^3/uL (0.0-1.1) 0.4 x10^3/uL (0.0-1.1) Eosinophils # (Auto) 0.2 x10^3/uL (0.0-0.7) 0.2 x10^3/uL (0.0-0.7) Basophils # (Auto) 0.0 x10^3/uL (0.0-0.2) 0.0 x10^3/uL (0.0-0.2) Sodium Level 148 mmol/L (136-145) 148 mmol/L (136-145) Potassium Level 5.0 mmol/L (3.5-5.1) 4.4 mmol/L (3.5-5.1) Chloride Level 109 mmol/L (98-107) 109 mmol/L (98-107) Carbon Dioxide Level 36 mmol/L (21-32) 34 mmol/L (21-32) Anion Gap 3 (6-14) 5 (6-14) Blood Urea Nitrogen 33 mg/dL (8-26) 32 mg/dL (8-26) Creatinine 2.4 mg/dL (0.7-1.3) 2.3 mg/dL (0.7-1.3) Estimated GFR (Cockcroft-Gault) 33.9 35.6 BUN/Creatinine Ratio 14 (6-20) 14 (6-20) Glucose Level 94 mg/dL (70-99) 82 mg/dL (70-99) Calcium Level 8.1 mg/dL (8.5-10.1) 8.4 mg/dL (8.5-10.1) Total Bilirubin 0.4 mg/dL (0.2-1.0) 0.5 mg/dL (0.2-1.0) Aspartate Amino Transf (AST/SGOT) 20 U/L (15-37) 18 U/L (15-37) Alanine Aminotransferase (ALT/SGPT) 22 U/L (16-63) 21 U/L (16-63) Alkaline Phosphatase 48 U/L (46-116) 45 U/L (46-116) Total Protein 6.5 g/dL (6.4-8.2) 6.8 g/dL (6.4-8.2) Albumin 2.3 g/dL (3.4-5.0) 2.4 g/dL (3.4-5.0) Albumin/Globulin Ratio 0.5 (1.0-1.7) 0.5 (1.0-1.7) Laboratory Tests Test 08/26/17 03:55 White Blood Count 5.6 x10^3/uL (4.0-11.0) Red Blood Count 4.16 x10^6/uL (4.30-5.70) Hemoglobin 10.5 g/dL (13.0-17.5) Hematocrit 33.9 % (39.0-53.0) Mean Corpuscular Volume 81 fL (79-100) Mean Corpuscular Hemoglobin 25 pg (25-35) Mean Corpuscular Hemoglobin Concent 31 g/dL (31-37) Red Cell Distribution Width 18.4 % (11.5-14.5) Platelet Count 170 x10^3/uL (140-400) Neutrophils (%) (Auto) 79 % (31-73) Lymphocytes (%) (Auto) 10 % (24-48) Monocytes (%) (Auto) 8 % (0-9) Eosinophils (%) (Auto) 4 % (0-3) Basophils (%) (Auto) 0 % (0-3) Neutrophils # (Auto) 4.4 x10^3uL (1.8-7.7) Lymphocytes # (Auto) 0.5 x10^3/uL (1.0-4.8) Monocytes # (Auto) 0.4 x10^3/uL (0.0-1.1) Eosinophils # (Auto) 0.2 x10^3/uL (0.0-0.7) Basophils # (Auto) 0.0 x10^3/uL (0.0-0.2) Sodium Level 148 mmol/L (136-145) Potassium Level 4.4 mmol/L (3.5-5.1) Chloride Level 109 mmol/L (98-107) Carbon Dioxide Level 34 mmol/L (21-32) Anion Gap 5 (6-14) Blood Urea Nitrogen 32 mg/dL (8-26) Creatinine 2.3 mg/dL (0.7-1.3) Estimated GFR (Cockcroft-Gault) 35.6 BUN/Creatinine Ratio 14 (6-20) Glucose Level 82 mg/dL (70-99) Calcium Level 8.4 mg/dL (8.5-10.1) Total Bilirubin 0.5 mg/dL (0.2-1.0) Aspartate Amino Transf (AST/SGOT) 18 U/L (15-37) Alanine Aminotransferase (ALT/SGPT) 21 U/L (16-63) Alkaline Phosphatase 45 U/L (46-116) Total Protein 6.8 g/dL (6.4-8.2) Albumin 2.4 g/dL (3.4-5.0) Albumin/Globulin Ratio 0.5 (1.0-1.7) Microbiology 08/23/17 Blood Culture - Preliminary, Resulted NO GROWTH AFTER 3 DAYS Medications Current Medications Albuterol/ Ipratropium (Duoneb) 3 ml 1X ONCE NEB Last administered on t 11:00; Start 08/20/17 at 10:45; Stop 08/20/17 at 10:46; Status DC Furosemide (Lasix) 40 mg 1X ONCE PO Last administered on 08/20/17 14:57; Start 08/20/17 at 14:30; Stop 08/20/17 at 14:33; Status DC Ondansetron HCl (Zofran) 4 mg PRN Q8HRS PRN IV NAUSEA/VOMITING; Start at 14:45; Stop 08/21/17 at 14:44; Status DC Morphine Sulfate 2 mg PRN Q2HR PRN IV PAIN; Start 08/20/17 at 14:45; Stop at 14:44; Status DC Enoxaparin Sodium (Lovenox 40mg Syringe) 40 mg Q24H SQ Last administered on 20:57; Start 08/20/17 at 19:15 Amlodipine Besylate (Norvasc) 10 mg DAILY PO Last administered on 08/25/17 09 :01; Start 08/21/17 at 09:00 Lisinopril (Prinivil) 20 mg DAILY PO Last administered on 08/25/17 09:00; Start 08/21/17 at 09:00 Simvastatin (Zocor) 40 mg QHS PO Last administered on 08/25/17 20:55; Start 08/20/17 at 21:00 Carvedilol (Coreg) 25 mg BIDWMEALS PO Last administered on 08/25/17 16:57; Start 08/21/17 at 20:00 Diltiazem HCl (Cardizem 24hr ) 120 mg DAILY PO Last administered on 09:02; Start 08/21/17 at 09:00 Non-Formulary Medication 1 each BID PO ; Start 08/20/17 at 21:00; Status UNV Potassium Chloride (Klor-Con) 20 meq BIDWMEALS PO Last administered on 16:57; Start 08/20/17 at 20:00 Glyburide (Diabeta) 5 mg BIDWMEALS PO Last administered on 08/21/17 09:49; Start 08/21/17 at 08:00; Stop 08/21/17 at 12:59; Status DC Metformin HCl (Glucophage) 500 mg BIDWMEALS PO Last administered on 08/21/17 09:48; Start 08/21/17 at 08:00; Stop 08/21/17 at 12:59; Status DC Influenza Virus Vaccine Quadrival (Fluarix Quad [id number] Syringe) 0.5 ml ONCE ONCE VAX IM Last administered on 08/21/17 09:57; Start 08/21/17 at 09:00; Stop 08/21/17 at 09:01; Status DC Pneumococcal Polyvalent Vaccine (Pneumovax 23) 0.5 ml ONCE ONCE VAX IM Last administered on 08/21/17 09:58; Start 08/21/17 at 09:00; Stop 08/21/17 at 09 :01; Status DC Guaifenesin (Mucinex) 1,200 mg BID PO Last administered on 08/25/17 20:55; Start 08/21/17 at 09:30 Albuterol/ Ipratropium (Duoneb) 3 ml RTQID NEB Last administered on 08/26/17 08:53; Start 08/21/17 at 16:00 Amiodarone HCl 150 mg/Dextrose 103 ml @ 618 mls/hr 1X ONCE IV Last administered on 08/21/17 16:12; Start 08/21/17 at 15:45; Stop 08/21/17 at 15 :54; Status DC Amiodarone HCl 900 mg/Dextrose 518 ml @ 0 mls/hr CONT PRN IV SEE I/O RECORD Last administered on 08/21/17 16:14; Start 08/21/17 at 15:45; Stop 08/21/17 at 16:15; Status DC Furosemide (Lasix) 60 mg 1X ONCE IVP Last administered on 08/21/17 16:15; Start 08/21/17 at 16:00; Stop 08/21/17 at 16:01; Status DC Dextrose 1,000 ml @ 60 mls/hr [id number] IV Last administered on 08/21/17 16:30 ; Start 08/21/17 at 16:30; Stop 08/22/17 at 09:09; Status DC Dextrose (Dextrose 50%-Water Syringe) 25 gm STK-MED ONCE IV ; Start 08/22/17 at 07:15; Stop 08/22/17 at 07:16; Status DC Dextrose (Dextrose 50%-Water Syringe) 25 gm 1X ONCE IV Last administered on 07:22; Start 08/22/17 at 07:30; Stop 08/22/17 at 07:31; Status DC Dextrose (Dextrose 50%-Water Syringe) 12.5 gm PRN Q15MIN PRN IV SEE COMMENTS; Start 08/22/17 at 07:45 Acetaminophen (Tylenol) 650 mg PRN Q6HRS PRN PO FEVER Last administered on 23:01; Start 12/23/17 at 22:15 Albuterol Sulfate (Ventolin Neb Soln) 2.5 mg PRN Q4HRS PRN NEB SHORTNESS OF BREATH; Start 08/24/17 at 11:00 Furosemide (Lasix) 40 mg DAILY PO ; Start 08/25/17 at 17:00 Active Scripts Active Reported Simvastatin 40 Mg Tablet 40 Mg PO DAILY Lisinopril 20 Mg Tablet 20 Mg PO DAILY Norvasc (Amlodipine Besylate) 10 Mg Tablet 10 Mg PO DAILY Metformin Hcl 1,000 Mg Tablet 1,000 Mg PO BID Lasix (Furosemide) 20 Mg Tablet 20 Mg PO DAILY Glyburide-Metformin 5-500 Mg (Glyburide/Metformin Hcl) 1 Each Tablet 1 Each PO BID Diltiazem Sr 12HR (Diltiazem Hcl) 90 Mg Cap.er.12h 60 Mg PO BID Carvedilol 25 Mg Tablet 25 Mg PO BID Potassium 99 Mg Tablet 20 Meq PO BID Vitals/I & O Vital Sign - Last 24 Hours 08/25/17 08/25/17 08/25/17 08/25/17 11:37 11:52 15:52 15:55 Temp 98.8 98.6 98.8 98.6 Pulse 69 64 Resp 24 24 B/P (MAP) 144/75 (98) 132/60 (84) Pulse Ox 93 92 91 93 O2 Delivery Nasal Cannula Nasal Cannula Room Air Nasal Cannula O2 Flow Rate 5.0 5.0 5.0 08/25/17 08/25/17 08/25/17 08/25/17 16:57 19:45 20:00 20:00 Temp 98.9 98.9 Pulse 64 64 Resp 18 B/P (MAP) 132/60 147/76 (99) Pulse Ox 93 O2 Delivery Room Air Nasal Cannula O2 Flow Rate 5.0 5.0 08/25/17 08/25/17 08/25/17 08/26/17 21:16 23:03 23:26 01:09 Temp 98.5 98.5 Pulse 66 Resp 24 B/P (MAP) 107/74 (85) Pulse Ox 90 89 92 O2 Delivery BiPAP/CPAP BiPAP/CPAP BiPAP/CPAP BiPAP/CPAP 08/26/17 08/26/17 08/26/17 08/26/17 02:48 03:07 07:00 08:53 Temp 97.8 98.5 97.8 98.5 Pulse 67 62 Resp 26 20 B/P (MAP) 157/75 (102) 160/81 (107) Pulse Ox 91 97 95 O2 Delivery BiPAP/CPAP Nasal Cannula BiPAP/CPAP Nasal Cannula O2 Flow Rate 5.0 5.0 Intake and Output 08/25/17 08/25/17 08/26/17 15:00 23:00 07:00 Intake Total 220 ml 1100 ml 500 ml Output Total 300 ml 775 ml 1375 ml Balance -80 ml 325 ml -875 ml JOHANN WALTON MD Aug 26, 2017 09:39
--- NOTE | 2017-08-26 09:43 | PDOC ---
PULMONARY PROGRESS NOTES Subjective much better Vitals Vital Signs Date Time Temp Pulse Resp B/P (MAP) Pulse Ox O2 Delivery O2 Flow Rate FiO2 08/26/17 08:53 95 Nasal Cannula 5.0 08/26/17 07:00 98.5 62 20 160/81 (107) 98.5 General: Alert, No acute distress Lungs: Other (decrease bs) Cardiovascular: S1, S2 Abdomen: Soft, Non-tender, Other (distended) Extremities: No Edema Skin: Warm Labs Laboratory Tests Test 08/25/17 04:55 08/26/17 03:55 White Blood Count 6.5 x10^3/uL (4.0-11.0) 5.6 x10^3/uL (4.0-11.0) Red Blood Count 4.10 x10^6/uL (4.30-5.70) 4.16 x10^6/uL (4.30-5.70) Hemoglobin 10.2 g/dL (13.0-17.5) 10.5 g/dL (13.0-17.5) Hematocrit 33.6 % (39.0-53.0) 33.9 % (39.0-53.0) Mean Corpuscular Volume 82 fL (79-100) 81 fL (79-100) Mean Corpuscular Hemoglobin 25 pg (25-35) 25 pg (25-35) Mean Corpuscular Hemoglobin Concent 30 g/dL (31-37) 31 g/dL (31-37) Red Cell Distribution Width 18.4 % (11.5-14.5) 18.4 % (11.5-14.5) Platelet Count 193 x10^3/uL (140-400) 170 x10^3/uL (140-400) Neutrophils (%) (Auto) 81 % (31-73) 79 % (31-73) Lymphocytes (%) (Auto) 7 % (24-48) 10 % (24-48) Monocytes (%) (Auto) 8 % (0-9) 8 % (0-9) Eosinophils (%) (Auto) 4 % (0-3) 4 % (0-3) Basophils (%) (Auto) 0 % (0-3) 0 % (0-3) Neutrophils # (Auto) 5.3 x10^3uL (1.8-7.7) 4.4 x10^3uL (1.8-7.7) Lymphocytes # (Auto) 0.4 x10^3/uL (1.0-4.8) 0.5 x10^3/uL (1.0-4.8) Monocytes # (Auto) 0.5 x10^3/uL (0.0-1.1) 0.4 x10^3/uL (0.0-1.1) Eosinophils # (Auto) 0.2 x10^3/uL (0.0-0.7) 0.2 x10^3/uL (0.0-0.7) Basophils # (Auto) 0.0 x10^3/uL (0.0-0.2) 0.0 x10^3/uL (0.0-0.2) Sodium Level 148 mmol/L (136-145) 148 mmol/L (136-145) Potassium Level 5.0 mmol/L (3.5-5.1) 4.4 mmol/L (3.5-5.1) Chloride Level 109 mmol/L (98-107) 109 mmol/L (98-107) Carbon Dioxide Level 36 mmol/L (21-32) 34 mmol/L (21-32) Anion Gap 3 (6-14) 5 (6-14) Blood Urea Nitrogen 33 mg/dL (8-26) 32 mg/dL (8-26) Creatinine 2.4 mg/dL (0.7-1.3) 2.3 mg/dL (0.7-1.3) Estimated GFR (Cockcroft-Gault) 33.9 35.6 BUN/Creatinine Ratio 14 (6-20) 14 (6-20) Glucose Level 94 mg/dL (70-99) 82 mg/dL (70-99) Calcium Level 8.1 mg/dL (8.5-10.1) 8.4 mg/dL (8.5-10.1) Total Bilirubin 0.4 mg/dL (0.2-1.0) 0.5 mg/dL (0.2-1.0) Aspartate Amino Transf (AST/SGOT) 20 U/L (15-37) 18 U/L (15-37) Alanine Aminotransferase (ALT/SGPT) 22 U/L (16-63) 21 U/L (16-63) Alkaline Phosphatase 48 U/L (46-116) 45 U/L (46-116) Total Protein 6.5 g/dL (6.4-8.2) 6.8 g/dL (6.4-8.2) Albumin 2.3 g/dL (3.4-5.0) 2.4 g/dL (3.4-5.0) Albumin/Globulin Ratio 0.5 (1.0-1.7) 0.5 (1.0-1.7) Laboratory Tests Test 08/26/17 03:55 White Blood Count 5.6 x10^3/uL (4.0-11.0) Red Blood Count 4.16 x10^6/uL (4.30-5.70) Hemoglobin 10.5 g/dL (13.0-17.5) Hematocrit 33.9 % (39.0-53.0) Mean Corpuscular Volume 81 fL (79-100) Mean Corpuscular Hemoglobin 25 pg (25-35) Mean Corpuscular Hemoglobin Concent 31 g/dL (31-37) Red Cell Distribution Width 18.4 % (11.5-14.5) Platelet Count 170 x10^3/uL (140-400) Neutrophils (%) (Auto) 79 % (31-73) Lymphocytes (%) (Auto) 10 % (24-48) Monocytes (%) (Auto) 8 % (0-9) Eosinophils (%) (Auto) 4 % (0-3) Basophils (%) (Auto) 0 % (0-3) Neutrophils # (Auto) 4.4 x10^3uL (1.8-7.7) Lymphocytes # (Auto) 0.5 x10^3/uL (1.0-4.8) Monocytes # (Auto) 0.4 x10^3/uL (0.0-1.1) Eosinophils # (Auto) 0.2 x10^3/uL (0.0-0.7) Basophils # (Auto) 0.0 x10^3/uL (0.0-0.2) Sodium Level 148 mmol/L (136-145) Potassium Level 4.4 mmol/L (3.5-5.1) Chloride Level 109 mmol/L (98-107) Carbon Dioxide Level 34 mmol/L (21-32) Anion Gap 5 (6-14) Blood Urea Nitrogen 32 mg/dL (8-26) Creatinine 2.3 mg/dL (0.7-1.3) Estimated GFR (Cockcroft-Gault) 35.6 BUN/Creatinine Ratio 14 (6-20) Glucose Level 82 mg/dL (70-99) Calcium Level 8.4 mg/dL (8.5-10.1) Total Bilirubin 0.5 mg/dL (0.2-1.0) Aspartate Amino Transf (AST/SGOT) 18 U/L (15-37) Alanine Aminotransferase (ALT/SGPT) 21 U/L (16-63) Alkaline Phosphatase 45 U/L (46-116) Total Protein 6.8 g/dL (6.4-8.2) Albumin 2.4 g/dL (3.4-5.0) Albumin/Globulin Ratio 0.5 (1.0-1.7) Medications Active Scripts Medications Dose Route/Sig Max Daily Dose Days Date Category Simvastatin 40 Mg Tablet 40 Mg PO DAILY 09/24/13 Reported Lisinopril 20 Mg Tablet 20 Mg PO DAILY 09/24/13 Reported Norvasc (Amlodipine Besylate) 10 Mg Tablet 10 Mg PO DAILY 09/24/13 Reported Metformin Hcl 1,000 Mg Tablet 1,000 Mg PO BID 09/24/13 Reported Lasix (Furosemide) 20 Mg Tablet 20 Mg PO DAILY 09/24/13 Reported Glyburide-Metformin 5-500 Mg (Glyburide/Metformin Hcl) 1 Each Tablet 1 Each PO BID 09/24/13 Reported Diltiazem Sr 12HR (Diltiazem Hcl) 90 Mg Cap.er.12h 60 Mg PO BID 09/24/13 Reported Carvedilol 25 Mg Tablet 25 Mg PO BID 09/24/13 Reported Potassium 99 Mg Tablet 20 Meq PO BID 09/24/13 Reported Impression . 1. Acute on chronic hypercapnic and hypoxic respiratory failure due to congestive heart failure and narcotics 2. No evidence of ischemic stroke. 3. Underlying obesity hypoventilation syndrome.suspected CHAD 4. No evidence of pulmonary embolism by V/Q scan. 5. Normal left ventricular function with an ejection fraction of 55% to 60% based on recent echo. 6. Diastolic HF Plan . 1. nasal canula. 2. ABG much improved 3. Diuresis per cardiology 4. Follow neurology recommendation. 5. Follow cardiology recommendation. 6. sleep study as OP 7. DuoNeb. 8. Lovenox for DVT prophylaxis. 9. Discussed with RN / dc plans per PCP ZACHERY PIÑA MD Aug 26, 2017 09:43
[2017-08-26] MEDS: CARVEDILOL 12.5 MG TABLET. PO SCH ×2 (09:55→17:25)
[2017-08-26] MEDS: amLODIPine BESYLATE 10 MG TABLET PO SCH (09:56)
[2017-08-26] MEDS: FUROSEMIDE 40 MG TABLET. PO SCH (09:56)
[2017-08-26] MEDS: LISINOPRIL 20 MG TABLET PO SCH (09:56)
[2017-08-26] MEDS: POTASSIUM CHLORIDE 20 MEQ TABLET.ER. PO SCH ×2 (09:57→17:25)
[2017-08-26 11:00] VITALS: BP 166/80
--- NOTE | 2017-08-26 11:20 | PDOC ---
PROGRESS NOTES Chief Complaint Chief Complaint 1. Acute hypercarbic respiratory failure with metabolic encephalopathy 2. acute on chronic diastolic CHF, with acute exac 2 obesity, BMI 37, possible hypoventilation syndrome, has pickwickian habitus 3. diabetes 2, hypoglycemic here, 4. acute respiratory failure 5. chronic kidney disease 3, w. hypernatremia, History of Present Illness History of Present Illness Pt seen and examined at bedside. No acute events overnight. Pt was resting comfortably with nasal canula at 4L O2. Pt is medically stable and can be discharged. He agreed with the plan. Will discharge Pt with home oxygen to home. Vitals Vitals Vital Signs Date Time Temp Pulse Resp B/P (MAP) Pulse Ox O2 Delivery O2 Flow Rate FiO2 08/26/17 11:00 98.8 66 20 166/80 (108) 94 Nasal Cannula 5.0 98.8 Physical Exam General: Alert, Oriented X3, Cooperative Heart: Regular rate, No murmurs Lungs: Other (decrease bs) Abdomen: Soft Extremities: No clubbing, No cyanosis Skin: No rashes, No significant lesion Labs LABS Laboratory Tests Test 08/26/17 03:55 White Blood Count 5.6 x10^3/uL (4.0-11.0) Red Blood Count 4.16 x10^6/uL (4.30-5.70) Hemoglobin 10.5 g/dL (13.0-17.5) Hematocrit 33.9 % (39.0-53.0) Mean Corpuscular Volume 81 fL (79-100) Mean Corpuscular Hemoglobin 25 pg (25-35) Mean Corpuscular Hemoglobin Concent 31 g/dL (31-37) Red Cell Distribution Width 18.4 % (11.5-14.5) Platelet Count 170 x10^3/uL (140-400) Neutrophils (%) (Auto) 79 % (31-73) Lymphocytes (%) (Auto) 10 % (24-48) Monocytes (%) (Auto) 8 % (0-9) Eosinophils (%) (Auto) 4 % (0-3) Basophils (%) (Auto) 0 % (0-3) Neutrophils # (Auto) 4.4 x10^3uL (1.8-7.7) Lymphocytes # (Auto) 0.5 x10^3/uL (1.0-4.8) Monocytes # (Auto) 0.4 x10^3/uL (0.0-1.1) Eosinophils # (Auto) 0.2 x10^3/uL (0.0-0.7) Basophils # (Auto) 0.0 x10^3/uL (0.0-0.2) Sodium Level 148 mmol/L (136-145) Potassium Level 4.4 mmol/L (3.5-5.1) Chloride Level 109 mmol/L (98-107) Carbon Dioxide Level 34 mmol/L (21-32) Anion Gap 5 (6-14) Blood Urea Nitrogen 32 mg/dL (8-26) Creatinine 2.3 mg/dL (0.7-1.3) Estimated GFR (Cockcroft-Gault) 35.6 BUN/Creatinine Ratio 14 (6-20) Glucose Level 82 mg/dL (70-99) Calcium Level 8.4 mg/dL (8.5-10.1) Total Bilirubin 0.5 mg/dL (0.2-1.0) Aspartate Amino Transf (AST/SGOT) 18 U/L (15-37) Alanine Aminotransferase (ALT/SGPT) 21 U/L (16-63) Alkaline Phosphatase 45 U/L (46-116) Total Protein 6.8 g/dL (6.4-8.2) Albumin 2.4 g/dL (3.4-5.0) Albumin/Globulin Ratio 0.5 (1.0-1.7) Review of Systems Review of Systems SOA Dyspnea Assessment and Plan Assessmemt and Plan Problems Medical Problems: (1) CHF exacerbation Status: Acute (2) CKD (chronic kidney disease) Status: Acute (3) Hypoxia Status: Acute CHIEF COMPLAINT 1. Acute hypercarbic respiratory failure with metabolic encephalopathy 2. acute on chronic diastolic CHF, with acute exac 2 obesity, BMI 37, possible hypoventilation syndrome, has pickwickian habitus 3. diabetes 2, hypoglycemic here, 4. acute respiratory failure 5. chronic kidney disease 3, w. hypernatremia, PLAN: Discharge to home with home O2 Continue Breathing treatments prn Continued Bipap qhs Reorder morning labs Continue with subspecialty input, appreciate recommendations Continue Home Meds Problems: Comment Review of Relevant I have reviewed the following items ninoska (where applicable) has been applied. Labs Laboratory Tests Test 08/25/17 04:55 08/26/17 03:55 White Blood Count 6.5 x10^3/uL (4.0-11.0) 5.6 x10^3/uL (4.0-11.0) Red Blood Count 4.10 x10^6/uL (4.30-5.70) 4.16 x10^6/uL (4.30-5.70) Hemoglobin 10.2 g/dL (13.0-17.5) 10.5 g/dL (13.0-17.5) Hematocrit 33.6 % (39.0-53.0) 33.9 % (39.0-53.0) Mean Corpuscular Volume 82 fL (79-100) 81 fL (79-100) Mean Corpuscular Hemoglobin 25 pg (25-35) 25 pg (25-35) Mean Corpuscular Hemoglobin Concent 30 g/dL (31-37) 31 g/dL (31-37) Red Cell Distribution Width 18.4 % (11.5-14.5) 18.4 % (11.5-14.5) Platelet Count 193 x10^3/uL (140-400) 170 x10^3/uL (140-400) Neutrophils (%) (Auto) 81 % (31-73) 79 % (31-73) Lymphocytes (%) (Auto) 7 % (24-48) 10 % (24-48) Monocytes (%) (Auto) 8 % (0-9) 8 % (0-9) Eosinophils (%) (Auto) 4 % (0-3) 4 % (0-3) Basophils (%) (Auto) 0 % (0-3) 0 % (0-3) Neutrophils # (Auto) 5.3 x10^3uL (1.8-7.7) 4.4 x10^3uL (1.8-7.7) Lymphocytes # (Auto) 0.4 x10^3/uL (1.0-4.8) 0.5 x10^3/uL (1.0-4.8) Monocytes # (Auto) 0.5 x10^3/uL (0.0-1.1) 0.4 x10^3/uL (0.0-1.1) Eosinophils # (Auto) 0.2 x10^3/uL (0.0-0.7) 0.2 x10^3/uL (0.0-0.7) Basophils # (Auto) 0.0 x10^3/uL (0.0-0.2) 0.0 x10^3/uL (0.0-0.2) Sodium Level 148 mmol/L (136-145) 148 mmol/L (136-145) Potassium Level 5.0 mmol/L (3.5-5.1) 4.4 mmol/L (3.5-5.1) Chloride Level 109 mmol/L (98-107) 109 mmol/L (98-107) Carbon Dioxide Level 36 mmol/L (21-32) 34 mmol/L (21-32) Anion Gap 3 (6-14) 5 (6-14) Blood Urea Nitrogen 33 mg/dL (8-26) 32 mg/dL (8-26) Creatinine 2.4 mg/dL (0.7-1.3) 2.3 mg/dL (0.7-1.3) Estimated GFR (Cockcroft-Gault) 33.9 35.6 BUN/Creatinine Ratio 14 (6-20) 14 (6-20) Glucose Level 94 mg/dL (70-99) 82 mg/dL (70-99) Calcium Level 8.1 mg/dL (8.5-10.1) 8.4 mg/dL (8.5-10.1) Total Bilirubin 0.4 mg/dL (0.2-1.0) 0.5 mg/dL (0.2-1.0) Aspartate Amino Transf (AST/SGOT) 20 U/L (15-37) 18 U/L (15-37) Alanine Aminotransferase (ALT/SGPT) 22 U/L (16-63) 21 U/L (16-63) Alkaline Phosphatase 48 U/L (46-116) 45 U/L (46-116) Total Protein 6.5 g/dL (6.4-8.2) 6.8 g/dL (6.4-8.2) Albumin 2.3 g/dL (3.4-5.0) 2.4 g/dL (3.4-5.0) Albumin/Globulin Ratio 0.5 (1.0-1.7) 0.5 (1.0-1.7) Laboratory Tests Test 08/26/17 03:55 White Blood Count 5.6 x10^3/uL (4.0-11.0) Red Blood Count 4.16 x10^6/uL (4.30-5.70) Hemoglobin 10.5 g/dL (13.0-17.5) Hematocrit 33.9 % (39.0-53.0) Mean Corpuscular Volume 81 fL (79-100) Mean Corpuscular Hemoglobin 25 pg (25-35) Mean Corpuscular Hemoglobin Concent 31 g/dL (31-37) Red Cell Distribution Width 18.4 % (11.5-14.5) Platelet Count 170 x10^3/uL (140-400) Neutrophils (%) (Auto) 79 % (31-73) Lymphocytes (%) (Auto) 10 % (24-48) Monocytes (%) (Auto) 8 % (0-9) Eosinophils (%) (Auto) 4 % (0-3) Basophils (%) (Auto) 0 % (0-3) Neutrophils # (Auto) 4.4 x10^3uL (1.8-7.7) Lymphocytes # (Auto) 0.5 x10^3/uL (1.0-4.8) Monocytes # (Auto) 0.4 x10^3/uL (0.0-1.1) Eosinophils # (Auto) 0.2 x10^3/uL (0.0-0.7) Basophils # (Auto) 0.0 x10^3/uL (0.0-0.2) Sodium Level 148 mmol/L (136-145) Potassium Level 4.4 mmol/L (3.5-5.1) Chloride Level 109 mmol/L (98-107) Carbon Dioxide Level 34 mmol/L (21-32) Anion Gap 5 (6-14) Blood Urea Nitrogen 32 mg/dL (8-26) Creatinine 2.3 mg/dL (0.7-1.3) Estimated GFR (Cockcroft-Gault) 35.6 BUN/Creatinine Ratio 14 (6-20) Glucose Level 82 mg/dL (70-99) Calcium Level 8.4 mg/dL (8.5-10.1) Total Bilirubin 0.5 mg/dL (0.2-1.0) Aspartate Amino Transf (AST/SGOT) 18 U/L (15-37) Alanine Aminotransferase (ALT/SGPT) 21 U/L (16-63) Alkaline Phosphatase 45 U/L (46-116) Total Protein 6.8 g/dL (6.4-8.2) Albumin 2.4 g/dL (3.4-5.0) Albumin/Globulin Ratio 0.5 (1.0-1.7) Microbiology 08/23/17 Blood Culture - Preliminary, Resulted NO GROWTH AFTER 3 DAYS Medications Current Medications Albuterol/ Ipratropium (Duoneb) 3 ml 1X ONCE NEB Last administered on 11:00; Start 08/20/17 at 10:45; Stop 08/20/17 at 10:46; Status DC Furosemide (Lasix) 40 mg 1X ONCE PO Last administered on 08/20/17 14:57; Start 08/20/17 at 14:30; Stop 08/20/17 at 14:33; Status DC Ondansetron HCl (Zofran) 4 mg PRN Q8HRS PRN IV NAUSEA/VOMITING; Start at 14:45; Stop 08/21/17 at 14:44; Status DC Morphine Sulfate 2 mg PRN Q2HR PRN IV PAIN; Start 08/20/17 at 14:45; Stop at 14:44; Status DC Enoxaparin Sodium (Lovenox 40mg Syringe) 40 mg Q24H SQ Last administered on 20:57; Start 08/20/17 at 19:15 Amlodipine Besylate (Norvasc) 10 mg DAILY PO Last administered on 08/26/17 09 :56; Start 08/21/17 at 09:00 Lisinopril (Prinivil) 20 mg DAILY PO Last administered on 08/26/17 09:56; Start 08/21/17 at 09:00 Simvastatin (Zocor) 40 mg QHS PO Last administered on 08/25/17 20:55; Start 08/20/17 at 21:00 Carvedilol (Coreg) 25 mg BIDWMEALS PO Last administered on 12/27/17at 09:55; Start 08/21/17 at 20:00 Diltiazem HCl (Cardizem 24hr Cd) 120 mg DAILY PO Last administered on 09:57; Start 08/21/17 at 09:00 Non-Formulary Medication 1 each BID PO ; Start 08/20/17 at 21:00; Status UNV Potassium Chloride (Klor-Con) 20 meq BIDWMEALS PO Last administered on 09:57; Start 08/20/17 at 20:00 Glyburide (Diabeta) 5 mg BIDWMEALS PO Last administered on 08/21/17 09:49; Start 08/21/17 at 08:00; Stop 08/21/17 at 12:59; Status DC Metformin HCl (Glucophage) 500 mg BIDWMEALS PO Last administered on 08/21/17 09:48; Start 08/21/17 at 08:00; Stop 08/21/17 at 12:59; Status DC Influenza Virus Vaccine Quadrival (Fluarix Quad [id number] Syringe) 0.5 ml ONCE ONCE VAX IM Last administered on 08/21/17 09:57; Start 08/21/17 at 09:00; Stop 08/21/17 at 09:01; Status DC Pneumococcal Polyvalent Vaccine (Pneumovax 23) 0.5 ml ONCE ONCE VAX IM Last administered on 08/21/17 09:58; Start 08/21/17 at 09:00; Stop 08/21/17 at 09 :01; Status DC Guaifenesin (Mucinex) 1,200 mg BID PO Last administered on 08/26/17 09:57; Start 08/21/17 at 09:30 Albuterol/ Ipratropium (Duoneb) 3 ml RTQID NEB Last administered on 08/26/17 08:53; Start 08/21/17 at 16:00 Amiodarone HCl 150 mg/Dextrose 103 ml @ 618 mls/hr 1X ONCE IV Last administered on 08/21/17 16:12; Start 08/21/17 at 15:45; Stop 08/21/17 at 15 :54; Status DC Amiodarone HCl 900 mg/Dextrose 518 ml @ 0 mls/hr CONT PRN IV SEE I/O RECORD Last administered on 08/21/17 16:14; Start 08/21/17 at 15:45; Stop 08/21/17 at 16:15; Status DC Furosemide (Lasix) 60 mg 1X ONCE IVP Last administered on 08/21/17 16:15; Start 08/21/17 at 16:00; Stop 08/21/17 at 16:01; Status DC Dextrose 1,000 ml @ 60 mls/hr [id number] IV Last administered on 08/21/17 16:30 ; Start 08/21/17 at 16:30; Stop 08/22/17 at 09:09; Status DC Dextrose (Dextrose 50%-Water Syringe) 25 gm STK-MED ONCE IV ; Start 08/22/17 at 07:15; Stop 08/22/17 at 07:16; Status DC Dextrose (Dextrose 50%-Water Syringe) 25 gm 1X ONCE IV Last administered on 07:22; Start 08/22/17 at 07:30; Stop 08/22/17 at 07:31; Status DC Dextrose (Dextrose 50%-Water Syringe) 12.5 gm PRN Q15MIN PRN IV SEE COMMENTS; Start 08/22/17 at 07:45 Acetaminophen (Tylenol) 650 mg PRN Q6HRS PRN PO FEVER Last administered on 23:01; Start 08/22/17 at 22:15 Albuterol Sulfate (Ventolin Neb Soln) 2.5 mg PRN Q4HRS PRN NEB SHORTNESS OF BREATH; Start 08/24/17 at 11:00 Furosemide (Lasix) 40 mg DAILY PO Last administered on 08/26/17 09:56; Start 08/25/17 at 17:00 Active Scripts Active Reported Simvastatin 40 Mg Tablet 40 Mg PO DAILY Lisinopril 20 Mg Tablet 20 Mg PO DAILY Norvasc (Amlodipine Besylate) 10 Mg Tablet 10 Mg PO DAILY Metformin Hcl 1,000 Mg Tablet 1,000 Mg PO BID Lasix (Furosemide) 20 Mg Tablet 20 Mg PO DAILY Glyburide-Metformin 5-500 Mg (Glyburide/Metformin Hcl) 1 Each Tablet 1 Each PO BID Diltiazem Sr 12HR (Diltiazem Hcl) 90 Mg Cap.er.12h 60 Mg PO BID Carvedilol 25 Mg Tablet 25 Mg PO BID Potassium 99 Mg Tablet 20 Meq PO BID Vitals/I & O Vital Sign - Last 24 Hours 08/25/17 08/25/17 08/25/17 08/25/17 11:37 11:52 15:52 15:55 Temp 98.8 98.6 98.8 98.6 Pulse 69 64 Resp 24 24 B/P (MAP) 144/75 (98) 132/60 (84) Pulse Ox 93 92 91 93 O2 Delivery Nasal Cannula Nasal Cannula Room Air Nasal Cannula O2 Flow Rate 5.0 5.0 5.0 08/25/17 08/25/17 08/25/17 08/25/17 16:57 19:45 20:00 20:00 Temp 98.9 98.9 Pulse 64 64 Resp 18 B/P (MAP) 132/60 147/76 (99) Pulse Ox 93 O2 Delivery Room Air Nasal Cannula O2 Flow Rate 5.0 5.0 08/25/17 08/25/17 08/25/17 08/26/17 21:16 23:03 23:26 01:09 Temp 98.5 98.5 Pulse 66 Resp 24 B/P (MAP) 107/74 (85) Pulse Ox 90 89 92 O2 Delivery BiPAP/CPAP BiPAP/CPAP BiPAP/CPAP BiPAP/CPAP 08/26/17 08/26/17 08/26/17 08/26/17 02:48 03:07 07:00 08:53 Temp 97.8 98.5 97.8 98.5 Pulse 67 62 Resp 26 20 B/P (MAP) 157/75 (102) 160/81 (107) Pulse Ox 91 97 95 O2 Delivery BiPAP/CPAP Nasal Cannula BiPAP/CPAP Nasal Cannula O2 Flow Rate 5.0 5.0 08/26/17 08/26/17 08/26/17 08/26/17 09:55 09:56 09:56 09:57 Pulse 62 62 62 62 B/P (MAP) 160/81 160/81 160/81 160/81 08/26/17 11:00 Temp 98.8 98.8 Pulse 66 Resp 20 B/P (MAP) 166/80 (108) Pulse Ox 94 O2 Delivery Nasal Cannula O2 Flow Rate 5.0 Intake and Output 08/25/17 08/25/17 08/26/17 15:00 23:00 07:00 Intake Total 220 ml 1100 ml 500 ml Output Total 300 ml 775 ml 1375 ml Balance -80 ml 325 ml -875 ml CARLYN HYMAN III DO Aug 26, 2017 11:20
--- NOTE | 2017-08-26 12:27 | PDOC ---
SUBJECTIVE ROS CKD III and ^Na DOing better, starting to eat some OBJECTIVE Vital Signs Vital Signs Date Time Temp Pulse Resp B/P (MAP) Pulse Ox O2 Delivery O2 Flow Rate FiO2 08/26/17 12:06 95 Nasal Cannula 5.0 08/26/17 11:00 98.8 66 20 166/80 (108) 98.8 I & 0 Intake and Output 08/26/17 07:00 Intake Total 1820 ml Output Total 2450 ml Balance -630 ml Intake Oral 1820 ml Output Urine Total 2450 ml PHYSICAL EXAM Physical Exam General Appearance: Awake: Alert Oriented x 2 Neck: No JVD or JVP Chest: CTA Javi Heart: S1 S2 Abdomen - Soft NTND Extremities - No Edema DIAGNOSIS/ASSESSMENT Assessment & Plan 1. 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 . . Hypernatremia watch with liberalization of PO fluids. ? Need to ct Diuresis - defer to Pulm will follow off and on Problems: COMMENT/RELEVANT DATA Meds Current Medications Medications (Trade) Dose Ordered Sig/Noam Start Time Stop Time Status Last Admin Dose Admin Acetaminophen (Tylenol) 650 mg PRN Q6HRS PRN 08/22/17 22:15 08/22/17 23:01 650 MG Albuterol Sulfate (Ventolin Neb Soln) 2.5 mg PRN Q4HRS PRN 08/24/17 11:00 Albuterol/ Ipratropium (Duoneb) 3 ml RTQID 08/21/17 16:00 08/26/17 12:05 3 ML Amiodarone HCl 150 mg/Dextrose 103 ml @ 618 mls/hr 1X ONCE 08/21/17 15:45 08/21/17 15:54 DC 08/21/17 16:12 618 MLS/HR Amiodarone HCl 900 mg/Dextrose 518 ml @ 0 mls/hr CONT PRN 08/21/17 15:45 08/21/17 16:15 DC 08/21/17 16:14 16.7 MLS/HR Amlodipine Besylate (Norvasc) 10 mg DAILY 08/21/17 09:00 08/26/17 09:56 10 MG Carvedilol (Coreg) 25 mg BIDWMEALS 08/21/17 20:00 08/26/17 09:55 25 MG Dextrose (Dextrose 50%-Water Syringe) 12.5 gm PRN Q15MIN PRN 08/22/17 07:45 Diltiazem HCl (Cardizem 24hr Cd) 120 mg DAILY 08/21/17 09:00 08/26/17 09:57 120 MG Enoxaparin Sodium (Lovenox 40mg Syringe) 40 mg Q24H 08/20/17 19:15 08/25/17 20:57 40 MG Furosemide (Lasix) 40 mg DAILY 08/25/17 17:00 08/26/17 09:56 40 MG Glyburide (Diabeta) 5 mg BIDWMEALS 08/21/17 08:00 08/21/17 12:59 DC 08/21/17 09:49 5 MG Guaifenesin (Mucinex) 1,200 mg BID 08/21/17 09:30 08/26/17 09:57 1,200 MG Influenza Virus Vaccine Quadrival (Fluarix Quad [id number] Syringe) 0.5 ml ONCE ONCE 08/21/17 09:00 08/21/17 09:01 DC 08/21/17 09:57 0.5 ML Lisinopril (Prinivil) 20 mg DAILY 08/21/17 09:00 08/26/17 09:56 20 MG Metformin HCl (Glucophage) 500 mg BIDWMEALS 08/21/17 08:00 08/21/17 12:59 DC 08/21/17 09:48 500 MG Morphine Sulfate 2 mg PRN Q2HR PRN 08/20/17 14:45 08/21/17 14:44 DC Non-Formulary Medication 1 each BID 08/20/17 21:00 UNV Ondansetron HCl (Zofran) 4 mg PRN Q8HRS PRN 08/20/17 14:45 08/21/17 14:44 DC Pneumococcal Polyvalent Vaccine (Pneumovax 23) 0.5 ml ONCE ONCE 08/21/17 09:00 08/21/17 09:01 DC 08/21/17 09:58 0.5 ML Potassium Chloride (Klor-Con) 20 meq BIDWMEALS 08/20/17 20:00 08/26/17 09:57 20 MEQ Simvastatin (Zocor) 40 mg QHS 08/20/17 21:00 08/25/17 20:55 40 MG Lab Laboratory Tests Test 08/26/17 03:55 White Blood Count 5.6 x10^3/uL (4.0-11.0) Red Blood Count 4.16 x10^6/uL (4.30-5.70) Hemoglobin 10.5 g/dL (13.0-17.5) Hematocrit 33.9 % (39.0-53.0) Mean Corpuscular Volume 81 fL (79-100) Mean Corpuscular Hemoglobin 25 pg (25-35) Mean Corpuscular Hemoglobin Concent 31 g/dL (31-37) Red Cell Distribution Width 18.4 % (11.5-14.5) Platelet Count 170 x10^3/uL (140-400) Neutrophils (%) (Auto) 79 % (31-73) Lymphocytes (%) (Auto) 10 % (24-48) Monocytes (%) (Auto) 8 % (0-9) Eosinophils (%) (Auto) 4 % (0-3) Basophils (%) (Auto) 0 % (0-3) Neutrophils # (Auto) 4.4 x10^3uL (1.8-7.7) Lymphocytes # (Auto) 0.5 x10^3/uL (1.0-4.8) Monocytes # (Auto) 0.4 x10^3/uL (0.0-1.1) Eosinophils # (Auto) 0.2 x10^3/uL (0.0-0.7) Basophils # (Auto) 0.0 x10^3/uL (0.0-0.2) Sodium Level 148 mmol/L (136-145) Potassium Level 4.4 mmol/L (3.5-5.1) Chloride Level 109 mmol/L (98-107) Carbon Dioxide Level 34 mmol/L (21-32) Anion Gap 5 (6-14) Blood Urea Nitrogen 32 mg/dL (8-26) Creatinine 2.3 mg/dL (0.7-1.3) Estimated GFR (Cockcroft-Gault) 35.6 BUN/Creatinine Ratio 14 (6-20) Glucose Level 82 mg/dL (70-99) Calcium Level 8.4 mg/dL (8.5-10.1) Total Bilirubin 0.5 mg/dL (0.2-1.0) Aspartate Amino Transf (AST/SGOT) 18 U/L (15-37) Alanine Aminotransferase (ALT/SGPT) 21 U/L (16-63) Alkaline Phosphatase 45 U/L (46-116) Total Protein 6.8 g/dL (6.4-8.2) Albumin 2.4 g/dL (3.4-5.0) Albumin/Globulin Ratio 0.5 (1.0-1.7) ASHANTI FREGOSO MD Aug 26, 2017 12:27
[2017-08-26 15:00] VITALS: BP 146/64
[2017-08-26 17:25] VITALS: BP 146/64
--- NOTE | 2017-08-27 15:49 | DS ---
DATE OF DISCHARGE: 08/26/2017 ADMISSION DIAGNOSIS: Congestive heart failure. DISCHARGE DIAGNOSES: Resolving acute on chronic systolic and diastolic heart failure. HOSPITAL COURSE: The patient is a pleasant elderly male presented with CHF. He was admitted. We diuresed him. We consulted Cardiology. We had to consult Pulmonary as well because he is requiring some oxygen therapy. We have had him on BiPAP at night. Basically, he is doing better. We plan to discharge on home oxygen and home Lasix. DISPOSITION: Home. ACTIVITY: As tolerated. DIET: 1500 mL fluid restriction. MEDICATIONS: Reviewed, please refer the MRAD. TOTAL TIME: 34 minutes. CARLYN HYMAN DO DR: CHASIDY/marika JOB#: [id number] / [id number]
== END 2017-08-26 17:55 | disposition home or self-care (01) | DRG 291 ==
LOC: ER 10:22 → 2 SOUTH 16:21 → 1 WEST ICU 08-21 15:13 → 6 SOUTH 08-23 16:02
PROVIDERS: ADMIT Family Medicine; ATTEND Family Medicine
PROC: 5A09357 Assistance with Respiratory Ventilation, Less than 24 Consecutive Hours, Continuous Positive Airway Pressure (ICD-10-PCS; 2017-08-21)
PROC: 5A09357 Assistance with Respiratory Ventilation, Less than 24 Consecutive Hours, Continuous Positive Airway Pressure (ICD-10-PCS; 2017-08-23)
PROC: 5A09357 Assistance with Respiratory Ventilation, Less than 24 Consecutive Hours, Continuous Positive Airway Pressure (ICD-10-PCS; 2017-08-23)
PROC: 5A09357 Assistance with Respiratory Ventilation, Less than 24 Consecutive Hours, Continuous Positive Airway Pressure (ICD-10-PCS; 2017-08-23)
PROC: 5A09357 Assistance with Respiratory Ventilation, Less than 24 Consecutive Hours, Continuous Positive Airway Pressure (ICD-10-PCS; 2017-08-23)
PROC: 5A09357 Assistance with Respiratory Ventilation, Less than 24 Consecutive Hours, Continuous Positive Airway Pressure (ICD-10-PCS; 2017-08-25)
PROC: 5A09357 Assistance with Respiratory Ventilation, Less than 24 Consecutive Hours, Continuous Positive Airway Pressure (ICD-10-PCS; principal; 2017-08-26)
DX: I13.0 Hypertensive heart and chronic kidney disease with heart failure and stage 1 through stage 4 chronic kidney disease, or unspecified chronic kidney disease (principal); J96.21 Acute and chronic respiratory failure with hypoxia; G93.41 Metabolic encephalopathy; I47.2 Ventricular tachycardia; E87.2 Acidosis; N18.3 Chronic kidney disease, stage 3 (moderate); I50.43 Acute on chronic combined systolic (congestive) and diastolic (congestive) heart failure; J96.22 Acute and chronic respiratory failure with hypercapnia; E66.2 Morbid (severe) obesity with alveolar hypoventilation; G81.91 Hemiplegia, unspecified affecting right dominant side; E87.0 Hyperosmolality and hypernatremia; E11.649 Type 2 diabetes mellitus with hypoglycemia without coma; I34.0 Nonrheumatic mitral (valve) insufficiency; J44.9 Chronic obstructive pulmonary disease, unspecified; E78.5 Hyperlipidemia, unspecified; E11.22 Type 2 diabetes mellitus with diabetic chronic kidney disease; I42.9 Cardiomyopathy, unspecified; Z82.49 Family history of ischemic heart disease and other diseases of the circulatory system; Z83.49 Family history of other endocrine, nutritional and metabolic diseases; Z87.01 Personal history of pneumonia (recurrent); Z68.37 Body mass index [BMI] 37.0-37.9, adult
CPT/HCPCS: 36415; 36600; 70450; 71010; 78582; 80048; 80053; 80076; 80307; 81001; 82805; 82962; 83690; 83735; 83880; 84484; 85007; 85025; 87040; 90686; 90732; 93005; 93306; 94620; 94640; 94660; 96374; A4314; A9540; A9558; J0282; J1650; J1940; J7042; J7620; 97116; 97535; 99285-25; G0479

== ENCOUNTER → 2018-03-16 | Outpatient (CLI) | payer OTHER ==
[2018-03-16] MEDS: ALBUTEROL SULFATE 2.5 MG/3 ML NEBU. NEB (11:13)
== END | disposition home or self-care (01) ==
LOC: PF 10:29
DX: J44.9 Chronic obstructive pulmonary disease, unspecified (principal)
CPT/HCPCS: 94060; 94640; 94729; J7613